=== PATIENT | male | born 1980 | race Caucasian/White ===

== ENCOUNTER 2017-10-21 11:23 | Inpatient (IN) | payer BC, OTHER ==
--- NOTE | 2017-10-21 12:26 | HP ---
"Admission ROS [facility] Allergies/Adverse Reactions: Allergies Allergy/AdvReac Type Severity Reaction Status Date / Time Fish Containing Products Allergy Severe Hives Verified 10/21/17 13:25 NKDA Allergy Uncoded 10/21/17 13:25 History of Present Illness: Vazquez Garibay, 1980 Search Date: 10/21/2017 12:23:54 PM The Drug Utilization Report below displays all of the controlled substance prescriptions, if any, that your patient has filled in the last twelve months. The information displayed on this report is compiled from pharmacy submissions to the Department, and accurately reflects the information as submitted by the pharmacies. This report was requested by: Jose Espinoza | Reference #: [id number] Others' Prescriptions Patient Name: Vazquez Garibay Date: 1980 Address: [address] [place] [address] Sex: Male Rx Written Rx Dispensed Drug Quantity Days Supply Prescriber Name 09/08/2017 09/08/2017 [facility] Name: Vazquez Garibay Date: 1980 Address: [address] [place] [address] Sex: Male Rx Written Rx Dispensed Drug Quantity Days Supply Prescriber Name 07/01/2017 07/02/2017 clonazepam 0.5 mg tablet 60 30 Lamberto Torres MD 07/01/2017 07/02/2017 chlordiazepoxide 25 mg capsule 90 30 Lamberto Torres MD - Ebola screening Have you traveled outside of the country in the last 21 days: No Have you had contact with anyone from an Ebola affected area: No Patient History - Patient Medical History Hx Anemia: No Hx Asthma: No Hx Chronic Obstructive Pulmonary Disease (COPD): No Hx Cancer: No Hx Cardiac Disorders: No Hx Congestive Heart Failure: No Hx Hypertension: No Hx Hypercholesterolemia: No Hx Pacemaker: No HX Cerebrovascular Accident: No Hx Seizures: No Hx Dementia: No Hx Diabetes: No Hx Gastrointestinal Disorders: No Hx Liver Disease: No Hx Genitourinary Disorders: No Hx Sexually Transmitted Disorders: No Hx Renal Disease (ESRD): No Hx Thyroid Disease: No Hx Human Immunodeficiency Virus (HIV): No Hx Hepatitis C: No Hx Depression: No Hx Suicide Attempt: No Hx Bipolar Disorder: No Hx Schizophrenia: No - Patient Surgical History Past Surgical History: Yes Hx Neurologic Surgery: No Hx Cataract Extraction: No Hx Cardiac Surgery: No Hx Lung Surgery: No Hx Breast Surgery: No Hx Breast Biopsy: No Hx Abdominal Surgery: No Hx Appendectomy: No Hx Cholecystectomy: No Hx Genitourinary Surgery: No Hx Section: No Hx Orthopedic Surgery: Yes (rt shoulder impingement and torn labrium- arthroscopic surgery ) Other Surgical History: corrective sx, left eye, right inguinal hernia repair Anesthesia Reaction: No - PPD History Date: 10/04/12 Results: 0 mm - Smoking Cessation Smoking history: Unknown if ever smoked Have you smoked in the past 12 months: Yes Aproximately how many cigarettes per day: 40 Cigars Per Day: 0 Hx Chewing Tobacco Use: No - Substances Abused Alcohol Route: Oral Frequency: Daily Amount used: 2 - 22 oz. beers. Age of first use: 17 Date of Last Use: 10/21/17 Alprazolam (Xanax) Route: Oral Frequency: 3-6 times per week Amount used: 2 MG Age of first use: 17 (Non-Prescribed.) Date of Last Use: 10/20/17 Vicodin Route: Oral Frequency: Daily Amount used: 5 tabs. (10 mg.) Age of first use: 27 Date of Last Use: 10/21/17 [facility] Breath Alcohol Content Breath Alcohol Content: 0"
[2017-10-21 12:32] VITALS: BMI 30.1
--- NOTE | 2017-10-21 15:35 | HP ---
Admission ROS [facility] Chief Complaint: "I need help for my drug abuse." Patient is here for Rehab for Alcohol, Xanax (non-prescribed) and Vicodin (non- prescribed). Allergies/Adverse Reactions: Allergies Allergy/AdvReac Type Severity Reaction Status Date / Time Fish Containing Products Allergy Severe Hives Verified 10/21/17 13:25 NKDA Allergy Uncoded 10/21/17 13:25 History of Present Illness: Patient is a 37 YO male here for Rehab for Alcohol, Xanax (non-prescribed) and Vicodin (non-prescribed). Patient has had several previous Detox admissions at [facility] (last: 2012). Patient had a detox admission at [facility] [place] [place] in [place]. Vazquez Garibay, 1980 Search Date: 10/21/2017 12:23:54 PM The Drug Utilization Report below displays all of the controlled substance prescriptions, if any, that your patient has filled in the last twelve months. The information displayed on this report is compiled from pharmacy submissions to the Department, and accurately reflects the information as submitted by the pharmacies. This report was requested by: Jose Espinoza | Reference #: [id number] Others' Prescriptions Patient Name: Vazquez Garibay Date: 1980 Address: [address] [place] [address] Sex: Male Rx Written Rx Dispensed Drug Quantity Days Supply Prescriber Name 09/08/2017 09/08/2017 methadone hcl 10 mg tablet 12 4 Pean, Benjamin Naik Patient Name: Vazquez Garibay Date: 1980 Address: [address] [place] [address] Sex: Male Rx Written Rx Dispensed Drug Quantity Days Supply Prescriber Name 07/01/2017 07/02/2017 clonazepam 0.5 mg tablet 60 30 Lamberto Torres MD 07/01/2017 07/02/2017 chlordiazepoxide 25 mg capsule 90 30 Lamberto Torres MD - Ebola screening Have you traveled outside of the country in the last 21 days: No Have you had contact with anyone from an Ebola affected area: No Have you been sick,other than usual withdrawal symptoms: No Do you have a fever: No - Review of Systems Constitutional: Chills, Diaphoresis, Fever, Malaise, Night Sweats, Changes in sleep EENT: reports: Nose Congestion, Sinus Pressure Respiratory: reports: No Symptoms reported Cardiac: reports: Palpitations GI: reports: Indigestion (Heartburn.) Musculoskeletal: reports: Back Pain, Joint Pain, Muscle Pain, Neck Pain, Joint Stiffness Integumentary: reports: No Symptoms Reported Neuro: reports: Tremors Endocrine: reports: No Symptoms Reported Hematology: reports: No Symptoms Reported Psychiatric: reports: Judgement Intact, Mood/Affect Appropiate, Orientated x3, Anxious Other Systems: Reviewed and Negative Patient History - Patient Medical History Hx Anemia: No Hx Asthma: No Hx Chronic Obstructive Pulmonary Disease (COPD): No Hx Cancer: No Hx Cardiac Disorders: No Hx Congestive Heart Failure: No Hx Hypertension: No Hx Hypercholesterolemia: No Hx Pacemaker: No HX Cerebrovascular Accident: No Hx Seizures: No Hx Dementia: No Hx Diabetes: No Hx Gastrointestinal Disorders: No Hx Liver Disease: No Hx Genitourinary Disorders: No Hx Sexually Transmitted Disorders: No Hx Renal Disease (ESRD): No Hx Thyroid Disease: No Hx Human Immunodeficiency Virus (HIV): No (Last Tested: 06/2017: NEGATIVE.) Hx Hepatitis C: No (Never Tested.) Hx Depression: No Hx Suicide Attempt: Yes (2016 (OD-Heroin); PATIENT DENIES CURRENT SI / HI.) Hx Bipolar Disorder: Yes (On meds.) Hx Schizophrenia: No Other Medical History: DENIES. - Patient Surgical History Past Surgical History: Yes Hx Neurologic Surgery: No Hx Cataract Extraction: No Hx Cardiac Surgery: No Hx Lung Surgery: No Hx Breast Surgery: No Hx Breast Biopsy: No Hx Abdominal Surgery: No Hx Appendectomy: No Hx Cholecystectomy: No Hx Genitourinary Surgery: No Hx Section: No Hx Orthopedic Surgery: Yes (rt shoulder impingement and torn labrium- arthroscopic surgery, 1996.) Other Surgical History: corrective sx, left eye (@1983), right inguinal hernia repair, 1996. Anesthesia Reaction: No - PPD History Previous Implant?: Yes Documented Results: Negative w/o proof Implanted On Prior [facility] Admission?: Yes Date: 10/04/12 Results: 0 mm PPD to be Administered?: Yes - Reproductive History Patient is a Female of Child Bearing Age (11 -55 yrs old): No (PATIENT IS MALE.) - Smoking Cessation Smoking history: Unknown if ever smoked Have you smoked in the past 12 months: Yes Aproximately how many cigarettes per day: 20 Cigars Per Day: 0 Hx Chewing Tobacco Use: No Initiated information on smoking cessation: Yes 'Breaking Loose' booklet given: 10/21/17 (GIVEN TO PATIENT.) - Substance & Tx. History Hx Alcohol Use: Yes Hx Substance Use: Yes Substance Use Type: Alcohol, Opiates, Tranquilizers Hx Substance Use Treatment: Yes (Previous Detox admissions (Last: 2015).) - Substances Abused Alcohol Route: Oral Frequency: Daily Amount used: 2 - 22 oz. beers. Age of first use: 17 Date of Last Use: 10/21/17 Alprazolam (Xanax) Route: Oral Frequency: 3-6 times per week Amount used: 2 MG Age of first use: 17 (Non-Prescribed.) Date of Last Use: 10/20/17 Vicodin Route: Oral Frequency: Daily Amount used: 5 tabs. (10 mg.) Age of first use: 27 Date of Last Use: 10/21/17 Family Disease History - Family Disease History Family History: Denies Admission Physical Exam S - Vital Signs Vital Signs: Vital Signs - 24 hr 10/21/17 12:29 Temperature 96 F L Pulse Rate 85 Respiratory 20 Rate Blood Pressure 145/81 - Physical General Appearance: Yes: No Apparent Distress, Nourished, Appropriately Dressed , Tremorous, Anxious HEENTM: Yes: Hearing grossly Normal, Normocephalic, Normal Voice, BREANNE, Pharynx Normal Respiratory: Yes: Chest Non-Tender, Lungs Clear, No Respiratory Distress, No Accessory Muscle Use Neck: Yes: No masses,lesions,Nodules, Supple, Trachea in good position Breast: Yes: Breast Exam Deferred Cardiology: Yes: Regular Rhythm, Regular Rate, S1, S2 Abdominal: Yes: Normal Bowel Sounds, Non Tender, Flat, Soft Genitourinary: Yes: Within Normal Limits Back: Yes: Decreased Range of Motion Musculoskeletal: Yes: Gait Steady, Back pain, Joint Stiffness, Muscle Pain Extremities: Yes: Normal Capillary Refill, Normal Range of Motion, Non-Tender, Tremors Neurological: Yes: Fully Oriented, Alert, Normal Mood/Affect, Normal Response Integumentary: Yes: Normal Color, Dry, Warm Lymphatic: Yes: Within Normal Limits - Diagnostic (1) Uncomplicated alcohol dependence Current Visit: Yes Status: Chronic (2) Uncomplicated opioid dependence Current Visit: Yes Status: Chronic (3) Sedative, hypnotic or anxiolytic dependence, uncomplicated Current Visit: Yes Status: Chronic (4) Nicotine dependence Current Visit: Yes Status: Chronic Qualifiers: Nicotine product type: cigarettes Substance use status: uncomplicated Qualified Code(s): F17.210 - Nicotine dependence, cigarettes, uncomplicated (5) Anxiety Current Visit: Yes Status: Chronic (6) Bipolar disorder Current Visit: Yes Status: Chronic Qualifiers: Active/Remission status: remission status unspecified Qualified Code(s): F31.9 - Bipolar disorder, unspecified (7) History of neck injury Current Visit: Yes Status: Acute (8) History of back injury Current Visit: Yes Status: Acute Cleared for Admission S - Detox or Rehab Claeared for Rehab Admission: Yes [facility] Breath Alcohol Content Breath Alcohol Content: 0.018 Urine Drug Screen - Results Drug Screen Negative: No Urine Drug Screen Results: TCA-Tricyclic Antidepress Inpatient Rehab Admission - Initial Determination Are CD services needed?: Yes Free of communicable disease: Yes Not in need of hospitalization: Yes - Rehab Admission Criteria Previous failed treatment: Yes Comorbidities: Yes Patient is meeting Inpatient Rehab admission criteria:: Yes
[2017-10-21] MEDS ORDERED: MAGNESIUM CITRATE 300 ML BOTTLE PO PRN (15:57)
[2017-10-21] MEDS ORDERED: guaiFENesin/D-METHORPHAN HB 10 ML UNIT-DOSE CUPS PO PRN (15:57)
[2017-10-21] MEDS ORDERED: MENTHOL/PHENOL 1 EACH UD MM PRN (15:57)
[2017-10-21] MEDS ORDERED: LOPERAMIDE HCL 2 MG CAPSULE PO PRN (15:57)
[2017-10-21] MEDS ORDERED: P-EPHED 60MG/TRIPROLIDI 2.5MG TABLET PO PRN (15:57)
[2017-10-21] MEDS ORDERED: MAGNESIUM HYDROX 2400MG/30ML ORAL SUSPENSION 30 ML CUP PO PRN (15:57)
[2017-10-21] MEDS ORDERED: MAG HYDROX/AL HYDROX/SIMETH 30 ML UNIT-DOSE CUP PO PRN (15:57)
[2017-10-21] MEDS ORDERED: TUBERCULIN PPD 5 TU/0.1ML VIAL ID ONE (17:30)
[2017-10-21] MEDS: RANITIDINE HCL 150 MG TABLET (FP) PO SCH (17:35)
[2017-10-21] MEDS: NICOTINE 21 MG/24 HOURS TOPICAL PATCH TD SCH (17:37)
[2017-10-21] MEDS: CYCLOBENZAPRINE HCL 10 MG TABLET (FP) PO PRN (17:52)
[2017-10-21] MEDS: NICOTINE POLACRILEX 2 MG GUM BC PRN ×2 (19:05→21:16)
[2017-10-21] MEDS: THIAMINE HCL 100 MG TABLET (FP) PO SCH (21:13)
[2017-10-21] MEDS: QUEtiapine FUMARATE 100 MG TABLET (FP) PO SCH (21:14)
[2017-10-21] MEDS: GABAPENTIN 300 MG CAPSULE (FP) PO SCH (21:14)
[2017-10-21] MEDS: DIVALPROEX SODIUM 500 MG TABLET E.C. PO SCH (21:14)
[2017-10-22 01:32] LABS: URINE APPEARANCE CLEAR; URINE BILIRUBIN NEGATIVE (<2.0 mg/dL); URINE COLOR LTYELLOW; URINE GLUCOSE (UA) NEGATIVE (NEGATIVE); URINE KETONE NEGATIVE (NEGATIVE); URINE LEUK ESTERASE NEGATIVE (NEGATIVE); URINE NITRITE NEGATIVE (NEGATIVE); URINE PROTEIN NEGATIVE (NEGATIVE); URINE UROBILINOGEN NEGATIVE mg/dL (0.2-1.0)
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
[2017-10-22] MEDS: GABAPENTIN 300 MG CAPSULE (FP) PO SCH ×3 (06:32→22:10)
[2017-10-22] MEDS ORDERED: DIVALPROEX SODIUM 500 MG TABLET E.C. PO SCH (10:00)
[2017-10-22] MEDS: PRENATAL VITAMINS W/ FOLIC ACID TABLET (FP) PO SCH (10:03)
[2017-10-22] MEDS: NICOTINE 21 MG/24 HOURS TOPICAL PATCH TD SCH (10:03)
[2017-10-22] MEDS: RANITIDINE HCL 150 MG TABLET (FP) PO SCH (10:03)
[2017-10-22] MEDS: CYCLOBENZAPRINE HCL 10 MG TABLET (FP) PO PRN ×2 (10:06→20:22)
[2017-10-22] MEDS: NICOTINE POLACRILEX 2 MG GUM BC PRN ×2 (10:07→18:01)
--- NOTE | 2017-10-22 10:07 | EKG ---
Test Reason : Blood Pressure : / mmHG Vent. Rate : 079 BPM Atrial Rate : 079 BPM P-R Int : 164 ms QRS Dur : 098 ms QT Int : 372 ms P-R-T Axes : 065 059 045 degrees QTc Int : 426 ms NORMAL SINUS RHYTHM NONSPECIFIC INTRAVENTRICULAR CONDUCTION DEFECT WHEN COMPARED WITH ECG OF 19-JUN-2007 16:43, NO SIGNIFICANT CHANGE WAS FOUND Confirmed by FRANCE POSADA MD ([id number]) on 10/22/2017 10:07:17 AM Referred By: Confirmed By:FRANCE POSADA MD
[2017-10-22] MEDS: IBUPROFEN 400 MG TABLET (FP) PO PRN ×2 (13:19→20:22)
--- NOTE | 2017-10-22 14:27 | PN ---
[facility] Progress Note Note: Patient c/o of yañez itchy feet bilateral and requested evaluation to be on Suboxone. Reports feeling anxious and nauseous. Reports opiate dependence, last utox negative for opiates. Last Vital Signs Temp Pulse Resp BP Pulse Ox 97.9 F 80 18 104/65 10/22/17 07:27 10/22/17 07:27 10/22/17 07:27 10/22/17 07:27 Laboratory Last Values WBC Cancelled 10/21/17 08:30 Corrected WBC (auto) Cancelled 10/21/17 08:30 RBC Cancelled 10/21/17 08:30 Hgb Cancelled 10/21/17 08:30 Hct Cancelled 10/21/17 08:30 MCV Cancelled 10/21/17 08:30 MCH Cancelled 10/21/17 08:30 MCHC Cancelled 10/21/17 08:30 RDW Cancelled 10/21/17 08:30 Plt Count Cancelled 10/21/17 08:30 MPV Cancelled 10/21/17 08:30 Manual Slide Review Cancelled 10/21/17 08:30 Platelet Comment Cancelled 10/21/17 08:30 Urine Color Ltyellow 10/22/17 00:09 Urine Appearance Clear 10/22/17 00:09 Urine pH 6.0 (5.0-8.0) 10/22/17 00:09 Ur Specific [place] 1.014 (1.001-1.035) 10/22/17 00:09 Urine Protein Negative (NEGATIVE) 10/22/17 00:09 Urine Glucose (UA) Negative (NEGATIVE) 10/22/17 00:09 Urine Ketones Negative (NEGATIVE) 10/22/17 00:09 Urine Blood Negative (NEGATIVE) 10/22/17 00:09 Urine Nitrite Negative (NEGATIVE) 10/22/17 00:09 Urine Bilirubin Negative (<2.0 mg/dL) 10/22/17 00:09 Urine Urobilinogen Negative mg/dL (0.2-1.0) 10/22/17 00:09 Ur Leukocyte Esterase Negative (NEGATIVE) 10/22/17 00:09 Assessment: Patient AO x 3 self directing, no apparent distress Ambulating in the unit + dry yellowing and scaling of skin on both feet present Plan: Labs pending Repeat Utox clotrimazole 1% cream BID Increase fluids continue to monitor
[2017-10-22 15:36] LABS: ALBUMIN 3.7 g/dl (3.4-5.0); ALK PHOS 50 U/L (45-117); ANION GAP 6 (8-16); BILIRUBIN,TOTAL 0.3 mg/dL (0.2-1.0); BLOOD UREA NITROGEN 15 mg/dL (7-18); CALCIUM 8.7 mg/dL (8.5-10.1); CHLORIDE 106 mmol/L (98-107); CO2 29 mmol/L (21-32); GLUCOSE,RANDOM 125 mg/dL (74-106); POTASSIUM 3.9 mmol/L (3.5-5.1); SGOT/AST 9 U/L (15-37); SGPT/ALT 33 U/L (12-78); SODIUM 141 mmol/L (136-145); TOT PROT 6.4 g/dl (6.4-8.2)
[2017-10-22 20:08] LABS: HEMOGLOBIN 14.5 GM/dL (11.7-16.9); MCH 31.8 pg (25.7-33.7); MCHC 33.6 g/dl (32.0-35.9); MEAN CELL VOLUME 94.5 fl (80-96); MEAN PLT VOLUME 8.4 fl (7.5-11.1); PLATELET COUNT 183 K/MM3 (134-434); RBC 4.55 M/mm3 (4.00-5.60); RDW 14.1 % (11.9-15.9); WHITE BLOOD COUNT 5.5 K/mm3 (4.0-10.0)
[2017-10-22] MEDS: DIVALPROEX SODIUM 500 MG TABLET E.C. PO SCH (22:09)
[2017-10-22] MEDS: QUEtiapine FUMARATE 100 MG TABLET (FP) PO SCH (22:10)
[2017-10-22] MEDS: THIAMINE HCL 100 MG TABLET (FP) PO SCH (22:11)
[2017-10-22] MEDS: CLOTRIMAZOLE 1% CREAM 15 GM TUBE TP SCH (22:11)
[2017-10-23] MEDS: GABAPENTIN 300 MG CAPSULE (FP) PO SCH ×3 (06:57→21:39)
[2017-10-23] MEDS: PRENATAL VITAMINS W/ FOLIC ACID TABLET (FP) PO SCH (10:12)
[2017-10-23] MEDS: RANITIDINE HCL 150 MG TABLET (FP) PO SCH (10:12)
[2017-10-23] MEDS: NICOTINE 21 MG/24 HOURS TOPICAL PATCH TD SCH (10:13)
[2017-10-23] MEDS: CLOTRIMAZOLE 1% CREAM 15 GM TUBE TP SCH ×2 (10:13→21:40)
[2017-10-23] MEDS: CYCLOBENZAPRINE HCL 10 MG TABLET (FP) PO PRN ×3 (10:14→21:40)
[2017-10-23] MEDS: NICOTINE POLACRILEX 2 MG GUM BC PRN ×4 (10:17→21:41)
[2017-10-23] MEDS: IBUPROFEN 400 MG TABLET (FP) PO PRN ×2 (12:41→19:09)
[2017-10-23] MEDS: QUEtiapine FUMARATE 100 MG TABLET (FP) PO SCH (21:39)
[2017-10-23] MEDS: DIVALPROEX SODIUM 500 MG TABLET E.C. PO SCH (21:39)
[2017-10-23] MEDS: THIAMINE HCL 100 MG TABLET (FP) PO SCH (21:39)
[2017-10-23] MEDS: SUVOREXANT 10 MG TABLET PO PRN (23:11)
[2017-10-24] MEDS: GABAPENTIN 300 MG CAPSULE (FP) PO SCH ×3 (06:46→21:40)
[2017-10-24 08:06] LABS: COCAINE QUALITATIVE URINE Negative ng/mL (Cutoff=300); MARIJUANA QL URINE CANNABINOID Negative ng/mL (Cutoff=50); METHADONE,QUALITATIVE URINE Negative ng/mL (Cutoff=300); OPIATES QL URINE Positive ng/mL (Cutoff=300); PHENCYCLIDINE,QUAL URINE Negative ng/mL (Cutoff=25); PROPOXYPHENE QL URINE Negative ng/mL (Cutoff=300); URINE AMPHETAMINES Negative ng/mL (Cutoff=1000)
[2017-10-24] MEDS: NICOTINE 21 MG/24 HOURS TOPICAL PATCH TD SCH (10:15)
[2017-10-24] MEDS: RANITIDINE HCL 150 MG TABLET (FP) PO SCH (10:16)
[2017-10-24] MEDS: PRENATAL VITAMINS W/ FOLIC ACID TABLET (FP) PO SCH (10:16)
[2017-10-24] MEDS: CYCLOBENZAPRINE HCL 10 MG TABLET (FP) PO PRN ×2 (10:16→21:41)
[2017-10-24] MEDS: CLOTRIMAZOLE 1% CREAM 15 GM TUBE TP SCH ×2 (10:17→21:42)
[2017-10-24] MEDS: NICOTINE POLACRILEX 2 MG GUM BC PRN ×2 (13:43→21:42)
[2017-10-24] MEDS: QUEtiapine FUMARATE 100 MG TABLET (FP) PO SCH (21:40)
[2017-10-24] MEDS: DIVALPROEX SODIUM 500 MG TABLET E.C. PO SCH (21:40)
[2017-10-24] MEDS: THIAMINE HCL 100 MG TABLET (FP) PO SCH (21:41)
[2017-10-24] MEDS: IBUPROFEN 400 MG TABLET (FP) PO PRN (21:41)
[2017-10-24] MEDS: SUVOREXANT 10 MG TABLET PO PRN (23:16)
[2017-10-25] MEDS: GABAPENTIN 300 MG CAPSULE (FP) PO SCH ×3 (06:20→21:36)
[2017-10-25] MEDS ORDERED: SUVOREXANT 10 MG TABLET PO PRN (07:17)
[2017-10-25] MEDS: CLOTRIMAZOLE 1% CREAM 15 GM TUBE TP SCH ×2 (09:16→21:37)
[2017-10-25] MEDS: NICOTINE 21 MG/24 HOURS TOPICAL PATCH TD SCH (10:29)
[2017-10-25] MEDS: CYCLOBENZAPRINE HCL 10 MG TABLET (FP) PO PRN ×3 (10:29→21:36)
[2017-10-25] MEDS: IBUPROFEN 400 MG TABLET (FP) PO PRN ×2 (10:29→23:48)
[2017-10-25] MEDS: RANITIDINE HCL 150 MG TABLET (FP) PO SCH (10:29)
[2017-10-25] MEDS: PRENATAL VITAMINS W/ FOLIC ACID TABLET (FP) PO SCH (10:30)
[2017-10-25] MEDS: NICOTINE POLACRILEX 2 MG GUM BC PRN ×4 (13:17→21:38)
--- NOTE | 2017-10-25 13:28 | PN ---
[facility] Progress Note Note: Patient presents with c/o sweating, anxiety,difficulty to sit still, irritability and diarrhea. Reports abusing BZO and Vicodin (non-prescribed). Initial Urine detox negative. Repeat 10/22/17 and results show +opiods. Laboratory Last Values WBC 5.5 K/mm3 (4.0-10.0) D 10/21/17 08:30 Corrected WBC (auto) Water Softener Servicer 10/21/17 08:30 RBC 4.55 M/mm3 (4.00-5.60) 10/21/17 08:30 Hgb 14.5 GM/dL (11.7-16.9) 10/21/17 08:30 Hct 43.0 % (35.4-49) 10/21/17 08:30 MCV 94.5 fl (80-96) 10/21/17 08:30 MCH 31.8 pg (25.7-33.7) 10/21/17 08:30 MCHC 33.6 g/dl (32.0-35.9) 10/21/17 08:30 RDW 14.1 % (11.9-15.9) 10/21/17 08:30 Plt Count 183 K/MM3 (134-434) 10/21/17 08:30 MPV 8.4 fl (7.5-11.1) 10/21/17 08:30 Manual Slide Review Water Softener Servicer 10/21/17 08:30 Platelet Comment Water Softener Servicer 10/21/17 08:30 Sodium 141 mmol/L (136-145) 10/21/17 08:30 Potassium 3.9 mmol/L (3.5-5.1) 10/21/17 08:30 Chloride 106 mmol/L (98-107) 10/21/17 08:30 Carbon Dioxide 29 mmol/L (21-32) 10/21/17 08:30 Anion Gap 6 (8-16) L 10/21/17 08:30 BUN 15 mg/dL (7-18) D 10/21/17 08:30 Creatinine 1.0 mg/dL (0.7-1.3) D 10/21/17 08:30 Creat Clearance w eGFR > 60 (>60) 10/21/17 08:30 Random Glucose 125 mg/dL (74-106) H D 10/21/17 08:30 Calcium 8.7 mg/dL (8.5-10.1) 10/21/17 08:30 Total Bilirubin 0.3 mg/dL (0.2-1.0) D 10/21/17 08:30 AST 9 U/L (15-37) L 10/21/17 08:30 ALT 33 U/L (12-78) D 10/21/17 08:30 Alkaline Phosphatase 50 U/L (45-117) 10/21/17 08:30 Total Protein 6.4 g/dl (6.4-8.2) D 10/21/17 08:30 Albumin 3.7 g/dl (3.4-5.0) D 10/21/17 08:30 Urine Color Ltyellow 10/22/17 00:09 Urine Appearance Clear 10/22/17 00:09 Urine pH 6.0 (5.0-8.0) 10/22/17 00:09 Ur Specific [place] 1.014 (1.001-1.035) 10/22/17 00:09 Urine Protein Negative (NEGATIVE) 10/22/17 00:09 Urine Glucose (UA) Negative (NEGATIVE) 10/22/17 00:09 Urine Ketones Negative (NEGATIVE) 10/22/17 00:09 Urine Blood Negative (NEGATIVE) 10/22/17 00:09 Urine Nitrite Negative (NEGATIVE) 10/22/17 00:09 Urine Bilirubin Negative (<2.0 mg/dL) 10/22/17 00:09 Urine Urobilinogen Negative mg/dL (0.2-1.0) 10/22/17 00:09 Ur Leukocyte Esterase Negative (NEGATIVE) 10/22/17 00:09 Ur Opiates Confirm Positive ng/ml (Fsvtjd=824) H 10/22/17 Unknown Ur Methadone, Qual Negative ng/mL (Zakrcl=434) 10/22/17 Unknown U Propoxyphene Interp Negative ng/mL (Vtkjpv=348) 10/22/17 Unknown Urine Barbiturates Negative ng/ml (Cfxfgz=984) 10/22/17 Unknown Valproic Acid 31.801 ug/ml (50-100) L 10/23/17 08:30 Urine PCP Confirm Negative NG/ML (Cutoff=25) 10/22/17 Unknown Urine Methamphetamines Negative ng/ml (Jepkzi=2787) 10/22/17 Unknown U Benzodiazepines Scrn Negative ng/ml (Xjsadi=256) 10/22/17 Unknown Urine Cocaine Confirm Negative ng/ml (Zopodi=189) 10/22/17 Unknown Urine Cannabinoids Negative ng/ml (Cutoff=50) 10/22/17 Unknown Drug Screen Comment (.) 10/22/17 Unknown RPR Titer Nonreactive (NONREACTIVE) 10/21/17 08:30 HIV 1&2 Antibody Screen Negative 10/22/17 08:30 HIV P24 Antigen Negative 10/22/17 08:30 Vital Signs Temperature 97.4 F L 10/25/17 07:19 Pulse Rate 89 10/25/17 07:19 Respiratory Rate 18 10/25/17 07:19 Blood Pressure 100/76 10/25/17 07:19 O2 Sat by Pulse Oximetry (%) Obj: Alert and oriented x 3. Anxious Car: S1S2. HR 88 Resp:no respiratory distress Ext: no edema, full ROM A/P: Withdrawal symptoms Urine detox show +opiods and since patient having withdrawal symptoms, will order suboxone 2mg SL today then daily starting tomorrow. Continue previously ordered medications and monitor clinically. Maintain oral hydration.
[2017-10-25] MEDS ORDERED: BUPRENORPHINE/NALOXONE 2 MG/0.5 MG FILM PACKET SL ONE (14:15)
[2017-10-25] MEDS: SUVOREXANT 10 MG TABLET PO PRN (21:36)
[2017-10-25] MEDS: QUEtiapine FUMARATE 100 MG TABLET (FP) PO SCH (21:36)
[2017-10-25] MEDS: DIVALPROEX SODIUM 500 MG TABLET E.C. PO SCH (21:36)
[2017-10-25] MEDS: THIAMINE HCL 100 MG TABLET (FP) PO SCH (21:38)
[2017-10-26] MEDS: GABAPENTIN 300 MG CAPSULE (FP) PO SCH ×3 (06:22→21:48)
[2017-10-26] MEDS: IBUPROFEN 400 MG TABLET (FP) PO PRN ×2 (07:08→14:31)
[2017-10-26] MEDS: CYCLOBENZAPRINE HCL 10 MG TABLET (FP) PO PRN ×2 (07:09→17:46)
[2017-10-26] MEDS: NICOTINE POLACRILEX 2 MG GUM BC PRN ×4 (07:09→21:49)
[2017-10-26] MEDS: PRENATAL VITAMINS W/ FOLIC ACID TABLET (FP) PO SCH (09:30)
[2017-10-26] MEDS: NICOTINE 21 MG/24 HOURS TOPICAL PATCH TD SCH (09:30)
[2017-10-26] MEDS: CLOTRIMAZOLE 1% CREAM 15 GM TUBE TP SCH ×2 (09:30→21:49)
[2017-10-26] MEDS: RANITIDINE HCL 150 MG TABLET (FP) PO SCH (09:30)
[2017-10-26] MEDS: BUPRENORPHINE/NALOXONE 2 MG/0.5 MG FILM PACKET SL SCH (09:30)
--- NOTE | 2017-10-26 14:35 | PN ---
[facility] Progress Note Note: Patient c/o of pain on the right lower molar Vital Signs Temperature 97.8 F 10/26/17 07:10 Pulse Rate 84 10/26/17 07:10 Respiratory Rate 18 10/26/17 07:10 Blood Pressure 106/64 10/26/17 07:10 O2 Sat by Pulse Oximetry (%) Laboratory Last Values WBC 5.5 K/mm3 (4.0-10.0) D 10/21/17 08:30 Corrected WBC (auto) Console Assembler 10/21/17 08:30 RBC 4.55 M/mm3 (4.00-5.60) 10/21/17 08:30 Hgb 14.5 GM/dL (11.7-16.9) 10/21/17 08:30 Hct 43.0 % (35.4-49) 10/21/17 08:30 MCV 94.5 fl (80-96) 10/21/17 08:30 MCH 31.8 pg (25.7-33.7) 10/21/17 08:30 MCHC 33.6 g/dl (32.0-35.9) 10/21/17 08:30 RDW 14.1 % (11.9-15.9) 10/21/17 08:30 Plt Count 183 K/MM3 (134-434) 10/21/17 08:30 MPV 8.4 fl (7.5-11.1) 10/21/17 08:30 Manual Slide Review Console Assembler 10/21/17 08:30 Platelet Comment Console Assembler 10/21/17 08:30 Sodium 141 mmol/L (136-145) 10/21/17 08:30 Potassium 3.9 mmol/L (3.5-5.1) 10/21/17 08:30 Chloride 106 mmol/L (98-107) 10/21/17 08:30 Carbon Dioxide 29 mmol/L (21-32) 10/21/17 08:30 Anion Gap 6 (8-16) L 10/21/17 08:30 BUN 15 mg/dL (7-18) D 10/21/17 08:30 Creatinine 1.0 mg/dL (0.7-1.3) D 10/21/17 08:30 Creat Clearance w eGFR > 60 (>60) 10/21/17 08:30 Random Glucose 125 mg/dL (74-106) H D 10/21/17 08:30 Calcium 8.7 mg/dL (8.5-10.1) 10/21/17 08:30 Total Bilirubin 0.3 mg/dL (0.2-1.0) D 10/21/17 08:30 AST 9 U/L (15-37) L 10/21/17 08:30 ALT 33 U/L (12-78) D 10/21/17 08:30 Alkaline Phosphatase 50 U/L (45-117) 10/21/17 08:30 Total Protein 6.4 g/dl (6.4-8.2) D 10/21/17 08:30 Albumin 3.7 g/dl (3.4-5.0) D 10/21/17 08:30 Urine Color Ltyellow 10/22/17 00:09 Urine Appearance Clear 10/22/17 00:09 Urine pH 6.0 (5.0-8.0) 10/22/17 00:09 Ur Specific [place] 1.014 (1.001-1.035) 10/22/17 00:09 Urine Protein Negative (NEGATIVE) 10/22/17 00:09 Urine Glucose (UA) Negative (NEGATIVE) 10/22/17 00:09 Urine Ketones Negative (NEGATIVE) 10/22/17 00:09 Urine Blood Negative (NEGATIVE) 10/22/17 00:09 Urine Nitrite Negative (NEGATIVE) 10/22/17 00:09 Urine Bilirubin Negative (<2.0 mg/dL) 10/22/17 00:09 Urine Urobilinogen Negative mg/dL (0.2-1.0) 10/22/17 00:09 Ur Leukocyte Esterase Negative (NEGATIVE) 10/22/17 00:09 Ur Opiates Confirm Positive ng/ml (Azleob=372) H 10/22/17 Unknown Ur Methadone, Qual Negative ng/mL (Ydutxd=712) 10/22/17 Unknown U Propoxyphene Interp Negative ng/mL (Inurxz=191) 10/22/17 Unknown Urine Barbiturates Negative ng/ml (Yyhstl=253) 10/22/17 Unknown Valproic Acid 31.801 ug/ml (50-100) L 10/23/17 08:30 Urine PCP Confirm Negative NG/ML (Cutoff=25) 10/22/17 Unknown Urine Methamphetamines Negative ng/ml (Mrhqjh=7072) 10/22/17 Unknown U Benzodiazepines Scrn Negative ng/ml (Ylbwwh=072) 10/22/17 Unknown Urine Cocaine Confirm Negative ng/ml (Kdorpc=837) 10/22/17 Unknown Urine Cannabinoids Negative ng/ml (Cutoff=50) 10/22/17 Unknown Drug Screen Comment (.) 10/22/17 Unknown RPR Titer Nonreactive (NONREACTIVE) 10/21/17 08:30 HIV 1&2 Antibody Screen Negative 10/22/17 08:30 HIV P24 Antigen Negative 10/22/17 08:30 A/P Patient AO x 3 in no apparent distress poor dentition with multiple cavities, no signs of infection, no tenderness NO adventitious breath sounds Anbesol PRN Ibuprofen 600 mg q8h PRN Increase fluids Patient to follow up with dentist upon discharge Continue to monitor
[2017-10-26] MEDS: QUEtiapine FUMARATE 100 MG TABLET (FP) PO SCH (21:48)
[2017-10-26] MEDS: DIVALPROEX SODIUM 500 MG TABLET E.C. PO SCH (21:48)
[2017-10-26] MEDS: THIAMINE HCL 100 MG TABLET (FP) PO SCH (21:48)
[2017-10-26] MEDS: BENZOCAINE 20 % GEL 9 GM TUBE MM PRN (21:49)
[2017-10-26] MEDS: IBUPROFEN 600 MG TABLET (FP) PO PRN (23:36)
[2017-10-27] MEDS: SUVOREXANT 10 MG TABLET PO PRN ×2 (00:37→21:48)
[2017-10-27] MEDS: BENZOCAINE 20 % GEL 9 GM TUBE MM PRN ×4 (00:37→21:47)
[2017-10-27] MEDS: ACETAMINOPHEN 325 MG TABLET (FP) PO PRN ×2 (01:45→15:01)
[2017-10-27] MEDS: CYCLOBENZAPRINE HCL 10 MG TABLET (FP) PO PRN ×4 (01:45→21:48)
[2017-10-27] MEDS: GABAPENTIN 300 MG CAPSULE (FP) PO SCH ×3 (06:35→21:48)
[2017-10-27] MEDS: RANITIDINE HCL 150 MG TABLET (FP) PO SCH (10:18)
[2017-10-27] MEDS: PRENATAL VITAMINS W/ FOLIC ACID TABLET (FP) PO SCH (10:18)
[2017-10-27] MEDS: IBUPROFEN 600 MG TABLET (FP) PO PRN (10:19)
[2017-10-27] MEDS: BUPRENORPHINE/NALOXONE 2 MG/0.5 MG FILM PACKET SL SCH (10:19)
[2017-10-27] MEDS: NICOTINE 21 MG/24 HOURS TOPICAL PATCH TD SCH (10:19)
[2017-10-27] MEDS: CLOTRIMAZOLE 1% CREAM 15 GM TUBE TP SCH ×2 (11:19→21:47)
[2017-10-27] MEDS: NICOTINE POLACRILEX 2 MG GUM BC PRN ×4 (11:19→21:50)
[2017-10-27] MEDS ORDERED: BUPRENORPHINE/NALOXONE 2 MG/0.5 MG FILM PACKET SL ONE (16:00)
--- NOTE | 2017-10-27 16:19 | PN ---
[facility] Progress Note Note: Pt complains of toothache, level 9/10. Abusol and Motrin does not help with pain. Pt also reports having sweating, irritability and diarrhea. Laboratory Tests 10/21/17 10/21/17 10/21/17 08:30 08:30 08:30 WBC 5.5 D Corrected WBC (auto) Dispatch Lead RBC 4.55 Hgb 14.5 Hct 43.0 MCV 94.5 MCH 31.8 MCHC 33.6 RDW 14.1 Plt Count 183 MPV 8.4 Manual Slide Review Dispatch Lead Platelet Comment Dispatch Lead Sodium 141 Potassium 3.9 Chloride 106 Carbon Dioxide 29 Anion Gap 6 L BUN 15 D Creatinine 1.0 D Creat Clearance w eGFR > 60 Random Glucose 125 H D Calcium 8.7 Total Bilirubin 0.3 D AST 9 L ALT 33 D Alkaline Phosphatase 50 Total Protein 6.4 D Albumin 3.7 D Urine Color Urine Appearance Urine pH Ur Specific [place] Urine Protein Urine Glucose (UA) Urine Ketones Urine Blood Urine Nitrite Urine Bilirubin Urine Urobilinogen Ur Leukocyte Esterase Ur Opiates Confirm Ur Methadone, Qual U Propoxyphene Interp Urine Barbiturates Valproic Acid Urine PCP Confirm Urine Methamphetamines U Benzodiazepines Scrn Urine Cocaine Confirm Urine Cannabinoids Drug Screen Comment RPR Titer Nonreactive HIV 1&2 Antibody Screen HIV P24 Antigen 10/22/17 10/22/17 10/22/17 00:09 08:30 Unknown WBC Corrected WBC (auto) RBC Hgb Hct MCV MCH MCHC RDW Plt Count MPV Manual Slide Review Platelet Comment Sodium Potassium Chloride Carbon Dioxide Anion Gap BUN Creatinine Creat Clearance w eGFR Random Glucose Calcium Total Bilirubin AST ALT Alkaline Phosphatase Total Protein Albumin Urine Color Ltyellow Urine Appearance Clear Urine pH 6.0 Ur Specific [place] 1.014 Urine Protein Negative Urine Glucose (UA) Negative Urine Ketones Negative Urine Blood Negative Urine Nitrite Negative Urine Bilirubin Negative Urine Urobilinogen Negative Ur Leukocyte Esterase Negative Ur Opiates Confirm Positive H Ur Methadone, Qual Negative U Propoxyphene Interp Negative Urine Barbiturates Negative Valproic Acid Urine PCP Confirm Negative Urine Methamphetamines Negative U Benzodiazepines Scrn Negative Urine Cocaine Confirm Negative Urine Cannabinoids Negative Drug Screen Comment RPR Titer HIV 1&2 Antibody Screen Negative HIV P24 Antigen Negative 10/23/17 08:30 WBC Corrected WBC (auto) RBC Hgb Hct MCV MCH MCHC RDW Plt Count MPV Manual Slide Review Platelet Comment Sodium Potassium Chloride Carbon Dioxide Anion Gap BUN Creatinine Creat Clearance w eGFR Random Glucose Calcium Total Bilirubin AST ALT Alkaline Phosphatase Total Protein Albumin Urine Color Urine Appearance Urine pH Ur Specific [place] Urine Protein Urine Glucose (UA) Urine Ketones Urine Blood Urine Nitrite Urine Bilirubin Urine Urobilinogen Ur Leukocyte Esterase Ur Opiates Confirm Ur Methadone, Qual U Propoxyphene Interp Urine Barbiturates Valproic Acid 31.801 L Urine PCP Confirm Urine Methamphetamines U Benzodiazepines Scrn Urine Cocaine Confirm Urine Cannabinoids Drug Screen Comment RPR Titer HIV 1&2 Antibody Screen HIV P24 Antigen Vital Signs Temperature 97.2 F L 10/27/17 07:10 Pulse Rate 79 10/27/17 07:10 Respiratory Rate 18 10/27/17 07:10 Blood Pressure 108/68 10/27/17 07:10 O2 Sat by Pulse Oximetry (%) Obj: alert and oriented x 3. Irritable. Oral cavity has poor dentition with inflamed right lower molar. Mild inflammation of surrounding gums. GI: soft, BS+, NT Ext: no edema A/P: withdrawal symptoms tooth infection Will start amoxicillin 500mg tid x 7 days increase motrin to 800mg tid increase suboxone to 4mg daily in am and give 2mg po stat continue to monitor clinically
[2017-10-27] MEDS: IBUPROFEN 400 MG TABLET (FP) PO PRN (20:52)
[2017-10-27] MEDS ORDERED: PT OWN MED DRAWER 7, Y5N ONE (21:47)
[2017-10-27] MEDS: QUEtiapine FUMARATE 100 MG TABLET (FP) PO SCH (21:48)
[2017-10-27] MEDS: AMOXICILLIN 500 MG CAPSULE (FP) PO SCH (21:48)
[2017-10-27] MEDS: THIAMINE HCL 100 MG TABLET (FP) PO SCH (21:49)
[2017-10-27] MEDS: DIVALPROEX SODIUM 500 MG TABLET E.C. PO SCH (21:50)
[2017-10-28] MEDS: GABAPENTIN 300 MG CAPSULE (FP) PO SCH ×3 (06:20→21:23)
[2017-10-28] MEDS: CYCLOBENZAPRINE HCL 10 MG TABLET (FP) PO PRN ×2 (06:20→16:20)
[2017-10-28] MEDS: AMOXICILLIN 500 MG CAPSULE (FP) PO SCH ×3 (06:21→21:23)
[2017-10-28] MEDS: NICOTINE 21 MG/24 HOURS TOPICAL PATCH TD SCH (10:21)
[2017-10-28] MEDS: RANITIDINE HCL 150 MG TABLET (FP) PO SCH (10:21)
[2017-10-28] MEDS: BUPRENORPHINE/NALOXONE 2 MG/0.5 MG FILM PACKET SL SCH (10:21)
[2017-10-28] MEDS: ACETAMINOPHEN 325 MG TABLET (FP) PO PRN (10:23)
[2017-10-28] MEDS: PRENATAL VITAMINS W/ FOLIC ACID TABLET (FP) PO SCH (10:24)
[2017-10-28] MEDS: CLOTRIMAZOLE 1% CREAM 15 GM TUBE TP SCH ×2 (10:24→21:25)
[2017-10-28] MEDS: NICOTINE POLACRILEX 2 MG GUM BC PRN ×3 (10:27→16:07)
[2017-10-28] MEDS: DIVALPROEX SODIUM 500 MG TABLET E.C. PO SCH (21:23)
[2017-10-28] MEDS: QUEtiapine FUMARATE 100 MG TABLET (FP) PO SCH (21:23)
[2017-10-28] MEDS: THIAMINE HCL 100 MG TABLET (FP) PO SCH (21:25)
[2017-10-28] MEDS: MELATONIN 5 MG TABLETS PO PRN (22:45)
[2017-10-28] MEDS: SUVOREXANT 10 MG TABLET PO PRN (22:46)
[2017-10-29] MEDS: GABAPENTIN 300 MG CAPSULE (FP) PO SCH ×3 (06:11→21:43)
[2017-10-29] MEDS: AMOXICILLIN 500 MG CAPSULE (FP) PO SCH ×3 (06:11→21:43)
[2017-10-29] MEDS: PRENATAL VITAMINS W/ FOLIC ACID TABLET (FP) PO SCH (10:17)
[2017-10-29] MEDS: BUPRENORPHINE/NALOXONE 2 MG/0.5 MG FILM PACKET SL SCH (10:17)
[2017-10-29] MEDS: RANITIDINE HCL 150 MG TABLET (FP) PO SCH (10:17)
[2017-10-29] MEDS: NICOTINE 21 MG/24 HOURS TOPICAL PATCH TD SCH (10:17)
[2017-10-29] MEDS: CLOTRIMAZOLE 1% CREAM 15 GM TUBE TP SCH ×2 (10:19→21:44)
[2017-10-29] MEDS: CYCLOBENZAPRINE HCL 10 MG TABLET (FP) PO PRN ×2 (10:19→18:11)
[2017-10-29] MEDS: NICOTINE POLACRILEX 2 MG GUM BC PRN ×4 (10:21→21:46)
[2017-10-29] MEDS: IBUPROFEN 400 MG TABLET (FP) PO PRN (18:11)
[2017-10-29] MEDS: QUEtiapine FUMARATE 100 MG TABLET (FP) PO SCH (21:43)
[2017-10-29] MEDS: SUVOREXANT 10 MG TABLET PO PRN (21:43)
[2017-10-29] MEDS: DIVALPROEX SODIUM 500 MG TABLET E.C. PO SCH (21:43)
[2017-10-29] MEDS: THIAMINE HCL 100 MG TABLET (FP) PO SCH (21:44)
[2017-10-30] MEDS: AMOXICILLIN 500 MG CAPSULE (FP) PO SCH ×3 (06:31→21:55)
[2017-10-30] MEDS: NICOTINE POLACRILEX 2 MG GUM BC PRN ×4 (06:31→13:42)
[2017-10-30] MEDS: GABAPENTIN 300 MG CAPSULE (FP) PO SCH ×3 (06:31→21:55)
[2017-10-30] MEDS: CYCLOBENZAPRINE HCL 10 MG TABLET (FP) PO PRN ×2 (10:01→21:55)
[2017-10-30] MEDS: PRENATAL VITAMINS W/ FOLIC ACID TABLET (FP) PO SCH (10:01)
[2017-10-30] MEDS: RANITIDINE HCL 150 MG TABLET (FP) PO SCH (10:01)
[2017-10-30] MEDS: BUPRENORPHINE/NALOXONE 2 MG/0.5 MG FILM PACKET SL SCH (10:02)
[2017-10-30] MEDS: CLOTRIMAZOLE 1% CREAM 15 GM TUBE TP SCH ×2 (10:02→22:46)
[2017-10-30] MEDS: NICOTINE 21 MG/24 HOURS TOPICAL PATCH TD SCH (10:02)
[2017-10-30] MEDS: IBUPROFEN 400 MG TABLET (FP) PO PRN ×2 (13:07→22:54)
[2017-10-30] MEDS: BENZOCAINE 20 % GEL 9 GM TUBE MM PRN (13:07)
[2017-10-30] MEDS: QUEtiapine FUMARATE 100 MG TABLET (FP) PO SCH (21:55)
[2017-10-30] MEDS: THIAMINE HCL 100 MG TABLET (FP) PO SCH (21:55)
[2017-10-30] MEDS: DIVALPROEX SODIUM 500 MG TABLET E.C. PO SCH (21:55)
[2017-10-30] MEDS: SUVOREXANT 10 MG TABLET PO PRN (23:32)
[2017-10-31] MEDS: AMOXICILLIN 500 MG CAPSULE (FP) PO SCH ×3 (06:23→21:57)
[2017-10-31] MEDS: GABAPENTIN 300 MG CAPSULE (FP) PO SCH ×3 (06:23→21:58)
[2017-10-31] MEDS ORDERED: PT OWN MED DRAWER 7, Y5N ONE (09:04)
[2017-10-31] MEDS: BUPRENORPHINE/NALOXONE 2 MG/0.5 MG FILM PACKET SL SCH (10:16)
[2017-10-31] MEDS: PRENATAL VITAMINS W/ FOLIC ACID TABLET (FP) PO SCH (10:17)
[2017-10-31] MEDS: RANITIDINE HCL 150 MG TABLET (FP) PO SCH (10:17)
[2017-10-31] MEDS: CLOTRIMAZOLE 1% CREAM 15 GM TUBE TP SCH ×2 (10:17→21:59)
[2017-10-31] MEDS: NICOTINE 21 MG/24 HOURS TOPICAL PATCH TD SCH (10:17)
[2017-10-31] MEDS: IBUPROFEN 400 MG TABLET (FP) PO PRN ×2 (11:34→21:57)
[2017-10-31] MEDS: CYCLOBENZAPRINE HCL 10 MG TABLET (FP) PO PRN ×2 (11:35→17:45)
[2017-10-31] MEDS: NICOTINE POLACRILEX 2 MG GUM BC PRN ×4 (11:36→21:57)
[2017-10-31] MEDS: ACETAMINOPHEN 325 MG TABLET (FP) PO PRN (17:45)
[2017-10-31] MEDS: QUEtiapine FUMARATE 100 MG TABLET (FP) PO SCH (21:57)
[2017-10-31] MEDS: THIAMINE HCL 100 MG TABLET (FP) PO SCH (21:57)
[2017-10-31] MEDS: DIVALPROEX SODIUM 500 MG TABLET E.C. PO SCH (21:58)
[2017-10-31] MEDS: SUVOREXANT 10 MG TABLET PO PRN (21:58)
[2017-11-01] MEDS: CYCLOBENZAPRINE HCL 10 MG TABLET (FP) PO PRN ×3 (03:57→21:44)
[2017-11-01] MEDS: ACETAMINOPHEN 325 MG TABLET (FP) PO PRN (03:57)
[2017-11-01] MEDS: AMOXICILLIN 500 MG CAPSULE (FP) PO SCH ×3 (06:17→21:43)
[2017-11-01] MEDS: GABAPENTIN 300 MG CAPSULE (FP) PO SCH ×3 (06:18→21:43)
[2017-11-01] MEDS: NICOTINE 21 MG/24 HOURS TOPICAL PATCH TD SCH (10:49)
[2017-11-01] MEDS: RANITIDINE HCL 150 MG TABLET (FP) PO SCH (10:49)
[2017-11-01] MEDS: PRENATAL VITAMINS W/ FOLIC ACID TABLET (FP) PO SCH (10:49)
[2017-11-01] MEDS: BUPRENORPHINE/NALOXONE 2 MG/0.5 MG FILM PACKET SL SCH (10:50)
[2017-11-01] MEDS: CLOTRIMAZOLE 1% CREAM 15 GM TUBE TP SCH ×2 (10:50→21:46)
[2017-11-01] MEDS: NICOTINE POLACRILEX 2 MG GUM BC PRN ×4 (10:53→21:47)
[2017-11-01] MEDS ORDERED: PT OWN MED DRAWER 7, Y5N ONE (13:16)
[2017-11-01] MEDS: IBUPROFEN 400 MG TABLET (FP) PO PRN (13:19)
[2017-11-01] MEDS: MELATONIN 5 MG TABLETS PO PRN (21:43)
[2017-11-01] MEDS: THIAMINE HCL 100 MG TABLET (FP) PO SCH (21:43)
[2017-11-01] MEDS: DIVALPROEX SODIUM 500 MG TABLET E.C. PO SCH (21:44)
[2017-11-01] MEDS: QUEtiapine FUMARATE 100 MG TABLET (FP) PO SCH (21:44)
[2017-11-01] MEDS: SUVOREXANT 10 MG TABLET PO PRN (21:45)
[2017-11-02] MEDS: GABAPENTIN 300 MG CAPSULE (FP) PO SCH ×3 (06:35→21:41)
[2017-11-02] MEDS: AMOXICILLIN 500 MG CAPSULE (FP) PO SCH ×3 (06:35→21:41)
[2017-11-02] MEDS: NICOTINE POLACRILEX 2 MG GUM BC PRN ×5 (06:36→20:02)
[2017-11-02] MEDS: CYCLOBENZAPRINE HCL 10 MG TABLET (FP) PO PRN ×2 (06:36→21:41)
[2017-11-02] MEDS: CLOTRIMAZOLE 1% CREAM 15 GM TUBE TP SCH ×2 (10:15→22:13)
[2017-11-02] MEDS: BUPRENORPHINE/NALOXONE 2 MG/0.5 MG FILM PACKET SL SCH (10:15)
[2017-11-02] MEDS: PRENATAL VITAMINS W/ FOLIC ACID TABLET (FP) PO SCH (10:15)
[2017-11-02] MEDS: RANITIDINE HCL 150 MG TABLET (FP) PO SCH (10:15)
[2017-11-02] MEDS: NICOTINE 21 MG/24 HOURS TOPICAL PATCH TD SCH (10:15)
[2017-11-02] MEDS: IBUPROFEN 400 MG TABLET (FP) PO PRN (13:35)
--- NOTE | 2017-11-02 13:58 | PN ---
[facility] Progress Note Note: Patient continue to c/o of protracted withdrawal increase craving to use, diarrhea with last BM this morning, body aches, chills and sweats. Vital Signs Temperature 97.6 F 11/02/17 07:37 Pulse Rate 79 11/02/17 07:37 Respiratory Rate 18 11/02/17 07:37 Blood Pressure 105/63 11/02/17 07:37 O2 Sat by Pulse Oximetry (%) Laboratory Last Values WBC 5.5 K/mm3 (4.0-10.0) D 10/21/17 08:30 Corrected WBC (auto) Independent Contractor 10/21/17 08:30 RBC 4.55 M/mm3 (4.00-5.60) 10/21/17 08:30 Hgb 14.5 GM/dL (11.7-16.9) 10/21/17 08:30 Hct 43.0 % (35.4-49) 10/21/17 08:30 MCV 94.5 fl (80-96) 10/21/17 08:30 MCH 31.8 pg (25.7-33.7) 10/21/17 08:30 MCHC 33.6 g/dl (32.0-35.9) 10/21/17 08:30 RDW 14.1 % (11.9-15.9) 10/21/17 08:30 Plt Count 183 K/MM3 (134-434) 10/21/17 08:30 MPV 8.4 fl (7.5-11.1) 10/21/17 08:30 Manual Slide Review Independent Contractor 10/21/17 08:30 Platelet Comment Independent Contractor 10/21/17 08:30 Sodium 141 mmol/L (136-145) 10/21/17 08:30 Potassium 3.9 mmol/L (3.5-5.1) 10/21/17 08:30 Chloride 106 mmol/L (98-107) 10/21/17 08:30 Carbon Dioxide 29 mmol/L (21-32) 10/21/17 08:30 Anion Gap 6 (8-16) L 10/21/17 08:30 BUN 15 mg/dL (7-18) D 10/21/17 08:30 Creatinine 1.0 mg/dL (0.7-1.3) D 10/21/17 08:30 Creat Clearance w eGFR > 60 (>60) 10/21/17 08:30 Random Glucose 125 mg/dL (74-106) H D 10/21/17 08:30 Calcium 8.7 mg/dL (8.5-10.1) 10/21/17 08:30 Total Bilirubin 0.3 mg/dL (0.2-1.0) D 10/21/17 08:30 AST 9 U/L (15-37) L 10/21/17 08:30 ALT 33 U/L (12-78) D 10/21/17 08:30 Alkaline Phosphatase 50 U/L (45-117) 10/21/17 08:30 Total Protein 6.4 g/dl (6.4-8.2) D 10/21/17 08:30 Albumin 3.7 g/dl (3.4-5.0) D 10/21/17 08:30 Urine Color Ltyellow 10/22/17 00:09 Urine Appearance Clear 10/22/17 00:09 Urine pH 6.0 (5.0-8.0) 10/22/17 00:09 Ur Specific [place] 1.014 (1.001-1.035) 10/22/17 00:09 Urine Protein Negative (NEGATIVE) 10/22/17 00:09 Urine Glucose (UA) Negative (NEGATIVE) 10/22/17 00:09 Urine Ketones Negative (NEGATIVE) 10/22/17 00:09 Urine Blood Negative (NEGATIVE) 10/22/17 00:09 Urine Nitrite Negative (NEGATIVE) 10/22/17 00:09 Urine Bilirubin Negative (<2.0 mg/dL) 10/22/17 00:09 Urine Urobilinogen Negative mg/dL (0.2-1.0) 10/22/17 00:09 Ur Leukocyte Esterase Negative (NEGATIVE) 10/22/17 00:09 Ur Opiates Confirm Positive ng/ml (Hkvail=035) H 10/22/17 Unknown Ur Methadone, Qual Negative ng/mL (Zashse=893) 10/22/17 Unknown U Propoxyphene Interp Negative ng/mL (Lpztvx=265) 10/22/17 Unknown Urine Barbiturates Negative ng/ml (Tyhqjp=320) 10/22/17 Unknown Valproic Acid 31.801 ug/ml (50-100) L 10/23/17 08:30 Urine PCP Confirm Negative NG/ML (Cutoff=25) 10/22/17 Unknown Urine Methamphetamines Negative ng/ml (Jpflcy=4555) 10/22/17 Unknown U Benzodiazepines Scrn Negative ng/ml (Zhabkg=692) 10/22/17 Unknown Urine Cocaine Confirm Negative ng/ml (Gvkcfz=244) 10/22/17 Unknown Urine Cannabinoids Negative ng/ml (Cutoff=50) 10/22/17 Unknown Drug Screen Comment (.) 10/22/17 Unknown RPR Titer Nonreactive (NONREACTIVE) 10/21/17 08:30 HIV 1&2 Antibody Screen Negative 10/22/17 08:30 HIV P24 Antigen Negative 10/22/17 08:30 Obj: alert and oriented x 3. Irritable. GI: soft, BS+, NT Ext: no edema A/P: withdrawal symptoms immodium PRN for diarrhea Increase fluids increase suboxone to 8 mg daily in am continue to monitor clinically
[2017-11-02] MEDS ORDERED: SUVOREXANT 10 MG TABLET PO PRN (15:21)
[2017-11-02] MEDS: DIVALPROEX SODIUM 500 MG TABLET E.C. PO SCH (21:41)
[2017-11-02] MEDS: QUEtiapine FUMARATE 100 MG TABLET (FP) PO SCH (21:41)
[2017-11-02] MEDS: THIAMINE HCL 100 MG TABLET (FP) PO SCH (21:42)
[2017-11-03] MEDS: AMOXICILLIN 500 MG CAPSULE (FP) PO SCH ×2 (06:22→13:31)
[2017-11-03] MEDS: GABAPENTIN 300 MG CAPSULE (FP) PO SCH ×3 (06:22→21:43)
[2017-11-03] MEDS: BUPRENORPHINE/NALOXONE 8 MG/2 MG FILM PACKET SL SCH (10:29)
[2017-11-03] MEDS: RANITIDINE HCL 150 MG TABLET (FP) PO SCH (10:29)
[2017-11-03] MEDS: PRENATAL VITAMINS W/ FOLIC ACID TABLET (FP) PO SCH (10:29)
[2017-11-03] MEDS: NICOTINE 21 MG/24 HOURS TOPICAL PATCH TD SCH (10:29)
[2017-11-03] MEDS: NICOTINE POLACRILEX 2 MG GUM BC PRN ×3 (10:31→17:50)
[2017-11-03] MEDS: CLOTRIMAZOLE 1% CREAM 15 GM TUBE TP SCH ×2 (10:31→21:45)
[2017-11-03] MEDS: IBUPROFEN 400 MG TABLET (FP) PO PRN (13:31)
[2017-11-03] MEDS: CYCLOBENZAPRINE HCL 10 MG TABLET (FP) PO PRN ×2 (13:31→21:44)
[2017-11-03] MEDS: MELATONIN 5 MG TABLETS PO PRN (21:43)
[2017-11-03] MEDS: SUVOREXANT 10 MG TABLET PO PRN (21:43)
[2017-11-03] MEDS: QUEtiapine FUMARATE 100 MG TABLET (FP) PO SCH (21:43)
[2017-11-03] MEDS: DIVALPROEX SODIUM 500 MG TABLET E.C. PO SCH (21:45)
[2017-11-03] MEDS: THIAMINE HCL 100 MG TABLET (FP) PO SCH (21:45)
[2017-11-04] MEDS: GABAPENTIN 300 MG CAPSULE (FP) PO SCH ×3 (06:32→22:02)
[2017-11-04] MEDS: NICOTINE POLACRILEX 2 MG GUM BC PRN ×4 (10:26→22:06)
[2017-11-04] MEDS: CLOTRIMAZOLE 1% CREAM 15 GM TUBE TP SCH ×2 (10:26→22:05)
[2017-11-04] MEDS: NICOTINE 21 MG/24 HOURS TOPICAL PATCH TD SCH (10:26)
[2017-11-04] MEDS: PRENATAL VITAMINS W/ FOLIC ACID TABLET (FP) PO SCH (10:26)
[2017-11-04] MEDS: RANITIDINE HCL 150 MG TABLET (FP) PO SCH (10:26)
[2017-11-04] MEDS: BUPRENORPHINE/NALOXONE 8 MG/2 MG FILM PACKET SL SCH (10:26)
[2017-11-04] MEDS ORDERED: HYDROCORTISONE 1% TOPICAL CREAM 30 GM TUBE TP PRN (13:51)
--- NOTE | 2017-11-04 13:54 | PN ---
[facility] Progress Note Note: Patient c/o of dry itchy rash on the left arm. Patient in no apparent distress. Vital Signs Temperature 98.5 F 11/04/17 07:00 Pulse Rate 86 11/04/17 07:00 Respiratory Rate 18 11/04/17 07:00 Blood Pressure 103/71 11/04/17 07:00 O2 Sat by Pulse Oximetry (%) Plan: Increase fluids hydrocortisone cream PRN Continue to monitor
[2017-11-04] MEDS: BENZOCAINE 20 % GEL 9 GM TUBE MM PRN (15:56)
[2017-11-04] MEDS ORDERED: PT OWN MED DRAWER 7, Y5N ONE (15:57)
[2017-11-04] MEDS: IBUPROFEN 400 MG TABLET (FP) PO PRN (15:57)
[2017-11-04] MEDS: CYCLOBENZAPRINE HCL 10 MG TABLET (FP) PO PRN ×2 (15:57→22:06)
[2017-11-04] MEDS: DIVALPROEX SODIUM 500 MG TABLET E.C. PO SCH (22:02)
[2017-11-04] MEDS: QUEtiapine FUMARATE 100 MG TABLET (FP) PO SCH (22:03)
[2017-11-04] MEDS: THIAMINE HCL 100 MG TABLET (FP) PO SCH (22:03)
[2017-11-04] MEDS: SUVOREXANT 10 MG TABLET PO PRN (22:06)
[2017-11-05] MEDS: NICOTINE POLACRILEX 2 MG GUM BC PRN ×4 (06:27→18:00)
[2017-11-05] MEDS: GABAPENTIN 300 MG CAPSULE (FP) PO SCH ×3 (06:27→21:34)
[2017-11-05] MEDS: BUPRENORPHINE/NALOXONE 8 MG/2 MG FILM PACKET SL SCH (10:24)
[2017-11-05] MEDS: NICOTINE 21 MG/24 HOURS TOPICAL PATCH TD SCH (10:24)
[2017-11-05] MEDS: RANITIDINE HCL 150 MG TABLET (FP) PO SCH (10:26)
[2017-11-05] MEDS: PRENATAL VITAMINS W/ FOLIC ACID TABLET (FP) PO SCH (10:26)
[2017-11-05] MEDS: CLOTRIMAZOLE 1% CREAM 15 GM TUBE TP SCH ×2 (10:26→21:35)
[2017-11-05] MEDS: CYCLOBENZAPRINE HCL 10 MG TABLET (FP) PO PRN ×2 (13:02→21:34)
[2017-11-05] MEDS: IBUPROFEN 400 MG TABLET (FP) PO PRN (13:02)
[2017-11-05] MEDS: THIAMINE HCL 100 MG TABLET (FP) PO SCH (21:33)
[2017-11-05] MEDS: MELATONIN 5 MG TABLETS PO PRN (21:33)
[2017-11-05] MEDS: QUEtiapine FUMARATE 100 MG TABLET (FP) PO SCH (21:34)
[2017-11-05] MEDS: DIVALPROEX SODIUM 500 MG TABLET E.C. PO SCH (21:34)
[2017-11-05] MEDS ORDERED: SUVOREXANT 10 MG TABLET PO PRN (22:00)
[2017-11-06] MEDS: CYCLOBENZAPRINE HCL 10 MG TABLET (FP) PO PRN ×2 (06:00→21:50)
[2017-11-06] MEDS: IBUPROFEN 400 MG TABLET (FP) PO PRN ×2 (06:00→21:51)
[2017-11-06] MEDS: GABAPENTIN 300 MG CAPSULE (FP) PO SCH ×3 (06:02→21:50)
[2017-11-06] MEDS: NICOTINE POLACRILEX 2 MG GUM BC PRN ×4 (06:02→17:08)
[2017-11-06] MEDS: BUPRENORPHINE/NALOXONE 8 MG/2 MG FILM PACKET SL SCH (10:14)
[2017-11-06] MEDS: NICOTINE 21 MG/24 HOURS TOPICAL PATCH TD SCH (10:14)
[2017-11-06] MEDS: RANITIDINE HCL 150 MG TABLET (FP) PO SCH (10:15)
[2017-11-06] MEDS: CLOTRIMAZOLE 1% CREAM 15 GM TUBE TP SCH ×2 (10:15→21:52)
[2017-11-06] MEDS: PRENATAL VITAMINS W/ FOLIC ACID TABLET (FP) PO SCH (10:15)
[2017-11-06] MEDS: QUEtiapine FUMARATE 100 MG TABLET (FP) PO SCH (21:50)
[2017-11-06] MEDS: DIVALPROEX SODIUM 500 MG TABLET E.C. PO SCH (21:50)
[2017-11-06] MEDS: MELATONIN 5 MG TABLETS PO PRN (21:50)
[2017-11-06] MEDS: THIAMINE HCL 100 MG TABLET (FP) PO SCH (21:52)
[2017-11-07] MEDS: GABAPENTIN 300 MG CAPSULE (FP) PO SCH ×3 (06:27→21:35)
[2017-11-07] MEDS: NICOTINE POLACRILEX 2 MG GUM BC PRN ×3 (06:28→15:12)
[2017-11-07] MEDS: NICOTINE 21 MG/24 HOURS TOPICAL PATCH TD SCH (10:03)
[2017-11-07] MEDS: BUPRENORPHINE/NALOXONE 8 MG/2 MG FILM PACKET SL SCH (10:03)
[2017-11-07] MEDS: PRENATAL VITAMINS W/ FOLIC ACID TABLET (FP) PO SCH (10:04)
[2017-11-07] MEDS: CLOTRIMAZOLE 1% CREAM 15 GM TUBE TP SCH ×2 (10:04→21:36)
[2017-11-07] MEDS: RANITIDINE HCL 150 MG TABLET (FP) PO SCH (10:04)
[2017-11-07] MEDS: CYCLOBENZAPRINE HCL 10 MG TABLET (FP) PO PRN ×2 (10:11→21:35)
[2017-11-07] MEDS: DIVALPROEX SODIUM 500 MG TABLET E.C. PO SCH (21:35)
[2017-11-07] MEDS: MELATONIN 5 MG TABLETS PO PRN (21:35)
[2017-11-07] MEDS: QUEtiapine FUMARATE 100 MG TABLET (FP) PO SCH (21:35)
[2017-11-07] MEDS: THIAMINE HCL 100 MG TABLET (FP) PO SCH (21:36)
[2017-11-08] MEDS: GABAPENTIN 300 MG CAPSULE (FP) PO SCH ×3 (06:37→21:53)
[2017-11-08] MEDS: NICOTINE POLACRILEX 2 MG GUM BC PRN ×6 (06:37→21:54)
[2017-11-08] MEDS: CYCLOBENZAPRINE HCL 10 MG TABLET (FP) PO PRN (09:57)
[2017-11-08] MEDS: NICOTINE 21 MG/24 HOURS TOPICAL PATCH TD SCH (09:57)
[2017-11-08] MEDS: BUPRENORPHINE/NALOXONE 8 MG/2 MG FILM PACKET SL SCH (09:57)
[2017-11-08] MEDS: CLOTRIMAZOLE 1% CREAM 15 GM TUBE TP SCH (09:57)
[2017-11-08] MEDS: PRENATAL VITAMINS W/ FOLIC ACID TABLET (FP) PO SCH (09:59)
[2017-11-08] MEDS: RANITIDINE HCL 150 MG TABLET (FP) PO SCH (09:59)
[2017-11-08] MEDS: IBUPROFEN 400 MG TABLET (FP) PO PRN (14:46)
[2017-11-08] MEDS: DIVALPROEX SODIUM 500 MG TABLET E.C. PO SCH (21:53)
[2017-11-08] MEDS: QUEtiapine FUMARATE 100 MG TABLET (FP) PO SCH (21:53)
[2017-11-08] MEDS: MELATONIN 5 MG TABLETS PO PRN (21:53)
[2017-11-08] MEDS: THIAMINE HCL 100 MG TABLET (FP) PO SCH (21:54)
[2017-11-08] MEDS ORDERED: SUVOREXANT 10 MG TABLET PO PRN (22:00)
[2017-11-09] MEDS: GABAPENTIN 300 MG CAPSULE (FP) PO SCH ×3 (06:34→21:11)
[2017-11-09] MEDS: NICOTINE POLACRILEX 2 MG GUM BC PRN ×4 (06:34→21:11)
[2017-11-09] MEDS: CYCLOBENZAPRINE HCL 10 MG TABLET (FP) PO PRN ×2 (10:26→21:11)
[2017-11-09] MEDS: NICOTINE 21 MG/24 HOURS TOPICAL PATCH TD SCH (10:27)
[2017-11-09] MEDS: CLOTRIMAZOLE 1% CREAM 15 GM TUBE TP SCH ×3 (10:27→22:09)
[2017-11-09] MEDS: PRENATAL VITAMINS W/ FOLIC ACID TABLET (FP) PO SCH (10:27)
[2017-11-09] MEDS: RANITIDINE HCL 150 MG TABLET (FP) PO SCH (10:31)
[2017-11-09] MEDS: BUPRENORPHINE/NALOXONE 8 MG/2 MG FILM PACKET SL SCH (11:05)
[2017-11-09] MEDS: DIVALPROEX SODIUM 500 MG TABLET E.C. PO SCH (21:11)
[2017-11-09] MEDS: QUEtiapine FUMARATE 100 MG TABLET (FP) PO SCH (21:11)
[2017-11-09] MEDS: THIAMINE HCL 100 MG TABLET (FP) PO SCH (22:09)
[2017-11-10] MEDS: GABAPENTIN 300 MG CAPSULE (FP) PO SCH ×3 (06:15→21:08)
[2017-11-10] MEDS: NICOTINE 21 MG/24 HOURS TOPICAL PATCH TD SCH (10:43)
[2017-11-10] MEDS: BUPRENORPHINE/NALOXONE 8 MG/2 MG FILM PACKET SL SCH (10:43)
[2017-11-10] MEDS: CLOTRIMAZOLE 1% CREAM 15 GM TUBE TP SCH ×2 (10:44→21:09)
[2017-11-10] MEDS: PRENATAL VITAMINS W/ FOLIC ACID TABLET (FP) PO SCH (10:44)
[2017-11-10] MEDS: RANITIDINE HCL 150 MG TABLET (FP) PO SCH (10:44)
[2017-11-10] MEDS: CYCLOBENZAPRINE HCL 10 MG TABLET (FP) PO PRN ×2 (12:48→21:08)
[2017-11-10] MEDS: NICOTINE POLACRILEX 2 MG GUM BC PRN ×3 (12:49→20:31)
[2017-11-10] MEDS: DIVALPROEX SODIUM 500 MG TABLET E.C. PO SCH (21:08)
[2017-11-10] MEDS: QUEtiapine FUMARATE 100 MG TABLET (FP) PO SCH (21:08)
[2017-11-10] MEDS: MELATONIN 5 MG TABLETS PO PRN (21:08)
[2017-11-10] MEDS: THIAMINE HCL 100 MG TABLET (FP) PO SCH (21:09)
[2017-11-11] MEDS: GABAPENTIN 300 MG CAPSULE (FP) PO SCH ×3 (06:32→21:09)
[2017-11-11] MEDS: NICOTINE POLACRILEX 2 MG GUM BC PRN ×3 (06:33→13:32)
[2017-11-11] MEDS: BUPRENORPHINE/NALOXONE 8 MG/2 MG FILM PACKET SL SCH (09:40)
[2017-11-11] MEDS: CYCLOBENZAPRINE HCL 10 MG TABLET (FP) PO PRN ×2 (09:40→21:08)
[2017-11-11] MEDS: NICOTINE 21 MG/24 HOURS TOPICAL PATCH TD SCH (09:40)
[2017-11-11] MEDS: PRENATAL VITAMINS W/ FOLIC ACID TABLET (FP) PO SCH (09:42)
[2017-11-11] MEDS: RANITIDINE HCL 150 MG TABLET (FP) PO SCH (09:42)
[2017-11-11] MEDS: CLOTRIMAZOLE 1% CREAM 15 GM TUBE TP SCH ×2 (09:42→22:32)
[2017-11-11] MEDS: QUEtiapine FUMARATE 100 MG TABLET (FP) PO SCH (21:08)
[2017-11-11] MEDS: DIVALPROEX SODIUM 500 MG TABLET E.C. PO SCH (21:09)
[2017-11-11] MEDS: MELATONIN 5 MG TABLETS PO PRN (21:10)
[2017-11-11] MEDS ORDERED: SUVOREXANT 10 MG TABLET PO PRN (22:00)
[2017-11-11] MEDS: THIAMINE HCL 100 MG TABLET (FP) PO SCH (22:32)
[2017-11-12] MEDS: CYCLOBENZAPRINE HCL 10 MG TABLET (FP) PO PRN ×2 (06:21→21:12)
[2017-11-12] MEDS: GABAPENTIN 300 MG CAPSULE (FP) PO SCH ×3 (06:21→21:12)
[2017-11-12] MEDS: NICOTINE POLACRILEX 2 MG GUM BC PRN ×7 (06:22→20:05)
[2017-11-12] MEDS: BUPRENORPHINE/NALOXONE 8 MG/2 MG FILM PACKET SL SCH (09:41)
[2017-11-12] MEDS: NICOTINE 21 MG/24 HOURS TOPICAL PATCH TD SCH (09:41)
[2017-11-12] MEDS: PRENATAL VITAMINS W/ FOLIC ACID TABLET (FP) PO SCH (09:42)
[2017-11-12] MEDS: RANITIDINE HCL 150 MG TABLET (FP) PO SCH (09:42)
[2017-11-12] MEDS: CLOTRIMAZOLE 1% CREAM 15 GM TUBE TP SCH ×2 (09:42→21:13)
[2017-11-12] MEDS: IBUPROFEN 400 MG TABLET (FP) PO PRN (13:46)
[2017-11-12] MEDS: MELATONIN 5 MG TABLETS PO PRN (21:12)
[2017-11-12] MEDS: QUEtiapine FUMARATE 100 MG TABLET (FP) PO SCH (21:12)
[2017-11-12] MEDS: DIVALPROEX SODIUM 500 MG TABLET E.C. PO SCH (21:12)
[2017-11-12] MEDS: THIAMINE HCL 100 MG TABLET (FP) PO SCH (21:13)
[2017-11-13] MEDS: GABAPENTIN 300 MG CAPSULE (FP) PO SCH ×3 (06:07→21:12)
[2017-11-13] MEDS: NICOTINE 21 MG/24 HOURS TOPICAL PATCH TD SCH (09:26)
[2017-11-13] MEDS: BUPRENORPHINE/NALOXONE 8 MG/2 MG FILM PACKET SL SCH (09:26)
[2017-11-13] MEDS: PRENATAL VITAMINS W/ FOLIC ACID TABLET (FP) PO SCH (09:27)
[2017-11-13] MEDS: CLOTRIMAZOLE 1% CREAM 15 GM TUBE TP SCH ×2 (09:27→21:12)
[2017-11-13] MEDS: RANITIDINE HCL 150 MG TABLET (FP) PO SCH (09:27)
[2017-11-13] MEDS: NICOTINE POLACRILEX 2 MG GUM BC PRN ×2 (12:30→17:34)
[2017-11-13] MEDS: CYCLOBENZAPRINE HCL 10 MG TABLET (FP) PO PRN ×2 (13:57→21:13)
[2017-11-13] MEDS: QUEtiapine FUMARATE 100 MG TABLET (FP) PO SCH (21:12)
[2017-11-13] MEDS: DIVALPROEX SODIUM 500 MG TABLET E.C. PO SCH (21:12)
[2017-11-13] MEDS: THIAMINE HCL 100 MG TABLET (FP) PO SCH (21:12)
[2017-11-13] MEDS: MELATONIN 5 MG TABLETS PO PRN (21:13)
[2017-11-14] MEDS: GABAPENTIN 300 MG CAPSULE (FP) PO SCH ×3 (07:21→22:12)
[2017-11-14] MEDS: NICOTINE 21 MG/24 HOURS TOPICAL PATCH TD SCH (09:32)
[2017-11-14] MEDS: BUPRENORPHINE/NALOXONE 8 MG/2 MG FILM PACKET SL SCH (09:32)
[2017-11-14] MEDS: CLOTRIMAZOLE 1% CREAM 15 GM TUBE TP SCH ×2 (09:32→22:12)
[2017-11-14] MEDS: PRENATAL VITAMINS W/ FOLIC ACID TABLET (FP) PO SCH (09:32)
[2017-11-14] MEDS: RANITIDINE HCL 150 MG TABLET (FP) PO SCH (09:33)
[2017-11-14] MEDS: NICOTINE POLACRILEX 2 MG GUM BC PRN ×5 (11:36→22:14)
[2017-11-14] MEDS: IBUPROFEN 400 MG TABLET (FP) PO PRN (14:36)
[2017-11-14] MEDS: CYCLOBENZAPRINE HCL 10 MG TABLET (FP) PO PRN ×2 (14:37→22:13)
[2017-11-14] MEDS ORDERED: PT OWN MED DRAWER 7, Y5N ONE (15:23)
[2017-11-14] MEDS ORDERED: SUVOREXANT 10 MG TABLET PO PRN (22:00)
[2017-11-14] MEDS: THIAMINE HCL 100 MG TABLET (FP) PO SCH (22:11)
[2017-11-14] MEDS: QUEtiapine FUMARATE 100 MG TABLET (FP) PO SCH (22:12)
[2017-11-14] MEDS: DIVALPROEX SODIUM 500 MG TABLET E.C. PO SCH (22:12)
[2017-11-14] MEDS: MELATONIN 5 MG TABLETS PO PRN (22:13)
[2017-11-15] MEDS: GABAPENTIN 300 MG CAPSULE (FP) PO SCH ×3 (06:23→21:07)
[2017-11-15] MEDS: NICOTINE 21 MG/24 HOURS TOPICAL PATCH TD SCH (10:32)
[2017-11-15] MEDS: BUPRENORPHINE/NALOXONE 8 MG/2 MG FILM PACKET SL SCH (10:32)
[2017-11-15] MEDS: CLOTRIMAZOLE 1% CREAM 15 GM TUBE TP SCH ×2 (10:33→21:08)
[2017-11-15] MEDS: PRENATAL VITAMINS W/ FOLIC ACID TABLET (FP) PO SCH (10:34)
[2017-11-15] MEDS: RANITIDINE HCL 150 MG TABLET (FP) PO SCH (10:34)
[2017-11-15] MEDS: IBUPROFEN 400 MG TABLET (FP) PO PRN (14:32)
[2017-11-15] MEDS: CYCLOBENZAPRINE HCL 10 MG TABLET (FP) PO PRN ×2 (14:32→21:07)
[2017-11-15] MEDS: NICOTINE POLACRILEX 2 MG GUM BC PRN ×2 (17:25→20:12)
[2017-11-15] MEDS: DIVALPROEX SODIUM 500 MG TABLET E.C. PO SCH (21:07)
[2017-11-15] MEDS: QUEtiapine FUMARATE 100 MG TABLET (FP) PO SCH (21:07)
[2017-11-15] MEDS: MELATONIN 5 MG TABLETS PO PRN (21:07)
[2017-11-15] MEDS: THIAMINE HCL 100 MG TABLET (FP) PO SCH (21:08)
[2017-11-16] MEDS: GABAPENTIN 300 MG CAPSULE (FP) PO SCH ×3 (07:08→22:00)
[2017-11-16] MEDS: NICOTINE 21 MG/24 HOURS TOPICAL PATCH TD SCH (09:38)
[2017-11-16] MEDS: PRENATAL VITAMINS W/ FOLIC ACID TABLET (FP) PO SCH (09:38)
[2017-11-16] MEDS: CLOTRIMAZOLE 1% CREAM 15 GM TUBE TP SCH ×2 (09:38→22:01)
[2017-11-16] MEDS: BUPRENORPHINE/NALOXONE 8 MG/2 MG FILM PACKET SL SCH (09:38)
[2017-11-16] MEDS: RANITIDINE HCL 150 MG TABLET (FP) PO SCH (09:39)
--- NOTE | 2017-11-16 11:22 | PN ---
Psychiatric Progress Note Vital Signs: Vital Signs Period Temp Pulse Resp BP Sys/Louise Pulse Ox Last 24 Hr 97.8 F 103 18-20 110/69 Date of Session: 11/16/17 Chief Complaint:: Discharge Note HPI: Patient addressing Alcohol, Opioid, Sedative Dependence comorbid with Nicotine Dependence, Bipolar Disorder, Substance-Induced Anxiety Disorder and Substance-Induce Sleep Disorder ROS: LBP, Herniated Disc Current Medications: Active Medications Generic Name Dose Route Start Last Admin Trade Name Freq PRN Reason Stop Dose Admin Acetaminophen 650 mg 10/21/17 15:57 11/01/17 03:57 Tylenol - PO 650 mg Q4H PRN Administration FEVER Al Hydroxide/Mg Hydroxide 30 ml 10/21/17 15:57 Mylanta Oral Suspension - PO Q6H PRN DYSPEPSIA Benzocaine 1 applic 10/26/17 14:31 11/04/17 15:56 Anbesol - MM 1 applic Q2H PRN Administration dental problem Buprenorphine/Naloxone 1 each 11/09/17 11:15 11/16/17 09:38 Suboxone 8mg/2mg Sl Film - SL 1 each DAILY JOYA Administration Clotrimazole 1 applic 10/22/17 22:00 11/16/17 09:38 Lotrimin 1% Cream - TP Not Given BID JOYA Cyclobenzaprine HCl 10 mg 10/21/17 16:00 11/15/17 21:07 Flexeril - PO 10 mg BID PRN Administration MUSCLE SPASMS Divalproex Sodium 500 mg 10/21/17 22:00 11/15/17 21:07 Depakote - PO 500 mg HS JOYA Administration Eucalyptus/Menthol/Phenol/Sorbitol 1 each 10/21/17 15:57 Cepastat Lozenge - MM Q4H PRN SORE THROAT Gabapentin 600 mg 10/21/17 22:00 11/16/17 07:08 Neurontin - PO Not Given TID JOYA Guaifenesin 10 ml 10/21/17 15:57 Robitussin Dm - PO Q6H PRN COUGH Hydrocortisone 1 applic 11/04/17 13:51 Hytone 1% Cream - TP BID PRN itch / rash Ibuprofen 800 mg 10/27/17 15:53 11/15/17 14:32 Motrin - PO 800 mg Q8H PRN Administration FEVER Loperamide HCl 4 mg 10/21/17 15:57 11/02/17 13:57 Imodium - PO 4 mg Q6H PRN Administration DIARRHEA Magnesium Citrate 300 ml 10/21/17 15:57 Citroma - PO Q48H PRN CONSTIPATION Magnesium Hydroxide 30 ml 10/21/17 15:57 Milk Of Magnesia - PO DAILY PRN CONSTIPATION Melatonin 5 mg 10/21/17 22:00 11/15/17 21:07 Melatonin PO 5 mg HS PRN Administration INSOMNIA Nicotine 21 mg 10/21/17 16:00 11/16/17 09:38 Nicoderm Patch - TD Not Given DAILY JOYA Nicotine Polacrilex 2 mg 10/21/17 15:57 11/15/17 20:12 Nicorette Gum - BC 2 mg Q2H PRN Administration NICOTINE REPLACEMENT RX Multivit/Folic Acid/Iron 1 tab 10/22/17 10:00 11/16/17 09:38 Vitamins (Sjr) - PO Not Given DAILY JOYA Pseudoephedrine/Triprolidine 1 combo 10/21/17 15:57 Actifed - PO TID PRN NASAL CONGESTION Quetiapine Fumarate 100 mg 10/21/17 22:00 11/15/17 21:07 Seroquel - PO 100 mg HS JOYA Administration Ranitidine HCl 150 mg 10/21/17 16:00 11/16/17 09:39 Zantac - PO Not Given DAILY JOYA Suvorexant 10 mg 11/14/17 22:00 Belsomra PO HS PRN INSOMNIA Thiamine HCl 100 mg 10/21/17 22:00 11/15/17 21:08 Vitamin B1 - PO Not Given HS JOYA Current Side Effect: No Lab tests ordered: Yes Lab tests reviewed: Yes Provider note:: Patient will complete this program on 11/17/17. He has met his treatment goals and will continue to address his issues in nursing home residential treatment at [facility]. 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 He responded well to Depakote 500 mg po HS and Seroquel 100 mg po HS. Scripts for these medications will be electronically transmitted to [facility] [address] [place] [address]. He is stable for discharge on 11/17/17 Total face to face time:: 35 Mental Status Exam - Mental Status Exam Alert and Oriented to: Time, Place, Person Cognitive Function: Fair Patient Appearance: Well Groomed Mood: Hopeful, Euthymic Affect: Appropriate Patient Behavior: Cooperative Speech Pattern: Clear Voice Loudness: Normal Thought Process: Intact, Goal Oriented Thought Disorder: Not Present Hallucinations: Denies Suicidal Ideation: Denies Homicidal Ideation: Denies Insight/Judgement: Fair Sleep: Fair Appetite: Good Muscle strength/Tone: Normal Gait/Station: Normal Psychiatric Treatment Plan - Problem List (1) Alcohol dependence Current Visit: Yes (2) Opioid dependence Current Visit: Yes (3) Sedative hypnotic or anxiolytic dependence Current Visit: Yes (4) Nicotine dependence Current Visit: Yes Qualifiers: Nicotine product type: cigarettes Substance use status: uncomplicated Qualified Code(s): F17.210 - Nicotine dependence, cigarettes, uncomplicated (5) Bipolar disorder Current Visit: Yes Qualifiers: Active/Remission status: remission status unspecified Qualified Code(s): F31.9 - Bipolar disorder, unspecified (6) Substance-induced anxiety disorder Current Visit: Yes (7) Substance-induced sleep disorder Current Visit: Yes (8) S/P CORRECTIVE SURGERY OF LEFT EYE Current Visit: No (9) S/P RIGHT INGUINAL HERNIORRHAPHY Current Visit: No (10) LOW BACK PAIN HERNIATED DISC Current Visit: No Initial treatment plan: Patient will be discharged tomorrow and referred to [facility] for nursing home residential treatment
[2017-11-16] MEDS: NICOTINE POLACRILEX 2 MG GUM BC PRN ×3 (11:52→17:49)
[2017-11-16] MEDS: IBUPROFEN 400 MG TABLET (FP) PO PRN (14:28)
[2017-11-16] MEDS: CYCLOBENZAPRINE HCL 10 MG TABLET (FP) PO PRN ×2 (14:28→21:59)
[2017-11-16] MEDS: MELATONIN 5 MG TABLETS PO PRN (21:59)
[2017-11-16] MEDS: QUEtiapine FUMARATE 100 MG TABLET (FP) PO SCH (22:00)
[2017-11-16] MEDS: DIVALPROEX SODIUM 500 MG TABLET E.C. PO SCH (22:00)
[2017-11-16] MEDS: THIAMINE HCL 100 MG TABLET (FP) PO SCH (22:01)
[2017-11-17] MEDS: GABAPENTIN 300 MG CAPSULE (FP) PO SCH (06:21)
[2017-11-17 06:40] VITALS: BP 104/69; PULSE 91; TEMP 98
[2017-11-17] MEDS: NICOTINE 21 MG/24 HOURS TOPICAL PATCH TD SCH (09:00)
[2017-11-17] MEDS: CLOTRIMAZOLE 1% CREAM 15 GM TUBE TP SCH (09:00)
[2017-11-17] MEDS: RANITIDINE HCL 150 MG TABLET (FP) PO SCH (09:00)
[2017-11-17] MEDS: PRENATAL VITAMINS W/ FOLIC ACID TABLET (FP) PO SCH (09:00)
[2017-11-17] MEDS: BUPRENORPHINE/NALOXONE 8 MG/2 MG FILM PACKET SL SCH (09:00)
[2017-11-17] MEDS ORDERED: PT OWN MED DRAWER 7, Y5N ONE (09:03)
== END 2017-11-17 09:05 | disposition home or self-care (01) | DRG 772 ==
LOC: YASAS 11:23 → Y3W 16:04
PROVIDERS: ADMIT Psychiatry & Neurology Psychiatry; ATTEND Psychiatry & Neurology Psychiatry
PROC: HZ42ZZZ Group Counseling for Substance Abuse Treatment, Cognitive-Behavioral (ICD-10-PCS; principal; 2017-10-21)
DX: F11.20 Opioid dependence, uncomplicated (principal); F13.20 Sedative, hypnotic or anxiolytic dependence, uncomplicated; F31.9 Bipolar disorder, unspecified; F41.9 Anxiety disorder, unspecified; F19.280 Other psychoactive substance dependence with psychoactive substance-induced anxiety disorder; F19.282 Other psychoactive substance dependence with psychoactive substance-induced sleep disorder; M54.5 Low back pain; B35.3 Tinea pedis; K08.9 Disorder of teeth and supporting structures, unspecified; K02.9 Dental caries, unspecified
CPT/HCPCS: 36415; 80053; 80164; 80307; 81003; 85027; 86593; 87389; 93005; 93010

== ENCOUNTER 2017-12-28 08:55 | Inpatient (IN) | payer OTHER ==
[2017-12-28 10:08] VITALS: BMI 29.2
--- NOTE | 2017-12-28 13:20 | HP ---
COWS - Scale Resting Pulse: 1= [place] 81-100 Sweatin= Chills/Flushing Restless Observation: 3= Extraneous Movement Pupil Size: 2= Moderately Dilated Bone or Joint Aches: 2= Severe Diffuse Aches Runny Nose/ Eye Tearin= Runny Nose/Eyes GI Upset > 30mins: 3= Vomiting/Diarrhea Tremor Observation: 2= Slight Tremor Visible Yawning Observation: 2= >3x During Session Anxiety or Irritability: 2=Irritable/Anxious Goose Flesh Skin: 0=Smooth Skin COWS Score: 20 Admission ROS BHS - HPI Chief Complaint: i need help to stop using heroin and marijuana Allergies/Adverse Reactions: Allergies Allergy/AdvReac Type Severity Reaction Status Date / Time Fish Containing Products Allergy Severe Hives Verified 12/28/17 09:58 No Known Drug Allergies Allergy Verified 12/28/17 09:58 NKDA Allergy Uncoded 12/28/17 09:58 History of Present Illness: this 37 years old male with heroin and marijuana dependence,seeking detox, withdrawal symptom,last rehab [facility] 10/21/17 to 11/17/17 nicotine dependence bipolar disorder longest period of sobriety 4 months Exam Limitations: No Limitations - Ebola screening Have you traveled outside of the country in the last 21 days: No Have you had contact with anyone from an Ebola affected area: No Have you been sick,other than usual withdrawal symptoms: No Do you have a fever: No - Review of Systems Constitutional: Chills, Loss of Appetite, Malaise, Night Sweats, Changes in sleep, Weakness EENT: reports: Tearing, Nose Congestion Respiratory: reports: No Symptoms reported Cardiac: reports: No Symptoms Reported GI: reports: Diarrhea, Nausea, Vomiting, Abdominal cramping : reports: No Symptoms Reported Musculoskeletal: reports: Back Pain, Joint Pain, Muscle Pain, Joint Stiffness Integumentary: reports: Dryness Neuro: reports: Headache, Tremors Endocrine: reports: No Symptoms Reported Hematology: reports: No Symptoms Reported Psychiatric: reports: No Sypmtoms Reported, Judgement Intact, Mood/Affect Appropiate, Anxious, Depressed (insonia,bipolar disorder) Patient History - Patient Medical History Hx Anemia: No Hx Asthma: No Hx Chronic Obstructive Pulmonary Disease (COPD): No Hx Cancer: No Hx Cardiac Disorders: No Hx Congestive Heart Failure: No Hx Hypertension: No Hx Hypercholesterolemia: No Hx Pacemaker: No HX Cerebrovascular Accident: No Hx Seizures: No Hx Dementia: No Hx Diabetes: No Hx Gastrointestinal Disorders: No Hx Liver Disease: No Hx Genitourinary Disorders: No Hx Sexually Transmitted Disorders: No Hx Renal Disease (ESRD): No Hx Thyroid Disease: No Hx Human Immunodeficiency Virus (HIV): No (Last Tested: 06/2017: NEGATIVE.) Hx Hepatitis C: No Hx Depression: Yes Hx Suicide Attempt: No Hx Bipolar Disorder: Yes (On meds.) Hx Schizophrenia: No Other Medical History: no suicidal,no homicidal - Patient Surgical History Past Surgical History: Yes Hx Neurologic Surgery: No Hx Cataract Extraction: No Hx Cardiac Surgery: No Hx Lung Surgery: No Hx Breast Surgery: No Hx Breast Biopsy: No Hx Abdominal Surgery: No Hx Appendectomy: No Hx Cholecystectomy: No Hx Genitourinary Surgery: No Hx Section: No Hx Orthopedic Surgery: Yes (rt shoulder impingement and torn labrium- arthroscopic surgery, 1996.) Other Surgical History: corrective sx, left eye (@1983), right inguinal hernia repair, 1996. Anesthesia Reaction: No - PPD History Previous Implant?: Yes Documented Results: Negative w/proof Implanted On Prior [facility] Admission?: Yes Date: 10/23/17 Results: 0 mm PPD to be Administered?: No - Smoking Cessation Smoking history: Current every day smoker Have you smoked in the past 12 months: Yes Aproximately how many cigarettes per day: 20 Cigars Per Day: 0 Hx Chewing Tobacco Use: No Initiated information on smoking cessation: Yes 'Breaking Loose' booklet given: 12/28/17 - Substance & Tx. History Hx Alcohol Use: No Hx Substance Use: Yes Substance Use Type: Heroin, Marijuana Hx Substance Use Treatment: Yes ([facility] rehab 11/21/17 to ) - Substances Abused Heroin Route: Inhalation Frequency: Daily Amount used: 10 bags Age of first use: 32 Date of Last Use: 12/27/17 Marijuana Route: Smoking Frequency: 3-6 times per week Amount used: $10 Age of first use: 13 Date of Last Use: 12/26/17 Family Disease History - Family Disease History Family History: Denies Admission Physical Exam BHS - Vital Signs Vital Signs: Vital Signs - 24 hr 12/28/17 10:06 Temperature 97.1 F L Pulse Rate 83 Respiratory 18 Rate Blood Pressure 138/87 - Physical General Appearance: Yes: Moderate Distress, Tremorous, Irritable, Sweating, Anxious HEENTM: Yes: Normal ENT Inspection, BREANNE, Pharynx Normal Respiratory: Yes: Lungs Clear, Normal Breath Sounds, No Respiratory Distress Neck: Yes: Within Normal Limits, Supple, Trachea in good position Breast: Yes: Within Normal Limits Cardiology: Yes: Within Normal Limits, Regular Rhythm, Regular Rate, S1, S2 Abdominal: Yes: Within Normal Limits, Normal Bowel Sounds, Non Tender, Soft Genitourinary: Yes: Within Normal Limits Back: Yes: Normal Inspection, Muscle Spasm Musculoskeletal: Yes: Back pain, Joint Stiffness, Muscle Pain Neurological: Yes: drug department worker II-XII NML intact, Fully Oriented, Alert, Motor Strength 5/5 Integumentary: Yes: Dry Lymphatic: Yes: Within Normal Limits - Diagnostic (1) Opioid dependence with withdrawal Current Visit: Yes Status: Acute (2) Cannabis dependence Current Visit: Yes Status: Acute (3) Cannabis dependence Current Visit: Yes Status: Acute (4) Bipolar disorder Current Visit: No Status: Chronic Qualifiers: Active/Remission status: remission status unspecified Qualified Code(s): F31.9 - Bipolar disorder, unspecified (5) Nicotine dependence Current Visit: No Status: Chronic Qualifiers: Nicotine product type: cigarettes Substance use status: uncomplicated Qualified Code(s): F17.210 - Nicotine dependence, cigarettes, uncomplicated Cleared for Admission [facility] - Detox or Rehab [facility] Level of Care: Medically Managed Detox Regimen/Protocol: Methadone [facility] Breath Alcohol Content Breath Alcohol Content: 0 Urine Drug Screen - Results Drug Screen Negative: No Urine Drug Screen Results: THC-Marijuana, OPI-Opiates
[2017-12-28] MEDS ORDERED: guaiFENesin/D-METHORPHAN HB 10 ML UNIT-DOSE CUPS PO PRN (13:29)
[2017-12-28] MEDS ORDERED: MAGNESIUM CITRATE 300 ML BOTTLE PO PRN (13:29)
[2017-12-28] MEDS ORDERED: MAGNESIUM HYDROX 2400MG/30ML ORAL SUSPENSION 30 ML CUP PO PRN (13:29)
[2017-12-28] MEDS ORDERED: IBUPROFEN 400 MG TABLET (FP) PO PRN (13:29)
[2017-12-28] MEDS ORDERED: P-EPHED 60MG/TRIPROLIDI 2.5MG TABLET PO PRN (13:29)
[2017-12-28] MEDS ORDERED: ACETAMINOPHEN 325 MG TABLET (FP) PO PRN (13:29)
[2017-12-28] MEDS ORDERED: LOPERAMIDE HCL 2 MG CAPSULE PO PRN (13:29)
[2017-12-28] MEDS ORDERED: MENTHOL/PHENOL 1 EACH UD MM PRN (13:29)
[2017-12-28] MEDS ORDERED: MAG HYDROX/AL HYDROX/SIMETH 30 ML UNIT-DOSE CUP PO PRN (13:29)
[2017-12-28] MEDS ORDERED: METHADONE HCL 10 MG TABLET (FOR DETOX USE ONLY) PO ONE ×2 (14:30→23:00)
[2017-12-28] MEDS: diazePAM 5 MG TABLET PO PRN ×2 (15:28→22:20)
[2017-12-28] MEDS: GABAPENTIN 300 MG CAPSULE (FP) PO SCH ×2 (15:28→22:20)
[2017-12-28] MEDS: NICOTINE 21 MG/24 HOURS TOPICAL PATCH TD SCH (15:29)
[2017-12-28] MEDS: NICOTINE POLACRILEX 2 MG GUM BUC PRN ×2 (15:29→22:21)
[2017-12-28] MEDS: THIAMINE HCL 100 MG TABLET (FP) PO SCH (22:20)
[2017-12-28] MEDS: MELATONIN 5 MG TABLETS PO PRN (22:20)
[2017-12-28] MEDS: cloNIDine HCL 0.1 MG TABLET PO SCH (22:20)
[2017-12-29] MEDS: GABAPENTIN 300 MG CAPSULE (FP) PO SCH ×3 (05:57→22:21)
[2017-12-29] MEDS: diazePAM 5 MG TABLET PO PRN ×4 (05:58→19:56)
[2017-12-29] MEDS ORDERED: METHADONE HCL 10 MG TABLET (FOR DETOX USE ONLY) PO ONE (10:00)
[2017-12-29 10:19] LABS: HEMATOCRIT 41.9 % (35.4-49); HEMOGLOBIN 14.3 GM/dL (11.7-16.9); MCH 31.9 pg (25.7-33.7); MCHC 34.2 g/dl (32.0-35.9); MEAN CELL VOLUME 93.1 fl (80-96); MEAN PLT VOLUME 8.8 fl (7.5-11.1); PLATELET COUNT 188 K/MM3 (134-434); RDW 13.4 % (11.9-15.9); WHITE BLOOD COUNT 4.4 K/mm3 (4.0-10.0)
[2017-12-29] MEDS: cloNIDine HCL 0.1 MG TABLET PO SCH ×2 (10:26→22:21)
[2017-12-29] MEDS: PRENATAL VITAMINS W/ FOLIC ACID TABLET (FP) PO SCH (10:26)
[2017-12-29] MEDS: NICOTINE POLACRILEX 2 MG GUM BUC PRN ×3 (10:27→22:50)
[2017-12-29] MEDS: NICOTINE 21 MG/24 HOURS TOPICAL PATCH TD SCH (10:27)
[2017-12-29 10:56] LABS: ANION GAP 7 (8-16); BLOOD UREA NITROGEN 18 mg/dL (7-18); CALCIUM 8.6 mg/dL (8.5-10.1); CHLORIDE 108 mmol/L (98-107); CO2 27 mmol/L (21-32); GLUCOSE,RANDOM 106 mg/dL (74-106); POTASSIUM 4.3 mmol/L (3.5-5.1); SGOT/AST 13 U/L (15-37); SGPT/ALT 20 U/L (12-78); SODIUM 142 mmol/L (136-145)
[2017-12-29 10:58] LABS: ALK PHOS 53 U/L (45-117); BILIRUBIN,TOTAL 0.2 mg/dL (0.2-1.0); TOT PROT 6.8 g/dl (6.4-8.2)
--- NOTE | 2017-12-29 11:54 | EKG ---
Test Reason : Blood Pressure : / mmHG Vent. Rate : 088 BPM Atrial Rate : 088 BPM P-R Int : 144 ms QRS Dur : 094 ms QT Int : 344 ms P-R-T Axes : 064 071 058 degrees QTc Int : 416 ms NORMAL SINUS RHYTHM WITH SINUS ARRHYTHMIA NORMAL ECG WHEN COMPARED WITH ECG OF 21-OCT-2017 21:22, NO SIGNIFICANT CHANGE WAS FOUND Confirmed by TRINIDAD HOLLINS, TEJAS ([id number]) on 12/29/2017 11:54:19 AM Referred By: Confirmed By:TEJAS ABDI MD
[2017-12-29] MEDS: BACITRACIN 0.9 GM PACKET TP SCH ×2 (12:36→22:20)
[2017-12-29] MEDS: CYCLOBENZAPRINE HCL 10 MG TABLET (FP) PO PRN ×2 (12:37→22:20)
--- NOTE | 2017-12-29 12:48 | PN ---
BHS COWS - Scale Resting Pulse: 0= [place] 80 or Below Sweatin= Chills/Flushing Restless Observation: 3= Extraneous Movement Pupil Size: 2= Moderately Dilated Bone or Joint Aches: 4=Acute Joint/Muscle Pain Runny Nose/ Eye Tearin= None GI Upset > 30mins: 0= None Tremor Observation of Outstretched Hands: 2= Slight Tremor Visible Yawning Observation: 2= >3x During Session Anxiety or Irritability: 2=Irritable/Anxious Goose Flesh Skin: 0=Smooth Skin COWS Score: 16 BHS Progress Note (SOAP) Subjective: ANXIETY,HOT/COLD SWEATS,BODY ACHES,LEFT FOOT OPEN CRACK. Objective: 12/29/17 12:48 Vital Signs 12/29/17 12/29/17 12/29/17 06:22 06:30 09:24 Temperature 96.6 F L 96 F L Pulse Rate 58 L 78 Respiratory 16 18 20 Rate Blood Pressure 105/63 105/61 Laboratory Tests 12/29/17 12/29/17 12/29/17 06:00 06:00 06:00 WBC 4.4 RBC 4.50 Hgb 14.3 Hct 41.9 MCV 93.1 MCH 31.9 MCHC 34.2 RDW 13.4 Plt Count 188 MPV 8.8 Sodium 142 Potassium 4.3 Chloride 108 H Carbon Dioxide 27 Anion Gap 7 L BUN 18 Creatinine 1.0 Creat Clearance w eGFR > 60 Random Glucose 106 Calcium 8.6 Total Bilirubin 0.2 D AST 13 L D ALT 20 D Alkaline Phosphatase 53 Total Protein 6.8 Albumin 4.0 RPR Titer Nonreactive Assessment: 12/29/17 12:48 WITHDRAWAL SX Plan: CONTINUE DETOX
[2017-12-29 15:36] LABS: URINE APPEARANCE CLEAR; URINE BILIRUBIN NEGATIVE (<2.0 mg/dL); URINE BLOOD NEGATIVE (NEGATIVE); URINE COLOR YELLOW; URINE GLUCOSE (UA) NEGATIVE (NEGATIVE); URINE KETONE NEGATIVE (NEGATIVE); URINE LEUK ESTERASE NEGATIVE (NEGATIVE); URINE NITRITE NEGATIVE (NEGATIVE); URINE PROTEIN NEGATIVE (NEGATIVE); URINE UROBILINOGEN NEGATIVE mg/dL (0.2-1.0)
--- NOTE | 2017-12-29 16:12 | CONSULT ---
[facility] Psychiatric Consult - Data Date of interview: 12/29/17 Admission source: [facility] Identifying data: Readmission to [facility] for this 37 y/o male seeking detox treatment on for heroin,cocaine (crack) and cannabis dependence.Patient is single,a father of two,domiciled and currently employed. Substance Abuse History: Confirmed by patient in this interview.Smoking history : Current every day smoker. Have you smoked in the past 12 months: Yes. Aproximately how many cigarettes per day: 20. Cigars Per Day: 0. Hx Chewing Tobacco Use: No. Initiated information on smoking cessation: Yes. 'Breaking Loose' booklet given: 12/28/17. - Substance & Tx. History. Hx Alcohol Use: No. Hx Substance Use: Yes. Substance Use Type: Heroin, Marijuana. Hx Substance Use Treatment: Yes ([facility] 11/21/17 to ). - Substances Abused. * * Heroin. Route: Inhalation. Frequency: Daily. Amount used: 10 bags. Age of first use: 32. Date of Last Use: 12/27/17. Marijuana. Route: Smoking. Frequency: 3-6 times per week. Amount used: $10. Age of first use: 13. Date of Last Use: 12/26/17 Medical History: Chronic lumbar pain,herniated disc (lumbar spine) and a history of multiple surgeries(arthroscopic intervention on right shoulder in 1996, right inguinal herniorraphy in 1983 corrective surgery on left eye in 1996). Psychiatric History: Diagnosed with Bipolar Disorder (2014) at [facility]Patient is also known to [facility] and [facility].Early contact with Psychiatry (age 13 - 17) to address behavioral issues.Mr Garibay is currently without the services of a psychiatric OPD care provider.It appears that the patient relies on refills obtained from admissions to various detox/rehab facilities in the [facility] area.Recently discharged from [address] (10/2017) on a regimen of depakote 500 mg/hs + seroquel 100 mg/hs.Patient admits to non-adherence to his medications and aftercare recommendations.Noted history of a suicide attempt, two years ago, via deliberate overdose with drugs (self-report). Physical/Sexual Abuse/Trauma History: Patient denies. Additional Comment: Urine Drug Screen Results: THC-Marijuana, OPI-Opiates.Noted. Mental Status Exam - Mental Status Exam Alert and Oriented to: Time, Place, Person Cognitive Function: Good Patient Appearance: Well Groomed Mood: Nervous, Withdrawn Affect: Appropriate, Mood Congruent Patient Behavior: Fatigued, Appropriate, Cooperative Speech Pattern: Clear, Appropriate Voice Loudness: Normal Thought Process: Intact, Goal Oriented Thought Disorder: Not Present Hallucinations: Denies Suicidal Ideation: Denies Homicidal Ideation: Denies Insight/Judgement: Poor Sleep: Poorly, Difficulty falling asleep Appetite: Good Muscle strength/Tone: Normal Gait/Station: Normal Psychiatric Findings - Problem List ([place] 1, 2,3) (1) Opioid dependence with withdrawal Current Visit: Yes Status: Acute (2) Cannabis dependence Current Visit: Yes Status: Acute (3) Nicotine dependence Current Visit: Yes Status: Acute Qualifiers: Nicotine product type: cigarettes Substance use status: uncomplicated Qualified Code(s): F17.210 - Nicotine dependence, cigarettes, uncomplicated (4) Bipolar disorder Current Visit: Yes Status: Chronic Qualifiers: Active/Remission status: remission status unspecified Qualified Code(s): F31.9 - Bipolar disorder, unspecified (5) Substance induced mood disorder Current Visit: Yes Status: Acute (6) Insomnia Current Visit: Yes Status: Acute - Initial Treatment Plan Initial Treatment Plan: Psychoeducation.Sleep hygiene.Detoxification in progress.Medications : depakote 500 mg po hs + seroquel 100 mg po hs.Side effects/benefits of both drugs are discussed with the patient.Made aware of the risk of liver dysfunction,blood dyscrasias,weight gain,hair loss,oversedation/ falls,metabolic syndrome and orthostasis.Patient states that these medications have always been well tolerated and he wishes their resumption in this hospital course.Observation.
[2017-12-29] MEDS: THIAMINE HCL 100 MG TABLET (FP) PO SCH (22:20)
[2017-12-29] MEDS: DIVALPROEX SODIUM 500 MG TABLET E.C. PO SCH (22:20)
[2017-12-29] MEDS: QUEtiapine FUMARATE 100 MG TABLET (FP) PO SCH (22:20)
[2017-12-30] MEDS: diazePAM 5 MG TABLET PO PRN ×5 (00:27→22:24)
[2017-12-30] MEDS: GABAPENTIN 300 MG CAPSULE (FP) PO SCH ×3 (05:13→22:25)
[2017-12-30] MEDS ORDERED: METHADONE HCL 5 MG TABLET (FOR DETOX USE ONLY) PO ONE (10:00)
[2017-12-30] MEDS: cloNIDine HCL 0.1 MG TABLET PO SCH ×2 (10:21→22:25)
[2017-12-30] MEDS: BACITRACIN 0.9 GM PACKET TP SCH ×2 (10:21→22:24)
[2017-12-30] MEDS: PRENATAL VITAMINS W/ FOLIC ACID TABLET (FP) PO SCH (10:23)
[2017-12-30] MEDS: NICOTINE 21 MG/24 HOURS TOPICAL PATCH TD SCH (10:23)
[2017-12-30] MEDS: NICOTINE POLACRILEX 2 MG GUM BUC PRN ×3 (12:26→22:25)
--- NOTE | 2017-12-30 13:28 | PN ---
S COWS - Scale Resting Pulse: 0= MT 80 or Below Sweatin= Chills/Flushing Restless Observation: 3= Extraneous Movement Pupil Size: 0= Normal to Room Light Bone or Joint Aches: 4=Acute Joint/Muscle Pain Runny Nose/ Eye Tearin= None GI Upset > 30mins: 0= None Tremor Observation of Outstretched Hands: 1= Tremor [place], Not Seen Yawning Observation: 1= 1-2x During Session Anxiety or Irritability: 2=Irritable/Anxious Goose Flesh Skin: 0=Smooth Skin COWS Score: 12 BHS Progress Note (SOAP) Subjective: SLIGHT ANXIETY,SWEATS,FATIGUE. Objective: 12/30/17 13:28 Vital Signs 12/30/17 12/30/17 12/30/17 06:05 06:30 10:12 Temperature 97.7 F 96.8 F L Pulse Rate 67 65 Respiratory 18 18 16 Rate Blood Pressure 113/61 110/56 Laboratory Tests 12/29/17 12/29/17 12/29/17 06:00 06:00 06:00 WBC 4.4 Corrected WBC (auto) Delivery Driver/Supervisor RBC 4.50 Hgb 14.3 Hct 41.9 MCV 93.1 MCH 31.9 MCHC 34.2 RDW 13.4 Plt Count 188 MPV 8.8 Manual Slide Review Delivery Driver/Supervisor Platelet Comment Delivery Driver/Supervisor Sodium 142 Potassium 4.3 Chloride 108 H Carbon Dioxide 27 Anion Gap 7 L BUN 18 Creatinine 1.0 Creat Clearance w eGFR > 60 Random Glucose 106 Calcium 8.6 Total Bilirubin 0.2 D AST 13 L D ALT 20 D Alkaline Phosphatase 53 Total Protein 6.8 Albumin 4.0 Urine Color Urine Appearance Urine pH Ur Specific [place] Urine Protein Urine Glucose (UA) Urine Ketones Urine Blood Urine Nitrite Urine Bilirubin Urine Urobilinogen Ur Leukocyte Esterase Valproic Acid RPR Titer Nonreactive 12/29/17 12/30/17 11:20 09:00 WBC Corrected WBC (auto) RBC Hgb Hct MCV MCH MCHC RDW Plt Count MPV Manual Slide Review Platelet Comment Sodium Potassium Chloride Carbon Dioxide Anion Gap BUN Creatinine Creat Clearance w eGFR Random Glucose Calcium Total Bilirubin AST ALT Alkaline Phosphatase Total Protein Albumin Urine Color Yellow Urine Appearance Clear Urine pH 5.0 Ur Specific [place] 1.023 Urine Protein Negative Urine Glucose (UA) Negative Urine Ketones Negative Urine Blood Negative Urine Nitrite Negative Urine Bilirubin Negative Urine Urobilinogen Negative Ur Leukocyte Esterase Negative Valproic Acid < 3.0 L RPR Titer Assessment: 12/30/17 13:28 WITHDRAWAL SX Plan: CONTINUE DETOX
[2017-12-30] MEDS: CYCLOBENZAPRINE HCL 10 MG TABLET (FP) PO PRN ×2 (14:35→22:25)
[2017-12-30] MEDS: THIAMINE HCL 100 MG TABLET (FP) PO SCH (22:24)
[2017-12-30] MEDS: QUEtiapine FUMARATE 100 MG TABLET (FP) PO SCH (22:25)
[2017-12-30] MEDS: DIVALPROEX SODIUM 500 MG TABLET E.C. PO SCH (22:25)
[2017-12-31] MEDS: GABAPENTIN 300 MG CAPSULE (FP) PO SCH ×3 (05:46→22:34)
[2017-12-31] MEDS: diazePAM 5 MG TABLET PO PRN ×2 (05:46→10:29)
[2017-12-31] MEDS ORDERED: METHADONE HCL 5 MG TABLET (FOR DETOX USE ONLY) PO ONE (10:00)
[2017-12-31] MEDS: cloNIDine HCL 0.1 MG TABLET PO SCH ×2 (10:25→22:38)
[2017-12-31] MEDS: NICOTINE 21 MG/24 HOURS TOPICAL PATCH TD SCH (10:26)
[2017-12-31] MEDS: NICOTINE POLACRILEX 2 MG GUM BUC PRN ×3 (10:27→21:39)
[2017-12-31] MEDS: PRENATAL VITAMINS W/ FOLIC ACID TABLET (FP) PO SCH (10:27)
[2017-12-31] MEDS: BACITRACIN 0.9 GM PACKET TP SCH ×2 (10:43→22:35)
[2017-12-31] MEDS: CYCLOBENZAPRINE HCL 10 MG TABLET (FP) PO PRN (12:53)
[2017-12-31] MEDS: hydrOXYzine PAMOATE 25 MG CAPSULE (FP) PO PRN (12:53)
--- NOTE | 2017-12-31 13:14 | PN ---
BHS Progress Note (SOAP) Subjective: Fatigue, Constipation, Nausea. Objective: PATIENT A & O X 3, OBSERVED AMBULATING ON UNIT. NO ACUTE DISTRESS. 12/31/17 13:12 Vital Signs Temperature 97 F L 12/31/17 09:09 Pulse Rate 93 H 12/31/17 09:09 Respiratory Rate 20 12/31/17 09:09 Blood Pressure 98/66 12/31/17 09:09 O2 Sat by Pulse Oximetry (%) Laboratory Tests 12/29/17 12/29/17 12/29/17 06:00 06:00 06:00 WBC 4.4 Corrected WBC (auto) Master Automotive Glass Technician RBC 4.50 Hgb 14.3 Hct 41.9 MCV 93.1 MCH 31.9 MCHC 34.2 RDW 13.4 Plt Count 188 MPV 8.8 Manual Slide Review Master Automotive Glass Technician Platelet Comment Master Automotive Glass Technician Sodium 142 Potassium 4.3 Chloride 108 H Carbon Dioxide 27 Anion Gap 7 L BUN 18 Creatinine 1.0 Creat Clearance w eGFR > 60 Random Glucose 106 Calcium 8.6 Total Bilirubin 0.2 D AST 13 L D ALT 20 D Alkaline Phosphatase 53 Total Protein 6.8 Albumin 4.0 Urine Color Urine Appearance Urine pH Ur Specific [place] Urine Protein Urine Glucose (UA) Urine Ketones Urine Blood Urine Nitrite Urine Bilirubin Urine Urobilinogen Ur Leukocyte Esterase Valproic Acid RPR Titer Nonreactive 12/29/17 12/30/17 11:20 09:00 WBC Corrected WBC (auto) RBC Hgb Hct MCV MCH MCHC RDW Plt Count MPV Manual Slide Review Platelet Comment Sodium Potassium Chloride Carbon Dioxide Anion Gap BUN Creatinine Creat Clearance w eGFR Random Glucose Calcium Total Bilirubin AST ALT Alkaline Phosphatase Total Protein Albumin Urine Color Yellow Urine Appearance Clear Urine pH 5.0 Ur Specific [place] 1.023 Urine Protein Negative Urine Glucose (UA) Negative Urine Ketones Negative Urine Blood Negative Urine Nitrite Negative Urine Bilirubin Negative Urine Urobilinogen Negative Ur Leukocyte Esterase Negative Valproic Acid < 3.0 L RPR Titer LABS NOTED. Assessment: 12/31/17 13:12 WITHDRAWAL SYMPTOMS. Plan: CONTINUE DETOX. INCREASE DAILY PO FLUID INTAKE. ENCOURAGE AMBULATION.
--- NOTE | 2017-12-31 16:30 | PN ---
S Progress Note Note: Patient reports that he believes that Flexeril is only minimally effective for him. Patient requests to be prescribed another Muscle Relaxant. Flexeril D/C'd. Juan PRN ordered. Maciel Horn NP
[2017-12-31] MEDS: METHOCARBAMOL 750 MG TABLET PO PRN (20:45)
[2017-12-31] MEDS: DIVALPROEX SODIUM 500 MG TABLET E.C. PO SCH (22:34)
[2017-12-31] MEDS: QUEtiapine FUMARATE 100 MG TABLET (FP) PO SCH (22:35)
[2017-12-31] MEDS: MELATONIN 5 MG TABLETS PO PRN (22:37)
[2017-12-31] MEDS: THIAMINE HCL 100 MG TABLET (FP) PO SCH (22:38)
[2018-01-01] MEDS: GABAPENTIN 300 MG CAPSULE (FP) PO SCH ×3 (05:25→22:37)
[2018-01-01] MEDS ORDERED: METHADONE HCL 10 MG TABLET (FOR DETOX USE ONLY) PO ONE (10:00)
[2018-01-01] MEDS: cloNIDine HCL 0.1 MG TABLET PO SCH ×2 (10:27→22:37)
[2018-01-01] MEDS: BACITRACIN 0.9 GM PACKET TP SCH ×2 (10:27→22:37)
[2018-01-01] MEDS: PRENATAL VITAMINS W/ FOLIC ACID TABLET (FP) PO SCH (10:28)
[2018-01-01] MEDS: NICOTINE 21 MG/24 HOURS TOPICAL PATCH TD SCH (10:28)
[2018-01-01] MEDS: NICOTINE POLACRILEX 2 MG GUM BUC PRN (10:28)
[2018-01-01] MEDS: METHOCARBAMOL 750 MG TABLET PO PRN ×2 (10:29→22:36)
[2018-01-01] MEDS: NICOTINE POLACRILEX 4 MG GUM BUC PRN ×2 (14:52→22:40)
[2018-01-01] MEDS: hydrOXYzine PAMOATE 25 MG CAPSULE (FP) PO PRN (14:53)
--- NOTE | 2018-01-01 16:42 | PN ---
BHS Progress Note (SOAP) Subjective: Anxious, Fatigue, Body Aches. Objective: PATIENT A & O X 3, OBSERVED AMBULATING ON UNIT. NO ACUTE DISTRESS. 01/01/18 16:42 Vital Signs Temperature 97.3 F L 01/01/18 13:52 Pulse Rate 79 01/01/18 13:52 Respiratory Rate 20 01/01/18 13:52 Blood Pressure 125/68 01/01/18 13:52 O2 Sat by Pulse Oximetry (%) Laboratory Tests 12/29/17 12/29/17 12/29/17 06:00 06:00 06:00 WBC 4.4 Corrected WBC (auto) Meat Processing Center Manager RBC 4.50 Hgb 14.3 Hct 41.9 MCV 93.1 MCH 31.9 MCHC 34.2 RDW 13.4 Plt Count 188 MPV 8.8 Manual Slide Review Meat Processing Center Manager Platelet Comment Meat Processing Center Manager Sodium 142 Potassium 4.3 Chloride 108 H Carbon Dioxide 27 Anion Gap 7 L BUN 18 Creatinine 1.0 Creat Clearance w eGFR > 60 Random Glucose 106 Calcium 8.6 Total Bilirubin 0.2 D AST 13 L D ALT 20 D Alkaline Phosphatase 53 Total Protein 6.8 Albumin 4.0 Urine Color Urine Appearance Urine pH Ur Specific [place] Urine Protein Urine Glucose (UA) Urine Ketones Urine Blood Urine Nitrite Urine Bilirubin Urine Urobilinogen Ur Leukocyte Esterase Valproic Acid RPR Titer Nonreactive 12/29/17 12/30/17 11:20 09:00 WBC Corrected WBC (auto) RBC Hgb Hct MCV MCH MCHC RDW Plt Count MPV Manual Slide Review Platelet Comment Sodium Potassium Chloride Carbon Dioxide Anion Gap BUN Creatinine Creat Clearance w eGFR Random Glucose Calcium Total Bilirubin AST ALT Alkaline Phosphatase Total Protein Albumin Urine Color Yellow Urine Appearance Clear Urine pH 5.0 Ur Specific [place] 1.023 Urine Protein Negative Urine Glucose (UA) Negative Urine Ketones Negative Urine Blood Negative Urine Nitrite Negative Urine Bilirubin Negative Urine Urobilinogen Negative Ur Leukocyte Esterase Negative Valproic Acid < 3.0 L RPR Titer LABS NOTED. Assessment: 01/01/18 16:42 WITHDRAWAL SYMPTOMS. Plan: CONTINUE DETOX. PATIENT SCHEDULED FOR D/C TOMORROW.
[2018-01-01] MEDS: QUEtiapine FUMARATE 100 MG TABLET (FP) PO SCH (22:36)
[2018-01-01] MEDS: DIVALPROEX SODIUM 500 MG TABLET E.C. PO SCH (22:37)
[2018-01-01] MEDS: THIAMINE HCL 100 MG TABLET (FP) PO SCH (22:37)
[2018-01-02] MEDS: GABAPENTIN 300 MG CAPSULE (FP) PO SCH (05:17)
[2018-01-02] MEDS ORDERED: METHADONE HCL 5 MG TABLET (FOR DETOX USE ONLY) PO ONE (06:00)
[2018-01-02 06:15] VITALS: BP 111/64; PULSE 74; TEMP 98.7
[2018-01-02] MEDS: METHOCARBAMOL 750 MG TABLET PO PRN (06:58)
[2018-01-02] MEDS: NICOTINE POLACRILEX 4 MG GUM BUC PRN (08:27)
--- NOTE | 2018-01-02 08:33 | PN ---
BHS Progress Note (SOAP) Subjective: DETOX COMPLETED. Objective: 01/02/18 12:49 Vital Signs 01/02/18 06:14 Temperature 98.7 F Pulse Rate 74 Respiratory 18 Rate Blood Pressure 111/64 Laboratory Tests 12/29/17 12/29/17 12/29/17 06:00 06:00 06:00 WBC 4.4 Corrected WBC (auto) Proj Engineer RBC 4.50 Hgb 14.3 Hct 41.9 MCV 93.1 MCH 31.9 MCHC 34.2 RDW 13.4 Plt Count 188 MPV 8.8 Manual Slide Review Proj Engineer Platelet Comment Proj Engineer Sodium 142 Potassium 4.3 Chloride 108 H Carbon Dioxide 27 Anion Gap 7 L BUN 18 Creatinine 1.0 Creat Clearance w eGFR > 60 Random Glucose 106 Calcium 8.6 Total Bilirubin 0.2 D AST 13 L D ALT 20 D Alkaline Phosphatase 53 Total Protein 6.8 Albumin 4.0 Urine Color Urine Appearance Urine pH Ur Specific [place] Urine Protein Urine Glucose (UA) Urine Ketones Urine Blood Urine Nitrite Urine Bilirubin Urine Urobilinogen Ur Leukocyte Esterase Valproic Acid RPR Titer Nonreactive 12/29/17 12/30/17 11:20 09:00 WBC Corrected WBC (auto) RBC Hgb Hct MCV MCH MCHC RDW Plt Count MPV Manual Slide Review Platelet Comment Sodium Potassium Chloride Carbon Dioxide Anion Gap BUN Creatinine Creat Clearance w eGFR Random Glucose Calcium Total Bilirubin AST ALT Alkaline Phosphatase Total Protein Albumin Urine Color Yellow Urine Appearance Clear Urine pH 5.0 Ur Specific [place] 1.023 Urine Protein Negative Urine Glucose (UA) Negative Urine Ketones Negative Urine Blood Negative Urine Nitrite Negative Urine Bilirubin Negative Urine Urobilinogen Negative Ur Leukocyte Esterase Negative Valproic Acid < 3.0 L RPR Titer Assessment: 01/02/18 12:50 MEDICALLY STABLE Plan: D/C PT TODAY
--- NOTE | 2018-01-02 08:36 | DS ---
[facility] Detox Discharge Summary Admission Date: 12/28/17 Discharge Date: 01/02/18 - History Present History: Cannabis Dependence, Opioid Dependence Additional Comments: DETOX COMPLETED.ALERT OX 3. NAD. Pertinent Past History: PLEASE SEE DX BELOW - Physical Exam Results Vital Signs: Vital Signs Temperature 98.7 F 01/02/18 06:14 Pulse Rate 74 01/02/18 06:14 Respiratory Rate 18 01/02/18 06:14 Blood Pressure 111/64 01/02/18 06:14 O2 Sat by Pulse Oximetry (%) Pertinent Admission Physical Exam Findings: WITHDRAWAL SX Laboratory Tests 12/29/17 12/29/17 12/29/17 06:00 06:00 06:00 WBC 4.4 Corrected WBC (auto) Guest House Manager RBC 4.50 Hgb 14.3 Hct 41.9 MCV 93.1 MCH 31.9 MCHC 34.2 RDW 13.4 Plt Count 188 MPV 8.8 Manual Slide Review Guest House Manager Platelet Comment Guest House Manager Sodium 142 Potassium 4.3 Chloride 108 H Carbon Dioxide 27 Anion Gap 7 L BUN 18 Creatinine 1.0 Creat Clearance w eGFR > 60 Random Glucose 106 Calcium 8.6 Total Bilirubin 0.2 D AST 13 L D ALT 20 D Alkaline Phosphatase 53 Total Protein 6.8 Albumin 4.0 Urine Color Urine Appearance Urine pH Ur Specific [place] Urine Protein Urine Glucose (UA) Urine Ketones Urine Blood Urine Nitrite Urine Bilirubin Urine Urobilinogen Ur Leukocyte Esterase Valproic Acid RPR Titer Nonreactive 12/29/17 12/30/17 11:20 09:00 WBC Corrected WBC (auto) RBC Hgb Hct MCV MCH MCHC RDW Plt Count MPV Manual Slide Review Platelet Comment Sodium Potassium Chloride Carbon Dioxide Anion Gap BUN Creatinine Creat Clearance w eGFR Random Glucose Calcium Total Bilirubin AST ALT Alkaline Phosphatase Total Protein Albumin Urine Color Yellow Urine Appearance Clear Urine pH 5.0 Ur Specific [place] 1.023 Urine Protein Negative Urine Glucose (UA) Negative Urine Ketones Negative Urine Blood Negative Urine Nitrite Negative Urine Bilirubin Negative Urine Urobilinogen Negative Ur Leukocyte Esterase Negative Valproic Acid < 3.0 L RPR Titer - Treatment Hospital Course: Detox Protocol Followed, Detoxed Safely, Responded well, Discharged Condition Good, Rehab Referral Accepted Patient has Accepted a Rehab Referral to: [facility] - Medication Discharge Medications: Ambulatory Orders Gabapentin [Neurontin] 600 mg PO Q8H 10/21/17 Divalproex [Depakote -] 500 mg PO HS #30 tablet.ec 01/01/18 Quetiapine Fumarate [Seroquel] 100 mg PO HS #30 tablet 01/01/18 - Diagnosis (1) Opioid dependence with withdrawal Status: Acute (2) History of back injury Status: Chronic (3) Cannabis dependence Status: Acute (4) Abrasion foot/toe Status: Acute Qualifiers: Encounter type: subsequent encounter Laterality: left Qualified Code(s): S90.812D - Abrasion, left foot, subsequent encounter - AMA Did Patient Leave Against Medical Advice: No
[2018-01-02] MEDS: BACITRACIN 0.9 GM PACKET TP SCH (10:51)
[2018-01-02] MEDS: NICOTINE 21 MG/24 HOURS TOPICAL PATCH TD SCH (10:52)
[2018-01-02] MEDS: cloNIDine HCL 0.1 MG TABLET PO SCH (10:52)
[2018-01-02] MEDS: PRENATAL VITAMINS W/ FOLIC ACID TABLET (FP) PO SCH (10:52)
== END 2018-01-02 10:52 | disposition home or self-care (01) | DRG 773 ==
LOC: YASAS 08:55 → Y3N 13:58
PROVIDERS: ADMIT Surgery; ATTEND Surgery
PROC: HZ2ZZZZ Detoxification Services for Substance Abuse Treatment (ICD-10-PCS; principal; 2017-12-28)
DX: F11.23 Opioid dependence with withdrawal (principal); F12.20 Cannabis dependence, uncomplicated; F17.210 Nicotine dependence, cigarettes, uncomplicated; F31.9 Bipolar disorder, unspecified; F19.24 Other psychoactive substance dependence with psychoactive substance-induced mood disorder; G47.00 Insomnia, unspecified; Z91.013 Allergy to seafood; S90.812D Abrasion, left foot, subsequent encounter; X58.XXXD Exposure to other specified factors, subsequent encounter
CPT/HCPCS: 36415; 80053; 80164; 81003; 85027; 86593; 93005; 93010; J0735

== ENCOUNTER 2018-02-08 10:59 | Inpatient (IN) | payer OTHER ==
[2018-02-08 11:17] VITALS: BMI 27.3
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
[2018-02-08] MEDS ORDERED: P-EPHED 60MG/TRIPROLIDI 2.5MG TABLET PO PRN (13:24)
[2018-02-08] MEDS ORDERED: MAG HYDROX/AL HYDROX/SIMETH 30 ML UNIT-DOSE CUP PO PRN (13:24)
[2018-02-08] MEDS ORDERED: IBUPROFEN 400 MG TABLET (FP) PO PRN (13:24)
[2018-02-08] MEDS ORDERED: LOPERAMIDE HCL 2 MG CAPSULE PO PRN (13:24)
[2018-02-08] MEDS ORDERED: ACETAMINOPHEN 325 MG TABLET (FP) PO PRN (13:24)
[2018-02-08] MEDS ORDERED: MENTHOL/PHENOL 1 EACH UD MM PRN (13:24)
[2018-02-08] MEDS ORDERED: guaiFENesin/D-METHORPHAN HB 10 ML UNIT-DOSE CUPS PO PRN (13:24)
[2018-02-08] MEDS ORDERED: MAGNESIUM HYDROX 2400MG/30ML ORAL SUSPENSION 30 ML CUP PO PRN (13:24)
[2018-02-08] MEDS ORDERED: MAGNESIUM CITRATE 300 ML BOTTLE PO PRN (13:24)
[2018-02-08] MEDS ORDERED: diazePAM 5 MG TABLET PO ONE (13:45)
[2018-02-08] MEDS: NICOTINE 21 MG/24 HOURS TOPICAL PATCH TD SCH (14:43)
[2018-02-08 16:33] LABS: URINE APPEARANCE CLEAR; URINE BILIRUBIN NEGATIVE (<2.0 mg/dL); URINE COLOR YELLOW; URINE GLUCOSE (UA) NEGATIVE (NEGATIVE); URINE KETONE NEGATIVE (NEGATIVE); URINE LEUK ESTERASE NEGATIVE (NEGATIVE); URINE NITRITE NEGATIVE (NEGATIVE); URINE PROTEIN NEGATIVE (NEGATIVE); URINE UROBILINOGEN NEGATIVE mg/dL (0.2-1.0)
[2018-02-08] MEDS: diazePAM 5 MG TABLET PO PRN (19:37)
--- NOTE | 2018-02-08 21:39 | EKG ---
Test Reason : Blood Pressure : / mmHG Vent. Rate : 068 BPM Atrial Rate : 068 BPM P-R Int : 158 ms QRS Dur : 100 ms QT Int : 416 ms P-R-T Axes : 064 071 058 degrees QTc Int : 442 ms NORMAL SINUS RHYTHM NORMAL ECG WHEN COMPARED WITH ECG OF 28-DEC-2017 15:09, NO SIGNIFICANT CHANGE WAS FOUND Confirmed by MD CARLOS ALBERTO, HANANE ([id number]) on 02/08/2018 9:39:23 PM Referred By: Confirmed By:HANANE CARCAMO MD
[2018-02-08] MEDS ORDERED: MELATONIN 5 MG TABLETS PO PRN (22:00)
[2018-02-08] MEDS: diazePAM 5 MG TABLET PO SCH (22:40)
[2018-02-08] MEDS: THIAMINE HCL 100 MG TABLET (FP) PO SCH (22:40)
[2018-02-09] MEDS: diazePAM 5 MG TABLET PO PRN ×2 (02:02→11:12)
[2018-02-09] MEDS ORDERED: METHADONE HCL 10 MG TABLET ONE (05:13)
[2018-02-09] MEDS ORDERED: METHADONE HCL 40 MG DISPERSABLE TABLET ONE (05:13)
[2018-02-09] MEDS ORDERED: METHADONE HCL 10 MG TABLET PO SCH (06:00)
[2018-02-09] MEDS: METHADONE 80 MG, METHADONE 20 MG PO SCH (07:00)
[2018-02-09] MEDS: diazePAM 5 MG TABLET PO SCH ×3 (07:00→22:03)
--- NOTE | 2018-02-09 07:34 | CONSULT ---
[facility] Psychiatric Consult - Data Date of interview: 02/09/18 Admission source: [facility] Identifying data: This is 38 years old male, single father of two, homeless, unemployed, with no pablic support, with unclear past psychiatric hospitalization history, history of Cocaine, Heroin, Xanax and Nicotine dependence, reporting withdrawal symp[toms and seekiung for detox. Urine ntoxicology positive for PCP as well. Reports MMTP 100mg per day. Substance Abuse History: Smoking Cessation. Smoking history: Current every day smoker. Have you smoked in the past 12 months: Yes. Aproximately how many cigarettes per day: 20. Cigars Per Day: 0. Hx Chewing Tobacco Use: No. Initiated information on smoking cessation: Yes. 'Breaking Loose' booklet given : 02/08/18. - Substance & Tx. History. Hx Alcohol Use: No ( "ONCE A YEAR"). Hx Substance Use: Yes (HEROIN/COCAINE/XANAX/KLONOPIN). Substance Use Type: Cocaine, Heroin, Tranquilizers. Hx Substance Use Treatment: Yes (LAST TX AT [facility]; ON [facility]-MMTP W/ METH 100 MG DAILY,LAST DOSED TODAY.). - Substances Abused. Cocaine. Route: Smoking. Frequency: 3-6 times per week. Amount used: $50. Age of first use: 32. Date of Last Use: 02/07/18. Heroin. Route: Inhalation. Frequency: Daily. Amount used: 1 bundle. Age of first use : 32. Date of Last Use: 02/07/18. Alprazolam (Xanax). Route: Oral. Frequency: Daily. Amount used: 5-10/2mg. Age of first use: 16. Date of Last Use: 02/08/18. Benzodiazepine (Klonopin). Route: Oral. Frequency: Daily. Amount used: 5-2mg. Age of first use: 16. Date of Last Use: 02/07/18. Urine Drug Screen Results: ANU-Cocaine, OPI-Opiates, PCP-Phencyclidine, BZO- Benzodiazepines, MTD-Methadone Medical History: S/P Right shoulder surgery, MMTP 100mg per day Psychiatric History: Patient reports history of Bipolar Disorder with most recent psychiatric admission on 2017 at [facility], as per computer taking prior to admission: Depakote 500mg po bid. Seroquel 100mg po qhs. Patient refusing restart preadmission medications. There is a history of suicidal OD on 2013, patient reports no suicidal history sinth then. Physical/Sexual Abuse/Trauma History: Denies Additional Comment: Urine Drug Screen Results: ANU-Cocaine, OPI-Opiates, PCP- Phencyclidine, BZO-Benzodiazepines, MTD-Methadone. Depakote 500mg po bid. Seroquel 100mg po qhs. Patient refusing restart preadmission medications. Mental Status Exam - Mental Status Exam Alert and Oriented to: Person Cognitive Function: Fair Patient Appearance: Unkempt Mood: Sad Affect: Flat Patient Behavior: Sedated, Guarded Speech Pattern: Delayed Voice Loudness: Mildly Soft/Quiet Thought Process: Circumstantial Thought Disorder: Being Controlled Hallucinations: Denies Suicidal Ideation: Denies Homicidal Ideation: Denies Insight/Judgement: Fair Sleep: Difficulty falling asleep Appetite: Weight gain Muscle strength/Tone: Mild Hypotonicity Gait/Station: Shuffling Additional Comments: Depakote 500mg po bid. Seroquel 100mg po qhs. Patient refusing restart preadmission medications. Psychiatric Findings - Problem List ([place] 1, 2,3) (1) Cocaine dependence Current Visit: Yes Status: Active (2) Nicotine dependence Current Visit: Yes Status: Acute Qualifiers: Nicotine product type: cigarettes Substance use status: in withdrawal Qualified Code(s): F17.213 - Nicotine dependence, cigarettes, with withdrawal (3) Sedative, hypnotic or anxiolytic dependence, uncomplicated Current Visit: Yes Status: Acute (4) Methadone maintenance therapy patient Current Visit: Yes Status: Chronic (5) Opioid dependence Current Visit: No Status: Active (6) Sedative dependence Current Visit: No Status: Active (7) Seizure Current Visit: No Status: Active (8) Alcohol dependence Current Visit: No Status: Acute (9) Cannabis dependence Current Visit: No Status: Acute (10) Encounter for monitoring Suboxone maintenance therapy Current Visit: No Status: Acute (11) History of neck injury Current Visit: No Status: Acute (12) Opioid dependence with withdrawal Current Visit: No Status: Acute (13) Sedative hypnotic or anxiolytic dependence Current Visit: No Status: Acute (14) Bipolar disorder Current Visit: No Status: Chronic Qualifiers: Active/Remission status: remission status unspecified Qualified Code(s): F31.9 - Bipolar disorder, unspecified (15) History of back injury Current Visit: No Status: Chronic (16) LOW BACK PAIN HERNIATED DISC Current Visit: No Status: Chronic (17) S/P CORRECTIVE SURGERY OF LEFT EYE Current Visit: No Status: Resolved - Initial Treatment Plan Initial Treatment Plan: Depakote 500mg po bid. Seroquel 100mg po qhs. Patient refusing restart preadmission medications. Depakote blood level
[2018-02-09 09:50] LABS: HEMATOCRIT 41.1 % (35.4-49); HEMOGLOBIN 14.2 GM/dL (11.7-16.9); MCH 31.9 pg (25.7-33.7); MCHC 34.5 g/dl (32.0-35.9); MEAN CELL VOLUME 92.5 fl (80-96); MEAN PLT VOLUME 9.5 fl (7.5-11.1); PLATELET COUNT 211 K/MM3 (134-434); RBC 4.45 M/mm3 (4.00-5.60); RDW 13.2 % (11.9-15.9); WHITE BLOOD COUNT 6.2 K/mm3 (4.0-10.0)
[2018-02-09 09:57] LABS: CHLORIDE 107 mmol/L (98-107); POTASSIUM 4.6 mmol/L (3.5-5.1); SODIUM 143 mmol/L (136-145)
[2018-02-09 10:04] LABS: ALK PHOS 56 U/L (45-117); ANION GAP 6 (8-16); BILIRUBIN,TOTAL 0.3 mg/dL (0.2-1.0); BLOOD UREA NITROGEN 24 mg/dL (7-18); CALCIUM 8.7 mg/dL (8.5-10.1); CO2 30 mmol/L (21-32); CREATININE 1.3 mg/dL (0.7-1.3); GLUCOSE,RANDOM 83 mg/dL (74-106); SGOT/AST 165 U/L (15-37); SGPT/ALT 85 U/L (12-78); TOT PROT 6.9 g/dl (6.4-8.2)
[2018-02-09] MEDS: PRENATAL VITAMINS W/ FOLIC ACID TABLET (FP) PO SCH (11:08)
[2018-02-09] MEDS: NICOTINE 21 MG/24 HOURS TOPICAL PATCH TD SCH (11:11)
[2018-02-09] MEDS: CYCLOBENZAPRINE HCL 10 MG TABLET (FP) PO PRN ×2 (11:12→22:03)
[2018-02-09] MEDS: NAPROXEN 500 MG TABLET (FP) PO SCH ×2 (11:12→22:03)
[2018-02-09] MEDS: NICOTINE POLACRILEX 4 MG GUM BUC PRN (11:13)
--- NOTE | 2018-02-09 12:07 | PN ---
S CIWA - CIWA Score Nausea/Vomitin Muscle Tremors: 3 Anxiety: 3 Agitation: 3 Paroxysmal Sweats: 1-Minimal Palms Moist Orientation: 0-Oriented Tacttile Disturbances: 1-Very Mild Itch/Numbness Auditory Disturbances: 1-Very Mild Visual Disturbances: 0-None Headache: 2-Mild CIWA-Ar Total Score: 17 BHS Progress Note (SOAP) Subjective: alert,irritable,anxious,interrupted sleep,pain in both hands,back pain,history of arthritis Objective: 02/09/18 12:03 Vital Signs Temperature 98.2 F 02/09/18 09:10 Pulse Rate 83 02/09/18 09:10 Respiratory Rate 18 02/09/18 09:10 Blood Pressure 130/77 02/09/18 09:10 O2 Sat by Pulse Oximetry (%) ekg nsr,normal ecg qt/qtc 416/442 Laboratory Last Values WBC 6.2 K/mm3 (4.0-10.0) 02/09/18 06:00 RBC 4.45 M/mm3 (4.00-5.60) 02/09/18 06:00 Hgb 14.2 GM/dL (11.7-16.9) 02/09/18 06:00 Hct 41.1 % (35.4-49) 02/09/18 06:00 MCV 92.5 fl (80-96) 02/09/18 06:00 MCH 31.9 pg (25.7-33.7) 02/09/18 06:00 MCHC 34.5 g/dl (32.0-35.9) 02/09/18 06:00 RDW 13.2 % (11.9-15.9) 02/09/18 06:00 Plt Count 211 K/MM3 (134-434) 02/09/18 06:00 MPV 9.5 fl (7.5-11.1) 02/09/18 06:00 Sodium 143 mmol/L (136-145) 02/09/18 06:00 Potassium 4.6 mmol/L (3.5-5.1) 02/09/18 06:00 Chloride 107 mmol/L (98-107) 02/09/18 06:00 Carbon Dioxide 30 mmol/L (21-32) 02/09/18 06:00 Anion Gap 6 (8-16) L 02/09/18 06:00 BUN 24 mg/dL (7-18) H 02/09/18 06:00 Creatinine 1.3 mg/dL (0.7-1.3) 02/09/18 06:00 Creat Clearance w eGFR > 60 (>60) 02/09/18 06:00 Random Glucose 83 mg/dL (74-106) D 02/09/18 06:00 Calcium 8.7 mg/dL (8.5-10.1) 02/09/18 06:00 Total Bilirubin 0.3 mg/dL (0.2-1.0) 02/09/18 06:00 AST 165 U/L (15-37) H D 02/09/18 06:00 ALT 85 U/L (12-78) H D 02/09/18 06:00 Alkaline Phosphatase 56 U/L (45-117) 02/09/18 06:00 Total Protein 6.9 g/dl (6.4-8.2) 02/09/18 06:00 Albumin 4.0 g/dl (3.4-5.0) 02/09/18 06:00 Urine Color Yellow 02/08/18 14:30 Urine Appearance Clear 02/08/18 14:30 Urine pH 5.0 (5.0-8.0) 02/08/18 14:30 Ur Specific [place] 1.026 (1.001-1.035) 02/08/18 14:30 Urine Protein Negative (NEGATIVE) 02/08/18 14:30 Urine Glucose (UA) Negative (NEGATIVE) 02/08/18 14:30 Urine Ketones Negative (NEGATIVE) 02/08/18 14:30 Urine Blood Negative (NEGATIVE) 02/08/18 14:30 Urine Nitrite Negative (NEGATIVE) 02/08/18 14:30 Urine Bilirubin Negative (<2.0 mg/dL) 02/08/18 14:30 Urine Urobilinogen Negative mg/dL (0.2-1.0) 02/08/18 14:30 Ur Leukocyte Esterase Negative (NEGATIVE) 02/08/18 14:30 RPR Titer Nonreactive (NONREACTIVE) 02/09/18 06:00 Assessment: 02/09/18 12:05 withdrawal symptom Plan: continue detox,bun 27,k 3.4,ast 165,alt 65,encourage oral fluid,water,repeat cmp ,inr in am,d/c tyleonol due to elevation of alt,ast
[2018-02-09] MEDS: THIAMINE HCL 100 MG TABLET (FP) PO SCH (22:03)
[2018-02-10] MEDS ORDERED: METHADONE HCL 10 MG TABLET ONE (04:51)
[2018-02-10] MEDS ORDERED: METHADONE HCL 40 MG DISPERSABLE TABLET ONE (04:51)
[2018-02-10] MEDS: METHADONE 80 MG, METHADONE 20 MG PO SCH (06:07)
--- NOTE | 2018-02-10 10:28 | PN ---
BHS CIWA - CIWA Score Nausea/Vomitin Muscle Tremors: 3 Anxiety: 2 Agitation: 2 Paroxysmal Sweats: 1-Minimal Palms Moist Orientation: 0-Oriented Tacttile Disturbances: 1-Very Mild Itch/Numbness Auditory Disturbances: 1-Very Mild Visual Disturbances: 0-None Headache: 2-Mild CIWA-Ar Total Score: 15 BHS Progress Note (SOAP) Subjective: alert,irritable,anxious,interrupted sleep,tremor Objective: 02/10/18 10:24 Vital Signs Temperature 97.7 F 02/10/18 10:12 Pulse Rate 56 L 02/10/18 10:12 Respiratory Rate 18 02/10/18 10:12 Blood Pressure 111/52 02/10/18 10:12 O2 Sat by Pulse Oximetry (%) 02/10/18 10:24 patient refused blood test encourage oral fluid,water Assessment: 02/10/18 10:25 withdrawal symptom Plan: continue detox
[2018-02-10] MEDS: PRENATAL VITAMINS W/ FOLIC ACID TABLET (FP) PO SCH (10:29)
[2018-02-10] MEDS: diazePAM 5 MG TABLET PO SCH ×2 (10:29→22:24)
[2018-02-10] MEDS: NICOTINE 21 MG/24 HOURS TOPICAL PATCH TD SCH (10:29)
[2018-02-10] MEDS: NAPROXEN 500 MG TABLET (FP) PO SCH ×2 (10:29→22:24)
[2018-02-10] MEDS: NICOTINE POLACRILEX 4 MG GUM BUC PRN ×2 (10:30→22:28)
--- NOTE | 2018-02-10 10:33 | PN ---
BHS Progress Note Note: complaint of pain,tingling in both hands for 2 month,r/o neuropathy, neurontin 300 mmgs po bid
[2018-02-10] MEDS: GABAPENTIN 300 MG CAPSULE (FP) PO SCH ×2 (11:05→22:24)
[2018-02-10] MEDS: diazePAM 5 MG TABLET PO PRN (15:02)
[2018-02-10] MEDS: CYCLOBENZAPRINE HCL 10 MG TABLET (FP) PO PRN ×2 (15:02→22:25)
[2018-02-10] MEDS: THIAMINE HCL 100 MG TABLET (FP) PO SCH (22:24)
[2018-02-11] MEDS ORDERED: METHADONE HCL 10 MG TABLET ONE (03:09)
[2018-02-11] MEDS ORDERED: METHADONE HCL 40 MG DISPERSABLE TABLET ONE (03:09)
[2018-02-11] MEDS: CYCLOBENZAPRINE HCL 10 MG TABLET (FP) PO PRN ×3 (04:44→22:30)
[2018-02-11] MEDS: diazePAM 5 MG TABLET PO PRN ×2 (04:44→12:12)
[2018-02-11] MEDS: METHADONE 80 MG, METHADONE 20 MG PO SCH (05:57)
--- NOTE | 2018-02-11 10:34 | PN ---
S Progress Note (SOAP) Subjective: alert,irritable,anxious,interrupted sleep Objective: 02/11/18 10:33 Vital Signs Temperature 97.9 F 02/11/18 09:21 Pulse Rate 64 02/11/18 09:21 Respiratory Rate 18 02/11/18 09:21 Blood Pressure 107/60 02/11/18 09:21 O2 Sat by Pulse Oximetry (%) Assessment: 02/11/18 10:33 withdrawal symptom Plan: continue detox,discharge in am
[2018-02-11] MEDS: PRENATAL VITAMINS W/ FOLIC ACID TABLET (FP) PO SCH (10:46)
[2018-02-11] MEDS: NAPROXEN 500 MG TABLET (FP) PO SCH ×2 (10:46→22:28)
[2018-02-11] MEDS: GABAPENTIN 300 MG CAPSULE (FP) PO SCH ×2 (10:47→22:29)
[2018-02-11] MEDS: diazePAM 5 MG TABLET PO SCH ×2 (10:47→22:29)
[2018-02-11] MEDS: NICOTINE 21 MG/24 HOURS TOPICAL PATCH TD SCH (10:47)
[2018-02-11] MEDS: THIAMINE HCL 100 MG TABLET (FP) PO SCH (22:28)
[2018-02-12] MEDS ORDERED: METHADONE HCL 40 MG DISPERSABLE TABLET ONE (04:14)
[2018-02-12] MEDS ORDERED: METHADONE HCL 10 MG TABLET ONE (04:14)
[2018-02-12] MEDS: METHADONE 80 MG, METHADONE 20 MG PO SCH (05:48)
[2018-02-12 07:33] VITALS: BP 109/62; PULSE 54; TEMP 97.7
--- NOTE | 2018-02-12 08:11 | PN ---
S Progress Note (SOAP) Subjective: alert,no complaint Objective: 02/12/18 08:09 Vital Signs Temperature 97.7 F 02/12/18 07:32 Pulse Rate 54 L 02/12/18 07:32 Respiratory Rate 18 02/12/18 07:32 Blood Pressure 109/62 02/12/18 07:32 O2 Sat by Pulse Oximetry (%) Assessment: 02/12/18 08:09 detox completed,no withdrawal symptom Plan: discharge today,follow up with after care program as arrangement
--- NOTE | 2018-02-12 08:14 | DS ---
[facility] Detox Discharge Summary Admission Date: 02/08/18 Discharge Date: 02/12/18 - History Present History: Cocaine Dependence, Sedative Dependence, MMTP Additional Comments: follow up with after care program as arrangement Pertinent Past History: s/p surgery of right shoulder - Physical Exam Results Vital Signs: Vital Signs Temperature 97.7 F 02/12/18 07:32 Pulse Rate 54 L 02/12/18 07:32 Respiratory Rate 18 02/12/18 07:32 Blood Pressure 109/62 02/12/18 07:32 O2 Sat by Pulse Oximetry (%) Pertinent Admission Physical Exam Findings: withdrawal signs and symptom Vital Signs Temperature 97.7 F 02/12/18 07:32 Pulse Rate 54 L 02/12/18 07:32 Respiratory Rate 18 02/12/18 07:32 Blood Pressure 109/62 02/12/18 07:32 O2 Sat by Pulse Oximetry (%) Laboratory Last Values WBC 6.2 K/mm3 (4.0-10.0) 02/09/18 06:00 RBC 4.45 M/mm3 (4.00-5.60) 02/09/18 06:00 Hgb 14.2 GM/dL (11.7-16.9) 02/09/18 06:00 Hct 41.1 % (35.4-49) 02/09/18 06:00 MCV 92.5 fl (80-96) 02/09/18 06:00 MCH 31.9 pg (25.7-33.7) 02/09/18 06:00 MCHC 34.5 g/dl (32.0-35.9) 02/09/18 06:00 RDW 13.2 % (11.9-15.9) 02/09/18 06:00 Plt Count 211 K/MM3 (134-434) 02/09/18 06:00 MPV 9.5 fl (7.5-11.1) 02/09/18 06:00 Sodium 143 mmol/L (136-145) 02/09/18 06:00 Potassium 4.6 mmol/L (3.5-5.1) 02/09/18 06:00 Chloride 107 mmol/L (98-107) 02/09/18 06:00 Carbon Dioxide 30 mmol/L (21-32) 02/09/18 06:00 Anion Gap 6 (8-16) L 02/09/18 06:00 BUN 24 mg/dL (7-18) H 02/09/18 06:00 Creatinine 1.3 mg/dL (0.7-1.3) 02/09/18 06:00 Creat Clearance w eGFR > 60 (>60) 02/09/18 06:00 Random Glucose 83 mg/dL (74-106) D 02/09/18 06:00 Calcium 8.7 mg/dL (8.5-10.1) 02/09/18 06:00 Total Bilirubin 0.3 mg/dL (0.2-1.0) 02/09/18 06:00 AST 165 U/L (15-37) H D 02/09/18 06:00 ALT 85 U/L (12-78) H D 02/09/18 06:00 Alkaline Phosphatase 56 U/L (45-117) 02/09/18 06:00 Total Protein 6.9 g/dl (6.4-8.2) 02/09/18 06:00 Albumin 4.0 g/dl (3.4-5.0) 02/09/18 06:00 Urine Color Yellow 02/08/18 14:30 Urine Appearance Clear 02/08/18 14:30 Urine pH 5.0 (5.0-8.0) 02/08/18 14:30 Ur Specific [place] 1.026 (1.001-1.035) 02/08/18 14:30 Urine Protein Negative (NEGATIVE) 02/08/18 14:30 Urine Glucose (UA) Negative (NEGATIVE) 02/08/18 14:30 Urine Ketones Negative (NEGATIVE) 02/08/18 14:30 Urine Blood Negative (NEGATIVE) 02/08/18 14:30 Urine Nitrite Negative (NEGATIVE) 02/08/18 14:30 Urine Bilirubin Negative (<2.0 mg/dL) 02/08/18 14:30 Urine Urobilinogen Negative mg/dL (0.2-1.0) 02/08/18 14:30 Ur Leukocyte Esterase Negative (NEGATIVE) 02/08/18 14:30 RPR Titer Nonreactive (NONREACTIVE) 02/09/18 06:00 - Treatment Hospital Course: Detox Protocol Followed, Detoxed Safely - Medication Discharge Medications: Ambulatory Orders Gabapentin [Neurontin] 600 mg PO Q8H 10/21/17 Quetiapine Fumarate [Seroquel] 100 mg PO HS #30 tablet 01/01/18 Divalproex [Depakote -] 500 mg PO BID 02/08/18 - Diagnosis (1) Sedative, hypnotic or anxiolytic dependence, uncomplicated Current Visit: Yes Status: Acute (2) Arthritis Current Visit: Yes Status: Acute (3) Cocaine dependence Current Visit: Yes Status: Active (4) Methadone maintenance therapy patient Current Visit: Yes Status: Chronic (5) S/P RIGHT SHOULDER SURGERY Current Visit: Yes Status: Chronic (6) Neuropathy Current Visit: Yes Status: Acute - AMA Did Patient Leave Against Medical Advice: No
[2018-02-12] MEDS: PRENATAL VITAMINS W/ FOLIC ACID TABLET (FP) PO SCH (09:11)
[2018-02-12] MEDS: NICOTINE 21 MG/24 HOURS TOPICAL PATCH TD SCH (09:11)
[2018-02-12] MEDS: GABAPENTIN 300 MG CAPSULE (FP) PO SCH (09:11)
[2018-02-12] MEDS: CYCLOBENZAPRINE HCL 10 MG TABLET (FP) PO PRN (09:11)
[2018-02-12] MEDS: NAPROXEN 500 MG TABLET (FP) PO SCH (09:11)
[2018-02-12] MEDS ORDERED: diazePAM 5 MG TABLET PO SCH (10:00)
== END 2018-02-12 09:22 | disposition home or self-care (01) | DRG 773 ==
LOC: YASAS 10:59 → Y6N 13:32
PROVIDERS: ADMIT Surgery; ATTEND Surgery
PROC: HZ2ZZZZ Detoxification Services for Substance Abuse Treatment (ICD-10-PCS; principal; 2018-02-08)
PROC: HZ2ZZZZ Detoxification Services for Substance Abuse Treatment (ICD-10-PCS; 2018-02-08)
DX: F13.230 Sedative, hypnotic or anxiolytic dependence with withdrawal, uncomplicated (principal); F14.20 Cocaine dependence, uncomplicated; F11.20 Opioid dependence, uncomplicated; F31.9 Bipolar disorder, unspecified; G62.9 Polyneuropathy, unspecified; M12.9 Arthropathy, unspecified; M54.5 Low back pain; G89.29 Other chronic pain; Z51.81 Encounter for therapeutic drug level monitoring; Z98.890 Other specified postprocedural states; Z86.69 Personal history of other diseases of the nervous system and sense organs; Z88.8 Allergy status to other drugs, medicaments and biological substances; Z91.013 Allergy to seafood
CPT/HCPCS: 36415; 80053; 81003; 85027; 86593; 93005; 93010

== ENCOUNTER 2018-05-29 18:47 | Inpatient (IN) | payer OTHER ==
[2018-05-29 19:46] VITALS: BMI 30.4
--- NOTE | 2018-05-29 20:20 | HP ---
CIWA Score - CIWA Score Nausea/Vomitin-No Nausea/No Vomiting Muscle Tremors: None Anxiety: 4-Mod. Anxious/Guarded Agitation: 4-Moderately Restless Paroxysmal Sweats: 4-Forehead w/Sweat Beads Orientation: 2-Disoriented Date<2 days Tacttile Disturbances: 0-None Auditory Disturbances: 0-None Visual Disturbances: 2-Mild Sensitivity Headache: 3-Moderate CIWA-Ar Total Score: 19 Admission ROS S - HPI Chief Complaint: c/o withdrawal sx's. seeking detox from xanax Allergies/Adverse Reactions: Allergies Allergy/AdvReac Type Severity Reaction Status Date / Time Fish Containing Products Allergy Severe Hives Verified 05/29/18 20:10 trazodone Allergy Verified 05/29/18 20:10 History of Present Illness: 38 Y.O. MALE WITH HX/O BENZO AND OPIOID DEPENDENCE HERE FOR DETOX. CLIENT IS PRESENTLY ON METHADONE [address] [facility]. SELF REFERRED. C/O WITHDRAWAL SX' S. CIWA 19.KNOWN TO THIS PROGRAM LAST. HERE JANUARY 2018 . DENIES ANY SIGNIFICANT CLEAN TIME. REPORTS MULTIPLE RELAPSES OF DETOX. REPORTS HX/O OF DRUG OVERDOSE X3, SEIZURES, BLACKOUTS. DENIES SI/HI, AVH. DEOES REPORTS HX/O SUICIDE 5 YEARS AGO. PMHX- CHRONIC BACK PAIN 2/2 HERNIATED LUMBAR DISC ON GABAPENTIN PSYCH- BIPOLAR , INSOMNIA ON SEROQUELL Exam Limitations: No Limitations - Ebola screening Have you traveled outside of the country in the last 21 days: No (N) Have you had contact with anyone from an Ebola affected area: No Have you been sick,other than usual withdrawal symptoms: No Do you have a fever: No - Review of Systems Constitutional: Chills, Night Sweats, Changes in sleep EENT: reports: Ear Pain (JAW PAIN THAT RADIATES TO LEFT EAR ONLY WHEN HE BITES DOWN), Other (JAW PAIN) Respiratory: reports: No Symptoms reported Cardiac: reports: No Symptoms Reported GI: reports: Constipated : reports: No Symptoms Reported Musculoskeletal: reports: Back Pain Integumentary: reports: No Symptoms Reported Neuro: reports: Seizure (LAST EPISODE X 2 YEARS AGO) Endocrine: reports: No Symptoms Reported Hematology: reports: No Symptoms Reported Psychiatric: reports: Anxious, Depressed Other Systems: Reviewed and Negative Patient History - Patient Medical History Hx Anemia: No Hx Asthma: No Hx Chronic Obstructive Pulmonary Disease (COPD): No Hx Cancer: No Hx Cardiac Disorders: No Hx Congestive Heart Failure: No Hx Hypertension: No Hx Hypercholesterolemia: No Hx Pacemaker: No HX Cerebrovascular Accident: No Hx Seizures: No Hx Dementia: No Hx Diabetes: No Hx Gastrointestinal Disorders: No Hx Liver Disease: No Hx Genitourinary Disorders: No Hx Sexually Transmitted Disorders: No Hx Renal Disease (ESRD): No Hx Thyroid Disease: No Hx Human Immunodeficiency Virus (HIV): No Hx Hepatitis C: No Hx Depression: Yes Hx Suicide Attempt: Yes (06/2014 OD ON HEROIN; DENIES CURRENT S/I) Hx Bipolar Disorder: Yes (On meds.) Hx Schizophrenia: No - Patient Surgical History Past Surgical History: Yes Hx Neurologic Surgery: No Hx Cataract Extraction: No Hx Cardiac Surgery: No Hx Lung Surgery: No Hx Breast Surgery: No Hx Breast Biopsy: No Hx Abdominal Surgery: No Hx Appendectomy: No Hx Cholecystectomy: No Hx Genitourinary Surgery: No Hx Section: No Hx Orthopedic Surgery: Yes (rt shoulder impingement and torn labrium- arthroscopic surgery, 1996.) Other Surgical History: corrective sx, left eye (@1983), right inguinal hernia repair, 1996. Anesthesia Reaction: No - PPD History Previous Implant?: Yes Documented Results: Negative w/proof Implanted On Prior [facility] Admission?: Yes Date: 10/23/17 Results: 0 mm PPD to be Administered?: No - Smoking Cessation Smoking history: Current every day smoker Have you smoked in the past 12 months: Yes Aproximately how many cigarettes per day: 20 Cigars Per Day: 0 Hx Chewing Tobacco Use: No Initiated information on smoking cessation: Yes 'Breaking Loose' booklet given: 05/29/18 - Substance & Tx. History Hx Alcohol Use: Yes Hx Substance Use: Yes Substance Use Type: Cocaine, Heroin, Prescribed (METHADONE 30 MG DAILY), Tranquilizers (XANAX) Hx Substance Use Treatment: Yes ([facility]) - Substances Abused Alprazolam (Xanax) Route: Oral Frequency: Daily Amount used: 5/2MG Age of first use: 14 Date of Last Use: 05/29/18 Cocaine Route: Smoking Frequency: 1-2 times per week Amount used: 4/5GRMS Age of first use: 16 Date of Last Use: 11/04/18 Family Disease History - Family Disease History Family History: Denies Family Disease History: Other: Father Admission Physical Exam BHS - Vital Signs Vital Signs: Vital Signs - 24 hr 05/29/18 19:43 Temperature 98.8 F Pulse Rate 83 Respiratory 18 Rate Blood Pressure 143/80 - Physical General Appearance: Yes: Appropriately Dressed, Mild Distress, Irritable, Sweating, Anxious HEENTM: Yes: EOMI, Normocephalic, Normal Voice, BREANNE, Pharynx Normal, Other ( POOR DENTITION DENTAL CARIES) Respiratory: Yes: Chest Non-Tender, Lungs Clear, Normal Breath Sounds, No Respiratory Distress, No Accessory Muscle Use Neck: Yes: No masses,lesions,Nodules, Supple Breast: Yes: Breast Exam Deferred Cardiology: Yes: Regular Rhythm, Regular Rate, S1, S2 Abdominal: Yes: Normal Bowel Sounds, Non Tender, Flat, Soft Genitourinary: Yes: Within Normal Limits Back: Yes: Normal Inspection Musculoskeletal: Yes: full range of Motion, Gait Steady, Back pain (C/O) Extremities: Yes: Normal Inspection, Normal Range of Motion, Non-Tender Neurological: Yes: Alert, Motor Strength 5/5, Disoriented (TO DATE), Depressed Affect Integumentary: Yes: Warm, Moist, Other (FLUSHED) Lymphatic: Yes: Within Normal Limits - Diagnostic (1) Constipation Current Visit: Yes Status: Acute Qualifiers: Constipation type: drug induced constipation Qualified Code(s): K59.03 - Drug induced constipation (2) Sedative, hypnotic or anxiolytic dependence with withdrawal, uncomplicated Current Visit: Yes Status: Acute (3) Cocaine dependence Current Visit: Yes Status: Chronic (4) Insomnia Current Visit: Yes Status: Chronic Qualifiers: Insomnia type: unspecified Qualified Code(s): G47.00 - Insomnia, unspecified (5) Neuropathy Current Visit: Yes Status: Chronic (6) Nicotine dependence Current Visit: Yes Status: Chronic Qualifiers: Nicotine product type: cigarettes Substance use status: in withdrawal Qualified Code(s): F17.213 - Nicotine dependence, cigarettes, with withdrawal (7) Pain due to dental caries Current Visit: No Status: Acute (8) Poor dentition Current Visit: No Status: Acute (9) Substance-induced sleep disorder Current Visit: Yes Status: Chronic (10) Bipolar disorder Current Visit: Yes Status: Chronic Qualifiers: Active/Remission status: remission status unspecified Qualified Code(s): F31.9 - Bipolar disorder, unspecified (11) LOW BACK PAIN HERNIATED DISC Current Visit: Yes Status: Chronic (12) Methadone maintenance therapy patient Current Visit: Yes Status: Chronic Cleared for Admission [facility] - Detox or Rehab [facility] Level of Care: Medically Managed Detox Regimen/Protocol: Danisha Mariscaled for Rehab Admission: No S Breath Alcohol Content Breath Alcohol Content: 0 Urine Drug Screen - Results Drug Screen Negative: No Urine Drug Screen Results: ANU-Cocaine, OPI-Opiates, BAR-Barbiturates, BZO- Benzodiazepines, MTD-Methadone
[2018-05-29] MEDS ORDERED: hydrOXYzine PAMOATE 50 MG CAPSULE (FP) PO PRN (20:34)
[2018-05-29] MEDS ORDERED: P-EPHED 60MG/TRIPROLIDI 2.5MG TABLET PO PRN (20:34)
[2018-05-29] MEDS ORDERED: MAGNESIUM HYDROX 2400MG/30ML ORAL SUSPENSION 30 ML CUP PO PRN (20:34)
[2018-05-29] MEDS ORDERED: guaiFENesin/D-METHORPHAN HB 10 ML UNIT-DOSE CUPS PO PRN (20:34)
[2018-05-29] MEDS ORDERED: MAG HYDROX/AL HYDROX/SIMETH 30 ML UNIT-DOSE CUP PO PRN (20:34)
[2018-05-29] MEDS ORDERED: LOPERAMIDE HCL 2 MG CAPSULE PO PRN (20:34)
[2018-05-29] MEDS ORDERED: IBUPROFEN 400 MG TABLET (FP) PO PRN (20:34)
[2018-05-29] MEDS ORDERED: MAGNESIUM CITRATE 300 ML BOTTLE PO PRN (20:34)
[2018-05-29] MEDS ORDERED: ACETAMINOPHEN 325 MG TABLET (FP) PO PRN (20:34)
[2018-05-29] MEDS ORDERED: MENTHOL/PHENOL 1 EACH UD MM PRN (20:34)
[2018-05-29] MEDS: DOCUSATE SODIUM 100 MG CAPSULE (FP) PO SCH (21:14)
[2018-05-29] MEDS: GABAPENTIN 300 MG CAPSULE (FP) PO SCH (21:14)
[2018-05-29] MEDS: THIAMINE HCL 100 MG TABLET (FP) PO SCH (21:14)
[2018-05-29] MEDS ORDERED: MELATONIN 5 MG TABLETS PO PRN (22:00)
[2018-05-29] MEDS: chlordiazePOXIDE HCL 25 MG CAPSULE PO SCH (22:02)
[2018-05-30 01:48] LABS: URINE APPEARANCE CLEAR; URINE BILIRUBIN NEGATIVE (<2.0 mg/dL); URINE COLOR DKYELLOW; URINE GLUCOSE (UA) NEGATIVE (NEGATIVE); URINE KETONE NEGATIVE (NEGATIVE); URINE LEUK ESTERASE NEGATIVE (NEGATIVE); URINE NITRITE NEGATIVE (NEGATIVE); URINE PROTEIN NEGATIVE (NEGATIVE)
[2018-05-30] MEDS: chlordiazePOXIDE HCL 25 MG CAPSULE PO SCH ×4 (05:43→23:03)
--- NOTE | 2018-05-30 07:41 | CONSULT ---
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 Substance Abuse History: Smoking history: Current every day smoker. Have you smoked in the past 12 months: Yes. Aproximately how many cigarettes per day: 20. Cigars Per Day: 0. Hx Chewing Tobacco Use: No. Initiated information on smoking cessation: Yes. 'Breaking Loose' booklet given: 05/29/18. - Substance & Tx. History. Hx Alcohol Use: Yes. Hx Substance Use: Yes. Substance Use Type : Cocaine, Heroin, Prescribed (METHADONE 30 MG DAILY), Tranquilizers (XANAX). Hx Substance Use Treatment: Yes ([facility] - Substances Abused. Alprazolam ( Xanax). Route: Oral. Frequency: Daily. Amount used: 5/2MG. Age of first use : 14. Date of Last Use: 05/29/18. Cocaine. Route: Smoking. Frequency: 1- 2 times per week. Amount used: 4/5GRMS. Age of first use: 16. Date of Last Use: 05/29/18 Medical History: LBP, Seizure history, L. eye surgery s/p, R. shoulder surgery s /p, Back surgery s/p, Arthritis history, Psychiatric History: Patient reports history of depression and anxiety, as per computer history of Bipolar Disorder, denies psychiatric hospitalization history , reports suicidal incident on 2013 -OD with Heroin, reports no suicidal history since thenh,. Currently on: Seroquel 100mg po qhs. Gabapentin 600mg po tid Physical/Sexual Abuse/Trauma History: Denies Additional Comment: Seroquel 100mg po qhs. Gabapentin 600mg po tid Mental Status Exam - Mental Status Exam Alert and Oriented to: Place, Person Cognitive Function: Fair Patient Appearance: Unkempt Mood: Apprehensive Affect: Mood Congruent Patient Behavior: Cooperative Speech Pattern: Appropriate Voice Loudness: Normal Thought Process: Goal Oriented Thought Disorder: Being Controlled Hallucinations: Denies Suicidal Ideation: Denies Homicidal Ideation: Denies Insight/Judgement: Fair Sleep: Difficulty falling asleep Appetite: Fair Muscle strength/Tone: Normal Gait/Station: Normal Additional Comments: Seroquel 100mg po qhs. Gabapentin 600mg po tid Psychiatric Findings - Problem List ([place] 1, 2,3) (1) Opioid dependence with withdrawal Current Visit: Yes Status: Acute (2) Sedative, hypnotic or anxiolytic dependence with withdrawal, uncomplicated Current Visit: Yes Status: Acute (3) Bipolar disorder Current Visit: Yes Status: Chronic Qualifiers: Active/Remission status: remission status unspecified Qualified Code(s): F31.9 - Bipolar disorder, unspecified (4) Cocaine dependence Current Visit: Yes Status: Chronic (5) LOW BACK PAIN HERNIATED DISC Current Visit: Yes Status: Chronic (6) Methadone maintenance therapy patient Current Visit: Yes Status: Chronic (7) Opioid dependence Current Visit: No Status: Active (8) Sedative dependence Current Visit: No Status: Active (9) Seizure Current Visit: No Status: Active (10) Arthritis Current Visit: No Status: Acute (11) Cannabis dependence Current Visit: No Status: Acute (12) Encounter for monitoring Suboxone maintenance therapy Current Visit: No Status: Acute (13) Opioid dependence Current Visit: No Status: Acute (14) Sedative hypnotic or anxiolytic dependence Current Visit: No Status: Acute (15) Sedative, hypnotic or anxiolytic dependence, uncomplicated Current Visit: No Status: Acute (16) Substance induced mood disorder Current Visit: No Status: Acute (17) Substance-induced anxiety disorder Current Visit: No Status: Acute (18) History of back injury Current Visit: No Status: Chronic (19) S/P RIGHT SHOULDER SURGERY Current Visit: No Status: Chronic (20) Syncope Current Visit: No Status: Suspected Comment: HX PER PATIENT. PT DENIES SEIZURE DX. (21) S/P CORRECTIVE SURGERY OF LEFT EYE Current Visit: No Status: Resolved - Initial Treatment Plan Initial Treatment Plan: Seroquel 100mg po qhs. Gabapentin 600mg po tid
[2018-05-30] MEDS: GABAPENTIN 300 MG CAPSULE (FP) PO SCH ×5 (09:30→23:13)
[2018-05-30] MEDS ORDERED: GABAPENTIN 300 MG CAPSULE (FP) ONE (09:39)
[2018-05-30] MEDS: PRENATAL VITAMINS W/ FOLIC ACID TABLET (FP) PO SCH (10:34)
[2018-05-30] MEDS: NICOTINE 21 MG/24 HOURS TOPICAL PATCH TD SCH (10:37)
--- NOTE | 2018-05-30 10:38 | EKG ---
Test Reason : Blood Pressure : / mmHG Vent. Rate : 071 BPM Atrial Rate : 071 BPM P-R Int : 158 ms QRS Dur : 092 ms QT Int : 368 ms P-R-T Axes : 070 075 066 degrees QTc Int : 399 ms NORMAL SINUS RHYTHM NORMAL ECG WHEN COMPARED WITH ECG OF 08-FEB-2018 14:17, NO SIGNIFICANT CHANGE WAS FOUND Confirmed by SHRUTHI JUAREZ MD ([id number]) on 05/30/2018 10:37:38 AM Referred By: Confirmed By:SHRUTHI JUAREZ MD
[2018-05-30] MEDS ORDERED: METHADONE HCL 10 MG TABLET PO ONE (11:30)
--- NOTE | 2018-05-30 11:43 | PN ---
[facility]HS CIWA - CIWA Score Nausea/Vomitin-Mild Nausea/No Vomiting Muscle Tremors: 3 Anxiety: 3 Agitation: 3 Paroxysmal Sweats: 1-Minimal Palms Moist Orientation: 1-Uncertain about Date Tacttile Disturbances: 1-Very Mild Itch/Numbness Auditory Disturbances: 0-None Visual Disturbances: 0-None Headache: 1-Very Mild CIWA-Ar Total Score: 14 BHS Progress Note (SOAP) Subjective: sweat tremor restlessness anxiety Objective: 05/30/18 11:45 Vital Signs Temperature 98.1 F 05/30/18 09:17 Pulse Rate 81 05/30/18 09:17 Respiratory Rate 20 05/30/18 09:17 Blood Pressure 121/62 05/30/18 09:17 O2 Sat by Pulse Oximetry (%) Laboratory Last Values Urine Color Dkyellow 05/29/18 23:00 Urine Appearance Clear 05/29/18 23:00 Urine pH 5.0 (5.0-8.0) 05/29/18 23:00 Ur Specific [place] 1.031 (1.010-1.035) 05/29/18 23:00 Urine Protein Negative (NEGATIVE) 05/29/18 23:00 Urine Glucose (UA) Negative (NEGATIVE) 05/29/18 23:00 Urine Ketones Negative (NEGATIVE) 05/29/18 23:00 Urine Blood Negative (NEGATIVE) 05/29/18 23:00 Urine Nitrite Negative (NEGATIVE) 05/29/18 23:00 Urine Bilirubin Negative (<2.0 mg/dL) 05/29/18 23:00 Urine Urobilinogen 2.0 mg/dL (0.2-1.0) 05/29/18 23:00 Ur Leukocyte Esterase Negative (NEGATIVE) 05/29/18 23:00 lab noted Assessment: 05/30/18 11:45 withdrawal sx Plan: continue detox
[2018-05-30] MEDS: THIAMINE HCL 100 MG TABLET (FP) PO SCH (23:02)
[2018-05-30] MEDS: QUEtiapine FUMARATE 100 MG TABLET (FP) PO SCH (23:03)
[2018-05-30] MEDS: DOCUSATE SODIUM 100 MG CAPSULE (FP) PO SCH (23:03)
[2018-05-31] MEDS ORDERED: METHADONE HCL 10 MG TABLET PO SCH (06:00)
[2018-05-31] MEDS: chlordiazePOXIDE HCL 25 MG CAPSULE PO SCH ×3 (06:00→17:17)
[2018-05-31] MEDS: GABAPENTIN 300 MG CAPSULE (FP) PO SCH ×4 (06:44→22:28)
[2018-05-31] MEDS: NICOTINE 21 MG/24 HOURS TOPICAL PATCH TD SCH (10:46)
[2018-05-31] MEDS: PRENATAL VITAMINS W/ FOLIC ACID TABLET (FP) PO SCH (10:46)
--- NOTE | 2018-05-31 11:10 | PN ---
S CIWA - CIWA Score Nausea/Vomitin-Mild Nausea/No Vomiting Muscle Tremors: 4-Moderate,w/Arms Extend Anxiety: 2 Agitation: 3 Paroxysmal Sweats: 1-Minimal Palms Moist Orientation: 0-Oriented Tacttile Disturbances: 0-None Auditory Disturbances: 0-None Visual Disturbances: 0-None Headache: 1-Very Mild CIWA-Ar Total Score: 12 BHS Progress Note (SOAP) Subjective: anxiety restlessness sweat tremor Objective: 05/31/18 11:09 Vital Signs Temperature 97.9 F 05/31/18 09:40 Pulse Rate 85 05/31/18 09:40 Respiratory Rate 18 05/31/18 09:40 Blood Pressure 111/66 05/31/18 09:40 O2 Sat by Pulse Oximetry (%) Laboratory Last Values Urine Color Dkyellow 05/29/18 23:00 Urine Appearance Clear 05/29/18 23:00 Urine pH 5.0 (5.0-8.0) 05/29/18 23:00 Ur Specific [place] 1.031 (1.010-1.035) 05/29/18 23:00 Urine Protein Negative (NEGATIVE) 05/29/18 23:00 Urine Glucose (UA) Negative (NEGATIVE) 05/29/18 23:00 Urine Ketones Negative (NEGATIVE) 05/29/18 23:00 Urine Blood Negative (NEGATIVE) 05/29/18 23:00 Urine Nitrite Negative (NEGATIVE) 05/29/18 23:00 Urine Bilirubin Negative (<2.0 mg/dL) 05/29/18 23:00 Urine Urobilinogen 2.0 mg/dL (0.2-1.0) 05/29/18 23:00 Ur Leukocyte Esterase Negative (NEGATIVE) 05/29/18 23:00 lab noted Assessment: 05/31/18 11:13 withdrawal sx Plan: continue detox
--- NOTE | 2018-05-31 11:30 | PN ---
S Progress Note Note: patient wants to reduce methadone dosage that he does not want to be on methadone program begin methadone 20 mg tomorrow 06/01/18
[2018-05-31] MEDS: chlordiazePOXIDE HCL 25 MG CAPSULE PO PRN (11:47)
[2018-05-31] MEDS: NICOTINE POLACRILEX 2 MG GUM BC PRN ×2 (11:48→17:44)
[2018-05-31] MEDS: chlordiazePOXIDE 5 MG CAPSULE PO SCH (22:27)
[2018-05-31] MEDS: QUEtiapine FUMARATE 100 MG TABLET (FP) PO SCH (22:27)
[2018-05-31] MEDS: THIAMINE HCL 100 MG TABLET (FP) PO SCH ×2 (22:27→22:30)
[2018-05-31] MEDS: DOCUSATE SODIUM 100 MG CAPSULE (FP) PO SCH (22:56)
[2018-06-01] MEDS: METHADONE HCL 10 MG TABLET PO SCH (05:29)
[2018-06-01] MEDS: chlordiazePOXIDE 5 MG CAPSULE PO SCH ×3 (05:30→16:34)
[2018-06-01] MEDS: GABAPENTIN 300 MG CAPSULE (FP) PO SCH ×3 (05:30→22:30)
[2018-06-01] MEDS: NICOTINE POLACRILEX 2 MG GUM BC PRN (10:44)
[2018-06-01] MEDS: NICOTINE 21 MG/24 HOURS TOPICAL PATCH TD SCH (10:44)
[2018-06-01] MEDS: PRENATAL VITAMINS W/ FOLIC ACID TABLET (FP) PO SCH (10:44)
--- NOTE | 2018-06-01 11:56 | PN ---
BHS Progress Note (SOAP) Subjective: feeling better no tremor sleep better at night discuss aftercare Objective: 06/01/18 11:55 Vital Signs Temperature 98.2 F 06/01/18 09:37 Pulse Rate 76 06/01/18 09:37 Respiratory Rate 18 06/01/18 09:37 Blood Pressure 112/61 06/01/18 09:37 O2 Sat by Pulse Oximetry (%) Laboratory Last Values Urine Color Dkyellow 05/29/18 23:00 Urine Appearance Clear 05/29/18 23:00 Urine pH 5.0 (5.0-8.0) 05/29/18 23:00 Ur Specific [place] 1.031 (1.010-1.035) 05/29/18 23:00 Urine Protein Negative (NEGATIVE) 05/29/18 23:00 Urine Glucose (UA) Negative (NEGATIVE) 05/29/18 23:00 Urine Ketones Negative (NEGATIVE) 05/29/18 23:00 Urine Blood Negative (NEGATIVE) 05/29/18 23:00 Urine Nitrite Negative (NEGATIVE) 05/29/18 23:00 Urine Bilirubin Negative (<2.0 mg/dL) 05/29/18 23:00 Urine Urobilinogen 2.0 mg/dL (0.2-1.0) 05/29/18 23:00 Ur Leukocyte Esterase Negative (NEGATIVE) 05/29/18 23:00 lab noted Assessment: 06/01/18 11:55 mild withdrawal sx Plan: medically supervised detox
[2018-06-01] MEDS: chlordiazePOXIDE HCL 25 MG CAPSULE PO PRN ×3 (12:09→20:29)
[2018-06-01] MEDS: QUEtiapine FUMARATE 100 MG TABLET (FP) PO SCH (22:29)
[2018-06-01] MEDS: DOCUSATE SODIUM 100 MG CAPSULE (FP) PO SCH (22:30)
[2018-06-01] MEDS: chlordiazePOXIDE HCL 10 MG CAPSULE PO SCH (22:30)
[2018-06-01] MEDS: THIAMINE HCL 100 MG TABLET (FP) PO SCH (22:30)
[2018-06-02] MEDS: METHADONE HCL 10 MG TABLET PO SCH (06:32)
[2018-06-02] MEDS: chlordiazePOXIDE HCL 10 MG CAPSULE PO SCH ×2 (06:32→10:10)
[2018-06-02] MEDS: GABAPENTIN 300 MG CAPSULE (FP) PO SCH (06:32)
[2018-06-02] MEDS: NICOTINE POLACRILEX 2 MG GUM BC PRN ×2 (06:35→10:11)
[2018-06-02 07:25] VITALS: BP 145/66; PULSE 70; TEMP 98.1
--- NOTE | 2018-06-02 09:03 | PN ---
Psychiatric Progress Note Vital Signs: Vital Signs Period Temp Pulse Resp BP Sys/Louise Pulse Ox Last 24 Hr 98.1 F-99.9 F 70-95 16-18 112-145/61-83 Date of Session: 06/02/18 Chief Complaint:: My Seroquel order HPI: Patient reports feeling sedated in am after taking Seroquel 100mg po qhs, reports being on 75mg of Seroquel in the pst with good response. Asking to sent discharge order for Seroquelo in ampount of 75mg po qhs Current Medications: Active Medications Generic Name Dose Route Start Last Admin Trade Name Freq PRN Reason Stop Dose Admin Acetaminophen 650 mg 05/29/18 20:34 Tylenol - PO Q4H PRN FEVER Al Hydroxide/Mg Hydroxide 30 ml 05/29/18 20:34 Mylanta Oral Suspension - PO Q6H PRN DYSPEPSIA Chlordiazepoxide HCl 10 mg 06/01/18 23:00 06/02/18 06:32 Librium - PO 06/02/18 17:01 10 mg [id number] JOYA Administration Docusate Sodium 300 mg 05/29/18 22:00 06/01/18 22:30 Colace - PO Not Given HS JOYA Eucalyptus/Menthol/Phenol/Sorbitol 1 each 05/29/18 20:34 Cepastat Lozenge - MM Q4H PRN SORE THROAT Gabapentin 600 mg 05/30/18 09:30 06/02/18 06:32 Neurontin - PO 600 mg TID JOYA Administration Guaifenesin 10 ml 05/29/18 20:34 Robitussin Dm - PO Q6H PRN COUGH Hydroxyzine Pamoate 50 mg 05/29/18 20:34 Vistaril - PO Q4H PRN AGITATION Ibuprofen 400 mg 05/29/18 20:34 06/01/18 20:29 Motrin - PO 400 mg Q6H PRN Administration PAIN LEVEL 4-6 Loperamide HCl 4 mg 05/29/18 20:34 Imodium - PO Q6H PRN DIARRHEA Magnesium Citrate 300 ml 05/29/18 20:34 Citroma - PO Q48H PRN CONSTIPATION Magnesium Hydroxide 30 ml 05/29/18 20:34 Milk Of Magnesia - PO DAILY PRN CONSTIPATION Melatonin 5 mg 05/29/18 22:00 Melatonin PO HS PRN INSOMNIA Methadone HCl 20 mg 06/01/18 06:00 06/02/18 06:32 Dolophine - PO 06/07/18 05:59 20 mg DAILY@0600 JOYA Administration Nicotine 21 mg 05/30/18 10:00 06/01/18 10:44 Nicoderm Patch - TD Not Given DAILY JOYA Nicotine Polacrilex 2 mg 05/29/18 20:34 06/02/18 06:35 Nicorette Gum - BC 2 mg Q2H PRN Administration NICOTINE REPLACEMENT RX Multivit/Folic Acid/Iron 1 tab 05/30/18 10:00 06/01/18 10:44 Vitamins (Sjr) - PO Not Given DAILY JOYA Pseudoephedrine/Triprolidine 1 combo 05/29/18 20:34 Actifed - PO TID PRN NASAL CONGESTION Quetiapine Fumarate 100 mg 05/30/18 22:00 06/01/18 22:29 Seroquel - PO 100 mg HS JOYA Administration Thiamine HCl 100 mg 05/29/18 22:00 06/01/18 22:30 Vitamin B1 - PO Not Given HS JOYA Medication(s) Change(s): Sroquel 25mg poqhs. Seroquel 50mg po qhs Mental Status Exam - Mental Status Exam Alert and Oriented to: Time, Place, Person Cognitive Function: Fair Patient Appearance: Well Groomed Mood: Anxious Affect: Mood Congruent Patient Behavior: Talkative Speech Pattern: Appropriate Voice Loudness: Mildly Loud Thought Process: Goal Oriented Thought Disorder: Being Controlled Hallucinations: Denies Suicidal Ideation: Denies Homicidal Ideation: Denies Insight/Judgement: Fair Sleep: Difficulty falling asleep Appetite: Fair Muscle strength/Tone: Normal Gait/Station: Normal Additional Comments: Sroquel 25mg poqhs. Seroquel 50mg po qhs Psychiatric Treatment Plan - Problem List (1) Opioid dependence with withdrawal Current Visit: Yes (2) Sedative, hypnotic or anxiolytic dependence with withdrawal, uncomplicated Current Visit: Yes (3) Bipolar disorder Current Visit: Yes Qualifiers: Active/Remission status: remission status unspecified Qualified Code(s): F31.9 - Bipolar disorder, unspecified (4) Cocaine dependence Current Visit: Yes (5) LOW BACK PAIN HERNIATED DISC Current Visit: Yes (6) Methadone maintenance therapy patient Current Visit: Yes (7) Opioid dependence Current Visit: No (8) Sedative dependence Current Visit: No (9) Seizure Current Visit: No (10) Arthritis Current Visit: No (11) Cannabis dependence Current Visit: No (12) Encounter for monitoring Suboxone maintenance therapy Current Visit: No (13) Opioid dependence Current Visit: No (14) Sedative hypnotic or anxiolytic dependence Current Visit: No (15) Sedative, hypnotic or anxiolytic dependence, uncomplicated Current Visit: No (16) Substance induced mood disorder Current Visit: No (17) Substance-induced anxiety disorder Current Visit: No (18) History of back injury Current Visit: No (19) S/P RIGHT SHOULDER SURGERY Current Visit: No (20) Syncope Current Visit: No Comment: HX PER PATIENT. PT DENIES SEIZURE DX. (21) S/P CORRECTIVE SURGERY OF LEFT EYE Current Visit: No Initial treatment plan: Sroquel 25mg poqhs. Seroquel 50mg po qhs
[2018-06-02] MEDS: PRENATAL VITAMINS W/ FOLIC ACID TABLET (FP) PO SCH (10:10)
--- NOTE | 2018-06-02 13:55 | DS ---
[facility] Detox Discharge Summary Admission Date: 05/29/18 Discharge Date: 06/02/18 - History Present History: Sedative Dependence Additional Comments: 38 years old male admitted on 05/29/18 for benzo withdrawal sx completed detox regimen tolerated well denies benzo withdrawal alert oriented x 3 no acute distress aftercare [facility] Pertinent Past History: patient wants to be tapped off from methadone patient had 20 mg of methadone today patient was in suboxone program patient was in methadone program patient wants to off "everythings" strong recommend the patient to follow up with [facility] for medical and mental and addiction issues - Physical Exam Results Vital Signs: Vital Signs Temperature 98.1 F 06/02/18 07:25 Pulse Rate 70 06/02/18 07:25 Respiratory Rate 18 06/02/18 07:25 Blood Pressure 145/66 06/02/18 07:25 O2 Sat by Pulse Oximetry (%) Pertinent Admission Physical Exam Findings: benzo withdrawal sx Vital Signs Temperature 98.1 F 06/02/18 07:25 Pulse Rate 70 06/02/18 07:25 Respiratory Rate 18 06/02/18 07:25 Blood Pressure 145/66 06/02/18 07:25 O2 Sat by Pulse Oximetry (%) Laboratory Last Values Urine Color Dkyellow 05/29/18 23:00 Urine Appearance Clear 05/29/18 23:00 Urine pH 5.0 (5.0-8.0) 05/29/18 23:00 Ur Specific [place] 1.031 (1.010-1.035) 05/29/18 23:00 Urine Protein Negative (NEGATIVE) 05/29/18 23:00 Urine Glucose (UA) Negative (NEGATIVE) 05/29/18 23:00 Urine Ketones Negative (NEGATIVE) 05/29/18 23:00 Urine Blood Negative (NEGATIVE) 05/29/18 23:00 Urine Nitrite Negative (NEGATIVE) 05/29/18 23:00 Urine Bilirubin Negative (<2.0 mg/dL) 05/29/18 23:00 Urine Urobilinogen 2.0 mg/dL (0.2-1.0) 05/29/18 23:00 Ur Leukocyte Esterase Negative (NEGATIVE) 05/29/18 23:00 lab noted - Treatment Hospital Course: Detox Protocol Followed, Detoxed Safely, Responded well, Discharged Condition Good, Rehab Referral Accepted Patient has Accepted a Rehab Referral to: [facility] - Medication Discharge Medications: Ambulatory Orders Gabapentin [Neurontin -] 300 mg PO BID #20 capsule 02/12/18 Gabapentin [Neurontin] 600 mg PO Q8H #90 tablet 05/30/18 Quetiapine Fumarate [Seroquel] 100 mg PO HS #30 tablet 05/30/18 Quetiapine Fumarate [Seroquel -] 25 mg PO HS #30 tablet 06/02/18 Quetiapine Fumarate [Seroquel -] 50 mg PO HS #30 tablet 06/02/18 - Diagnosis (1) Sedative dependence Status: Active (2) Substance induced mood disorder Status: Suspected - AMA Did Patient Leave Against Medical Advice: No
== END 2018-06-02 10:20 | disposition home or self-care (01) | DRG 773 ==
LOC: YASAS 18:47 → Y6N 20:49
PROC: HZ2ZZZZ Detoxification Services for Substance Abuse Treatment (ICD-10-PCS; principal; 2018-05-29)
DX: F13.230 Sedative, hypnotic or anxiolytic dependence with withdrawal, uncomplicated (principal); F14.20 Cocaine dependence, uncomplicated; F12.20 Cannabis dependence, uncomplicated; F11.20 Opioid dependence, uncomplicated; F31.9 Bipolar disorder, unspecified; F19.24 Other psychoactive substance dependence with psychoactive substance-induced mood disorder; F19.280 Other psychoactive substance dependence with psychoactive substance-induced anxiety disorder; M12.9 Arthropathy, unspecified; M51.26 Other intervertebral disc displacement, lumbar region; R56.9 Unspecified convulsions; Z51.81 Encounter for therapeutic drug level monitoring; Z91.5 Personal history of self-harm
CPT/HCPCS: 81003; 93005; 93010

== ENCOUNTER 2018-11-09 14:34 | Inpatient (IN) | payer OTHER ==
[2018-11-09 16:04] VITALS: BMI 27.6
--- NOTE | 2018-11-09 17:28 | HP ---
COWS - Scale Resting Pulse: 1= [place] 81-100 Sweatin=Flushed/Facial Moisture Restless Observation: 1= Difficult to Sit Still Pupil Size: 1= Pupils >than Normal Bone or Joint Aches: 1= Mild Discomfort Runny Nose/ Eye Tearin= Runny Nose/Eyes GI Upset > 30mins: 3= Vomiting/Diarrhea Tremor Observation: 1= Tremor [place], Not Seen Yawning Observation: 0= None Anxiety or Irritability: 2=Irritable/Anxious Goose Flesh Skin: 0=Smooth Skin COWS Score: 14 CIWA Score Nausea/Vomitin Muscle Tremors: 2 Anxiety: 3 Agitation: 3 Paroxysmal Sweats: 2 Orientation: 1-Uncertain about Date Tacttile Disturbances: 0-None Auditory Disturbances: 1-Very Mild Visual Disturbances: 1-Very Mild Sensitivity Headache: 0-None Present CIWA-Ar Total Score: 16 - Admission Criteria [facility] Guidelines: Admission for Medically Managed Detox: Requires at least one of the followin. CIWA greater than 12 2. Seizures within the past 24 hours 3. Delirium tremens within the past 24 hours 4. Hallucinations within the past 24 hours 5. Acute intervention needed for co occurring medical disorder 6. Acute intervention needed for co occurring psychiatric disorder 7. Severe withdrawal that cannot be handled at a lower level of care (continued vomiting, continued diarrhea, abnormal vital signs) requiring intravenous medication and/or fluids 8. Patient presents the following: CIWA greater than 12 Admission Criteria Met: Admission criteria met Admission [facility] Chief Complaint: opioid and xanax withdrawal symptoms Allergies/Adverse Reactions: Allergies Allergy/AdvReac Type Severity Reaction Status Date / Time Fish Containing Products Allergy Severe Hives Verified 06/24/18 18:32 trazodone AdvReac Severe Swelling Verified 11/09/18 15:55 History of Present Illness: 38 yo male with hx of xanax, heroin (nasal) dependence is here seeking detox d/ t withdrawal symptoms. Reports stopped attending methadone treatment program at [facility], reports stopped attending May 2018, reports was not interested in methadone maintenance. Reports 1.5 year sobriety when 22 yo, but reports multiple relapses since then. PMHX: chronic back pain, restless legs. Psych: bipolar, insomnia (reports on seroquel). Denies suicidal / homicidal ideation. Reports hx of suicide attempt five years ago by intentional overdose. Reports hx of drug overdose x 3, with last episode eight months ago. Exam Limitations: No Limitations - Ebola screening Have you traveled outside of the country in the last 21 days: No Have you had contact with anyone from an Ebola affected area: No - Review of Systems Constitutional: Chills, Diaphoresis, Unintentional Wgt. Loss (6 lbs in past two weeks) EENT: reports: Tearing, Nose Congestion (runny nose) Respiratory: reports: No Symptoms reported Cardiac: reports: No Symptoms Reported GI: reports: Diarrhea, Poor Appetite, Poor Fluid Intake : reports: No Symptoms Reported Musculoskeletal: reports: Back Pain, Joint Pain Integumentary: reports: No Symptoms Reported Neuro: reports: No Symptoms reported Endocrine: reports: Increased Thirst Hematology: reports: No Symptoms Reported Psychiatric: reports: Orientated x3, Agitated Other Systems: Reviewed and Negative Patient History - Patient Medical History Hx Anemia: No Hx Asthma: No Hx Chronic Obstructive Pulmonary Disease (COPD): No Hx Cancer: No Hx Cardiac Disorders: No Hx Congestive Heart Failure: No Hx Hypertension: No Hx Hypercholesterolemia: No Hx Pacemaker: No HX Cerebrovascular Accident: No Hx Seizures: No Hx Dementia: No Hx Diabetes: No Hx Gastrointestinal Disorders: No Hx Liver Disease: No Hx Genitourinary Disorders: No Hx Sexually Transmitted Disorders: No Hx Renal Disease (ESRD): No Hx Thyroid Disease: No Hx Human Immunodeficiency Virus (HIV): No Hx Hepatitis C: No Hx Depression: Yes Hx Suicide Attempt: Yes (06/2014 OD ON HEROIN; DENIES CURRENT S/I) Hx Bipolar Disorder: Yes (On meds.) Hx Schizophrenia: No - Patient Surgical History Past Surgical History: Yes Hx Neurologic Surgery: No Hx Cataract Extraction: No Hx Cardiac Surgery: No Hx Lung Surgery: No Hx Breast Surgery: No Hx Breast Biopsy: No Hx Abdominal Surgery: No Hx Appendectomy: No Hx Cholecystectomy: No Hx Genitourinary Surgery: No Hx Section: No Hx Orthopedic Surgery: Yes (rt shoulder impingement and torn labrium- arthroscopic surgery, 1996.) Other Surgical History: corrective sx, left eye (@1983), right inguinal hernia repair, 1996. Anesthesia Reaction: No - PPD History Previous Implant?: No Date: 10/23/17 Results: 0 mm PPD to be Administered?: Yes - Smoking Cessation Smoking history: Current every day smoker Have you smoked in the past 12 months: Yes Aproximately how many cigarettes per day: 20 Cigars Per Day: 0 Hx Chewing Tobacco Use: No Initiated information on smoking cessation: Yes 'Breaking Loose' booklet given: 11/09/18 - Substance & Tx. History Hx Alcohol Use: No Hx Substance Use: Yes Substance Use Type: Cocaine, Heroin, Marijuana, Opiates, Tranquilizers Hx Substance Use Treatment: Yes ([facility] detox May 2018) - Substances abused Heroin Substance route: Inhalation Frequency: Daily Amount used: 10 bags Age of first use: 32 Date of last use: 11/08/18 Marijuana/Hashish Substance route: Smoking Frequency: Daily Amount used: 5 dollars Age of first use: 13 Date of last use: 11/08/18 Cocaine Substance route: Smoking Frequency: Daily Amount used: 50 dollars Age of first use: 32 Date of last use: 11/06/18 Alprazolam (Xanax) Substance route: Oral Frequency: Daily Amount used: 2 pills ( 2 mg ) Age of first use: 16 Date of last use: 11/07/18 Family Disease History - Family Disease History Family Disease History: Other: Father Admission Physical Exam S - Vital Signs Vital Signs: Vital Signs - 24 hr 11/09/18 15:53 Temperature 96.9 F L Pulse Rate 86 Respiratory 18 Rate Blood Pressure 117/81 - Physical General Appearance: Yes: Appropriately Dressed, Mild Distress, Irritable, Sweating, Anxious HEENTM: Yes: EOMI, Hearing grossly Normal, Normal ENT Inspection, Pharynx Normal , Tm's normal, Other (cheilitis) Respiratory: Yes: Chest Non-Tender, Lungs Clear, Normal Breath Sounds, No Respiratory Distress, No Accessory Muscle Use Neck: Yes: Within Normal Limits Breast: Yes: Breast Exam Deferred Cardiology: Yes: Regular Rhythm, Regular Rate Abdominal: Yes: Normal Bowel Sounds, Non Tender, Flat, Soft Genitourinary: Yes: Within Normal Limits Back: Yes: Normal Inspection Musculoskeletal: Yes: full range of Motion, Gait Steady, Pelvis Stable, Back pain Extremities: Yes: Normal Capillary Refill, Normal Inspection, Normal Range of Motion, Non-Tender Neurological: Yes: occupational health physician II-XII NML intact, Fully Oriented, Alert, Motor Strength 5/5, Depressed Affect Integumentary: Yes: Normal Color, Warm, Diaphoresis Lymphatic: Yes: Within Normal Limits - Diagnostic (1) Opioid dependence with withdrawal Current Visit: Yes Status: Acute (2) Sedative hypnotic or anxiolytic dependence Current Visit: Yes Status: Acute (3) Cocaine dependence Current Visit: Yes Status: Chronic (4) Neuropathy Current Visit: Yes Status: Chronic (5) Nicotine dependence Current Visit: Yes Status: Chronic Qualifiers: Nicotine product type: cigarettes Substance use status: in withdrawal Qualified Code(s): F17.213 - Nicotine dependence, cigarettes, with withdrawal Cleared for Admission [facility] - Detox or Rehab [facility] Level of Care: Medically Managed Detox Regimen/Protocol: Methadone/Valium Inpatient Rehab Admission - Rehab Decision to Admit Inpatient rehab admission?: No
[2018-11-09] MEDS ORDERED: MAGNESIUM CITRATE 300 ML BOTTLE PO PRN (17:33)
[2018-11-09] MEDS ORDERED: IBUPROFEN 400 MG TABLET (FP) PO PRN (17:33)
[2018-11-09] MEDS ORDERED: cloNIDine HCL 0.1 MG TABLET PO PRN (17:33)
[2018-11-09] MEDS ORDERED: ACETAMINOPHEN 325 MG TABLET (FP) PO PRN ×2 (17:33)
[2018-11-09] MEDS ORDERED: MAGNESIUM HYDROX 2400MG/30ML ORAL SUSPENSION 30 ML CUP PO PRN (17:33)
[2018-11-09] MEDS ORDERED: MENTHOL/PHENOL 1 EACH UD MM PRN (17:33)
[2018-11-09] MEDS ORDERED: MAG HYDROX/AL HYDROX/SIMETH 30 ML UNIT-DOSE CUP PO PRN (17:33)
[2018-11-09] MEDS ORDERED: BISMUTH SUBSALICYLATE 524 MG/30 ML UD PO PRN (17:33)
[2018-11-09] MEDS ORDERED: METHOCARBAMOL 500 MG TABLET PO PRN (17:33)
[2018-11-09] MEDS ORDERED: MELATONIN 5 MG TABLETS PO PRN (17:33)
[2018-11-09] MEDS ORDERED: METHADONE HCL 10 MG TABLET (FOR DETOX USE ONLY) PO ONE ×2 (18:15→23:00)
[2018-11-09] MEDS: diazePAM 5 MG TABLET PO PRN (19:29)
[2018-11-09] MEDS: GABAPENTIN 300 MG CAPSULE (FP) PO SCH (22:17)
[2018-11-09] MEDS: diazePAM 5 MG TABLET PO SCH (22:17)
[2018-11-09] MEDS: THIAMINE HCL 100 MG TABLET (FP) PO SCH (22:19)
[2018-11-10] MEDS: diazePAM 5 MG TABLET PO PRN ×4 (03:46→20:02)
[2018-11-10] MEDS: diazePAM 5 MG TABLET PO SCH ×3 (05:14→22:17)
[2018-11-10] MEDS: GABAPENTIN 300 MG CAPSULE (FP) PO SCH ×3 (05:14→22:17)
[2018-11-10] MEDS ORDERED: METHADONE HCL 10 MG TABLET (FOR DETOX USE ONLY) PO ONE (10:00)
[2018-11-10] MEDS: NICOTINE 14 MG/24 HOURS TOPICAL PATCH TD SCH (10:23)
[2018-11-10] MEDS: PRENATAL VITAMINS W/ FOLIC ACID TABLET (FP) PO SCH (10:23)
[2018-11-10] MEDS: NICOTINE POLACRILEX 2 MG GUM BUC PRN ×2 (10:24→22:19)
[2018-11-10 11:00] LABS: ALBUMIN 3.3 g/dl (3.4-5.0); ALK PHOS 62 U/L (45-117); ANION GAP 3 MMOL/L (8-16); BILIRUBIN,TOTAL 0.2 mg/dL (0.2-1); BLOOD UREA NITROGEN 22 mg/dL (7-18); CALCIUM 8.9 mg/dL (8.5-10.1); CHLORIDE 104 mmol/L (98-107); CO2 33 mmol/L (21-32); CREATININE 1.2 mg/dL (0.55-1.3); GLUCOSE,RANDOM 88 mg/dL (74-106); HEMATOCRIT 45.7 % (35.4-49); HEMOGLOBIN 15.5 GM/dL (11.7-16.9); MCH 32.2 pg (25.7-33.7); MEAN CELL VOLUME 94.6 fl (80-96); MEAN PLT VOLUME 9.1 fl (7.5-11.1); PLATELET COUNT 180 K/MM3 (134-434); POTASSIUM 3.9 mmol/L (3.5-5.1); RBC 4.83 M/mm3 (4.00-5.60); RDW 13.8 % (11.9-15.9); SGOT/AST 11 U/L (15-37); SGPT/ALT 21 U/L (13-61); SODIUM 140 mmol/L (136-145); TOT PROT 6.2 g/dl (6.4-8.2); WHITE BLOOD COUNT 5.6 K/mm3 (4.0-10.0)
--- NOTE | 2018-11-10 13:33 | PN ---
[facility] CIWA - CIWA Score Nausea/Vomitin-Mild Nausea/No Vomiting Muscle Tremors: 4-Moderate,w/Arms Extend Anxiety: 4-Mod. Anxious/Guarded Agitation: 4-Moderately Restless Paroxysmal Sweats: 1-Minimal Palms Moist Orientation: 0-Oriented Tacttile Disturbances: 0-None Auditory Disturbances: 0-None Visual Disturbances: 0-None Headache: 0-None Present CIWA-Ar Total Score: 14 S COWS - Scale Resting Pulse: 0= [place] 80 or Below Sweatin= Chills/Flushing Restless Observation: 0= Sits Still Pupil Size: 0= Normal to Room Light Bone or Joint Aches: 2= Severe Diffuse Aches Runny Nose/ Eye Tearin= Nasal Congestion GI Upset > 30mins: 2= Nausea/Diarrhea Tremor Observation of Outstretched Hands: 2= Slight Tremor Visible Yawning Observation: 2= >3x During Session Anxiety or Irritability: 2=Irritable/Anxious Goose Flesh Skin: 0=Smooth Skin COWS Score: 12 S Progress Note (SOAP) Subjective: anxious trouble concentrate restlessness Objective: 11/10/18 13:34 Vital Signs Temperature 98.1 F 11/10/18 09:40 Pulse Rate 68 11/10/18 09:40 Respiratory Rate 18 11/10/18 09:40 Blood Pressure 120/73 11/10/18 09:40 O2 Sat by Pulse Oximetry (%) Laboratory Last Values WBC 5.6 K/mm3 (4.0-10.0) 11/10/18 07:00 RBC 4.83 M/mm3 (4.00-5.60) 11/10/18 07:00 Hgb 15.5 GM/dL (11.7-16.9) 11/10/18 07:00 Hct 45.7 % (35.4-49) 11/10/18 07:00 MCV 94.6 fl (80-96) 11/10/18 07:00 MCH 32.2 pg (25.7-33.7) 11/10/18 07:00 MCHC 34.0 g/dl (32.0-35.9) 11/10/18 07:00 RDW 13.8 % (11.9-15.9) 11/10/18 07:00 Plt Count 180 K/MM3 (134-434) 11/10/18 07:00 MPV 9.1 fl (7.5-11.1) 11/10/18 07:00 Sodium 140 mmol/L (136-145) 11/10/18 07:00 Potassium 3.9 mmol/L (3.5-5.1) 11/10/18 07:00 Chloride 104 mmol/L (98-107) 11/10/18 07:00 Carbon Dioxide 33 mmol/L (21-32) H 11/10/18 07:00 Anion Gap 3 MMOL/L (8-16) L 11/10/18 07:00 BUN 22 mg/dL (7-18) H 11/10/18 07:00 Creatinine 1.2 mg/dL (0.55-1.3) 11/10/18 07:00 Creat Clearance w eGFR 68.51 (>60) 11/10/18 07:00 Random Glucose 88 mg/dL (74-106) 11/10/18 07:00 Calcium 8.9 mg/dL (8.5-10.1) 11/10/18 07:00 Total Bilirubin 0.2 mg/dL (0.2-1) 11/10/18 07:00 AST 11 U/L (15-37) L 11/10/18 07:00 ALT 21 U/L (13-61) 11/10/18 07:00 Alkaline Phosphatase 62 U/L (45-117) 11/10/18 07:00 Total Protein 6.2 g/dl (6.4-8.2) L 11/10/18 07:00 Albumin 3.3 g/dl (3.4-5.0) L 11/10/18 07:00 RPR Titer Nonreactive (NONREACTIVE) 11/10/18 07:00 lab oted 11/10/18 13:41 Assessment: 11/10/18 13:41 withdrawal sx Plan: continue detox
--- NOTE | 2018-11-10 14:01 | CONSULT ---
[facility] Psychiatric Consult - Data Date of interview: 11/10/18 Admission source: [facility] Identifying data: Patient is a 38 year old single male, father of two, unemployed, domiciled, and is supported by family. This is one of multiple admissions for patient. Patient admitted to for opiate, sedative, and cocaine dependence. Substance Abuse History: - Smoking Cessation. Smoking history: Current every day smoker. Have you smoked in the past 12 months: Yes. Aproximately how many cigarettes per day: 20. Cigars Per Day: 0. Hx Chewing Tobacco Use: No. Initiated information on smoking cessation: Yes. 'Breaking Loose' booklet given : 11/09/18. - Substance & Tx. History. Hx Alcohol Use: No. Hx Substance Use: Yes. Substance Use Type: Cocaine, Heroin, Marijuana, Opiates, Tranquilizers. Hx Substance Use Treatment: Yes ([facility] detox May 2018). - Substances abused. Heroin. Substance route: Inhalation. Frequency: Daily. Amount used: 10 bags. Age of first use: 32. Date of last use: 11/08/18. Marijuana /Hashish. Substance route: Smoking. Frequency: Daily. Amount used: 5 dollars. Age of first use: 13. Date of last use: 11/08/18. Cocaine. Substance route: Smoking. Frequency: Daily. Amount used: 50 dollars. Age of first use: 32. Date of last use: 11/06/18. Alprazolam (Xanax). Substance route: Oral. Frequency: Daily. Amount used: 2 pills ( 2 mg ). Age of first use: 16. Date of last use: 11/07/18 Medical History: rt shoulder impingement and torn labrium-arthroscopic surgery, 1996. corrective sx, left eye (@1983), right inguinal hernia repair, 1996. Psychiatric History: Patient reports h/o multiple psychiatric hospitalizations, most recently at a hospital in [place] three months ago after reporting suicidal ideation due to not having a place to live. He reports being admitted for several days and was prescribed seroquel 100mg HS. Mr. Garibay reports additional psychiatric hospitalization at [facility] and [facility]. He denies current outpatient psychiatric care. He reports h/o one suicide attempt two years ago by overdose. At present, he reports difficulty sleeping. Physical/Sexual Abuse/Trauma History: denies. Mental Status Exam - Mental Status Exam Alert and Oriented to: Time, Place, Person Cognitive Function: Good Patient Appearance: Well Groomed Mood: Withdrawn Affect: Mood Congruent Patient Behavior: Cooperative Speech Pattern: Appropriate Voice Loudness: Normal Thought Process: Goal Oriented Thought Disorder: Not Present Hallucinations: Denies Suicidal Ideation: Denies Homicidal Ideation: Denies Insight/Judgement: Poor Sleep: Poorly Appetite: Fair Muscle strength/Tone: Normal Gait/Station: Normal Psychiatric Findings - Problem List ([place] 1, 2,3) (1) Opioid dependence with withdrawal Current Visit: Yes Status: Acute (2) Sedative hypnotic or anxiolytic dependence Current Visit: Yes Status: Acute (3) Cocaine dependence Current Visit: Yes Status: Chronic (4) Substance-induced sleep disorder Current Visit: Yes Status: Chronic (5) Substance induced mood disorder Current Visit: Yes Status: Acute - Initial Treatment Plan Initial Treatment Plan: Psychoeducation provided. Detoxification in progress. Will order Seroquel 100mg HS. Benefits and side effects discussed. Verbal consent given.
[2018-11-10] MEDS: THIAMINE HCL 100 MG TABLET (FP) PO SCH (22:17)
[2018-11-10] MEDS: QUEtiapine FUMARATE 100 MG TABLET (FP) PO SCH (22:17)
[2018-11-11] MEDS: diazePAM 5 MG TABLET PO PRN ×5 (03:16→23:45)
[2018-11-11] MEDS: GABAPENTIN 300 MG CAPSULE (FP) PO SCH ×3 (06:16→22:11)
[2018-11-11] MEDS: NICOTINE POLACRILEX 2 MG GUM BUC PRN ×3 (08:29→13:03)
[2018-11-11] MEDS ORDERED: METHADONE HCL 10 MG TABLET (FOR DETOX USE ONLY) PO ONE ×2 (10:00→10:40)
[2018-11-11] MEDS ORDERED: cloNIDine HCL 0.1 MG TABLET PO PRN (10:27)
--- NOTE | 2018-11-11 10:27 | PN ---
[facility] CIWA - CIWA Score Nausea/Vomitin-Mild Nausea/No Vomiting Muscle Tremors: 2 Anxiety: 1-Mildly Anxious Agitation: 3 Paroxysmal Sweats: 2 Orientation: 0-Oriented Tacttile Disturbances: 0-None Auditory Disturbances: 0-None Visual Disturbances: 0-None Headache: 0-None Present CIWA-Ar Total Score: 9 S COWS - Scale Resting Pulse: 1= [place] 81-100 Sweatin= Chills/Flushing Restless Observation: 1= Difficult to Sit Still Pupil Size: 0= Normal to Room Light Bone or Joint Aches: 1= Mild Discomfort Runny Nose/ Eye Tearin= Nasal Congestion GI Upset > 30mins: 1= Stomach Cramp Tremor Observation of Outstretched Hands: 1= Tremor [place], Not Seen Yawning Observation: 1= 1-2x During Session Anxiety or Irritability: 1=Feels Anxious/Irritable Goose Flesh Skin: 3=Piloerection COWS Score: 12 S Progress Note (SOAP) Subjective: pt states he is in withdrawal, day #3 here. here for alcohol and heroin detox, says meds are not enough, having Sx of withdrawal Vital Signs - 24 hr 11/10/18 11/10/18 11/10/18 13:44 18:10 21:34 Temperature 97.5 F L 97.3 F L 97.5 F L Pulse Rate 73 72 74 Respiratory 20 20 18 Rate Blood Pressure 107/69 123/67 110/57 L 11/11/18 11/11/18 11/11/18 03:30 06:10 09:26 Temperature 98 F 98.1 F Pulse Rate 76 78 Respiratory 18 18 20 Rate Blood Pressure 97/62 107/66 Laboratory Tests 11/10/18 11/10/18 11/10/18 07:00 07:00 07:00 WBC 5.6 RBC 4.83 Hgb 15.5 Hct 45.7 MCV 94.6 MCH 32.2 MCHC 34.0 RDW 13.8 Plt Count 180 MPV 9.1 Sodium 140 Potassium 3.9 Chloride 104 Carbon Dioxide 33 H Anion Gap 3 L BUN 22 H Creatinine 1.2 Creat Clearance w eGFR 68.51 Random Glucose 88 Calcium 8.9 Total Bilirubin 0.2 AST 11 L ALT 21 Alkaline Phosphatase 62 Total Protein 6.2 L Albumin 3.3 L RPR Titer Nonreactive a/p: continue alcohol and heroin detox protocols extra methadone this morning prn clonidine. vistaril and benzo
[2018-11-11] MEDS: diazePAM 5 MG TABLET PO SCH ×2 (10:28→22:11)
[2018-11-11] MEDS: NICOTINE 14 MG/24 HOURS TOPICAL PATCH TD SCH (10:29)
[2018-11-11] MEDS: PRENATAL VITAMINS W/ FOLIC ACID TABLET (FP) PO SCH (10:29)
[2018-11-11] MEDS: hydrOXYzine PAMOATE 50 MG CAPSULE (FP) PO PRN (10:45)
[2018-11-11] MEDS: QUEtiapine FUMARATE 100 MG TABLET (FP) PO SCH (22:11)
[2018-11-11] MEDS: THIAMINE HCL 100 MG TABLET (FP) PO SCH (22:11)
[2018-11-12] MEDS: diazePAM 5 MG TABLET PO PRN ×3 (05:00→14:00)
[2018-11-12] MEDS: NICOTINE POLACRILEX 2 MG GUM BUC PRN ×3 (05:04→14:00)
[2018-11-12] MEDS: GABAPENTIN 300 MG CAPSULE (FP) PO SCH ×2 (05:42→13:11)
[2018-11-12] MEDS ORDERED: diazePAM 5 MG TABLET PO SCH (06:00)
[2018-11-12] MEDS: hydrOXYzine PAMOATE 50 MG CAPSULE (FP) PO PRN (09:42)
[2018-11-12] MEDS: PRENATAL VITAMINS W/ FOLIC ACID TABLET (FP) PO SCH (09:42)
[2018-11-12] MEDS: NICOTINE 14 MG/24 HOURS TOPICAL PATCH TD SCH (09:43)
[2018-11-12] MEDS ORDERED: METHADONE HCL 10 MG TABLET (FOR DETOX USE ONLY) PO ONE (10:00)
[2018-11-12 13:15] VITALS: BP 134/75; PULSE 74; TEMP 96.7
--- NOTE | 2018-11-12 15:39 | PN ---
[facility] CIWA - CIWA Score Nausea/Vomitin-No Nausea/No Vomiting Muscle Tremors: None Anxiety: 4-Mod. Anxious/Guarded Agitation: 2 Paroxysmal Sweats: No Perspiration Orientation: 0-Oriented Tacttile Disturbances: 2-Mild Itch/Numbness/Burn Auditory Disturbances: 0-None Visual Disturbances: 1-Very Mild Sensitivity Headache: 0-None Present CIWA-Ar Total Score: 9 BHS COWS - Scale Resting Pulse: 1= [place] 81-100 Sweatin= No chills or [place] Restless Observation: 1= Difficult to Sit Still Pupil Size: 0= Normal to Room Light Bone or Joint Aches: 1= Mild Discomfort Runny Nose/ Eye Tearin= None GI Upset > 30mins: 2= Nausea/Diarrhea Tremor Observation of Outstretched Hands: 0= None Yawning Observation: 1= 1-2x During Session Anxiety or Irritability: 2=Irritable/Anxious Goose Flesh Skin: 0=Smooth Skin COWS Score: 8 BHS Progress Note (SOAP) Subjective: Anxious, Restless, Diarrhea, Body Aches. Objective: PATIENT A & O X 3, OBSERVED AMBULATING ON UNIT UNASSISTED. IN NO ACUTE DISTRESS. 11/12/18 15:36 Vital Signs Temperature 96.7 F L 11/12/18 13:14 Pulse Rate 74 11/12/18 13:14 Respiratory Rate 18 11/12/18 13:14 Blood Pressure 134/75 11/12/18 13:14 O2 Sat by Pulse Oximetry (%) Laboratory Tests 11/10/18 11/10/18 11/10/18 07:00 07:00 07:00 WBC 5.6 RBC 4.83 Hgb 15.5 Hct 45.7 MCV 94.6 MCH 32.2 MCHC 34.0 RDW 13.8 Plt Count 180 MPV 9.1 Sodium 140 Potassium 3.9 Chloride 104 Carbon Dioxide 33 H Anion Gap 3 L BUN 22 H Creatinine 1.2 Creat Clearance w eGFR 68.51 Random Glucose 88 Calcium 8.9 Total Bilirubin 0.2 AST 11 L ALT 21 Alkaline Phosphatase 62 Total Protein 6.2 L Albumin 3.3 L RPR Titer Nonreactive LABS NOTED. Assessment: 11/12/18 15:37 WITHDRAWAL SYMPTOMS. Plan: CONTINUE DETOX. INCREASE DAILY PO FLUID / WATER INTAKE. PRN PEPTO-BISMOL PO FOR DIARRHEA. PRN ROBAXIN FOR BODY ACHES / MUSCLE SPASMS.
--- NOTE | 2018-11-12 15:42 | DS ---
[facility] Detox Discharge Summary Admission Date: 11/09/18 Discharge Date: 11/12/18 - History Present History: Cocaine Dependence, Opioid Dependence, Sedative Dependence Additional Comments: PATIENT DOES NOT WISH TO REMAIN TO COMPLETE DETOX REGIMEN. RISKS OF LEAVING DETOX UNIT AGAINST MEDICAL ADVICE AND PRIOR TO COMPLETION OF DETOX REGIMEN EXPLAINED TO PATIENT. PATIENT ADVISED TO GO IMMEDIATELY TO NEAREST ER SHOULD ANY INTOLERABLE WITHDRAWAL / DETOX SYMPTOMS DEVELOP AT ANY TIME. PATIENT VERBALIZED UNDERSTANDING OF ALL INFORMATION / RECOMMENDATIONS PRESENTED TO HIM PRIOR TO DEPARTURE FROM DETOX UNIT. PATIENT LEFT DETOX UNIT IN STABLE MEDICAL CONDITION. Pertinent Past History: History Of Chronic Back Pain, History Of Restless Legs, History Of Bipolar Disorder, Insomnia, History Of Depression, History Of Neuropathy, Nicotine Dependence. - Physical Exam Results Vital Signs: Vital Signs Temperature 96.7 F L 11/12/18 13:14 Pulse Rate 74 11/12/18 13:14 Respiratory Rate 18 11/12/18 13:14 Blood Pressure 134/75 11/12/18 13:14 O2 Sat by Pulse Oximetry (%) Pertinent Admission Physical Exam Findings: WITHDRAWAL SYMPTOMS. Laboratory Tests 11/10/18 11/10/18 11/10/18 07:00 07:00 07:00 WBC 5.6 RBC 4.83 Hgb 15.5 Hct 45.7 MCV 94.6 MCH 32.2 MCHC 34.0 RDW 13.8 Plt Count 180 MPV 9.1 Sodium 140 Potassium 3.9 Chloride 104 Carbon Dioxide 33 H Anion Gap 3 L BUN 22 H Creatinine 1.2 Creat Clearance w eGFR 68.51 Random Glucose 88 Calcium 8.9 Total Bilirubin 0.2 AST 11 L ALT 21 Alkaline Phosphatase 62 Total Protein 6.2 L Albumin 3.3 L RPR Titer Nonreactive LABS NOTED. - Treatment Hospital Course: Detox Protocol Followed, Detoxed Safely - Medication Discharge Medications: Ambulatory Orders Gabapentin [Neurontin] 600 mg PO Q8H #90 tablet 05/30/18 Quetiapine Fumarate [Seroquel] 100 mg PO HS #30 tablet 05/30/18 - Diagnosis (1) Opioid dependence with withdrawal Current Visit: Yes Status: Acute (2) Sedative hypnotic or anxiolytic dependence Current Visit: Yes Status: Acute (3) Substance induced mood disorder Current Visit: Yes Status: Acute (4) Cocaine dependence Current Visit: Yes Status: Chronic (5) Neuropathy Current Visit: Yes Status: Chronic (6) Nicotine dependence Current Visit: Yes Status: Chronic Qualifiers: Nicotine product type: cigarettes Substance use status: in withdrawal Qualified Code(s): F17.213 - Nicotine dependence, cigarettes, with withdrawal (7) Substance-induced sleep disorder Current Visit: Yes Status: Chronic - AMA Did Patient Leave Against Medical Advice: Yes (PATIENT DID NOT WISH TO REMAIN TO COMPLETE DETOX REGIMEN.)
[2018-11-13] MEDS ORDERED: METHADONE HCL 5 MG TABLET (FOR DETOX USE ONLY) PO ONE (06:00)
== END 2018-11-12 15:56 | disposition left against medical advice (07) | DRG 770 ==
LOC: YASAS 14:34 → Y3N 17:23
PROVIDERS: ADMIT Surgery; ATTEND Surgery
PROC: HZ2ZZZZ Detoxification Services for Substance Abuse Treatment (ICD-10-PCS; principal; 2018-11-09)
DX: F11.23 Opioid dependence with withdrawal (principal); F13.230 Sedative, hypnotic or anxiolytic dependence with withdrawal, uncomplicated; F14.20 Cocaine dependence, uncomplicated; F17.210 Nicotine dependence, cigarettes, uncomplicated; F19.24 Other psychoactive substance dependence with psychoactive substance-induced mood disorder; F19.282 Other psychoactive substance dependence with psychoactive substance-induced sleep disorder; G62.9 Polyneuropathy, unspecified; Z91.013 Allergy to seafood; Z88.8 Allergy status to other drugs, medicaments and biological substances; Z91.5 Personal history of self-harm
CPT/HCPCS: 36415; 80053; 85027; 86593; J0735

== ENCOUNTER 2018-11-12 23:52 | Emergency (ER) | payer OTHER ==
--- NOTE | 2018-11-12 23:58 | PDOC ---
History of Present Illness - General Stated Complaint: OVERDOSE Time Seen by Provider: 11/12/18 23:58 - History of Present Illness Initial Comments: 11/13/18 00:04 38m with pmh of opiate abuse [place] after having been found passed out in the street by EMS 20min ago. . Given 4mg of Narcan, woke up after 2 minutes asking where he was, now says he's fine, preoccupied by his phone states that hes hungry. Admit Past History - Past Medical History Allergies/Adverse Reactions: Allergies Allergy/AdvReac Type Severity Reaction Status Date / Time Fish Containing Products Allergy Severe Hives Verified 11/13/18 00:05 trazodone AdvReac Severe Swelling Verified 11/13/18 00:05 Home Medications: Ambulatory Orders Gabapentin [Neurontin] 600 mg PO Q8H #90 tablet 05/30/18 Quetiapine Fumarate [Seroquel] 100 mg PO HS #30 tablet 05/30/18 Anemia: No Asthma: No Cancer: No Cardiac Disorders: No CVA: No COPD: No CHF: No Dementia: No Diabetes: No GI Disorders: No Disorders: No HTN: No Hypercholesterolemia: No Kidney Stones: No Liver Disease: No Seizures: No Thyroid Disease: No - Surgical History Abdominal Surgery: No Appendectomy: No Cardiac Surgery: No Cholecystectomy: No Lung Surgery: No Neurologic Surgery: No Orthopedic Surgery: Yes (rt shoulder impingement and torn labrium-arthroscopic surgery, 1996.) - Reproductive History Testicular Surgery: No - Suicide/Smoking/Psychosocial Hx Smoking Status: Yes Smoking History: Current every day smoker Have you smoked in the past 12 months: Yes Number of Cigarettes Smoked Daily: 20 Cigars Per Day: 0 'Breaking Loose' booklet given: 11/09/18 Hx Alcohol Use: No Drug/Substance Use Hx: Yes Substance Use Type: Cocaine, Heroin, Marijuana, Opiates, Tranquilizers Hx Substance Use Treatment: Yes ([facility] detox May 2018) Review of Systems - Review of Systems Able to Perform ROS?: Yes Is the patient limited Ma[place] proficient: No Constitutional: No: Symptoms Reported HEENTM: No: Symptoms Reported Respiratory: No: Symptoms reported Cardiac (ROS): No: Symptoms Reported ABD/GI: No: Symptoms Reported : No: Symptoms Reported Musculoskeletal: No: Symptoms Reported Integumentary: No: Symptoms Reported Neurological: No: Symptoms reported All Other Systems: Reviewed and Negative *Physical Exam - Physical Exam General Appearance: Yes: Nourished, Appropriately Dressed. No: Apparent Distress HEENT: positive: EOMI, BREANNE, Normal ENT Inspection Respiratory/Chest: positive: Lungs Clear, Normal Breath Sounds. negative: Chest Tender, Respiratory Distress Cardiovascular: positive: Regular Rhythm, Regular Rate, S1, S2 Gastrointestinal/Abdominal: positive: Normal Bowel Sounds, Flat, Soft. negative : Tender Musculoskeletal: positive: Normal Inspection. negative: CVA Tenderness Integumentary: positive: Other (Fungal-looking rash over chest and arms.) Neurologic: positive: Fully Oriented, Alert, Normal Response, Motor Strength 5/ 5. negative: Normal Mood/Affect (anxious appearing.,) Medical Decision Making - Medical Decision Making 11/13/18 00:11 38m biba for opiate overdose. Will observe vitals for an hour in case status changes and needs 2nd Narcan dose , 11/13/18 00:18 PAtient IV was removed. Eloped as a "friend" drove to pick him up. We were unable to stop the patient. *DC/Admit/Observation/Transfer Diagnosis at time of Disposition: Opioid overdose - Discharge Dispostion Disposition: ELOPED - Referrals - Patient Instructions - Post Discharge Activity
--- NOTE | 2018-11-13 00:02 | PDOC ---
Documentation entered by Efra Hall SCRIBE, acting as scribe for Kuldip Mckee MD. Kuldip Mckee MD: This documentation has been prepared by the Rafael beard Daniel, SCRIBE, under my direction and personally reviewed by me in its entirety. I confirm that the documentation accurately reflects all work, treatment, procedures, and medical decision making performed by me. Attending Attestation - Resident Resident Name: Festus Browning - ED Attending Attestation I have performed the following: I have examined & evaluated the patient, The case was reviewed & discussed with the resident, I agree w/resident's findings & plan, Exceptions are as noted - HPI HPI: 11/13/18 00:02 38 year old M c/ hx of heroine use p/w heroine OD. Pt reports that he was doing well. Snorted 1 bag of heroine. Does not remember what happened, until EMS arrived. As per EMS, pt found unconscious. Pt was given 4 mg narcan with immediate response. Pt is now alert and fully awake. Has no complaints at this time. - Physicial Exam PE: 11/13/18 00:03 GENERAL: Awake, alert, and fully oriented, in no acute distress HEAD: No signs of trauma EYES: EOMI, sclera anicteric, conjunctiva clear ENT: Auricles normal inspection, hearing grossly normal, nares patent, Moist mucosa NECK: Normal ROM, supple, LUNGS: Breath sounds equal, clear to auscultation bilaterally. No wheezes, and no crackles HEART: Regular rate and rhythm, normal S1 and S2, no murmurs, rubs or gallops ABDOMEN: Soft, nontender, No guarding, no rebound. No masses EXTREMITIES: Normal range of motion, no edema. No clubbing or cyanosis. No cords, erythema, or tenderness NEUROLOGICAL: Cranial nerves II through XII grossly intact. Normal speech SKIN: Warm, Dry, normal turgor, no rashes or lesions noted. - Medical Decision Making 11/13/18 00:04 38 yo M c/ heroine OD. Now alert and breathing comfortable. Pt with no acute findings. Will observe pt and if remains alert and breathing comfortably, pt can be d/c'd home. 11/13/18 00:51 Initially pt wanted to eloped, but stayed for further observation. Pt tolerated PO. Pt has been observed for 1 hour and requesting to leave. I feel comfortable discharging the patient. He is calling a friend for a ride. *DC/Admit/Observation/Transfer Diagnosis at time of Disposition: Opioid overdose Qualifiers: Encounter type: initial encounter Injury intent: accidental or unintentional Qualified Code(s): T40.2X1A - Poisoning by other opioids, accidental ( unintentional), initial encounter - Discharge Dispostion Disposition: HOME Condition at time of disposition: Improved Decision to Admit order: No - Referrals - Patient Instructions Printed Discharge Instructions: DI for Drug Overdose in Adults Additional Instructions: Please be cautious in the future. Please follow up with your doctor. - Post Discharge Activity
[2018-11-13 00:07] VITALS: BP 121/73; PULSE 93; TEMP 98.3; BMI 28.1
== END 2018-11-13 01:15 | disposition left against medical advice (07) ==
LOC: JER 23:52
DX: T40.2X1A Poisoning by other opioids, accidental (unintentional), initial encounter (principal); F17.210 Nicotine dependence, cigarettes, uncomplicated; F19.10 Other psychoactive substance abuse, uncomplicated
CPT/HCPCS: 99282-25

== ENCOUNTER 2020-04-13 15:36 | Inpatient (IN) | payer OTHER ==
--- OUTSIDE RECORDS SUMMARY | 2020-04-13 15:40 | XMS ---
:1980 Author Organization [facility] Care Team Providers Name Role Phone [id number] Unavailable Unavailable Re-disclosure Warning The records that you are about to access may contain information from federally- assisted alcohol or drug abuse programs. If such information is present, then the following federally mandated warning applies: This information has been disclosed to you from records protected by federal confidentiality rules (42 CFR part 2). The federal rules prohibit you from making any further disclosure of this information unless further disclosure is expressly permitted by the written consent of the person to whom it pertains or as otherwise permitted by 42 CFR part 2. A general authorization for the release of medical or other information is NOT sufficient for this purpose. The Federal rules restrict any use of the information to criminally investigate or prosecute any alcohol or drug abuse patient.The records that you are about to access may contain highly sensitive health information, the redisclosure of which is protected by Article 27-F of the [facility] Public Health law. If you continue you may haveaccess to information: Regarding HIV / AIDS; Provided by facilities licensed or operated by the [facility] Office of Mental Health; or Provided by the [facility] Office for People With Developmental Disabilities. If such information is present, then the following [facility] mandated warning applies: This information has been disclosed to you from confidential records which are protected by state law. State law prohibits you from making any further disclosure of this information without the specific written consent of the person to whom it pertains, or as otherwise permitted by law. Any unauthorized further disclosure in violation of state law may result in a fine or care home sentence or both. A general authorization for the release of medical or other information is NOT sufficient authorization for further disclosure. Allergies and Adverse Reactions Type Description Substance Reaction Status Data Source(s ) Food allergy Fish Fish N and V Active [facility] System "makes me vomit" Encounters Encounter Providers Location Date Indications Data Source(s ) Outpatient Attender: [id number] 09/12/2019 [facility] [facility]. Insurance Providers Payer name Policy type Policy ID Covered Covered alliance party's Policy P antoinette / Coverage alliance party ID relationship to [facility] type [place] MEDICAID [id number] SP [id number] SELF PAY SP INSURANCE PENDING [id number] SP [id number] [facility] [id number] SP [id number] E Problems, Conditions, and Diagnoses Code Display Name Description Problem Type Effective Dates Data Source(s) F39 Mood disorder Mood disorder Diagnosis 06/05/2018 12:00:00 [facility] AM EST System Surgeries/Procedures Procedure Description Date Indications Data Source(s) Electrocardiogram 12 Lead 06/05/2018 [facility] 03:33:00 PM EST System - 06/05/2018 03:33:00 PM EST Lipid Profile 10/11/2017 [facility] 12:55:00 PM EDT System - 10/11/2017 12:55:00 PM EDT Electrocardiogram 12 Lead 06/16/2017 [facility] 03:34:00 AM EST System - 06/16/2017 03:34:00 AM EST Electrocardiogram 12 Lead 12/27/2015 [facility] 05:23:00 AM EDT System - 12/27/2015 05:23:00 AM EDT Results ID Date Data Source [id number] 04/01/2020 12:57:00 PM EDT [facility] Name Value Range Interpretation Description Data Sup porting Code Source(s) Document(s ) SARS-CoV-2 [facility] (COVID-19) RNA panel - Unspecified specimen by SALLY with probe detection This lab was ordered by STEVE SWENSON LT and reported by [facility]. ID Date Data Source [id number] 06/06/2018 11:26:00 AM EST [facility] Name Value Range Interpretation Description Data Sup porting Code Source(s) Document(s ) Influenza virus Negative Normal (applies Flu A Viral [facility] A RNA [Presence] to non-numeric RNA Health in Unspecified results) System specimen by Probe and target amplification method Influenza virus Negative Normal (applies Flu B Viral [facility] B RNA [Presence] to non-numeric RNA Health in Unspecified results) System specimen by Probe and target amplification method ID Date Data Source [id number] 06/05/2018 02:58:00 PM EST [facility] Name Value Range Interpretation Description Data Sup porting Code Source(s) Document(s ) Color YELLOW Yellow Normal (applies Color [facility] to non-numeric Health results) System Appearance of CLEAR Clear Normal (applies Urine [facility] Urine to non-numeric Appearance Health results) System Specific 1.015 1.001 - Normal (applies Urine Specific [facility] gravity of 1.035 to non-numeric [facility] Urine results) System pH.. 7.5 4.6 - 8.0 Normal (applies pH.. [facility] {pH_units} pH units to non-numeric Health results) System Glucose, UA NEGATIVE < 50 Normal (applies Glucose, UA [facility] mg/dl to non-numeric Health results) System Protein TRACE < 30 Normal (applies Protein [facility] [Mass/volume] mg/dl to non-numeric Health in Serum or results) System Plasma Bilirubin NEGATIVE Negative Normal (applies Bilirubin [facility] Urine Sm to Lg to non-numeric Urine Health results) System Urobilinogen 1.0 mg/dL Normal (applies Urobilinogen [facility] [Mass/volume] to non-numeric UA Health in Urine results) System Ketones NEGATIVE Negative Normal (applies Ketones UA [facility] [Mass/volume] mg/dL to non-numeric Health in Urine results) System Nitrate+Nitrit NEGATIVE Negative Normal (applies Nitrite [facility] Neg/Pos to non-numeric Health [Mass/volume] results) System in Unspecified specimen Leukocyte NEGATIVE Negative Normal (applies Leukocyte [facility] esterase Tr to Lg to non-numeric Esterase Health [Units/volume] results) Concentration System in Urine Leukocytes 0 {/HPF} 0 - 2 Normal (applies White Blood [facility] [#/volume] in /HPF to non-numeric Cells Health Unspecified results) System specimen by Automated count Red Blood 0 {/HPF} 0 - 1 Normal (applies Red Blood [facility] Cells /HPF to non-numeric Cells Health results) System Urine Blood NEGATIVE Negative Normal (applies Urine Blood [facility] Sm to Lg to non-numeric Health results) System ID Date Data Source [id number] 06/05/2018 02:58:00 PM EST [facility] Name Value Range Interpretation Description Data Sup porting Code Source(s) Document(s ) Leukocytes 4.7 4.8 - Below low normal WBC Count [facility] [#/volume] in {10^3_uL 10.8 Health Unspecified } 10^3 uL System specimen by Automated count Erythrocytes 4.89 4.40 - Normal (applies RBC Count [facility] [#/volume] in {10^6_uL 5.90 to non-numeric Health Blood by } 10^6 uL results) System Automated count Hemoglobin 15.1 14.0 - Normal (applies Hemoglobin [facility] [Mass/volume] in {gm/dL} 18.0 to non-numeric Health Blood gm/dL results) System Hematocrit 46.7 % 41.0 - Normal (applies Hematocrit [facility] [Volume 53.0 % to non-numeric Health Fraction] of results) System Blood Erythrocyte mean 95.5 fl 83.0 - Normal (applies MCV [facility] corpuscular 98.0 fl to non-numeric Health volume [Entitic results) System volume] by Automated count Erythrocyte mean 30.9 pg 26.0 - Normal (applies MCH [facility] corpuscular 34.0 pg to non-numeric Health hemoglobin results) System [Entitic mass] by Automated count Erythrocyte mean 32.3 33.0 - Below low normal MCHC [facility] corpuscular {gm/dL} 37.0 Health hemoglobin gm/dL System concentration [Mass/volume] by Automated count Erythrocyte 13.0 % 11.5 - Normal (applies RDW-CV [facility] distribution 14.5 % to non-numeric Health width [Entitic results) System volume] by Automated count Platelets 197 130 - Normal (applies Platelet [facility] [#/volume] in {10^3_uL 400 to non-numeric Count Health Plasma by } 10^3 uL results) System Automated count Platelet mean 9.9 fl 7.4 - Normal (applies MPV [facility] volume [Entitic 10.4 fl to non-numeric Health volume] in Blood results) System by Automated count ID Date Data Source [id number] 06/05/2018 02:58:00 PM EST [facility] Name Value Range Interpretation Description Data Sup porting Code Source(s) Document(s ) Sodium 142 137 - Normal (applies Sodium, Serum [facility] [Moles/volume] in mmol/L 145 to non-numeric Health Serum or Plasma mmol/L results) System Potassium 4.6 3.6 - Normal (applies Potassium, [facility] [Mass/volume] in mmol/L 5.0 to non-numeric Serum Health Serum or Plasma mmol/L results) System Chloride 106 98 - Normal (applies Chloride, [facility] [Moles/volume] in mmol/L 107 to non-numeric Serum Health Serum or Plasma mmol/L results) System Carbon dioxide, 25.0 22.0 - Normal (applies CO2, Serum [facility] total mmol/L 30.0 to non-numeric Health [Moles/volume] in mmol/L results) System Serum or Plasma Total Protein 6.4 6.3 - Normal (applies Total Protein [facility] mg/dl 8.2 to non-numeric Health mg/dl results) System Glucose 99 75 - Normal (applies Glucose, [facility] [Mass/volume] in mg/dL 110 to non-numeric Serum Health Serum or Plasma mg/dL results) System Urea nitrogen 13 9 - 21 Normal (applies Blood Urea [facility] [Mass/volume] in mg/dl mg/dl to non-numeric Nitrogen, Health Serum or Plasma results) Serum System Creatinine 1.30 0.80 - Normal (applies Creatinine, [facility] [Mass/volume] in mg/dl 1.50 to non-numeric Serum Health Serum or Plasma mg/dl results) System Alkaline 45 38 - Normal (applies Alkaline [facility] phosphatase {IU/L} 126 to non-numeric Phosphatase, Health isoenzymes IU/L results) Serum System [Enzymatic activity/volume] in Serum or Plasma by Heat stability Bilirubin.total 0.2 0.2 - Normal (applies Bilirubin, [facility] [Mass/volume] in mg/dl 1.3 to non-numeric Serum Total Health Serum or Plasma mg/dl results) System Direct Bilirubin 0.1 0.0 - Normal (applies Direct [facility] mg/dl 0.4 to non-numeric Bilirubin Health mg/dl results) System Aspartate 34 5 - 40 Normal (applies Aspartate [facility] aminotransferase {IU/L} IU/L to non-numeric Transaminase, Heal th [Enzymatic results) Serum System activity/volume] in Serum or Plasma by With P-5'-P Albumin 3.9 3.9 - Normal (applies Albumin, [facility] [Mass/volume] in {gm/dl} 5.0 to non-numeric Serum Health Serum or Plasma gm/dl results) System I. Phosphorus 3.6 2.5 - Normal (applies I. Phosphorus [facility] mg/dl 4.5 to non-numeric Health mg/dl results) System Alanine 38 7 - 56 Normal (applies Alanine [facility] aminotransferase {IU/L} IU/L to non-numeric Aminotransfer Heal th [Enzymatic results) ase, Serum System activity/volume] in Serum or Plasma Calcium 9.2 8.4 - Normal (applies Calcium, [facility] [Mass/volume] in mg/dl 10.2 to non-numeric Total Serum Health Serum or Plasma mg/dl results) System A/G Ratio 1.56 Normal (applies A/G Ratio [facility] to non-numeric Health results) System Urate 2.7 3.5 - Below low normal Uric Acid, [facility] [Mass/volume] in mg/dl 8.5 Serum Health Serum or Plasma mg/dl System Anion gap in Serum 11.00 8.00 - Normal (applies Anion Gap [facility] or Plasma mmol/L 12.00 to non-numeric Health mmol/L results) System Glomerular 62.00 Normal (applies GFR [facility] filtration to non-numeric Health rate/1.73 sq results) System M.predicted [Volume Rate/Area] in Serum or Plasma by Creatinine-based formula (CKD-EPI) eGFR will provide clinicians with a more accurate indicator of renal function then the serum creatinine. The eGFR is automa tically calculated from an empiric formula (endorsed by the National Kid[employer] ion) which incorporates age, sex, and race.Clinicians may notice surprisingly low GFR's with serum creatinine valueswithin normal range- particularly in elderly wo men (with low muscle mass).In the hospital setting, the eGFR should add an element of safety in drug dosing, in assessing the risk of IV contrast administration, and in assessing vascular risk.The NKF staging system is as follows:Normal: eGFR >90 with no kidney markersStage 1: eGFR >90 with kidney markers*Stage 2: eGFR 60- 89Stage 3: eGFR 30-59Stage 4: eGFR 15-29Stage 5: eGFR <15 (usually requir ing dialysis)*Markers include: Proteinuria, Hematuria, abnormal imaging-studies, or other blood or urine test abnormalities ID Date Data Source [id number] 06/05/2018 02:58:00 PM EST [facility] Name Value Range Interpretation Description Data Sup porting Code Source(s) Document(s ) Alcohol non-detecte Normal (applies Alcohol Ethyl, [facility] Ethyl, d None to non-numeric Blood Health System Blood Detected results) ID Date Data Source [id number] 06/05/2018 02:58:00 PM EST [facility] Name Value Range Interpretation Description Data Sup porting Code Source(s) Document(s ) Acetaminophen 0.0 10 - 30 Normal (applies Acetaminophen [facility] [Mass/volume] ug/ml ug/ml to non-numeric Level, Serum Health in Serum or results) System Plasma ID Date Data Source [id number] 06/05/2018 02:58:00 PM EST [facility] Name Value Range Interpretation Description Data Sup porting Code Source(s) Document(s ) Troponin I 0.00 0.00 - Normal (applies Troponin I [facility] Quantitative - ng/mL 0.04 to non-numeric Quantitative - Healt h MV Only ng/mL results) MV Only System ID Date Data Source [id number] 06/05/2018 02:58:00 PM EST [facility] Name Value Range Interpretation Description Data Sup porting Code Source(s) Document(s ) Acetylsalicylate 0.0 2.0 - Below low normal Salicylate [facility] [Mass/volume] in mg/dl 30.0 Level, Serum Health Serum or Plasma mg/dl System ID Date Data Source [id number] 06/05/2018 02:58:00 PM EST [facility] Name Value Range Interpretation Description Data Sup porting Code Source(s) Document(s ) Amphetamine Negative Negative Normal (applies Amphetamine [facility] [Mass/volume] ng/ml to non-numeric Level, Urine Health in Urine results) System Cut-off = 1000 ng/mL Barbiturates Negative Negative Normal (applies Barbiturate [facility] [Mass/volume] in ng/ml to non-numeric Screen, Urine Heal System Urine by Screen results) method Cut-off = 200 ng/mL Benzodiazepines Positive Negative Abnormal Benzodiazepines, [facility] [Mass/volume] in ng/mL (applies to Urine Health Urine non-numeric System results) Cut-off = 200 ng/mL Cocaine Positive Negative Abnormal Cocaine [facility] metabolites.other ng/ml (applies to Metabolite Health Sy stem [Mass/volume] in non-numeric Screen, Urine Urine results) Cut-off = 300 ng/mL Methadone Negative Negative Normal (applies Methadone [facility] [Mass/volume] in ng/mL to non-numeric Level, [facility]) Cut-off = 300 ng/mL Opiate 300, Positive Negative ng/ml Abnormal (applies Opiate 300, [facility] Urine to non-numeric Urine Health System results) Cut-off = 300 ng/mL Phencyclidine Positive Negative Abnormal Phencyclidine, [facility] [Mass/volume] in ng/ml (applies to Urine Health Syst em Urine non-numeric results) Cut-off = 25 ng/mL Cannabinoid Positive Negative Abnormal Cannabinoid [facility] (THC) ng/mL (applies to (THC) Health System non-numeric results) Cutt-off = 50These results are for medic al treatment only. The positive findings are unconfirmed. Request confirmatory/quanti tative test if needed. ID Date Data Source [id number] 06/05/2018 02:58:00 PM EST [facility] Name Value Range Interpretation Description Data Sup porting Code Source(s) Document(s ) Creatine 633 55 - 170 Above high normal Creatine [facility] kinase.MB {IU/L} IU/L Kinase, Serum Health System [Mass/volum e] in Serum or Plasma ID Date Data Source [id number] 01/17/2018 10:02:00 PM EDT [facility] Name Value Range Interpretation Description Data Sup porting Code Source(s) Document(s ) Sodium 142 137 - Normal (applies Sodium, Serum [facility] [Moles/volume] in mmol/L 145 to non-numeric Health Serum or Plasma mmol/L results) System Potassium 4.6 3.6 - Normal (applies Potassium, [facility] [Mass/volume] in mmol/L 5.0 to non-numeric Serum Health Serum or Plasma mmol/L results) System Chloride 103 98 - Normal (applies Chloride, [facility] [Moles/volume] in mmol/L 107 to non-numeric Serum Health Serum or Plasma mmol/L results) System Carbon dioxide, 32.0 22.0 - Above high CO2, Serum [facility] total mmol/L 30.0 normal Health [Moles/volume] in mmol/L System Serum or Plasma Total Protein 6.6 6.3 - Normal (applies Total Protein [facility] mg/dl 8.2 to non-numeric Health mg/dl results) System Glucose 101 75 - Normal (applies Glucose, [facility] [Mass/volume] in mg/dL 110 to non-numeric Serum Health Serum or Plasma mg/dL results) System Urea nitrogen 13 9 - 21 Normal (applies Blood Urea [facility] [Mass/volume] in mg/dl mg/dl to non-numeric Nitrogen, Health Serum or Plasma results) Serum System Creatinine 0.90 0.80 - Normal (applies Creatinine, [facility] [Mass/volume] in mg/dl 1.50 to non-numeric Serum Health Serum or Plasma mg/dl results) System Alkaline 48 38 - Normal (applies Alkaline [facility] phosphatase {IU/L} 126 to non-numeric Phosphatase, [facility] isoenzymes IU/L results) Serum System [Enzymatic activity/volume] in Serum or Plasma by Heat stability Bilirubin.total 0.2 0.2 - Normal (applies Bilirubin, [facility] [Mass/volume] in mg/dl 1.3 to non-numeric Serum Total Health Serum or Plasma mg/dl results) System Direct Bilirubin 0.1 0.0 - Normal (applies Direct [facility] mg/dl 0.4 to non-numeric Bilirubin Health mg/dl results) System Aspartate 24 5 - 40 Normal (applies Aspartate [facility] aminotransferase {IU/L} IU/L to non-numeric Transaminase, Heal th [Enzymatic results) Serum System activity/volume] in Serum or Plasma by With P-5'-P Albumin 4.2 3.9 - Normal (applies Albumin, [facility] [Mass/volume] in {gm/dl} 5.0 to non-numeric Serum Health Serum or Plasma gm/dl results) System I. Phosphorus 3.6 2.5 - Normal (applies I. Phosphorus [facility] mg/dl 4.5 to non-numeric Health mg/dl results) System Alanine 19 7 - 56 Normal (applies Alanine [facility] aminotransferase {IU/L} IU/L to non-numeric Aminotransfer Heal th [Enzymatic results) ase, Serum System activity/volume] in Serum or Plasma Calcium 9.6 8.4 - Normal (applies Calcium, [facility] [Mass/volume] in mg/dl 10.2 to non-numeric Total Serum Health Serum or Plasma mg/dl results) System A/G Ratio 1.75 Normal (applies A/G Ratio [facility] to non-numeric Health results) System Urate 4.9 3.5 - Normal (applies Uric Acid, [facility] [Mass/volume] in mg/dl 8.5 to non-numeric Serum Health Serum or Plasma mg/dl results) System Anion gap in Serum 7.00 8.00 - Below low normal Anion Gap [facility] or Plasma mmol/L 12.00 Health mmol/L System Glomerular > 90 Normal (applies GFR [facility] filtration to non-numeric Health rate/1.73 sq results) System M.predicted [Volume Rate/Area] in Serum or Plasma by Creatinine-based formula (CKD-EPI) eGFR will provide clinicians with a more accurate indicator of renal function then the serum creatinine. The eGFR is automa tically calculated from an empiric formula (endorsed by the National Kidney [employer] ion) which incorporates age, sex, and race.Clinicians may notice surprisingly low GFR's with serum creatinine valueswithin normal range- particularly in elderly wo men (with low muscle mass).In the hospital setting, the eGFR should add an element of safety in drug dosing, in assessing the risk of IV contrast administration, and in assessing vascular risk.The NKF staging system is as follows:Normal: eGFR >90 with no kidney markersStage 1: eGFR >90 with kidney markers*Stage 2: eGFR 60- 89Stage 3: eGFR 30-59Stage 4: eGFR 15-29Stage 5: eGFR <15 (usually requir ing dialysis)*Markers include: Proteinuria, Hematuria, abnormal imaging-studies, or other blood or urine test abnormalities ID Date Data Source [id number] 01/17/2018 10:02:00 PM EDT [facility] Name Value Range Interpretation Description Data Sup porting Code Source(s) Document(s ) Alcohol NON Normal (applies Alcohol Ethyl, [facility] Ethyl, DETECTED to non-numeric Blood Health System Blood None results) Detected ID Date Data Source [id number] 01/17/2018 10:02:00 PM EDT [facility] Name Value Range Interpretation Description Data Sup porting Code Source(s) Document(s ) Acetaminophen < 4 10 - 30 Below low normal Acetaminophen [facility] [Mass/volume] in ug/ml Level, Serum Health Serum or Plasma System ID Date Data Source [id number] 01/17/2018 10:02:00 PM EDT [facility] Name Value Range Interpretation Description Data Sup porting Code Source(s) Document(s ) Acetylsalicylate < 4 2.0 - Normal (applies Salicylate [facility] [Mass/volume] in 30.0 to non-numeric Level, Serum Healt h Serum or Plasma mg/dl results) System ID Date Data Source [id number] 10/11/2017 12:35:00 PM EDT [facility] Name Value Range Interpretation Description Data Sup porting Code Source(s) Document(s ) Valproate 29.2 "." Normal (applies Valproic Acid [facility] [Mass/volume ug/ml ug/ml to non-numeric Level, Serum Health Sy stem ] in Serum results) or Plasma Therapeutic 50 - 100Toxic >100 ug/mL ID Date Data Source [id number] 10/01/2017 10:11:00 AM EST [facility] Name Value Range Interpretation Description Data Sup porting Code Source(s) Document(s ) Leukocytes 8.1 4.8 - Normal (applies WBC Count [facility] [#/volume] in {10^3_u 10.8 to non-numeric Health Unspecified L} 10^3 uL results) System specimen by Automated count Erythrocytes 4.48 4.40 - Normal (applies RBC Count [facility] [#/volume] in {10^6_u 5.90 to non-numeric Health Blood by L} 10^6 uL results) System Automated count Hemoglobin 13.7 14.0 - Below low normal Hemoglobin [facility] [Mass/volume] in {gm/dL} 18.0 Health Blood gm/dL System Hematocrit 40.6 % 41.0 - Below low normal Hematocrit [facility] [Volume 53.0 % Health Fraction] of System Blood Erythrocyte mean 90.6 fl 83.0 - Normal (applies MCV [facility] corpuscular 98.0 fl to non-numeric Health volume [Entitic results) System volume] by Automated count Erythrocyte mean 30.6 pg 26.0 - Normal (applies MCH [facility] corpuscular 34.0 pg to non-numeric Health hemoglobin results) System [Entitic mass] by Automated count Erythrocyte mean 33.7 33.0 - Normal (applies MCHC [facility] corpuscular {gm/dL} 37.0 to non-numeric Health hemoglobin gm/dL results) System concentration [Mass/volume] by Automated count Erythrocyte 12.4 % 11.5 - Normal (applies RDW-CV [facility] distribution 14.5 % to non-numeric Health width [Entitic results) System volume] by Automated count Platelets 177 130 - Normal (applies Platelet Count [facility] [#/volume] in {10^3_u 400 to non-numeric Health Plasma by L} 10^3 uL results) System Automated count Platelet mean 9.5 fl 7.4 - Normal (applies MPV [facility] volume [Entitic 10.4 fl to non-numeric Health volume] in Blood results) System by Automated count Monocytes 0.5 0.3 - Normal (applies Monocyte # [facility] [#/volume] in {10^3_u 0.9 to non-numeric Health Blood by Manual L} 10^3 uL results) System count Eosinophils 0.08 0.05 - Normal (applies Eosinophil # [facility] [#/volume] in {10^3_u 0.30 to non-numeric Health Blood L} 10^3 uL results) System Neutrophils 5.6 2.0 - Normal (applies Neutrophil # [facility] [#/volume] in {10^3_u 8.1 to non-numeric Health Body fluid L} 10^3 uL results) System Basophils 0.04 0.00 - Normal (applies Basophil # [facility] [#/volume] in {10^3_u 0.10 to non-numeric Health Blood by L} 10^3 uL results) System Automated count Lymphocyte # 1.8 1.0 - Normal (applies Lymphocyte # [facility] {10^3_u 5.5 to non-numeric Health L} 10^3 uL results) System Neutrophils/100 69.4 % 55.0 - Normal (applies Neutrophil % [facility] leukocytes in 75.0 % to non-numeric Health Blood by results) System Automated count Monocytes/100 6.5 % 6.0 - Normal (applies Monocyte % [facility] leukocytes in 9.0 % to non-numeric Health Blood results) System Eosinophils/100 1.0 % 0.0 - Normal (applies Eosinophil % [facility] leukocytes in 4.0 % to non-numeric Health Unspecified results) System specimen Basophils/100 0.5 % 0.0 - Normal (applies Basophil % [facility] leukocytes in 1.0 % to non-numeric Health Unspecified results) System specimen by Manual count Lymphocytes 22.4 % 21.0 - Normal (applies Lymphocyte % [facility] [#/volume] in 51.0 % to non-numeric Health Blood by results) System Automated count Immature 0.2 % 0.0 - Normal (applies Immature [facility] Granulocytes % 0.8 % to non-numeric Granulocytes % Healt h results) System Nucleated 0.0 0.0 - Normal (applies NRBC % [facility] erythrocytes {/100_W 0.0 to non-numeric Health [#/volume] in BC} /100 results) System Body fluid WBC Immature 0.02 0.00 - Normal (applies Immature [facility] Granulocytes # {10^3_u 0.09 to non-numeric Granulocytes # Healt [facility] L} 10^3 uL results) System NRBC # 0.00 0.90 - Below low normal NRBC # [facility] {10^3_u 11.20 Health L} 10^3 uL System ID Date Data Source [id number] 10/01/2017 10:11:00 AM EST [facility] Name Value Range Interpretation Description Data Sup porting Code Source(s) Document(s ) Valproate 0.0 "." Normal (applies Valproic Acid [facility] [Mass/volume ug/ml ug/ml to non-numeric Level, Serum Health Sy stem ] in Serum results) or Plasma Therapeutic 50 - 100Toxic >100 ug/mL ID Date Data Source [id number] 10/01/2017 10:11:00 AM EST [facility] Name Value Range Interpretation Description Data Sup porting Code Source(s) Document(s ) Sodium 141 137 - Normal (applies Sodium, Serum [facility] [Moles/volume] in mmol/L 145 to non-numeric Health Serum or Plasma mmol/L results) System Potassium 4.1 3.6 - Normal (applies Potassium, [facility] [Mass/volume] in mmol/L 5.0 to non-numeric Serum Health Serum or Plasma mmol/L results) System Chloride 106 98 - Normal (applies Chloride, [facility] [Moles/volume] in mmol/L 107 to non-numeric Serum Health Serum or Plasma mmol/L results) System Carbon dioxide, 25.0 22.0 - Normal (applies CO2, Serum [facility] total mmol/L 30.0 to non-numeric Health [Moles/volume] in mmol/L results) System Serum or Plasma Total Protein 6.4 6.3 - Normal (applies Total Protein [facility] mg/dl 8.2 to non-numeric Health mg/dl results) System Glucose 109 75 - Normal (applies Glucose, [facility] [Mass/volume] in mg/dL 110 to non-numeric Serum Health Serum or Plasma mg/dL results) System Urea nitrogen 20 9 - 21 Normal (applies Blood Urea [facility] [Mass/volume] in mg/dl mg/dl to non-numeric Nitrogen, Health Serum or Plasma results) Serum System Creatinine 1.10 0.80 - Normal (applies Creatinine, [facility] [Mass/volume] in mg/dl 1.50 to non-numeric Serum Health Serum or Plasma mg/dl results) System Alkaline 46 38 - Normal (applies Alkaline [facility] phosphatase {IU/L} 126 to non-numeric Phosphatase, Health isoenzymes IU/L results) Serum System [Enzymatic activity/volume] in Serum or Plasma by Heat stability Bilirubin.total 0.8 0.2 - Normal (applies Bilirubin, [facility] [Mass/volume] in mg/dl 1.3 to non-numeric Serum Total Health Serum or Plasma mg/dl results) System Direct Bilirubin 0.3 0.0 - Normal (applies Direct [facility] mg/dl 0.4 to non-numeric Bilirubin Health mg/dl results) System Aspartate 23 5 - 40 Normal (applies Aspartate [facility] aminotransferase {IU/L} IU/L to non-numeric Transaminase, Heal th [Enzymatic results) Serum System activity/volume] in Serum or Plasma by With P-5'-P Albumin 4.3 3.9 - Normal (applies Albumin, [facility] [Mass/volume] in {gm/dl} 5.0 to non-numeric Serum Health Serum or Plasma gm/dl results) System I. Phosphorus 2.2 2.5 - Below low normal I. Phosphorus [facility] mg/dl 4.5 Health mg/dl System Alanine 17 7 - 56 Normal (applies Alanine [facility] aminotransferase {IU/L} IU/L to non-numeric Aminotransfer [facility]al [facility] [Enzymatic results) ase, Serum System activity/volume] in Serum or Plasma Calcium 9.5 8.4 - Normal (applies Calcium, [facility] [Mass/volume] in mg/dl 10.2 to non-numeric Total Serum Health Serum or Plasma mg/dl results) System A/G Ratio 2.05 Normal (applies A/G Ratio [facility] to non-numeric Health results) System Urate 4.8 3.5 - Normal (applies Uric Acid, [facility] [Mass/volume] in mg/dl 8.5 to non-numeric Serum Health Serum or Plasma mg/dl results) System Anion gap in Serum 10.00 8.00 - Normal (applies Anion Gap [facility] or Plasma mmol/L 12.00 to non-numeric Health mmol/L results) System Glomerular 76.00 Normal (applies GFR [facility] filtration to non-numeric Health rate/1.73 sq results) System M.predicted [Volume Rate/Area] in Serum or Plasma by Creatinine-based formula (CKD-EPI) eGFR will provide clinicians with a more accurate indicator of renal function then the serum creatinine. The eGFR is automa tically calculated from an empiric formula (endorsed by the [employer]) which incorporates age, sex, and race.Clinicians may notice surprisingly low GFR's with serum creatinine valueswithin normal range- particularly in elderly wo men (with low muscle mass).In the hospital setting, the eGFR should add an element of safety in drug dosing, in assessing the risk of IV contrast administration, and in assessing vascular risk.The NKF staging system is as follows:Normal: eGFR >90 with no kidney markersStage 1: eGFR >90 with kidney markers*Stage 2: eGFR 60- 89Stage 3: eGFR 30-59Stage 4: eGFR 15-29Stage 5: eGFR <15 (usually requir ing dialysis)*Markers include: Proteinuria, Hematuria, abnormal imaging-studies, or other blood or urine test abnormalities ID Date Data Source [id number] 10/01/2017 10:11:00 AM FRANC[facility] stein System Name Value Range Interpretation Description Data Sup porting Code Source(s) Document(s ) Alcohol non detected Normal (applies Alcohol Ethyl, [facility] Ethyl, Previously to non-numeric Blood Health Blood released as results) System 0.5 on 10/01/2017, 11:16 [place] [id number] - None Detected ID Date Data Source [id number] 10/01/2017 10:11:00 AM EST [facility] Name Value Range Interpretation Description Data Sup porting Code Source(s) Document(s ) Amphetamine Negative Negative Normal (applies Amphetamine [facility] [Mass/volume] ng/ml to non-numeric Level, Urine Health in Urine results) System Cut-off = 1000 ng/mL Barbiturates Negative Negative Normal (applies Barbiturate [facility] [Mass/volume] in ng/ml to non-numeric Screen, Urine Heal System Urine by Screen results) method Cut-off = 200 ng/mL Benzodiazepines Negative Negative Normal Benzodiazepines, [facility] [Mass/volume] in ng/mL (applies to Urine Health Urine non-numeric System results) Cut-off = 200 ng/mL Cocaine Positive Negative Abnormal Cocaine [facility] metabolites.other ng/ml (applies to Metabolite Health Sy stem [Mass/volume] in non-numeric Screen, Urine Urine results) Cut-off = 300 ng/mL Methadone Negative Negative Normal (applies Methadone [facility] [Mass/volume] in ng/mL to non-numeric Level, Urine Healt h System Urine results) Cut-off = 300 ng/mL Opiate 300, Negative Negative ng/ml Normal (applies to Opiate 300, [facility] Urine non-numeric Urine [facility] System results) Cut-off = 300 ng/mL Phencyclidine Negative Negative Normal (applies Phencyclidine, [facility] [Mass/volume] in ng/ml to non-numeric Urine Health S ystem Urine results) Cut-off = 25 ng/mL Cannabinoid Negative Negative Normal (applies Cannabinoid [facility] (THC) ng/mL to non-numeric (THC) Health System results) Cutt-off = 50These results are for medic al treatment only. The positive findings are unconfirmed. Request confirmatory/quanti tative test if needed. ID Date Data Source [id number] 06/25/2017 05:20:00 AM EST [facility] Name Value Range Interpretation Description Data Sup porting Code Source(s) Document(s ) Valproate 97.2 "." Normal (applies Valproic Acid [facility] [Mass/volume ug/ml ug/ml to non-numeric Level, Serum Health Sy stem ] in Serum results) or Plasma Therapeutic 50 - 100Toxic >100 ug/mL ID Date Data Source [id number] 06/25/2017 04:28:00 AM EST [facility] Name Value Range Interpretation Description Data Sup porting Code Source(s) Document(s ) Leukocytes 6.7 4.8 - Normal (applies WBC Count [facility] [#/volume] in {10^3_u 10.8 to non-numeric Health Unspecified L} 10^3 uL results) System specimen by Automated count Erythrocytes 4.48 4.40 - Normal (applies RBC Count [facility] [#/volume] in {10^6_u 5.90 to non-numeric Health Blood by L} 10^6 uL results) System Automated count Hemoglobin 14.4 14.0 - Normal (applies Hemoglobin [facility] [Mass/volume] in {gm/dL} 18.0 to non-numeric Health Blood gm/dL results) System Hematocrit 41.6 % 41.0 - Normal (applies Hematocrit [facility] [Volume 53.0 % to non-numeric Health Fraction] of results) System Blood Erythrocyte mean 92.9 fl 83.0 - Normal (applies MCV [facility] corpuscular 98.0 fl to non-numeric Health volume [Entitic results) System volume] by Automated count Erythrocyte mean 32.1 pg 26.0 - Normal (applies MCH [facility] corpuscular 34.0 pg to non-numeric Health hemoglobin results) System [Entitic mass] by Automated count Erythrocyte mean 34.6 33.0 - Normal (applies MCHC [facility] corpuscular {gm/dL} 37.0 to non-numeric Health hemoglobin gm/dL results) System concentration [Mass/volume] by Automated count Erythrocyte 11.9 % 11.5 - Normal (applies RDW-CV [facility] distribution 14.5 % to non-numeric Health width [Entitic results) System volume] by Automated count Platelets 177 130 - Normal (applies Platelet Count [facility] [#/volume] in {10^3_u 400 to non-numeric Health Plasma by L} 10^3 uL results) System Automated count Platelet mean 9.4 fl 7.4 - Normal (applies MPV [facility] volume [Entitic 10.4 fl to non-numeric Health volume] in Blood results) System by Automated count Monocytes 0.6 0.3 - Normal (applies Monocyte # [facility] [#/volume] in {10^3_u 0.9 to non-numeric Health Blood by Manual L} 10^3 uL results) System count Eosinophils 0.07 0.05 - Normal (applies Eosinophil # [facility] [#/volume] in {10^3_u 0.30 to non-numeric Health Blood L} 10^3 uL results) System Neutrophils 3.8 2.0 - Normal (applies Neutrophil # [facility] [#/volume] in {10^3_u 8.1 to non-numeric Health Body fluid L} 10^3 uL results) System Basophils 0.03 0.00 - Normal (applies Basophil # [facility] [#/volume] in {10^3_u 0.10 to non-numeric Health Blood by L} 10^3 uL results) System Automated count Neutrophils/100 56.0 % 55.0 - Normal (applies Neutrophil % [facility] leukocytes in 75.0 % to non-numeric Health Blood by results) System Automated count Lymphocyte # 2.3 1.0 - Normal (applies Lymphocyte # [facility] {10^3_u 5.5 to non-numeric Health L} 10^3 uL results) System Monocytes/100 8.2 % 6.0 - Normal (applies Monocyte % [facility] leukocytes in 9.0 % to non-numeric Health Blood results) System Basophils/100 0.4 % 0.0 - Normal (applies Basophil % [facility] leukocytes in 1.0 % to non-numeric Health Unspecified results) System specimen by Manual count Eosinophils/100 1.0 % 0.0 - Normal (applies Eosinophil % [facility] leukocytes in 4.0 % to non-numeric Health Unspecified results) System specimen Lymphocytes 34.3 % 21.0 - Normal (applies Lymphocyte % [facility] [#/volume] in 51.0 % to non-numeric Health Blood by results) System Automated count Immature 0.1 % 0.0 - Normal (applies Immature [facility] Granulocytes % 0.8 % to non-numeric Granulocytes % Healt h results) System Nucleated 0.0 0.0 - Normal (applies NRBC % [facility] erythrocytes {/100_W 0.0 to non-numeric Health [#/volume] in BC} /100 results) System Body fluid WBC Immature 0.01 0.00 - Normal (applies Immature [facility] Granulocytes # {10^3_u 0.09 to non-numeric Granulocytes # Healt h L} 10^3 uL results) System NRBC # 0.00 0.90 - Below low normal NRBC # [facility] {10^3_u 11.20 Health L} 10^3 uL System ID Date Data Source [id number] 06/25/2017 04:28:00 AM EST [facility] Name Value Range Interpretation Description Data Sup porting Code Source(s) Document(s ) Sodium 143 137 - Normal (applies Sodium, Serum [facility] [Moles/volume] in mmol/L 145 to non-numeric Health Serum or Plasma mmol/L results) System Potassium 3.9 3.6 - Normal (applies Potassium, [facility] [Mass/volume] in mmol/L 5.0 to non-numeric Serum Health Serum or Plasma mmol/L results) System Chloride 106 98 - Normal (applies Chloride, [facility] [Moles/volume] in mmol/L 107 to non-numeric Serum Health Serum or Plasma mmol/L results) System Carbon dioxide, 27.0 22.0 - Normal (applies CO2, Serum [facility] total mmol/L 30.0 to non-numeric Health [Moles/volume] in mmol/L results) System Serum or Plasma Total Protein 6.2 6.3 - Below low normal Total Protein [facility] mg/dl 8.2 Health mg/dl System Glucose 110 75 - Normal (applies Glucose, [facility] [Mass/volume] in mg/dL 110 to non-numeric Serum Health Serum or Plasma mg/dL results) System Urea nitrogen 17 9 - 21 Normal (applies Blood Urea [facility] [Mass/volume] in mg/dl mg/dl to non-numeric Nitrogen, Health Serum or Plasma results) Serum System Creatinine 1.20 0.80 - Normal (applies Creatinine, [facility] [Mass/volume] in mg/dl 1.50 to non-numeric Serum Health Serum or Plasma mg/dl results) System Alkaline 43 38 - Normal (applies Alkaline [facility] phosphatase {IU/L} 126 to non-numeric Phosphatase, Health isoenzymes IU/L results) Serum System [Enzymatic activity/volume] in Serum or Plasma by Heat stability Bilirubin.total 0.3 0.2 - Normal (applies Bilirubin, [facility] [Mass/volume] in mg/dl 1.3 to non-numeric Serum Total Health Serum or Plasma mg/dl results) System Direct Bilirubin 0.2 0.0 - Normal (applies Direct [facility] mg/dl 0.4 to non-numeric Bilirubin Health mg/dl results) System Aspartate 21 5 - 40 Normal (applies Aspartate [facility] aminotransferase {IU/L} IU/L to non-numeric Transaminase, Heal th [Enzymatic results) Serum System activity/volume] in Serum or Plasma by With P-5'-P Albumin 4.0 3.9 - Normal (applies Albumin, [facility] [Mass/volume] in {gm/dl} 5.0 to non-numeric Serum Health Serum or Plasma gm/dl results) System I. Phosphorus 3.0 2.5 - Normal (applies I. Phosphorus [facility] mg/dl 4.5 to non-numeric Health mg/dl results) System Alanine 16 7 - 56 Normal (applies Alanine [facility] aminotransferase {IU/L} IU/L to non-numeric Aminotransfer Heal th [Enzymatic results) ase, Serum System activity/volume] in Serum or Plasma Calcium 9.0 8.4 - Normal (applies Calcium, [facility] [Mass/volume] in mg/dl 10.2 to non-numeric Total Serum Health Serum or Plasma mg/dl results) System A/G Ratio 1.82 Normal (applies A/G Ratio [facility] to non-numeric Health results) System Urate 6.4 3.5 - Normal (applies Uric Acid, [facility] [Mass/volume] in mg/dl 8.5 to non-numeric Serum Health Serum or Plasma mg/dl results) System Anion gap in Serum 10.00 8.00 - Normal (applies Anion Gap [facility] or Plasma mmol/L 12.00 to non-numeric Health mmol/L results) System Glomerular 69.00 Normal (applies GFR [facility] filtration to non-numeric Health rate/1.73 sq results) System M.predicted [Volume Rate/Area] in Serum or Plasma by Creatinine-based formula (CKD-EPI) eGFR will provide clinicians with a more accurate indicator of renal function then the serum creatinine. The eGFR is automa tically calculated from an empiric formula (endorsed by the [employer]) which incorporates age, sex, and race.Clinicians may notice surprisingly low GFR's with serum creatinine valueswithin normal range- particularly in elderly wo men (with low muscle mass).In the hospital setting, the eGFR should add an element of safety in drug dosing, in assessing the risk of IV contrast administration, and in assessing vascular risk.The NKF staging system is as follows:Normal: eGFR >90 with no kidney markersStage 1: eGFR >90 with kidney markers*Stage 2: eGFR 60- 89Stage 3: eGFR 30-59Stage 4: eGFR 15-29Stage 5: eGFR <15 (usually requir ing dialysis)*Markers include: Proteinuria, Hematuria, abnormal imaging-studies, or other blood or urine test abnormalities ID Date Data Source [id number] 06/25/2017 04:28:00 AM EST Jojo stein System Name Value Range Interpretation Description Data Sup porting Code Source(s) Document(s ) Alcohol non detected Normal (applies Alcohol Ethyl, [facility] Ethyl, Previously to non-numeric Blood Health Blood released as results) System 0.2 on 06/25/2017, 07:09 AM by [id number] - None Detected ID Date Data Source [id number] 06/25/2017 04:28:00 AM EST [facility] System Name Value Range Interpretation Description Data Sup porting Code Source(s) Document(s ) Acetaminophen 0 ug/ml 10 - 30 Below low normal Acetaminophen [facility] [Mass/volume] ug/ml Level, Serum Health in Serum or System Plasma ID Date Data Source [id number] 06/25/2017 04:28:00 AM EST [facility] System Name Value Range Interpretation Description Data Sup porting Code Source(s) Document(s ) Acetylsalicylate 0.0 2.0 - Below low normal Salicylate [facility] [Mass/volume] in mg/dl 30.0 Level, Serum Health Serum or Plasma mg/dl System ID Date Data Source [id number] 06/25/2017 04:28:00 AM [facility] Name Value Range Interpretation Description Data Sup porting Code Source(s) Document(s ) Amphetamine Negative Negative Normal (applies Amphetamine [facility] [Mass/volume] ng/ml to non-numeric Level, Urine Health in Urine results) System Cut-off = 1000 ng/mL Barbiturates Negative Negative Normal (applies Barbiturate [facility] [Mass/volume] in ng/ml to non-numeric Screen, Urine Heal th System Urine by Screen results) method Cut-off = 200 ng/mL Benzodiazepines Negative Negative Normal Benzodiazepines, [facility] [Mass/volume] in ng/mL (applies to Urine Health Urine non-numeric System results) Cut-off = 200 ng/mL Cocaine Positive Negative Abnormal Cocaine [facility] metabolites.other ng/ml (applies to Metabolite Health Sy stem [Mass/volume] in non-numeric Screen, Urine Urine results) Cut-off = 300 ng/mL Methadone Negative Negative Normal (applies Methadone [facility] [Mass/volume] in to non-numeric Level, Urine Healt h System Urine results) Cut-off = 300 ng/mL Opiate 300, Negative Negative ng/ml Normal (applies to Opiate 300, [facility] Urine non-numeric Urine [facility] System results) Cut-off = 300 ng/mL Phencyclidine Negative Negative Normal (applies Phencyclidine, [facility] [Mass/volume] in ng/ml to non-numeric Urine Health S ystem Urine results) Cut-off = 25 ng/mL Cannabinoid Negative Negative Normal (applies Cannabinoid [facility] (THC) ng/mL to non-numeric (THC) Health System results) Cutt-off = 50These results are for medic al treatment only. The positive findings are unconfirmed. Request confirmatory/quanti tative test if needed. ID Date Data Source [id number] 06/17/2017 06:00:00 AM EST [facility] System Name Value Range Interpretation Description Data Sup porting Code Source(s) Document(s ) Valproate 22.9 "." Normal (applies Valproic Acid [facility] [Mass/volume ug/ml ug/ml to non-numeric Level, Serum Health Sy stem ] in Serum results) or Plasma Therapeutic 50 - 100Toxic >100 ug/mL ID Date Data Source [id number] 06/16/2017 03:25:00 AM EST [facility] Name Value Range Interpretation Description Data Sup porting Code Source(s) Document(s ) Leukocytes 7.0 4.8 - Normal (applies WBC Count [facility] [#/volume] in {10^3_u 10.8 to non-numeric Health Unspecified L} 10^3 uL results) System specimen by Automated count Erythrocytes 4.34 4.40 - Below low normal RBC Count [facility] [#/volume] in {10^6_u 5.90 Health Blood by L} 10^6 uL System Automated count Hemoglobin 14.0 14.0 - Normal (applies Hemoglobin [facility] [Mass/volume] in {gm/dL} 18.0 to non-numeric Health Blood gm/dL results) System Erythrocyte mean 94.7 fl 83.0 - Normal (applies MCV [facility] corpuscular 98.0 fl to non-numeric Health volume [Entitic results) System volume] by Automated count Hematocrit 41.1 % 41.0 - Normal (applies Hematocrit [facility] [Volume 53.0 % to non-numeric Health Fraction] of results) System Blood Erythrocyte mean 34.1 33.0 - Normal (applies MCHC [facility] corpuscular {gm/dL} 37.0 to non-numeric Health hemoglobin gm/dL results) System concentration [Mass/volume] by Automated count Erythrocyte mean 32.3 pg 26.0 - Normal (applies MCH [facility] corpuscular 34.0 pg to non-numeric Health hemoglobin results) System [Entitic mass] by Automated count Erythrocyte 11.9 % 11.5 - Normal (applies RDW-CV [facility] distribution 14.5 % to non-numeric Health width [Entitic results) System volume] by Automated count Platelet mean 9.9 fl 7.4 - Normal (applies MPV [facility] volume [Entitic 10.4 fl to non-numeric Health volume] in Blood results) System by Automated count Platelets 166 130 - Normal (applies Platelet Count [facility] [#/volume] in {10^3_u 400 to non-numeric Health Plasma by L} 10^3 uL results) System Automated count Eosinophils 0.05 0.05 - Normal (applies Eosinophil # [facility] [#/volume] in {10^3_u 0.30 to non-numeric Health Blood L} 10^3 uL results) System Monocytes 0.6 0.3 - Normal (applies Monocyte # [facility] [#/volume] in {10^3_u 0.9 to non-numeric Health Blood by Manual L} 10^3 uL results) System count Basophils 0.02 0.00 - Normal (applies Basophil # [facility] [#/volume] in {10^3_u 0.10 to non-numeric Health Blood by L} 10^3 uL results) System Automated count Neutrophils 3.3 2.0 - Normal (applies Neutrophil # [facility] [#/volume] in {10^3_u 8.1 to non-numeric Health Body fluid L} 10^3 uL results) System Neutrophils/100 47.1 % 55.0 - Below low normal Neutrophil % [facility] leukocytes in 75.0 % Health Blood by System Automated count Lymphocyte # 3.1 1.0 - Normal (applies Lymphocyte # [facility] {10^3_u 5.5 to non-numeric Health L} 10^3 uL results) System Monocytes/100 8.1 % 6.0 - Normal (applies Monocyte % [facility] leukocytes in 9.0 % to non-numeric Health Blood results) System Eosinophils/100 0.7 % 0.0 - Normal (applies Eosinophil % [facility] leukocytes in 4.0 % to non-numeric Health Unspecified results) System specimen Lymphocytes 43.5 % 21.0 - Normal (applies Lymphocyte % [facility] [#/volume] in 51.0 % to non-numeric Health Blood by results) System Automated count Basophils/100 0.3 % 0.0 - Normal (applies Basophil % [facility] leukocytes in 1.0 % to non-numeric Health Unspecified results) System specimen by Manual count Nucleated 0.0 0.0 - Normal (applies NRBC % [facility] erythrocytes {/100_W 0.0 to non-numeric Health [#/volume] in BC} /100 results) System Body fluid WBC Immature 0.3 % 0.0 - Normal (applies Immature [facility] Granulocytes % 0.8 % to non-numeric Granulocytes % Healt h results) System Immature 0.02 0.00 - Normal (applies Immature [facility] Granulocytes # {10^3_u 0.09 to non-numeric Granulocytes # Healt h L} 10^3 uL results) System NRBC # 0.00 0.90 - Below low normal NRBC # [facility] {10^3_u 11.20 Health L} 10^3 uL System ID Date Data Source [id number] 06/16/2017 03:25:00 AM EST [facility] System Name Value Range Interpretation Description Data Sup porting Code Source(s) Document(s ) Thyrotropin 1.150 0.380 - Normal (applies Thyroid [facility] [Mass/volume] {mIU/mL} 6.150 to non-numeric Stimulating Health in Serum or mIU/mL results) Hormone, System Plasma Serum ID Date Data Source [id number] 06/16/2017 03:25:00 AM EST [facility] System Name Value Range Interpretation Description Data Sup porting Code Source(s) Document(s ) Sodium 142 137 - Normal (applies Sodium, Serum [facility] [Moles/volume] in mmol/L 145 to non-numeric Health Serum or Plasma mmol/L results) System Potassium 4.2 3.6 - Normal (applies Potassium, [facility] [Mass/volume] in mmol/L 5.0 to non-numeric Serum Health Serum or Plasma mmol/L results) System Chloride 106 98 - Normal (applies Chloride, [facility] [Moles/volume] in mmol/L 107 to non-numeric Serum Health Serum or Plasma mmol/L results) System Total Protein 6.2 6.3 - Below low normal Total Protein [facility] mg/dl 8.2 Health mg/dl System Carbon dioxide, 26.0 22.0 - Normal (applies CO2, Serum [facility] total mmol/L 30.0 to non-numeric Health [Moles/volume] in mmol/L results) System Serum or Plasma Glucose 113 75 - Above high Glucose, [facility] [Mass/volume] in mg/dL 110 normal Serum Health Serum or Plasma mg/dL System Urea nitrogen 17 9 - 21 Normal (applies Blood Urea [facility] [Mass/volume] in mg/dl mg/dl to non-numeric Nitrogen, Health Serum or Plasma results) Serum System Creatinine 1.20 0.80 - Normal (applies Creatinine, [facility] [Mass/volume] in mg/dl 1.50 to non-numeric Serum Health Serum or Plasma mg/dl results) System Alkaline 45 38 - Normal (applies Alkaline [facility] phosphatase {IU/L} 126 to non-numeric Phosphatase, Health isoenzymes IU/L results) Serum System [Enzymatic activity/volume] in Serum or Plasma by Heat stability Bilirubin.total 0.5 0.2 - Normal (applies Bilirubin, [facility] [Mass/volume] in mg/dl 1.3 to non-numeric Serum Total Health Serum or Plasma mg/dl results) System Direct Bilirubin 0.2 0.0 - Normal (applies Direct [facility] mg/dl 0.4 to non-numeric Bilirubin [facility] mg/dl results) System Aspartate 29 5 - 40 Normal (applies Aspartate [facility] aminotransferase {IU/L} IU/L to non-numeric Transaminase, Heal th [Enzymatic results) Serum System activity/volume] in Serum or Plasma by With P-5'-P Albumin 4.0 3.9 - Normal (applies Albumin, [facility] [Mass/volume] in {gm/dl} 5.0 to non-numeric Serum Health Serum or Plasma gm/dl results) System I. Phosphorus 3.2 2.5 - Normal (applies I. Phosphorus [facility] mg/dl 4.5 to non-numeric Health mg/dl results) System Alanine 18 7 - 56 Normal (applies Alanine [facility] aminotransferase {IU/L} IU/L to non-numeric Aminotransfer [facility]al [facility] [Enzymatic results) ase, Serum System activity/volume] in Serum or Plasma A/G Ratio 1.82 Normal (applies A/G Ratio [facility] to non-numeric Health results) System Calcium 9.2 8.4 - Normal (applies Calcium, [facility] [Mass/volume] in mg/dl 10.2 to non-numeric Total Serum Health Serum or Plasma mg/dl results) System Urate 7.2 3.5 - Normal (applies Uric Acid, [facility] [Mass/volume] in mg/dl 8.5 to non-numeric Serum Health Serum or Plasma mg/dl results) System Anion gap in Serum 10.00 8.00 - Normal (applies Anion Gap [facility] or Plasma mmol/L 12.00 to non-numeric Health mmol/L results) System Glomerular 69.00 Normal (applies GFR [facility] filtration to non-numeric Health rate/1.73 sq results) System M.predicted [Volume Rate/Area] in Serum or Plasma by Creatinine-based formula (CKD-EPI) eGFR will provide clinicians with a more accurate indicator of renal function then the serum creatinine. The eGFR is automa tically calculated from an empiric formula (endorsed by the [employer]) which incorporates age, sex, and race.Clinicians may notice surprisingly low GFR's with serum creatinine valueswithin normal range- particularly in elderly wo men (with low muscle mass).In the hospital setting, the eGFR should add an element of safety in drug dosing, in assessing the risk of IV contrast administration, and in assessing vascular risk.The NKF staging system is as follows:Normal: eGFR >90 with no kidney markersStage 1: eGFR >90 with kidney markers*Stage 2: eGFR 60- 89Stage 3: eGFR 30-59Stage 4: eGFR 15-29Stage 5: eGFR <15 (usually requir ing dialysis)*Markers include: Proteinuria, Hematuria, abnormal imaging-studies, or other blood or urine test abnormalities ID Date Data Source [id number] 06/16/2017 03:25:00 AM EST [facility] Name Value Range Interpretation Description Data Sup porting Code Source(s) Document(s ) Alcohol non-detecte Normal (applies Alcohol Ethyl, [facility] Ethyl, d None to non-numeric Blood Health System Blood Detected results) ID Date Data Source [id number] 06/16/2017 03:25:00 AM EST [facility] Name Value Range Interpretation Description Data Sup porting Code Source(s) Document(s ) Amphetamine Negative Negative Normal (applies Amphetamine [facility] [Mass/volume] ng/ml to non-numeric Level, Urine Health in Urine results) System Cut-off = 1000 ng/mL Benzodiazepines Negative Negative Normal Benzodiazepines, [facility] [Mass/volume] in ng/mL (applies to Urine Health Urine non-numeric System results) Cut-off = 200 ng/mL Barbiturates Negative Negative Normal (applies Barbiturate [facility] [Mass/volume] in ng/ml to non-numeric Screen, Urine Heal th System Urine by Screen results) method Cut-off = 200 ng/mL Cocaine Positive Negative Abnormal Cocaine [facility] metabolites.other ng/ml (applies to Metabolite Health Sy stem [Mass/volume] in non-numeric Screen, Urine Urine results) Cut-off = 300 ng/mL Opiate 300, Positive Negative ng/ml Abnormal (applies Opiate 300, [facility] Urine to non-numeric Urine [facility] System results) Cut-off = 300 ng/mL Methadone Negative Negative Normal (applies Methadone [facility] [Mass/volume] in to non-numeric Level, Urine Healt h System Urine results) Cut-off = 300 ng/mL Cannabinoid Negative Negative Normal (applies Cannabinoid [facility] (THC) ng/mL to non-numeric (THC) Health System results) Cutt-off = 50These results are for medic al treatment only. The positive findings are unconfirmed. Request confirmatory/quanti tative test if needed. Phencyclidine Positive Negative Abnormal Phencyclidine, [facility] [Mass/volume] in ng/ml (applies to Urine Health Syst em Urine non-numeric results) Cut-off = 25 ng/mL ID Date Data Source [id number] 12/27/2015 04:20:00 AM EDT [facility] Name Value Range Interpretation Description Data Sup porting Code Source(s) Document(s ) Deprecated NO GROWTH Aerobic [facility] Bacteria Culture, Urine Health System identified in Urine by Aerobe culture ID Date Data Source [id number] 12/27/2015 04:20:00 AM EDT [facility] Name Value Range Interpretation Description Data Sup porting Code Source(s) Document(s ) Color Yellow Yellow Normal (applies Color [facility] to non-numeric Health results) System Glucose, UA NEG < 50 mg/dl Normal (applies Glucose, UA [facility] to non-numeric [facility] results) System pH.. 5.0 4.6 - 8.0 Normal (applies pH.. [facility] {pH_unit pH units to non-numeric Health s} results) System Appearance of CLEAR Clear Normal (applies Urine [facility] Urine to non-numeric Appearance Health results) System Specific 1.021 Normal (applies Urine Specific [facility] gravity of to non-numeric [place] [facility] Urine results) System Bilirubin NEG Negative Normal (applies Bilirubin [facility] Urine Sm to Lg to non-numeric Urine Health results) System Ketones NEG Negative Normal (applies Ketones UA [facility] [Mass/volume] Tr to Lg to non-numeric Health in Urine results) System Urobilinogen < 2.0 Normal (applies Urobilinogen [facility] [Mass/volume] to non-numeric UA [facility] in Urine results) System Reference Range: Negative or <=2.0 Protein NEG < 30 mg/dl Normal (applies Protein [facility] [Mass/volume] in to non-numeric Health S ystem Serum or Plasma results) Epithelial cells 9 {/HPF} 0 - 3 /HPF Normal (applies Epithelial Mone ls [facility] [Presence] in to non-numeric Health Syst em Unspecified results) specimen by Wet preparation Leukocytes 2 {/HPF} 0 - 2 /HPF Normal (applies White Blood [facility] [#/volume] in to non-numeric Cells Health Syst em Unspecified results) specimen by Automated count Nitrate+Nitrite Negative Negative Normal (applies Nitrite [facility] [Mass/volume] in Neg/Pos to non-numeric Health S ystem Unspecified results) specimen Leukocyte NEG Negative Tr Normal (applies Leukocyte [facility] esterase to Lg to non-numeric Esterase Health System [Units/volume] in results) Concentration Urine Red Blood Cells 1 {/HPF} 0 - 1 /HPF Normal (applies Red Blood Cells [facility] to non-numeric [facility] System results) Hyaline casts 11 {/LPF} 0 - 1 /LPF Abnormal Hyaline Casts [facility] [#/area] in Urine (applies to Health Sys tem sediment by non-numeric Microscopy high results) power field Bacteria FEW 0 - 5 /HPF Normal (applies Bacteria [facility] [Presence] in to non-numeric Health Syst em Unspecified results) specimen Urine Blood NEG Negative Sm Normal (applies Urine Blood [facility] to Lg to non-numeric Health System results) Mucus FEW 0 - 1 /LPF Normal (applies Mucus [facility] to non-numeric [facility] System results) ID Date Data Source [id number] 12/27/2015 04:20:00 AM EDT [facility] Name Value Range Interpretation Description Data Sup porting Code Source(s) Document(s ) Leukocytes 11.9 4.8 - Above high WBC Count [facility] [#/volume] in {10^3_u 10.8 normal Health Unspecified L} 10^3 uL System specimen by Automated count Erythrocytes 4.67 4.70 - Below low normal RBC Count [facility] [#/volume] in {10^6_u 6.10 Health Blood by L} 10^6 uL System Automated count Hematocrit 44.7 % 42.0 - Normal (applies Hematocrit [facility] [Volume 52.0 % to non-numeric Health Fraction] of results) System Blood Hemoglobin 15.1 14.0 - Normal (applies Hemoglobin [facility] [Mass/volume] in {gm/dL} 18.0 to non-numeric Health Blood gm/dL results) System Erythrocyte mean 95.7 fl 81.0 - Normal (applies MCV [facility] corpuscular 99.0 fl to non-numeric Health volume [Entitic results) System volume] by Automated count Erythrocyte 12.3 % 11.5 - Normal (applies RDW-CV [facility] distribution 14.5 % to non-numeric Health width [Entitic results) System volume] by Automated count Erythrocyte mean 33.8 30.0 - Normal (applies MCHC [facility] corpuscular {gm/dL} 35.0 to non-numeric Health hemoglobin gm/dL results) System concentration [Mass/volume] by Automated count Erythrocyte mean 32.3 pg 27.0 - Above high MCH [facility] corpuscular 31.0 pg normal Health hemoglobin System [Entitic mass] by Automated count Nucleated 0.0 0.0 - Normal (applies NRBC % [facility] erythrocytes {/100_W 0.2 to non-numeric Health [#/volume] in BC} /100 results) System Body fluid WBC Platelet mean 9.8 fl 8.6 - Normal (applies MPV [facility] volume [Entitic 13.5 fl to non-numeric Health volume] in Blood results) System by Automated count Platelets 215 130 - Normal (applies Platelet Count [facility] [#/volume] in {10^3_u 400 to non-numeric Health Plasma by L} 10^3 uL results) System Automated count NRBC # 0.00 0.00 - Normal (applies NRBC # [facility] {10^6_u 0.01 to non-numeric Health L} 10^6 uL results) System Neutrophils/100 64.5 % 55.0 - Normal (applies Neutrophil % [facility] leukocytes in 75.0 % to non-numeric Health Blood by results) System Automated count Neutrophils 7.7 2.6 - Normal (applies Neutrophil # [facility] [#/volume] in {10^3_u 8.1 to non-numeric Health Body fluid L} 10^3 uL results) System Monocytes 1.1 0.1 - Above high Monocyte # [facility] [#/volume] in {10^3_u 1.0 normal Health Blood by Manual L} 10^3 uL System count Lymphocytes 24.8 % 15.0 - Normal (applies Lymphocyte % [facility] [#/volume] in 41.0 % to non-numeric Health Blood by results) System Automated count Lymphocyte # 2.9 1.0 - Normal (applies Lymphocyte # [facility] {10^3_u 4.8 to non-numeric Health L} 10^3 uL results) System Monocytes/100 9.1 % 2.0 - Above high Monocyte % [facility] leukocytes in 9.0 % normal Health Blood System Eosinophils 0.11 0.00 - Normal (applies Eosinophil # [facility] [#/volume] in {10^3_u 0.50 to non-numeric Health Blood L} 10^3 uL results) System Eosinophils/100 0.9 % 0.0 - Normal (applies Eosinophil % [facility] leukocytes in 5.0 % to non-numeric Health Unspecified results) System specimen Basophils/100 0.4 % 0.0 - Normal (applies Basophil % [facility] leukocytes in 1.0 % to non-numeric Health Unspecified results) System specimen by Manual count Immature 0.3 % 0.0 - Normal (applies Immature [facility] Granulocytes % 0.8 % to non-numeric Granulocytes % Healt h results) System Basophils 0.05 0.00 - Normal (applies Basophil # [facility] [#/volume] in {10^3_u 0.10 to non-numeric Health Blood by L} 10^3 uL results) System Automated count Immature 0.04 0.00 - Normal (applies Immature [facility] Granulocytes # {10^3_u 0.09 to non-numeric Granulocytes # Healt h L} 10^3 uL results) System ID Date Data Source [id number] 12/27/2015 04:20:00 AM EDSamuel stein System Name Value Range Interpretation Description Data Sup porting Code Source(s) Document(s ) Sodium 143 135 - Normal (applies Sodium, Serum [facility] [Moles/volume] in mmol/L 145 to non-numeric Health Serum or Plasma mmol/L results) System Chloride 109 101 - Normal (applies Chloride, [facility] [Moles/volume] in mmol/L 111 to non-numeric Serum Health Serum or Plasma mmol/L results) System Potassium 4.0 3.5 - Normal (applies Potassium, [facility] [Mass/volume] in mmol/L 5.0 to non-numeric Serum Health Serum or Plasma mmol/L results) System Carbon dioxide, 24.1 21.0 - Normal (applies CO2, Serum [facility] total mmol/L 31.0 to non-numeric Health [Moles/volume] in mmol/L results) System Serum or Plasma Total Protein 7.1 6.4 - Normal (applies Total Protein [facility] mg/dl 8.1 to non-numeric Health mg/dl results) System Glucose 100 65 - Normal (applies Glucose, [facility] [Mass/volume] in mg/dL 110 to non-numeric Serum Health Serum or Plasma mg/dL results) System Urea nitrogen 17 9 - 21 Normal (applies Blood Urea [facility] [Mass/volume] in mg/dl mg/dl to non-numeric Nitrogen, Health Serum or Plasma results) Serum System Alkaline 41 42 - Below low normal Alkaline [facility] phosphatase {IU/L} 121 Phosphatase, Health isoenzymes IU/L Serum System [Enzymatic activity/volume] in Serum or Plasma by Heat stability Creatinine 1.19 0.50 - Normal (applies Creatinine, [facility] [Mass/volume] in mg/dl 1.20 to non-numeric Serum Health Serum or Plasma mg/dl results) System Bilirubin.total 0.5 0.2 - Normal (applies Bilirubin, [facility] [Mass/volume] in mg/dl 1.2 to non-numeric Serum Total Health Serum or Plasma mg/dl results) System Direct Bilirubin 0.1 0.0 - Normal (applies Direct [facility] mg/dl 0.4 to non-numeric Bilirubin [facility] mg/dl results) System Aspartate 22 10 - 42 Normal (applies Aspartate [facility] aminotransferase {IU/L} IU/L to non-numeric Transaminase, Heal th [Enzymatic results) Serum System activity/volume] in Serum or Plasma by With P-5'-P I. Phosphorus 3.8 2.6 - Normal (applies I. Phosphorus [facility] mg/dl 4.9 to non-numeric Health mg/dl results) System Albumin 4.7 3.2 - Normal (applies Albumin, [facility] [Mass/volume] in {gm/dl} 5.5 to non-numeric Serum Health Serum or Plasma gm/dl results) System Alanine 18 10 - 42 Normal (applies Alanine [facility] aminotransferase {IU/L} IU/L to non-numeric Aminotransfer Heal th [Enzymatic results) ase, Serum System activity/volume] in Serum or Plasma A/G Ratio 1.96 Normal (applies A/G Ratio [facility] to non-numeric Health results) System Urate 5.8 2.3 - Normal (applies Uric Acid, [facility] [Mass/volume] in mg/dl 7.5 to non-numeric Serum Health Serum or Plasma mg/dl results) System Calcium 9.7 8.4 - Normal (applies Calcium, [facility] [Mass/volume] in mg/dl 10.2 to non-numeric Total Serum Health Serum or Plasma mg/dl results) System Anion gap in Serum 9.90 Normal (applies Anion Gap [facility] or Plasma mmol/L to non-numeric Health results) System Glomerular 70.00 Normal (applies GFR [facility] filtration to non-numeric Health rate/1.73 sq results) System M.predicted [Volume Rate/Area] in Serum or Plasma by Creatinine-based formula (CKD-EPI) eGFR will provide clinicians with a more accurate indicator of renal function then the serum creatinine. The eGFR is automa tically calculated from an empiric formula (endorsed by the [employer] ion) which incorporates age, sex, and race.Clinicians may notice surprisingly low GFR's with serum creatinine valueswithin normal range- particularly in elderly wo men (with low muscle mass).In the hospital setting, the eGFR should add an element of safety in drug dosing, in assessing the risk of IV contrast administration, and in assessing vascular risk.The NKF staging system is as follows:Normal: eGFR >90 with no kidney markersStage 1: eGFR >90 with kidney markers*Stage 2: eGFR 60- 89Stage 3: eGFR 30-59Stage 4: eGFR 15-29Stage 5: eGFR <15 (usually requir ing dialysis)*Markers include: Proteinuria, Hematuria, abnormal imaging-studies, or other blood or urine test abnormalities ID Date Data Source [id number] 12/27/2015 04:20:00 AM EDT [facility] System Name Value Range Interpretation Description Data Sup porting Code Source(s) Document(s ) Lipase 11 U/L 4 - 66 Normal (applies to Lipase, Serum [facility] [Enzymatic U/L non-numeric Health System activity/v results) olume] in Serum or Plasma Procedure Vital Signs ID Date Data Source UNK Name Value Range Interpretation Code Description Data Source(s) Diastolic blood 80 mm[Hg] 0 - 999 Normal (applies to 80 mm[Hg] [facility] pressure non-numeric results) [facility] System Systolic blood 130 mm[Hg] 0 - 999 Normal (applies to 130 mm[Hg] [facility] pressure non-numeric results) [facility] System Deprecated Oxygen 99 % 0 - 999 Normal ([facility] 99 [facility] H e[facility] System Capillary blood by Oximetry Respiratory rate 18 0 - 999 Above high normal [facility] Heart rate 78 0 - 999 Normal (applies to 78 [facility] non-numeric results) [facility] System Body mass index 29.6 kg/m2 29.6 kg/m2 [facility] (BMI) [Ratio] Health Syst em Body temperature 36.9 Mone 0 - 99.9 Normal (applies to 36.9 Mone [facility] non-numeric results) [facility] System Body temperature 98.5 [degF] 0 - 200 Normal (applies to 98.5 [degF ] [facility] non-numeric results) [facility] System Body surface area 2 m2 2 m2 [facility] Derived from Health Syste m formula Body weight 88.54 kg 88.54 kg [facility] Measured Health System Body height 172.72 cm 172.72 cm [facility]
[2020-04-13 17:03] VITALS: BMI 29.3
--- NOTE | 2020-04-13 18:16 | BHS.RME ---
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 Frequency of use: Daily Substance route: Inhalation (ex: sniffing or snorting) Date of Last Use: 04/13/20 Cocaine-Crack Substance amount: $100 Frequency of use: Daily Substance route: Smoking Date of Last Use: 04/12/20 - Last Treatment Date of last treatment: 04/10/20 Treatment type: Substance Use Disorder ([facility]ANNIE) Where was last treatment: Rehab ([facility]) Physical/Psych/Mental Status - Behavior General Behavior: Increased activity (restlessness, agitation) Eye Contact: Normal - Cooperativeness Cooperativeness: Cooperative - Thinking Thought Processes: Goal Directed Thought content: Future oriented - Physical Health Problems Is patient presently having any pain?: Yes (Back/hands/knee pain from w/drwal) Does patient presently have any injuries (include location): No Does patient currently have a fever: No Is patient : No COWS - Scale Resting Pulse: 1= NC 81-100 Sweatin=Flushed/Facial Moisture Restless Observation: 3= Extraneous Movement Pupil Size: 2= Moderately Dilated (Pupils = 5 mm) Bone or Joint Aches: 2= Severe Diffuse Aches Runny Nose/ Eye Tearin= Nasal Congestion GI Upset > 30mins: 2= Nausea/Diarrhea (nausea w/ diarrhea - watery-brown) Tremor Observation: 4= Gross Tremor/Twitching Yawning Observation: 0= None Anxiety or Irritability: 2=Irritable/Anxious Goose Flesh Skin: 0=Smooth Skin COWS Score: 19
--- NOTE | 2020-04-13 18:23 | HP ---
COWS - Scale Resting Pulse: 1= [place] 81-100 Sweatin=Flushed/Facial Moisture Restless Observation: 3= Extraneous Movement Pupil Size: 2= Moderately Dilated (Pupils = 5 mm) Bone or Joint Aches: 2= Severe Diffuse Aches Runny Nose/ Eye Tearin= Nasal Congestion GI Upset > 30mins: 2= Nausea/Diarrhea (nausea w/ diarrhea - watery-brown) Tremor Observation: 4= Gross Tremor/Twitching Yawning Observation: 0= None Anxiety or Irritability: 2=Irritable/Anxious Goose Flesh Skin: 0=Smooth Skin COWS Score: 19 CIWA Score - Admission Criteria OASAS Guidelines: Admission for Medically Managed Detox: Requires at least one of the followin. CIWA greater than 12 2. Seizures within the past 24 hours 3. Delirium tremens within the past 24 hours 4. Hallucinations within the past 24 hours 5. Acute intervention needed for co occurring medical disorder 6. Acute intervention needed for co occurring psychiatric disorder 7. Severe withdrawal that cannot be handled at a lower level of care (continued vomiting, continued diarrhea, abnormal vital signs) requiring intravenous medication and/or fluids 8. Admitting History and Physical - Smoking History Smoking history: Current every day smoker Have you smoked in the past 12 months: Yes Aproximately how many cigarettes per day: 20 - Alcohol/Substance Use Hx Alcohol Use: No Admission ROS [facility] - [facility] Chief Complaint: "here withdrawing from opiates. Goal is to be off everything." Allergies/Adverse Reactions: Allergies Allergy/AdvReac Type Severity Reaction Status Date / Time Fish Containing Products Allergy Severe Hives Verified 04/13/20 19:06 trazodone AdvReac Severe Swelling Verified 04/13/20 19:06 History of Present Illness: 40 yo w/ opioid withdrawal symptoms, seeking detox. Denies seizures. Hx blackouts. Hx Overdoses x 9. Last 2 months ago. Heroin use began at age 32. Current use 15 bags/nasal/daily. last use today. No Narcan kit @ home. Was recently being treated w/ suboxone, but last used 04/10. Nicotine use began at age 13. Smokes 1 PPD Crack/cocaine use began at age 32. $100/day. Last used yesterday. Denies alcohol use. PMHx: Denies MHHx: PTSD; Bipolar. Depression (states drug related).Denies thoughts of harming self or others. States was on medications SHx: Undomiciled. Unemployed. Denies legal issues. Patient Name: Vazquez Garibay Date: 1980 Address: [address] [place] [id number] Sex: Male Rx Written Rx Dispensed Drug Quantity Days Supply Prescriber Name Payment Method Dispenser 04/05/2020 04/09/2020 suboxone 8 mg-2 mg sl film 15 5 Hortensia Tong) Medicaid Lirx 04/03/2020 04/04/2020 suboxone 8 mg-2 mg sl film 15 10 Hortensia Tong) Medicaid Lirx Patient Name: MAURA GARIBAY Date: 1980 Address: [address] [place] [address] Sex: Male Rx Written Rx Dispensed Drug Strength Quantity Days Supply Prescriber Name Payment Method 10/24/2018 12/23/2018 GABAPENTIN 600 MG TABLET 90.0 30 MOHAMUD THIBODEAUX JR, FRANCIS[place] Insurance Dispenser [employer] [facility] Date: 1980 Address: [address] [place] [address] Sex: Male Rx Written Rx Dispensed Drug Strength Quantity Days Supply Prescriber Name Payment Method 03/15/2020 03/15/2020 GABAPENTIN 300 MG CAPSULE 180.0 30 MOHAMUD THIBODEAUX JR, FRANCIS[place] Medicaid Dispenser [facility] 02/27/2020 03/02/2020 GABAPENTIN 400 MG CAPSULE 90.0 15 MD MOHAN JOSEPH Medicaid Dispenser [facility] 02/08/2020 02/08/2020 GABAPENTIN 600 MG TABLET 60.0 20 MD MOHAN JOSEPH Medicaid Dispenser [facility] 01/19/2020 01/19/2020 GABAPENTIN 300 MG CAPSULE 180.0 30 MD BELTRAN PHILIP Insurance Dispenser [facility] 01/05/2020 01/12/2020 GABAPENTIN 300 MG CAPSULE 90.0 30 MOHAMUD THIBODEAUX JR, FRANC JENNIFER Medicaid Dispenser [facility] Date: 1980 Address: [address] [place] [address] Sex: Male Rx Written Rx Dispensed Drug Strength Quantity Days Supply Prescriber Name Payment Method 06/16/2019 06/17/2019 GABAPENTIN 400 MG CAPSULE 12.0 2 ROD BOYLE Insurance Dispenser [employer] Date: 1980 Address: [place] [address] Sex: Male Rx Written Rx Dispensed Drug Strength Quantity Days Supply Prescriber Name Payment Method 12/14/2019 12/22/2019 GABAPENTIN 600 MG TABLET 90.0 30 ANA TEIXEIRA, NANCY Insurance Dispenser [facility] Date: 1980 Address: [address] [place] [address] Sex: Male Rx Written Rx Dispensed Drug Strength Quantity Days Supply Prescriber Name Payment Method 01/03/2019 01/03/2019 GABAPENTIN 300 MG CAPSULE 30.0 30 ANUJA ROMERO Insurance Dispenser [facility] Date: 1980 Address: [address] [place] [address] Sex: Male Rx Written Rx Dispensed Drug Strength Quantity Days Supply Prescriber Name Payment Method 06/16/2019 06/19/2019 GABAPENTIN 400 MG CAPSULE 168.0 28 ROD BOYLE Insurance Dispenser [facility] 03/29/2019 05/01/2019 GABAPENTIN 600 MG TABLET 90.0 30 CINDY MARKS Insurance Dispenser [facility] 04/13/2019 04/13/2019 GABAPENTIN 800 MG TABLET 90.0 30 MD KAI, [place] Insurance Dispenser [facility] 02/16/2019 03/17/2019 GABAPENTIN 300 MG CAPSULE 180.0 30 MD KAI, [place] Insurance Dispenser [facility] 02/16/2019 02/16/2019 GABAPENTIN 300 MG CAPSULE 180.0 30 MD KAI, [facility]RISTOPHER [facility] Date: 1980 Address: [place] [id number] Sex: Male Rx Written Rx Dispensed Drug Strength Quantity Days Supply Prescriber Name Payment Method 06/02/2019 06/02/2019 SUBOXONE 2 MG-0.5 MG SL FILM 12.0 6 MD SURI, [place]IZ[place] Insurance Dispenser [facility] 06/01/2019 06/01/2019 BUPRENORP-NALOX 4-1 MG SL FILM 2.0 2 DO SANTOS ROSE [facility] 06/01/2019 06/01/2019 GABAPENTIN 800 MG TABLET 30.0 10 DO SANT[place] ROSE [facility] 06/01/2019 06/01/2019 LORAZEPAM 1 MG TABLET 27.0 7 DO DANIELLE [facility] 06/01/2019 06/01/2019 SUBOXONE 8 MG-2 MG SL FILM 1.0 1 DO SANT[place] ROSE [facility] 04/21/2019 04/21/2019 GABAPENTIN 800 MG TABLET 90.0 30 MD SURI, [facility] 04/15/2019 04/17/2019 BUPRENO-NALOX 2-0.5 MG SL FILM 12.0 6 MD SURI, [facility] 04/15/2019 04/15/2019 BUPRENORP-NALOX 4-1 MG SL FILM 2.0 2 MD SURI, [facility] 04/15/2019 04/15/2019 BUPRENORP-NALOX 8-2 MG SL FILM 1.0 1 MD SURI, [facility] Exam Limitations: No Limitations - Ebola screening Have you traveled outside of the country in the last 21 days: No (Denies COVID) Have you had contact with anyone from an Ebola affected area: No Have you been sick,other than usual withdrawal symptoms: No Do you have a fever: No - Review of Systems Constitutional: Chills, Diaphoresis, Changes in sleep (Difficulty falling and staying asleep. -), Weight Stable EENT: reports: Blurred Vision, Nose Congestion, Dental Problems (No. Chews and swallows ok) Respiratory: reports: Shortness of Breath (r/t flashbacks) Cardiac: reports: No Symptoms Reported : reports: No Symptoms Reported Musculoskeletal: reports: Back Pain (r/t withdrawal), Joint Pain (r/t withdrawal) Integumentary: reports: No Symptoms Reported Neuro: reports: Tremors Endocrine: reports: Increased Thirst Hematology: reports: No Symptoms Reported Psychiatric: reports: Judgement Intact, Mood/Affect Appropiate, Orientated x3, Agitated, Anxious, Depressed (Denies thoughts of harming self or others.) Patient History - Patient Medical History Hx Anemia: No Hx Asthma: No Hx Chronic Obstructive Pulmonary Disease (COPD): No Hx Cancer: No Hx Cardiac Disorders: No Hx Congestive Heart Failure: No Hx Hypertension: No Hx Hypercholesterolemia: No Hx Pacemaker: No HX Cerebrovascular Accident: No Hx Seizures: No Hx Dementia: No Hx Diabetes: No Hx Gastrointestinal Disorders: No Hx Liver Disease: No Hx Genitourinary Disorders: No Hx Sexually Transmitted Disorders: No Hx Renal Disease (ESRD): No Hx Thyroid Disease: No Hx Human Immunodeficiency Virus (HIV): No Hx Hepatitis C: No Hx Depression: Yes Hx Suicide Attempt: Yes (06/2014 OD ON HEROIN; DENIES CURRENT S/I) Hx Bipolar Disorder: Yes (On meds.) Hx Schizophrenia: No - Patient Surgical History Past Surgical History: Yes Hx Neurologic Surgery: No Hx Cataract Extraction: No Hx Cardiac Surgery: No Hx Lung Surgery: No Hx Breast Surgery: No Hx Breast Biopsy: No Hx Abdominal Surgery: No Hx Appendectomy: No Hx Cholecystectomy: No Hx Genitourinary Surgery: No Hx Section: No Hx Orthopedic Surgery: Yes (rt shoulder impingement and torn labrium- arthroscopic surgery, 1996.) Other Surgical History: corrective sx, left eye (@1983), right inguinal hernia repair, 1996. Anesthesia Reaction: No - PPD History Previous Implant?: Yes Documented Results: Negative w/proof Implanted On Prior [facility] Admission?: Yes Date: 11/11/18 Results: 0 mm PPD to be Administered?: Yes - Smoking Cessation Smoking history: Current every day smoker Have you smoked in the past 12 months: Yes Aproximately how many cigarettes per day: 20 Cigars Per Day: 0 Hx Chewing Tobacco Use: No Initiated information on smoking cessation: Yes 'Breaking Loose' booklet given: 04/13/20 - Substance & Tx. History Hx Alcohol Use: No Hx Substance Use: Yes Substance Use Type: Cocaine, Heroin, Opiates Hx Substance Use Treatment: Yes (detox, rehab, past methadone, recent -past Suboxone) - Substances abused Heroin Substance route: Inhalation Frequency: Daily Amount used: 20-30 bags/day Age of first use: 32 Date of last use: 04/13/20 Admission Physical Exam [facility] - Vital Signs Vital Signs: Vital Signs - 24 hr 04/13/20 17:02 Temperature 98.1 F Pulse Rate 96 H Respiratory 18 Rate Blood Pressure 140/88 - Physical General Appearance: Yes: Nourished, Mild Distress, Tremorous, Sweating (Increased facial moisture), Anxious HEENTM: Yes: EOMI, Hearing grossly Normal, Normocephalic, Normal Voice, BREANNE (Pupils = 4 mm), Pharynx Normal, Nasal Congestion Respiratory: Yes: Lungs Clear, Normal Breath Sounds, No Respiratory Distress Neck: Yes: No masses,lesions,Nodules, Supple Cardiology: Yes: Regular Rhythm, S1, S2, Tachycardia (HR: 102) Abdominal: Yes: Non Tender, Flat, Soft, Increased Bowel Sounds Genitourinary: Yes: Within Normal Limits Back: Yes: Normal Inspection Musculoskeletal: Yes: full range of Motion, Gait Steady Extremities: Yes: Normal Capillary Refill, Tremors, Pedal Edema (Slight pedal edema toes to below ankle. Pulses +; Cap reill < 3 sec.) Neurological: Yes: track walker II-XII NML intact, Fully Oriented, Alert, Motor Strength 5/5, Normal Mood/Affect, Normal Response Integumentary: Yes: Normal Color, Warm, Moist (Increased facial moisture), Other (Thickened skin dorsal area.) Lymphatic: Yes: Within Normal Limits - Diagnostic (1) Opioid dependence with withdrawal Current Visit: Yes Status: Acute (2) Tinea pedis Current Visit: Yes Status: Chronic Qualifiers: Laterality: bilateral Qualified Code(s): B35.3 - Tinea pedis (3) Cocaine dependence Current Visit: Yes Status: Chronic (4) Nicotine dependence Current Visit: Yes Status: Chronic Qualifiers: Nicotine product type: cigarettes Substance use status: uncomplicated Qualified Code(s): F17.210 - Nicotine dependence, cigarettes, uncomplicated (5) Pedal edema Current Visit: Yes Status: Chronic Cleared for Admission [facility] - Detox or Rehab [facility] Level of Care: Medically Managed Detox Regimen/Protocol: Methadone Claeared for Rehab Admission: No Breathalyzer - Breathalyzer Breathalyzer: 0 Urine Drug Screen - Test Device Lot number: [id number] Expiration date: 10/31/21 - Control Is test valid?: Yes - Results Drug screen NEGATIVE: No Urine drug screen results: ANU-Cocaine, FEN-Fentanyl, MOP-Opiates, BUP-Suboxone Inpatient Rehab Admission - Rehab Decision to Admit Inpatient rehab admission?: No
[2020-04-13] MEDS ORDERED: ONDANSETRON *ODT* 4 MG TABLET SL PRN (18:45)
[2020-04-13] MEDS ORDERED: MAGNESIUM HYDROX 2400MG/30ML ORAL SUSPENSION 30 ML CUP PO PRN (18:45)
[2020-04-13] MEDS ORDERED: cloNIDine HCL 0.1 MG TABLET PO PRN (18:45)
[2020-04-13] MEDS ORDERED: ACETAMINOPHEN 325 MG TABLET (FP) PO PRN ×2 (18:45)
[2020-04-13] MEDS ORDERED: BISMUTH SUBSALICYLATE 524 MG/30 ML UD PO PRN (18:45)
[2020-04-13] MEDS ORDERED: IBUPROFEN 400 MG TABLET (FP) PO PRN (18:45)
[2020-04-13] MEDS ORDERED: MENTHOL/PHENOL 1 EACH UD MM PRN (18:45)
[2020-04-13] MEDS ORDERED: METHADONE HCL 10 MG TABLET (FOR DETOX USE ONLY) PO ONE (18:45)
[2020-04-13] MEDS ORDERED: MAGNESIUM CITRATE 300 ML BOTTLE PO PRN (18:45)
[2020-04-13] MEDS ORDERED: MAG HYDROX/AL HYDROX/SIMETH 30 ML UNIT-DOSE CUP PO PRN (18:45)
--- OUTSIDE RECORDS SUMMARY | 2020-04-13 19:04 | XMS ---
:1980 Author Organization [facility] Care Team Providers Name Role Phone [facility], [facility] Unavailable Unavailable Re-disclosure Warning [...] is protected by Article 27-F of the [facility] Public Health law. If you continue you may haveaccess to information: Regarding HIV / AIDS; Provided by facilities licensed or operated by the [facility] Office of Mental Health; or Provided by the [facility] Office for People With Developmental Disabilities. If such information is present, then the following [facility] mandated warning applies: This information has [...] law may result in a fine or prison sentence or both. A general authorization for the release of medical or other information is NOT sufficient authorization for further disclosure. Allergies and Adverse Reactions Type Description Substance Reaction Status Data Source(s ) Food allergy Fish Fish N and V Active [facility] System "makes me vomit" Encounters Encounter Providers Location Date Indications Data Source(s ) Outpatient Attender: [id number] 09/12/2019 [facility] 01:53:16 [facility] EST Patient admitted. Insurance Providers Payer name Policy type Policy ID Covered Covered constitution party's Policy P antoinette / Coverage constitution party ID relationship to [facility] type [place] MEDICAID [id number] SP [id number] SELF PAY SP INSURANCE PENDING [id number] SP [id number] [facility] [id number] SP [id number] E Problems, Conditions, and Diagnoses Code Display Name Description Problem Type Effective Dates Data Source(s) F39 Mood disorder Mood disorder Diagnosis 06/05/2018 12:00:00 [facility] AM EST System Surgeries/Procedures Procedure Description Date Indications Data Source(s) Electrocardiogram 12 Lead 06/05/2018 [facility] [employer] 03:33:00 PM EST System - 06/05/2018 03:33:00 PM EST Lipid Profile 10/11/2017 [facility] 12:55:00 PM EDT System - 10/11/2017 12:55:00 PM EDT Electrocardiogram 12 Lead 06/16/2017 [facility] [employer] 03:34:00 AM EST System - 06/16/2017 03:34:00 AM EST Electrocardiogram 12 Lead 12/27/2015 [facility] [employer] 05:23:00 AM EDT System - 12/27/2015 05:23:00 AM EDT Results ID Date Data Source [id number] 04/01/2020 12:57:00 PM EDT [facility] Name Value Range Interpretation Description Data Sup porting Code Source(s) Document(s ) SARS-CoV-2 [facility] (COVID-19) RNA panel - Unspecified specimen by SALLY with probe detection This lab was ordered by STEVE SWENSON LT and reported by [facility]. ID Date Data Source [id number] 06/06/2018 11:26:00 AM EST [facility] [...] target amplification method ID Date Data Source [id number] 06/05/2018 02:58:00 PM EST [facility] Name Value Range Interpretation Description Data Sup porting Code Source(s) Document(s ) Color YELLOW Yellow Normal (applies Color [facility] to non-numeric Health results) System Appearance of CLEAR Clear Normal (applies Urine [facility] Urine to non-numeric Appearance Health results) System Specific 1.015 1.001 - Normal (applies Urine Specific [facility] gravity of 1.035 to non-numeric [facility] Urine results) System pH.. 7.5 4.6 [...] Health results) System ID Date Data Source [id number] 06/05/2018 02:58:00 PM EST [facility] [...] by Automated count ID Date Data Source [id number] 06/05/2018 02:58:00 PM EST [facility] [...] urine test abnormalities ID Date Data Source [id number] 06/05/2018 02:58:00 PM EST [facility] Name Value Range Interpretation Description Data Sup porting Code Source(s) Document(s ) Alcohol non-detecte Normal (applies Alcohol Ethyl, [facility] Ethyl, d None to non-numeric Blood Health System Blood Detected results) ID Date Data Source [id number] 06/05/2018 02:58:00 PM EST [facility] Name Value Range Interpretation Description Data Sup porting Code Source(s) Document(s ) Acetaminophen 0.0 10 - 30 Normal (applies Acetaminophen [facility] [Mass/volume] ug/ml ug/ml to non-numeric Level, Serum Health in Serum or results) System Plasma ID Date Data Source [id number] 06/05/2018 02:58:00 PM EST [facility] System Name Value Range Interpretation Description Data Sup porting Code Source(s) Document(s ) Troponin I 0.00 0.00 - Normal (applies Troponin I [facility] Quantitative - ng/mL 0.04 to non-numeric Quantitative - Healt h MV Only ng/mL results) MV Only System ID Date Data Source [id number] 06/05/2018 02:58:00 PM EST [facility] Name Value Range Interpretation Description Data Sup porting Code Source(s) Document(s ) Acetylsalicylate 0.0 2.0 - Below low normal Salicylate Ed [facility] [Mass/volume] in mg/dl 30.0 Level, Serum Health Serum or Plasma mg/dl System ID Date Data Source [id number] 06/05/2018 02:58:00 PM EST [facility] [...] [Mass/volume] in ng/mL to non-numeric Level, [facility] results) Cut-off = [...] test if needed. ID Date Data Source [id number] 06/05/2018 02:58:00 PM EST [facility] Name Value Range Interpretation Description Data Sup porting Code Source(s) Document(s ) Creatine 633 55 - 170 Above high normal Creatine [facility] kinase.MB {IU/L} IU/L Kinase, Serum Health System [Mass/volum e] in Serum or Plasma ID Date Data Source [id number] 01/17/2018 10:02:00 PM EDT [facility] [...] [facility] phosphatase {IU/L} 126 to non-numeric Phosphatase, [facility] isoenzymes IU/L results) Serum System [Enzymatic activity/volume] [...] urine test abnormalities ID Date Data Source [id number] 01/17/2018 10:02:00 PM EDT [facility] Name Value Range Interpretation Description Data Sup porting Code Source(s) Document(s ) Alcohol NON Normal (applies Alcohol Ethyl, [facility] Ethyl, DETECTED to non-numeric Blood Health System Blood None results) Detected ID Date Data Source [id number] 01/17/2018 10:02:00 PM EDT [facility] System Name Value Range Interpretation Description Data Sup porting Code Source(s) Document(s ) Acetaminophen < 4 10 - 30 Below low normal Acetaminophen [facility] [Mass/volume] in ug/ml Level, Serum Health Serum or Plasma System ID Date Data Source [id number] 01/17/2018 10:02:00 PM EDT [facility] System Name Value Range Interpretation Description Data Sup porting Code Source(s) Document(s ) Acetylsalicylate < 4 2.0 - Normal (applies Salicylate [facility] [Mass/volume] in 30.0 to non-numeric Level, Serum Healt h Serum or Plasma mg/dl results) System ID Date Data Source [id number] 10/11/2017 12:35:00 PM EDT [facility] System Name Value Range Interpretation Description Data Sup porting Code Source(s) Document(s ) Valproate 29.2 "." Normal (applies Valproic Acid [facility] [Mass/volume ug/ml ug/ml to non-numeric Level, Serum Health Sy stem ] in Serum results) or Plasma Therapeutic 50 - 100Toxic >100 ug/mL ID Date Data Source [id number] 10/01/2017 10:11:00 AM EST [facility] [...] % 0.0 - Normal (applies Eosinophil % dE benny leukocytes in 4.0 % to non-numeric [...] 10^3 uL System ID Date Data Source [id number] 10/01/2017 10:11:00 AM EST [facility] Name Value Range Interpretation Description Data Sup porting Code Source(s) Document(s ) Valproate 0.0 "." Normal (applies Valproic Acid [facility] [Mass/volume ug/ml ug/ml to non-numeric Level, Serum Health Sy stem ] in Serum results) or Plasma Therapeutic 50 - 100Toxic >100 ug/mL ID Date Data Source [id number] 10/01/2017 10:11:00 AM EST [facility] [...] urine test abnormalities ID Date Data Source [id number] 10/01/2017 10:11:00 AM FRANCINE stein System Name Value Range Interpretation Description Data Sup porting Code Source(s) Document(s ) Alcohol non detected Normal (applies Alcohol Ethyl, [facility] Ethyl, Previously to non-numeric Blood Health Blood released as results) System 0.5 on 10/01/2017, 11:16 [place] [id number] - None Detected ID Date Data Source [id number] 10/01/2017 10:11:00 AM EST [facility] [...] test if needed. ID Date Data Source [id number] 06/25/2017 05:20:00 AM EST [facility] Name Value Range Interpretation Description Data Sup porting Code Source(s) Document(s ) Valproate 97.2 "." Normal (applies Valproic Acid [facility] [Mass/volume ug/ml ug/ml to non-numeric Level, Serum Health Sy stem ] in Serum results) or Plasma Therapeutic 50 - 100Toxic >100 ug/mL ID Date Data Source [id number] 06/25/2017 04:28:00 AM EST [facility] [...] 10^3 uL System ID Date Data Source [id number] 06/25/2017 04:28:00 AM EST [facility] [...] urine test abnormalities ID Date Data Source [id number] 06/25/2017 04:28:00 AM EST Jojo stein System Name Value Range Interpretation Description Data Sup porting Code Source(s) Document(s ) Alcohol non detected Normal (applies Alcohol Ethyl, [facility] Ethyl, Previously to non-numeric Blood Health Blood released as results) System 0.2 on 06/25/2017, 07:09 AM by [id number] - None Detected ID Date Data Source [id number] 06/25/2017 04:28:00 AM EST [facility] System Name Value Range Interpretation Description Data Sup porting Code Source(s) Document(s ) Acetaminophen 0 ug/ml 10 - 30 Below low normal Acetaminophen Ed benny [Mass/volume] ug/ml Level, Serum Health in Serum or System Plasma ID Date Data Source [id number] 06/25/2017 04:28:00 AM EST [facility] System Name Value Range Interpretation Description Data Sup porting Code Source(s) Document(s ) Acetylsalicylate 0.0 2.0 - Below low normal Salicylate Ed ben[facility] [Mass/volume] in mg/dl 30.0 Level, Serum Health Serum or Plasma mg/dl System ID Date Data Source [id number] 06/25/2017 04:28:00 AM [facility] [...] test if needed. ID Date Data Source [id number] 06/17/2017 06:00:00 AM EST [facility] System Name Value Range Interpretation Description Data Sup porting Code Source(s) Document(s ) Valproate 22.9 "." Normal (applies Valproic Acid [facility] [Mass/volume ug/ml ug/ml to non-numeric Level, Serum Health Sy stem ] in Serum results) or Plasma Therapeutic 50 - 100Toxic >100 ug/mL ID Date Data Source [id number] 06/16/2017 03:25:00 AM EST [facility] [...] 10^3 uL System ID Date Data Source [id number] 06/16/2017 03:25:00 AM EST [facility] System Name Value Range Interpretation Description Data Sup porting Code Source(s) Document(s ) Thyrotropin 1.150 0.380 - Normal (applies Thyroid [facility] [Mass/volume] {mIU/mL} 6.150 to non-numeric [facility] in Serum or mIU/mL results) Hormone, System Plasma Serum ID Date Data Source [id number] 06/16/2017 03:25:00 AM EST [facility] [...] urine test abnormalities ID Date Data Source [id number] 06/16/2017 03:25:00 AM EST [facility] System Name Value Range Interpretation Description Data Sup porting Code Source(s) Document(s ) Alcohol non-detecte Normal (applies Alcohol Ethyl, [facility] Ethyl, d None to non-numeric Blood Health System Blood Detected results) ID Date Data Source [id number] 06/16/2017 03:25:00 AM EST [facility] [...] = 25 ng/mL ID Date Data Source [id number] 12/27/2015 04:20:00 AM EDT [facility] System Name Value Range Interpretation Description Data Sup porting Code Source(s) Document(s ) Deprecated NO GROWTH Aerobic [facility] Bacteria Culture, Urine Health System identified in Urine by Aerobe culture ID Date Data Source [id number] 12/27/2015 04:20:00 AM EDT [facility] [...] Specific [facility] gravity of to non-numeric [facility] Urine results) System Bilirubin NEG Negative [...] Health System results) ID Date Data Source [id number] 12/27/2015 04:20:00 AM EDT [facility] [...] uL results) System ID Date Data Source [id number] 12/27/2015 04:20:00 AM EDSamuel stein System Name [...] urine test abnormalities ID Date Data Source [id number] 12/27/2015 04:20:00 AM EDT Jojo stein System [...] 80 mm[Hg] M [facility] pressure non-numeric results) [facility] System Systolic blood 130 mm[Hg] 0 - 999 Normal (applies to 130 mm[Hg] Mo [facility] pressure non-numeric results) [facility] System Deprecated Oxygen 99 % 0 - 999 Normal (applies to 99 % [facility] non-numeric results) H ealt System Capillary blood by Oximetry Respiratory rate 18 0 - 999 Above high normal [facility] Heart rate 78 0 - 999 Normal (applies to 78 [facility] non-numeric results) [facility] System Body mass index 29.6 kg/m2 29.6 kg/m2 [facility] (BMI) [Ratio] Health Syst em Body temperature 36.9 Mone 0 - 99.9 Normal (applies to 36.9 Mone [facility] non-numeric results) [facility] System Body temperature 98.5 [degF] 0 - 200 Normal (applies to 98.5 [degF ] [facility] non-numeric results) [facility] System Body surface area 2 m2 2 m2 [facility] Derived from Health Syste m formula Body weight 88.54 kg 88.54 kg [facility] Measured Health System Body height 172.72 cm 172.72 cm [facility]
[2020-04-13] MEDS: diazePAM 5 MG TABLET PO PRN (20:16)
[2020-04-13] MEDS ORDERED: MASKS NR ONE (20:59)
[2020-04-13] MEDS ORDERED: QUEtiapine FUMARATE 50 MG TABLET PO ONE (23:00)
[2020-04-13] MEDS: CYCLOBENZAPRINE HCL 10 MG TABLET (FP) PO SCH (23:23)
[2020-04-13] MEDS: MELATONIN 5 MG TABLETS PO SCH (23:23)
[2020-04-13] MEDS: TOLNAFTATE 1% CREAM 15 GM TUBE TP SCH (23:23)
[2020-04-13] MEDS: THIAMINE HCL 100 MG TABLET (FP) PO SCH (23:23)
[2020-04-14] MEDS: diazePAM 5 MG TABLET PO PRN ×3 (03:12→17:30)
[2020-04-14] MEDS ORDERED: METHADONE HCL 10 MG TABLET (FOR DETOX USE ONLY) ONE (08:17)
[2020-04-14] MEDS ORDERED: METHADONE HCL 5 MG TABLET (FOR DETOX USE ONLY) ONE (08:18)
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
--- NOTE | 2020-04-14 09:34 | EKG ---
Test Reason : Blood Pressure : / mmHG Vent. Rate : 079 BPM Atrial Rate : 079 BPM P-R Int : 152 ms QRS Dur : 098 ms QT Int : 386 ms P-R-T Axes : 062 070 060 degrees QTc Int : 442 ms NORMAL SINUS RHYTHM NORMAL ECG WHEN COMPARED WITH ECG OF 29-MAY-2018 22:00, NO SIGNIFICANT CHANGE WAS FOUND Confirmed by Julianna Villanueva ([id number]) on 04/14/2020 9:33:55 AM Referred By: ANA RIVERO Confirmed By:Julianna Villanueva
[2020-04-14] MEDS ORDERED: METHADONE (DETOX) 20 MG, METHADONE (DETOX) 5 MG PO ONE (10:00)
[2020-04-14] MEDS: TOLNAFTATE 1% CREAM 15 GM TUBE TP SCH ×2 (10:30→21:21)
[2020-04-14] MEDS: CYCLOBENZAPRINE HCL 10 MG TABLET (FP) PO SCH ×2 (10:31→21:19)
[2020-04-14] MEDS: NICOTINE 21 MG/24 HOURS TOPICAL PATCH TD SCH (10:31)
[2020-04-14] MEDS: PRENATAL VITAMINS W/ FOLIC ACID TABLET (FP) PO SCH (10:31)
[2020-04-14] MEDS: NICOTINE POLACRILEX 2 MG GUM BUC PRN ×4 (10:34→21:24)
--- NOTE | 2020-04-14 10:39 | CONSULT ---
[facility] Psychiatric Consult - Data Date of interview: 04/14/20 Psychiatric Findings - Problem List ([place] 1, 2,3) (1) Bipolar disorder Current Visit: No Status: Chronic Qualifiers: Active/Remission status: remission status unspecified Qualified Code(s): F31.9 - Bipolar disorder, unspecified
[2020-04-14] MEDS ORDERED: PATIENT'S OWN MEDICATION (NON-FORMULARY) (Gabapentin [Neurontin] 600 MG) PO SCH (10:45)
[2020-04-14 11:22] LABS: ALBUMIN 3.1 g/dl (3.4-5.0); BILIRUBIN,TOTAL 0.2 mg/dL (0.2-1); BLOOD UREA NITROGEN 16.8 mg/dL (7-18); CALCIUM 8.1 mg/dL (8.5-10.1); CREATININE 1.1 mg/dL (0.55-1.3); POTASSIUM 4.1 mmol/L (3.5-5.1); TOT PROT 5.6 g/dl (6.4-8.2)
[2020-04-14 11:24] LABS: HEMATOCRIT 42.9 % (35.4-49); HEMOGLOBIN 14.6 GM/dL (11.7-16.9); MCH 31.4 pg (25.7-33.7); MEAN CELL VOLUME 92.5 fl (80-96); MEAN PLT VOLUME 8.5 fl (7.5-11.1); PLATELET COUNT 162 K/MM3 (134-434); RBC 4.64 M/mm3 (4.00-5.60); RDW 12.8 % (11.9-15.9); WHITE BLOOD COUNT 5.3 K/mm3 (4.0-10.0)
[2020-04-14] MEDS: GABAPENTIN 300 MG CAPSULE PO SCH ×2 (15:14→21:19)
--- NOTE | 2020-04-14 15:40 | PN ---
[facility] COWS - Scale Resting Pulse: 0= [place] 80 or Below Sweatin= Chills/Flushing Restless Observation: 0= Sits Still Pupil Size: 1= Pupils >than Normal Bone or Joint Aches: 2= Severe Diffuse Aches Runny Nose/ Eye Tearin= Nasal Congestion GI Upset > 30mins: 2= Nausea/Diarrhea Tremor Observation of Outstretched Hands: 2= Slight Tremor Visible Yawning Observation: 0= None Anxiety or Irritability: 2=Irritable/Anxious Goose Flesh Skin: 3=Piloerection COWS Score: 14 [facility] Progress Note (SOAP) Subjective: 40 YEARS OLD MALE WAS ADMITTED ON 04/13/20 FOR OPIATE WITHDRAWAL SX MANAGEMENT TREATING WITH METHADONE DETOX REGIMENT FEELS TIRE TROUBLE SLEEPING LAST NIGHT LIMITED CONVERSATION WITH STAFF ENCOURAGE HYDRATION AND HYGIENE Objective: 04/14/20 15:39 Vital Signs - 24 hr 04/13/20 04/13/20 04/13/20 17:02 19:09 20:06 Temperature 98.1 F 98.1 F 97.3 F L Pulse Rate 96 H 96 H 92 H Respiratory 18 16 18 Rate Blood Pressure 140/88 140/88 118/77 O2 Sat by Pulse 99 Oximetry (%) 04/14/20 04/14/20 04/14/20 06:19 09:07 12:41 Temperature 97.7 F 97.1 F L 98.2 F Pulse Rate 70 71 73 Respiratory 18 18 18 Rate Blood Pressure 111/67 123/69 121/77 O2 Sat by Pulse 97 96 Oximetry (%) Laboratory Tests 04/13/20 04/14/20 04/14/20 19:51 07:30 07:30 WBC 5.3 RBC 4.64 Hgb 14.6 Hct 42.9 MCV 92.5 MCH 31.4 MCHC 34.0 RDW 12.8 Plt Count 162 MPV 8.5 Sodium 144 Potassium 4.1 Chloride 109 H Carbon Dioxide 31 Anion Gap 3 L BUN 16.8 Creatinine 1.1 Est GFR (CKD-EPI)AfAm 98.18 Est GFR (CKD-EPI)NonAf 84.71 Random Glucose 89 Calcium 8.1 L Total Bilirubin 0.2 AST 25 ALT 39 Alkaline Phosphatase 59 Total Protein 5.6 L Albumin 3.1 L Syphilis Serology COVID-19 (SALLY) Not detected 04/14/20 07:30 WBC RBC Hgb Hct MCV MCH MCHC RDW Plt Count MPV Sodium Potassium Chloride Carbon Dioxide Anion Gap BUN Creatinine Est GFR (CKD-EPI)AfAm Est GFR (CKD-EPI)NonAf Random Glucose Calcium Total Bilirubin AST ALT Alkaline Phosphatase Total Protein Albumin Syphilis Serology Non-reactive COVID-19 (SALLY) LAB NOTED Assessment: 04/14/20 15:40 OPIATE WITHDRAWAL Plan: METHADONE REGIMENT
[2020-04-14] MEDS: IBUPROFEN 600 MG TABLET (FP) PO PRN (17:30)
[2020-04-14] MEDS: THIAMINE HCL 100 MG TABLET (FP) PO SCH (21:20)
[2020-04-14] MEDS: MELATONIN 5 MG TABLETS PO SCH (21:20)
[2020-04-14] MEDS: QUEtiapine FUMARATE 100 MG TABLET (FP) PO SCH (21:21)
[2020-04-15] MEDS: GABAPENTIN 300 MG CAPSULE PO SCH ×3 (06:01→22:32)
[2020-04-15] MEDS: diazePAM 5 MG TABLET PO PRN ×3 (06:01→19:29)
[2020-04-15] MEDS ORDERED: METHADONE HCL 10 MG TABLET (FOR DETOX USE ONLY) PO ONE (10:00)
[2020-04-15] MEDS: CYCLOBENZAPRINE HCL 10 MG TABLET (FP) PO SCH ×2 (10:21→22:32)
[2020-04-15] MEDS: TOLNAFTATE 1% CREAM 15 GM TUBE TP SCH ×2 (10:22→22:33)
[2020-04-15] MEDS: NICOTINE 21 MG/24 HOURS TOPICAL PATCH TD SCH (10:22)
[2020-04-15] MEDS: PRENATAL VITAMINS W/ FOLIC ACID TABLET (FP) PO SCH (10:22)
--- NOTE | 2020-04-15 12:46 | PN ---
[facility] COWS - Scale Resting Pulse: 1= [place] 81-100 Sweatin= Chills/Flushing Restless Observation: 0= Sits Still Pupil Size: 1= Pupils >than Normal Bone or Joint Aches: 1= Mild Discomfort Runny Nose/ Eye Tearin= Nasal Congestion GI Upset > 30mins: 2= Nausea/Diarrhea Tremor Observation of Outstretched Hands: 1= Tremor [place], Not Seen Yawning Observation: 0= None Anxiety or Irritability: 1=Feels Anxious/Irritable Goose Flesh Skin: 0=Smooth Skin COWS Score: 9 BHS Progress Note (SOAP) Subjective: 40 years old male was admitted on 04/13/20 for opiate withdrawal sx management treating with methadone detox regiment encourage mr julio to strip picker narcan from pharmacy upon discharge recommend mr julio to consider medication assisted treatment program Objective: 04/15/20 12:48 Vital Signs - 24 hr 04/14/20 04/14/20 04/15/20 16:52 20:21 05:35 Temperature 97.5 F L 97.3 F L 97.3 F L Pulse Rate 68 86 74 Respiratory 18 18 18 Rate Blood Pressure 129/79 119/81 117/74 O2 Sat by Pulse 99 97 Oximetry (%) 04/15/20 09:08 Temperature 99.1 F Pulse Rate 85 Respiratory 18 Rate Blood Pressure 113/63 O2 Sat by Pulse Oximetry (%) Laboratory Tests 04/13/20 04/14/20 04/14/20 19:51 07:30 07:30 WBC 5.3 RBC 4.64 Hgb 14.6 Hct 42.9 MCV 92.5 MCH 31.4 MCHC 34.0 RDW 12.8 Plt Count 162 MPV 8.5 Sodium 144 Potassium 4.1 Chloride 109 H Carbon Dioxide 31 Anion Gap 3 L BUN 16.8 Creatinine 1.1 Est GFR (CKD-EPI)AfAm 98.18 Est GFR (CKD-EPI)NonAf 84.71 Random Glucose 89 Calcium 8.1 L Total Bilirubin 0.2 AST 25 ALT 39 Alkaline Phosphatase 59 Total Protein 5.6 L Albumin 3.1 L Syphilis Serology COVID-19 (SALLY) Not detected 04/14/20 07:30 WBC RBC Hgb Hct MCV MCH MCHC RDW Plt Count MPV Sodium Potassium Chloride Carbon Dioxide Anion Gap BUN Creatinine Est GFR (CKD-EPI)AfAm Est GFR (CKD-EPI)NonAf Random Glucose Calcium Total Bilirubin AST ALT Alkaline Phosphatase Total Protein Albumin Syphilis Serology Non-reactive COVID-19 (SALLY) lab noted Assessment: 04/15/20 12:49 opiate withdrawal Plan: methadone regiment
[2020-04-15] MEDS: IBUPROFEN 600 MG TABLET (FP) PO PRN (17:41)
[2020-04-15] MEDS: MELATONIN 5 MG TABLETS PO SCH (22:32)
[2020-04-15] MEDS: QUEtiapine FUMARATE 100 MG TABLET (FP) PO SCH (22:32)
[2020-04-15] MEDS: THIAMINE HCL 100 MG TABLET (FP) PO SCH (22:32)
[2020-04-16] MEDS: GABAPENTIN 300 MG CAPSULE PO SCH ×3 (05:36→22:17)
[2020-04-16] MEDS: diazePAM 5 MG TABLET PO PRN ×2 (05:37→12:24)
[2020-04-16] MEDS ORDERED: METHADONE HCL 5 MG TABLET (FOR DETOX USE ONLY) ONE (09:19)
[2020-04-16] MEDS ORDERED: METHADONE HCL 10 MG TABLET (FOR DETOX USE ONLY) ONE (09:19)
--- NOTE | 2020-04-16 09:35 | PN ---
BHS COWS - Scale Resting Pulse: 0= [place] 80 or Below Sweatin= No chills or Flushing Restless Observation: 0= Sits Still Pupil Size: 1= Pupils >than Normal Bone or Joint Aches: 1= Mild Discomfort Runny Nose/ Eye Tearin= None GI Upset > 30mins: 2= Nausea/Diarrhea Tremor Observation of Outstretched Hands: 1= Tremor Bryan, Not Seen Yawning Observation: 0= None Anxiety or Irritability: 2=Irritable/Anxious Goose Flesh Skin: 0=Smooth Skin COWS Score: 7 BHS Progress Note (SOAP) Subjective: 40 years old male was admitted on 04/13/20 for opiate withdrawal sx management treating with methadone detox regiment ate breakfast tolerated food well discussing medication assisted treatment program for opiate abuse treatment mr julio response lightly psychiatrist progress note is appreciated resume seroquel and gabapentin Objective: 04/16/20 09:34 Vital Signs - 24 hr 04/15/20 04/15/20 04/15/20 12:57 17:11 20:58 Temperature 98.6 F 97.3 F L 97.7 F Pulse Rate 78 94 H 87 Respiratory 18 18 18 Rate Blood Pressure 116/58 L 148/84 121/73 O2 Sat by Pulse 97 98 Oximetry (%) 04/16/20 06:38 Temperature 96.9 F L Pulse Rate 80 Respiratory 18 Rate Blood Pressure 99/57 L O2 Sat by Pulse 96 Oximetry (%) Laboratory Tests 04/13/20 04/14/20 04/14/20 19:51 07:30 07:30 WBC 5.3 RBC 4.64 Hgb 14.6 Hct 42.9 MCV 92.5 MCH 31.4 MCHC 34.0 RDW 12.8 Plt Count 162 MPV 8.5 Sodium 144 Potassium 4.1 Chloride 109 H Carbon Dioxide 31 Anion Gap 3 L BUN 16.8 Creatinine 1.1 Est GFR (CKD-EPI)AfAm 98.18 Est GFR (CKD-EPI)NonAf 84.71 Random Glucose 89 Calcium 8.1 L Total Bilirubin 0.2 AST 25 ALT 39 Alkaline Phosphatase 59 Total Protein 5.6 L Albumin 3.1 L Syphilis Serology COVID-19 (SALLY) Not detected 04/14/20 07:30 WBC RBC Hgb Hct MCV MCH MCHC RDW Plt Count MPV Sodium Potassium Chloride Carbon Dioxide Anion Gap BUN Creatinine Est GFR (CKD-EPI)AfAm Est GFR (CKD-EPI)NonAf Random Glucose Calcium Total Bilirubin AST ALT Alkaline Phosphatase Total Protein Albumin Syphilis Serology Non-reactive COVID-19 (SALLY) lab noted Assessment: 04/16/20 09:36 opiate withdrawal Plan: methadone regiment
[2020-04-16] MEDS ORDERED: METHADONE (DETOX) 10 MG, METHADONE (DETOX) 5 MG PO ONE (10:00)
[2020-04-16] MEDS: CYCLOBENZAPRINE HCL 10 MG TABLET (FP) PO SCH ×2 (10:03→22:18)
[2020-04-16] MEDS: NICOTINE 21 MG/24 HOURS TOPICAL PATCH TD SCH (10:04)
[2020-04-16] MEDS: PRENATAL VITAMINS W/ FOLIC ACID TABLET (FP) PO SCH (10:05)
[2020-04-16] MEDS: TOLNAFTATE 1% CREAM 15 GM TUBE TP SCH ×2 (10:05→22:18)
[2020-04-16] MEDS: IBUPROFEN 600 MG TABLET (FP) PO PRN (12:24)
[2020-04-16] MEDS: NICOTINE POLACRILEX 2 MG GUM BUC PRN (18:36)
[2020-04-16] MEDS: QUEtiapine FUMARATE 100 MG TABLET (FP) PO SCH (22:17)
[2020-04-16] MEDS: THIAMINE HCL 100 MG TABLET (FP) PO SCH (22:17)
[2020-04-16] MEDS: MELATONIN 5 MG TABLETS PO SCH (22:18)
[2020-04-17] MEDS: GABAPENTIN 300 MG CAPSULE PO SCH ×3 (06:16→21:32)
[2020-04-17] MEDS: CYCLOBENZAPRINE HCL 10 MG TABLET (FP) PO SCH ×2 (09:59→21:32)
[2020-04-17] MEDS: NICOTINE 21 MG/24 HOURS TOPICAL PATCH TD SCH (10:00)
[2020-04-17] MEDS: PRENATAL VITAMINS W/ FOLIC ACID TABLET (FP) PO SCH (10:00)
[2020-04-17] MEDS ORDERED: METHADONE HCL 10 MG TABLET (FOR DETOX USE ONLY) PO ONE (10:00)
[2020-04-17] MEDS: IBUPROFEN 600 MG TABLET (FP) PO PRN ×2 (10:01→21:33)
[2020-04-17] MEDS: NICOTINE POLACRILEX 2 MG GUM BUC PRN ×2 (10:02→20:54)
[2020-04-17] MEDS: TOLNAFTATE 1% CREAM 15 GM TUBE TP SCH ×2 (10:24→21:35)
[2020-04-17] MEDS ORDERED: hydrOXYzine PAMOATE 50 MG CAPSULE (FP) PO ONE (12:36)
--- NOTE | 2020-04-17 14:46 | PN ---
BHS COWS - Scale Resting Pulse: 2= MS 101-120 Sweatin= No chills or Flushing Restless Observation: 0= Sits Still Pupil Size: 1= Pupils >than Normal Bone or Joint Aches: 0= None Runny Nose/ Eye Tearin= None GI Upset > 30mins: 0= None Tremor Observation of Outstretched Hands: 1= Tremor Dorris, Not Seen Yawning Observation: 0= None Anxiety or Irritability: 1=Feels Anxious/Irritable Goose Flesh Skin: 0=Smooth Skin COWS Score: 5 BHS Progress Note (SOAP) Subjective: 40 years old male was admitted on 04/13/20 for opiate withdrawal sx management treating with methadone detox regiment feels better today encourage to orange picker narcan from pharmacy upon discharge from detox recommend medication assisted treatment program for opiate abuse recovery Objective: 04/17/20 14:49 Vital Signs - 24 hr 04/16/20 04/16/20 04/17/20 17:28 20:19 06:27 Temperature 97.5 F L 97.1 F L 97.6 F Pulse Rate 91 H 102 H 79 Respiratory 18 18 18 Rate Blood Pressure 135/86 120/79 103/71 O2 Sat by Pulse 96 100 Oximetry (%) 04/17/20 04/17/20 08:44 12:39 Temperature 97.5 F L 97.3 F L Pulse Rate 85 104 H Respiratory 18 18 Rate Blood Pressure 113/64 126/80 O2 Sat by Pulse 95 Oximetry (%) Laboratory Tests 04/13/20 04/14/20 04/14/20 19:51 07:30 07:30 WBC 5.3 RBC 4.64 Hgb 14.6 Hct 42.9 MCV 92.5 MCH 31.4 MCHC 34.0 RDW 12.8 Plt Count 162 MPV 8.5 Sodium 144 Potassium 4.1 Chloride 109 H Carbon Dioxide 31 Anion Gap 3 L BUN 16.8 Creatinine 1.1 Est GFR (CKD-EPI)AfAm 98.18 Est GFR (CKD-EPI)NonAf 84.71 Random Glucose 89 Calcium 8.1 L Total Bilirubin 0.2 AST 25 ALT 39 Alkaline Phosphatase 59 Total Protein 5.6 L Albumin 3.1 L Syphilis Serology COVID-19 (SALLY) Not detected 04/14/20 07:30 WBC RBC Hgb Hct MCV MCH MCHC RDW Plt Count MPV Sodium Potassium Chloride Carbon Dioxide Anion Gap BUN Creatinine Est GFR (CKD-EPI)AfAm Est GFR (CKD-EPI)NonAf Random Glucose Calcium Total Bilirubin AST ALT Alkaline Phosphatase Total Protein Albumin Syphilis Serology Non-reactive COVID-19 (SALLY) lab ntoed Assessment: 04/17/20 14:49 opiate withdrawal Plan: methadone regiment
[2020-04-17] MEDS: QUEtiapine FUMARATE 100 MG TABLET (FP) PO SCH (21:32)
[2020-04-17] MEDS: THIAMINE HCL 100 MG TABLET (FP) PO SCH (21:33)
[2020-04-17] MEDS: MELATONIN 5 MG TABLETS PO SCH (21:33)
[2020-04-18] MEDS ORDERED: METHADONE HCL 5 MG TABLET (FOR DETOX USE ONLY) PO ONE ×2 (06:00→11:26)
[2020-04-18] MEDS: GABAPENTIN 300 MG CAPSULE PO SCH ×3 (06:52→22:02)
--- NOTE | 2020-04-18 09:13 | PN ---
BHS COWS - Scale Resting Pulse: 1= [place] 81-100 Sweatin= No chills or Flushing Restless Observation: 0= Sits Still Pupil Size: 1= Pupils >than Normal Bone or Joint Aches: 2= Severe Diffuse Aches Runny Nose/ Eye Tearin= Nasal Congestion GI Upset > 30mins: 1= Stomach Cramp Tremor Observation of Outstretched Hands: 2= Slight Tremor Visible Yawning Observation: 0= None Anxiety or Irritability: 2=Irritable/Anxious Goose Flesh Skin: 0=Smooth Skin COWS Score: 10 BHS Progress Note (SOAP) Subjective: alert,irritable,anxious,interrupted sleep,pain in the body and back,feel weak Objective: 04/18/20 13:17 Vital Signs Temperature 97.8 F 04/18/20 12:44 Pulse Rate 92 H 04/18/20 12:44 Respiratory Rate 20 04/18/20 12:44 Blood Pressure 120/85 04/18/20 12:44 O2 Sat by Pulse Oximetry (%) 100 04/18/20 12:44 Assessment: 04/18/20 13:17 withdrawal symptom Plan: will withhold discharge today,close monitoring for 24 hrs,possible discharge in am,to give methadone 5 mgs at 0600 on 04/19/2020
--- NOTE | 2020-04-18 09:13 | DS ---
[facility] Detox Discharge Summary Admission Date: 04/13/20 - Physical Exam Results Vital Signs: Vital Signs Temperature 97.2 F L 04/18/20 06:36 Pulse Rate 60 04/18/20 06:36 Respiratory Rate 18 04/18/20 06:36 Blood Pressure 106/61 04/18/20 06:36 O2 Sat by Pulse Oximetry (%) 98 04/18/20 06:36 - Medication Discharge Medications: Ambulatory Orders Gabapentin [Neurontin] 600 mg PO Q8H #90 tablet 05/30/18 Quetiapine Fumarate [Seroquel -] 100 mg PO HS #30 tablet 05/30/18 Naloxone HCl [Narcan] 4 mg NS ASDIR PRN #1 spray 04/15/20
[2020-04-18] MEDS: CYCLOBENZAPRINE HCL 10 MG TABLET (FP) PO SCH ×2 (10:26→22:02)
[2020-04-18] MEDS: NICOTINE 21 MG/24 HOURS TOPICAL PATCH TD SCH (10:26)
[2020-04-18] MEDS: NICOTINE POLACRILEX 2 MG GUM BUC PRN ×3 (10:26→20:46)
[2020-04-18] MEDS: PRENATAL VITAMINS W/ FOLIC ACID TABLET (FP) PO SCH (10:26)
[2020-04-18] MEDS: TOLNAFTATE 1% CREAM 15 GM TUBE TP SCH ×2 (10:27→22:03)
[2020-04-18] MEDS: IBUPROFEN 600 MG TABLET (FP) PO PRN (12:46)
[2020-04-18] MEDS: MELATONIN 5 MG TABLETS PO SCH (22:02)
[2020-04-18] MEDS: THIAMINE HCL 100 MG TABLET (FP) PO SCH (22:02)
[2020-04-18] MEDS: QUEtiapine FUMARATE 100 MG TABLET (FP) PO SCH (22:02)
[2020-04-19] MEDS: GABAPENTIN 300 MG CAPSULE PO SCH (05:20)
[2020-04-19] MEDS ORDERED: METHADONE HCL 5 MG TABLET (FOR DETOX USE ONLY) PO ONE (06:00)
[2020-04-19 06:32] VITALS: BP 112/63; PULSE 78; TEMP 97.2
[2020-04-19] MEDS: NICOTINE POLACRILEX 2 MG GUM BUC PRN (08:31)
--- NOTE | 2020-04-19 08:58 | PN ---
BHS COWS - Scale Resting Pulse: 0= [place] 80 or Below Sweatin= No chills or Flushing Restless Observation: 0= Sits Still Pupil Size: 0= Normal to Room Light Bone or Joint Aches: 1= Mild Discomfort Runny Nose/ Eye Tearin= None GI Upset > 30mins: 0= None Tremor Observation of Outstretched Hands: 0= None Yawning Observation: 0= None Anxiety or Irritability: 0= None Goose Flesh Skin: 0=Smooth Skin COWS Score: 1 BHS Progress Note (SOAP) Subjective: alert,no complaint Objective: 04/19/20 15:01 Vital Signs Temperature 97.2 F L 04/19/20 06:31 Pulse Rate 78 04/19/20 06:31 Respiratory Rate 18 04/19/20 06:31 Blood Pressure 112/63 04/19/20 06:31 O2 Sat by Pulse Oximetry (%) 96 04/19/20 06:31 Assessment: 04/19/20 15:01 detox completed,no withdrawal symptom Plan: stable for discharge today,follow up with after care program [facility] as arrangement
--- NOTE | 2020-04-19 08:58 | DS ---
[facility] Detox Discharge Summary Admission Date: 04/13/20 Discharge Date: 04/19/20 - History Present History: Cocaine Dependence, Opioid Dependence Additional Comments: alert,oriented s 3 ambulation on the unit lung clear on auscultation abdomen no pain,no tenderness detox completed,no withdrawal symptom stable for discharge today follow up with after care [facility] as arrangement total time of discharge 30 minutes Pertinent Past History: low back pain bipolar disorder - Physical Exam Results Vital Signs: Vital Signs Temperature 97.2 F L 04/19/20 06:31 Pulse Rate 78 04/19/20 06:31 Respiratory Rate 18 04/19/20 06:31 Blood Pressure 112/63 04/19/20 06:31 O2 Sat by Pulse Oximetry (%) 96 04/19/20 06:31 Pertinent Admission Physical Exam Findings: withdrawal signs and symptom Laboratory Last Values WBC 5.3 K/mm3 (4.0-10.0) 04/14/20 07:30 RBC 4.64 M/mm3 (4.00-5.60) 04/14/20 07:30 Hgb 14.6 GM/dL (11.7-16.9) 04/14/20 07:30 Hct 42.9 % (35.4-49) 04/14/20 07:30 MCV 92.5 fl (80-96) 04/14/20 07:30 MCH 31.4 pg (25.7-33.7) 04/14/20 07:30 MCHC 34.0 g/dl (32.0-35.9) 04/14/20 07:30 RDW 12.8 % (11.9-15.9) 04/14/20 07:30 Plt Count 162 K/MM3 (134-434) 04/14/20 07:30 MPV 8.5 fl (7.5-11.1) 04/14/20 07:30 Sodium 144 mmol/L (136-145) 04/14/20 07:30 Potassium 4.1 mmol/L (3.5-5.1) 04/14/20 07:30 Chloride 109 mmol/L (98-107) H 04/14/20 07:30 Carbon Dioxide 31 mmol/L (21-32) 04/14/20 07:30 Anion Gap 3 MMOL/L (8-16) L 04/14/20 07:30 BUN 16.8 mg/dL (7-18) 04/14/20 07:30 Creatinine 1.1 mg/dL (0.55-1.3) 04/14/20 07:30 Est GFR (CKD-EPI)AfAm 98.18 04/14/20 07:30 Est GFR (CKD-EPI)NonAf 84.71 04/14/20 07:30 Random Glucose 89 mg/dL (74-106) 04/14/20 07:30 Calcium 8.1 mg/dL (8.5-10.1) L 04/14/20 07:30 Total Bilirubin 0.2 mg/dL (0.2-1) 04/14/20 07:30 AST 25 U/L (15-37) 04/14/20 07:30 ALT 39 U/L (13-61) 04/14/20 07:30 Alkaline Phosphatase 59 U/L (45-117) 04/14/20 07:30 Total Protein 5.6 g/dl (6.4-8.2) L 04/14/20 07:30 Albumin 3.1 g/dl (3.4-5.0) L 04/14/20 07:30 Syphilis Serology Non-reactive (NONREACTIVE) 04/14/20 07:30 COVID-19 (SALLY) Not detected (Not Detected) 04/13/20 19:51 Vital Signs Temperature 97.2 F L 04/19/20 06:31 Pulse Rate 78 04/19/20 06:31 Respiratory Rate 18 04/19/20 06:31 Blood Pressure 112/63 04/19/20 06:31 O2 Sat by Pulse Oximetry (%) 96 04/19/20 06:31 - Treatment Hospital Course: Detox Protocol Followed, Detoxed Safely, Responded well, Discharged Condition Good, Rehab Referral Accepted Patient has Accepted a Rehab Referral to: [facility] - Medication Discharge Medications: Ambulatory Orders Gabapentin [Neurontin] 600 mg PO Q8H #90 tablet 05/30/18 Quetiapine Fumarate [Seroquel -] 100 mg PO HS #30 tablet 05/30/18 Naloxone HCl [Narcan] 4 mg NS ASDIR PRN #1 spray 04/15/20 - Diagnosis (1) Opioid dependence Status: Active (2) LOW BACK PAIN HERNIATED DISC Status: Chronic (3) Bipolar disorder Status: Acute - AMA Did Patient Leave Against Medical Advice: No
== END 2020-04-19 09:18 | disposition home or self-care (01) | DRG 773 ==
LOC: YASAS 15:36 → Y3N 18:59
PROVIDERS: ADMIT Allergy & Immunology; ATTEND Allergy & Immunology
PROC: HZ2ZZZZ Detoxification Services for Substance Abuse Treatment (ICD-10-PCS; principal; 2020-04-13)
DX: F11.23 Opioid dependence with withdrawal (principal); F14.20 Cocaine dependence, uncomplicated; F17.210 Nicotine dependence, cigarettes, uncomplicated; F31.9 Bipolar disorder, unspecified; F19.280 Other psychoactive substance dependence with psychoactive substance-induced anxiety disorder; F19.282 Other psychoactive substance dependence with psychoactive substance-induced sleep disorder; F43.10 Post-traumatic stress disorder, unspecified; M54.5 Low back pain; M12.9 Arthropathy, unspecified; B35.3 Tinea pedis; R60.0 Localized edema; Z62.810 Personal history of physical and sexual abuse in childhood; Z91.410 Personal history of adult physical and sexual abuse; Z98.890 Other specified postprocedural states; Z88.8 Allergy status to other drugs, medicaments and biological substances; Z91.013 Allergy to seafood
CPT/HCPCS: 36415; 80053; 85027; 86780; 93005; 93010; J0735; U0003

== ENCOUNTER 2020-06-06 13:00 | Inpatient (IN) | payer OTHER ==
[2020-06-06] MEDS ORDERED: MAGNESIUM HYDROX 2400MG/30ML ORAL SUSPENSION 30 ML CUP PO PRN (15:41)
[2020-06-06] MEDS ORDERED: ACETAMINOPHEN 325 MG TABLET (FP) PO PRN ×2 (15:41)
[2020-06-06] MEDS ORDERED: ONDANSETRON *ODT* 4 MG TABLET SL PRN (15:41)
[2020-06-06] MEDS ORDERED: BISMUTH SUBSALICYLATE 524 MG/30 ML UD PO PRN (15:41)
[2020-06-06] MEDS ORDERED: METHOCARBAMOL 500 MG TABLET PO PRN (15:41)
[2020-06-06] MEDS ORDERED: cloNIDine HCL 0.1 MG TABLET PO PRN (15:41)
[2020-06-06] MEDS ORDERED: MAG HYDROX/AL HYDROX/SIMETH 30 ML UNIT-DOSE CUP PO PRN (15:41)
[2020-06-06] MEDS ORDERED: METHADONE HCL 10 MG TABLET (FOR DETOX USE ONLY) PO ONE ×2 (15:41→15:46)
[2020-06-06] MEDS ORDERED: MENTHOL/PHENOL 1 EACH UD MM PRN (15:41)
[2020-06-06] MEDS ORDERED: MAGNESIUM CITRATE 300 ML BOTTLE PO PRN (15:41)
[2020-06-06 15:46] VITALS: BMI 29.5
[2020-06-06] MEDS ORDERED: COLLOIDAL OATMEAL 1 BAR EACH TP PRN (16:00)
[2020-06-06] MEDS: diazePAM 5 MG TABLET PO SCH ×2 (17:01→22:46)
[2020-06-06] MEDS: NICOTINE POLACRILEX 4 MG GUM BUC PRN (17:05)
[2020-06-06] MEDS: diazePAM 5 MG TABLET PO PRN (20:23)
[2020-06-06] MEDS: THIAMINE HCL 100 MG TABLET (FP) PO SCH (22:46)
[2020-06-06] MEDS: MELATONIN 5 MG TABLETS PO SCH (22:46)
[2020-06-06] MEDS: GABAPENTIN 300 MG CAPSULE PO SCH (22:46)
[2020-06-06] MEDS: IBUPROFEN 400 MG TABLET (FP) PO PRN (22:51)
[2020-06-07] MEDS: diazePAM 5 MG TABLET PO PRN ×4 (00:46→18:51)
[2020-06-07] MEDS: NICOTINE POLACRILEX 4 MG GUM BUC PRN ×6 (00:49→22:15)
[2020-06-07] MEDS: GABAPENTIN 300 MG CAPSULE PO SCH ×3 (06:00→22:27)
[2020-06-07] MEDS: diazePAM 5 MG TABLET PO SCH ×5 (06:00→22:13)
[2020-06-07] MEDS ORDERED: METHADONE HCL 10 MG TABLET (FOR DETOX USE ONLY) ONE (09:20)
[2020-06-07] MEDS ORDERED: METHADONE HCL 5 MG TABLET (FOR DETOX USE ONLY) ONE (09:20)
[2020-06-07] MEDS ORDERED: METHADONE (DETOX) 20 MG, METHADONE (DETOX) 5 MG PO ONE (10:00)
[2020-06-07] MEDS: PETROLATUM, WHITE 30 GM TUBE TP SCH (10:25)
[2020-06-07] MEDS: CLOTRIMAZOLE 1% CREAM 15 GM TUBE TP SCH (10:26)
[2020-06-07] MEDS: NICOTINE 21 MG/24 HOURS TOPICAL PATCH TD SCH (10:26)
[2020-06-07] MEDS: PRENATAL VITAMINS W/ FOLIC ACID TABLET (FP) PO SCH (10:27)
[2020-06-07] MEDS: CYCLOBENZAPRINE HCL 10 MG TABLET (FP) PO PRN (15:38)
[2020-06-07] MEDS: MELATONIN 5 MG TABLETS PO SCH (22:12)
[2020-06-07] MEDS: THIAMINE HCL 100 MG TABLET (FP) PO SCH (22:27)
[2020-06-07] MEDS: QUEtiapine FUMARATE 100 MG TABLET (FP) PO SCH (23:22)
[2020-06-08] MEDS: diazePAM 5 MG TABLET PO PRN ×3 (03:42→16:55)
[2020-06-08] MEDS: NICOTINE POLACRILEX 4 MG GUM BUC PRN ×4 (03:45→21:17)
[2020-06-08] MEDS: GABAPENTIN 300 MG CAPSULE PO SCH ×3 (05:24→22:18)
[2020-06-08] MEDS: diazePAM 5 MG TABLET PO SCH ×3 (05:24→22:18)
[2020-06-08] MEDS ORDERED: METHADONE HCL 10 MG TABLET (FOR DETOX USE ONLY) PO ONE (10:00)
[2020-06-08] MEDS: NICOTINE 21 MG/24 HOURS TOPICAL PATCH TD SCH (10:25)
[2020-06-08] MEDS: PRENATAL VITAMINS W/ FOLIC ACID TABLET (FP) PO SCH (10:25)
[2020-06-08] MEDS: CYCLOBENZAPRINE HCL 10 MG TABLET (FP) PO PRN (13:38)
[2020-06-08] MEDS: PETROLATUM, WHITE 30 GM TUBE TP SCH (13:43)
[2020-06-08] MEDS: CLOTRIMAZOLE 1% CREAM 15 GM TUBE TP SCH (13:43)
[2020-06-08] MEDS: MELATONIN 5 MG TABLETS PO SCH (22:18)
[2020-06-08] MEDS: THIAMINE HCL 100 MG TABLET (FP) PO SCH (22:18)
[2020-06-08] MEDS: QUEtiapine FUMARATE 100 MG TABLET (FP) PO SCH (22:19)
[2020-06-09] MEDS: CYCLOBENZAPRINE HCL 10 MG TABLET (FP) PO PRN ×2 (00:41→08:48)
[2020-06-09] MEDS: diazePAM 5 MG TABLET PO PRN ×3 (00:41→14:14)
[2020-06-09] MEDS: NICOTINE POLACRILEX 4 MG GUM BUC PRN ×5 (00:44→14:14)
[2020-06-09] MEDS: GABAPENTIN 300 MG CAPSULE PO SCH ×2 (05:33→14:14)
[2020-06-09] MEDS ORDERED: diazePAM 5 MG TABLET PO SCH (06:00)
[2020-06-09] MEDS: IBUPROFEN 400 MG TABLET (FP) PO PRN (08:48)
[2020-06-09] MEDS ORDERED: METHADONE HCL 10 MG TABLET (FOR DETOX USE ONLY) ONE (09:55)
[2020-06-09] MEDS ORDERED: METHADONE HCL 5 MG TABLET (FOR DETOX USE ONLY) ONE (09:55)
[2020-06-09] MEDS ORDERED: METHADONE (DETOX) 10 MG, METHADONE (DETOX) 5 MG PO ONE (10:00)
[2020-06-09] MEDS: PRENATAL VITAMINS W/ FOLIC ACID TABLET (FP) PO SCH (10:17)
[2020-06-09] MEDS: NICOTINE 21 MG/24 HOURS TOPICAL PATCH TD SCH (10:17)
[2020-06-09] MEDS: PETROLATUM, WHITE 30 GM TUBE TP SCH (10:18)
[2020-06-09] MEDS: CLOTRIMAZOLE 1% CREAM 15 GM TUBE TP SCH (12:13)
[2020-06-09 13:52] VITALS: BP 121/77; PULSE 97; TEMP 97.8
[2020-06-10] MEDS ORDERED: diazePAM 5 MG TABLET PO ONE (06:00)
[2020-06-10] MEDS ORDERED: METHADONE HCL 10 MG TABLET (FOR DETOX USE ONLY) PO ONE (10:00)
[2020-06-11] MEDS ORDERED: METHADONE HCL 5 MG TABLET (FOR DETOX USE ONLY) PO ONE (06:00)
== END 2020-06-09 04:49 | disposition home or self-care (01) | DRG 773 ==
LOC: YASAS 13:00 → Y6N 16:26
PROVIDERS: ADMIT Allergy & Immunology; ATTEND Allergy & Immunology
PROC: HZ2ZZZZ Detoxification Services for Substance Abuse Treatment (ICD-10-PCS; principal; 2020-06-06)
DX: F10.230 Alcohol dependence with withdrawal, uncomplicated (principal); F11.23 Opioid dependence with withdrawal; F13.230 Sedative, hypnotic or anxiolytic dependence with withdrawal, uncomplicated; F19.20 Other psychoactive substance dependence, uncomplicated; F14.20 Cocaine dependence, uncomplicated; F17.210 Nicotine dependence, cigarettes, uncomplicated; F43.10 Post-traumatic stress disorder, unspecified; F19.280 Other psychoactive substance dependence with psychoactive substance-induced anxiety disorder; F31.9 Bipolar disorder, unspecified; F19.282 Other psychoactive substance dependence with psychoactive substance-induced sleep disorder; G62.9 Polyneuropathy, unspecified; M12.9 Arthropathy, unspecified; M51.26 Other intervertebral disc displacement, lumbar region; B35.3 Tinea pedis; R20.0 Anesthesia of skin; Z62.810 Personal history of physical and sexual abuse in childhood; Z91.410 Personal history of adult physical and sexual abuse; Z98.890 Other specified postprocedural states; Z88.8 Allergy status to other drugs, medicaments and biological substances; Z91.013 Allergy to seafood; Z91.018 Allergy to other foods
CPT/HCPCS: 93005; 93010; C9803; J0735; U0003

== ENCOUNTER 2020-06-21 14:43 | Inpatient (IN) | payer OTHER ==
[2020-06-21 15:51] VITALS: BMI 29.5
[2020-06-21] MEDS ORDERED: ACETAMINOPHEN 325 MG TABLET (FP) PO PRN ×2 (16:05)
[2020-06-21] MEDS ORDERED: ONDANSETRON *ODT* 4 MG TABLET SL PRN (16:05)
[2020-06-21] MEDS ORDERED: MAG HYDROX/AL HYDROX/SIMETH 30 ML UNIT-DOSE CUP PO PRN (16:05)
[2020-06-21] MEDS ORDERED: BISMUTH SUBSALICYLATE 524 MG/30 ML UD PO PRN (16:05)
[2020-06-21] MEDS ORDERED: MENTHOL/PHENOL 1 EACH UD MM PRN (16:05)
[2020-06-21] MEDS ORDERED: MAGNESIUM CITRATE 300 ML BOTTLE PO PRN (16:05)
[2020-06-21] MEDS ORDERED: MAGNESIUM HYDROX 2400MG/30ML ORAL SUSPENSION 30 ML CUP PO PRN (16:05)
[2020-06-21] MEDS ORDERED: diazePAM 5 MG TABLET PO ONE (16:30)
[2020-06-21] MEDS ORDERED: METHADONE HCL 10 MG TABLET (FOR DETOX USE ONLY) PO ONE (17:00)
[2020-06-21] MEDS: PRENATAL VITAMINS W/ FOLIC ACID TABLET (FP) PO SCH (18:08)
[2020-06-21] MEDS: IBUPROFEN 400 MG TABLET (FP) PO PRN (18:09)
[2020-06-21] MEDS: METHOCARBAMOL 500 MG TABLET PO PRN (18:10)
[2020-06-21] MEDS: diazePAM 5 MG TABLET PO SCH ×2 (18:27→22:30)
[2020-06-21] MEDS: NICOTINE 21 MG/24 HOURS TOPICAL PATCH TD SCH (18:27)
[2020-06-21] MEDS: hydrOXYzine PAMOATE 25 MG CAPSULE (FP) PO SCH ×2 (19:08→22:31)
[2020-06-21] MEDS: THIAMINE HCL 100 MG TABLET (FP) PO SCH (22:33)
[2020-06-21] MEDS: MELATONIN 5 MG TABLETS PO SCH (22:33)
[2020-06-21] MEDS: diazePAM 5 MG TABLET PO PRN (22:33)
[2020-06-21] MEDS: NICOTINE POLACRILEX 2 MG GUM BUC PRN (22:35)
[2020-06-22] MEDS: diazePAM 5 MG TABLET PO SCH ×3 (05:40→17:04)
[2020-06-22] MEDS: hydrOXYzine PAMOATE 25 MG CAPSULE (FP) PO SCH ×5 (05:41→22:29)
[2020-06-22] MEDS: NICOTINE POLACRILEX 2 MG GUM BUC PRN ×6 (05:42→19:52)
[2020-06-22] MEDS: METHOCARBAMOL 500 MG TABLET PO PRN ×2 (05:43→17:05)
[2020-06-22] MEDS: IBUPROFEN 400 MG TABLET (FP) PO PRN ×2 (05:43→17:06)
[2020-06-22] MEDS: diazePAM 5 MG TABLET PO PRN ×2 (07:43→12:48)
[2020-06-22] MEDS ORDERED: METHADONE HCL 5 MG TABLET (FOR DETOX USE ONLY) ONE (08:54)
[2020-06-22] MEDS ORDERED: METHADONE HCL 10 MG TABLET (FOR DETOX USE ONLY) ONE (08:54)
[2020-06-22] MEDS ORDERED: METHADONE (DETOX) 20 MG, METHADONE (DETOX) 5 MG PO ONE (10:00)
[2020-06-22] MEDS: PRENATAL VITAMINS W/ FOLIC ACID TABLET (FP) PO SCH (10:10)
[2020-06-22] MEDS: NICOTINE 21 MG/24 HOURS TOPICAL PATCH TD SCH (10:11)
[2020-06-22] MEDS ORDERED: MASKS NR ONE (15:13)
[2020-06-22] MEDS ORDERED: chlordiazePOXIDE HCL 25 MG CAPSULE PO PRN (18:25)
[2020-06-22] MEDS: cloNIDine HCL 0.1 MG TABLET PO PRN (19:48)
[2020-06-22] MEDS: DIVALPROEX SODIUM 500 MG TABLET E.C. PO SCH (22:28)
[2020-06-22] MEDS: QUEtiapine FUMARATE 100 MG TABLET (FP) PO SCH (22:28)
[2020-06-22] MEDS: THIAMINE HCL 100 MG TABLET (FP) PO SCH (22:28)
[2020-06-22] MEDS: chlordiazePOXIDE HCL 25 MG CAPSULE PO SCH (22:28)
[2020-06-22] MEDS: MELATONIN 5 MG TABLETS PO SCH (22:29)
[2020-06-23] MEDS: hydrOXYzine PAMOATE 25 MG CAPSULE (FP) PO SCH ×5 (05:13→22:24)
[2020-06-23] MEDS: chlordiazePOXIDE HCL 25 MG CAPSULE PO SCH ×4 (05:13→22:24)
[2020-06-23] MEDS ORDERED: diazePAM 5 MG TABLET PO SCH (06:00)
[2020-06-23] MEDS: NICOTINE POLACRILEX 2 MG GUM BUC PRN ×5 (09:47→22:28)
[2020-06-23] MEDS ORDERED: METHADONE HCL 10 MG TABLET (FOR DETOX USE ONLY) PO ONE (10:00)
[2020-06-23] MEDS: NICOTINE 21 MG/24 HOURS TOPICAL PATCH TD SCH (10:25)
[2020-06-23] MEDS: DIVALPROEX SODIUM 500 MG TABLET E.C. PO SCH ×2 (10:25→22:24)
[2020-06-23] MEDS: PRENATAL VITAMINS W/ FOLIC ACID TABLET (FP) PO SCH (10:25)
[2020-06-23] MEDS: METHOCARBAMOL 500 MG TABLET PO PRN ×2 (12:42→22:26)
[2020-06-23] MEDS: IBUPROFEN 400 MG TABLET (FP) PO PRN ×2 (12:42→22:26)
[2020-06-23] MEDS: cloNIDine HCL 0.1 MG TABLET PO PRN (12:42)
[2020-06-23] MEDS: chlordiazePOXIDE HCL 10 MG CAPSULE PO PRN ×2 (15:05→19:46)
[2020-06-23] MEDS: QUEtiapine FUMARATE 100 MG TABLET (FP) PO SCH (22:24)
[2020-06-23] MEDS: MELATONIN 5 MG TABLETS PO SCH (22:24)
[2020-06-23] MEDS: THIAMINE HCL 100 MG TABLET (FP) PO SCH (22:24)
[2020-06-24] MEDS: hydrOXYzine PAMOATE 25 MG CAPSULE (FP) PO SCH ×3 (05:33→14:28)
[2020-06-24] MEDS: chlordiazePOXIDE HCL 25 MG CAPSULE PO SCH ×2 (05:33→10:18)
[2020-06-24] MEDS ORDERED: diazePAM 5 MG TABLET PO SCH (06:00)
[2020-06-24] MEDS ORDERED: METHADONE HCL 10 MG TABLET (FOR DETOX USE ONLY) ONE (08:57)
[2020-06-24] MEDS ORDERED: METHADONE HCL 5 MG TABLET (FOR DETOX USE ONLY) ONE (08:57)
[2020-06-24] MEDS ORDERED: METHADONE (DETOX) 10 MG, METHADONE (DETOX) 5 MG PO ONE (10:00)
[2020-06-24] MEDS: IBUPROFEN 400 MG TABLET (FP) PO PRN (10:17)
[2020-06-24] MEDS: METHOCARBAMOL 500 MG TABLET PO PRN (10:17)
[2020-06-24] MEDS: NICOTINE 21 MG/24 HOURS TOPICAL PATCH TD SCH (10:18)
[2020-06-24] MEDS: PRENATAL VITAMINS W/ FOLIC ACID TABLET (FP) PO SCH (10:18)
[2020-06-24] MEDS: DIVALPROEX SODIUM 500 MG TABLET E.C. PO SCH (10:18)
[2020-06-24] MEDS: chlordiazePOXIDE HCL 10 MG CAPSULE PO PRN (12:10)
[2020-06-24] MEDS: NICOTINE POLACRILEX 2 MG GUM BUC PRN (12:12)
[2020-06-24 13:14] VITALS: BP 146/79; PULSE 78; TEMP 97.5
[2020-06-24 14:03] LABS: POTASSIUM 4.7 mmol/L (3.5-5.1)
[2020-06-24 14:04] LABS: HEMATOCRIT 38.9 % (35.4-49); HEMOGLOBIN 12.8 GM/dL (11.7-16.9); MCH 31.7 pg (25.7-33.7); MCHC 33.1 g/dl (32.0-35.9); MEAN CELL VOLUME 95.9 fl (80-96); MEAN PLT VOLUME 8.4 fl (7.5-11.1); PLATELET COUNT 176 K/MM3 (134-434); RBC 4.05 M/mm3 (4.00-5.60); RDW 15.3 % (11.9-15.9); WHITE BLOOD COUNT 4.4 K/mm3 (4.0-10.0)
[2020-06-24 14:07] LABS: ALBUMIN 3.1 g/dl (3.4-5.0); BLOOD UREA NITROGEN 20.6 mg/dL (7-18); CALCIUM 8.7 mg/dL (8.5-10.1)
[2020-06-24 14:12] LABS: BILIRUBIN,TOTAL 0.3 mg/dL (0.2-1); TOT PROT 5.7 g/dl (6.4-8.2)
[2020-06-25] MEDS ORDERED: chlordiazePOXIDE HCL 10 MG CAPSULE PO PRN
[2020-06-25] MEDS ORDERED: diazePAM 5 MG TABLET PO ONE (06:00)
[2020-06-25] MEDS ORDERED: METHADONE HCL 10 MG TABLET (FOR DETOX USE ONLY) PO ONE (10:00)
[2020-06-25] MEDS ORDERED: chlordiazePOXIDE HCL 10 MG CAPSULE PO SCH ×2 (11:00→17:00)
[2020-06-26] MEDS ORDERED: METHADONE HCL 5 MG TABLET (FOR DETOX USE ONLY) PO ONE (06:00)
[2020-06-26] MEDS ORDERED: chlordiazePOXIDE HCL 10 MG CAPSULE PO ONE (11:00)
== END 2020-06-24 15:49 | disposition left against medical advice (07) | DRG 770 ==
LOC: YASAS 14:43 → Y3N 16:19
PROVIDERS: ADMIT Allergy & Immunology; ATTEND Allergy & Immunology
PROC: HZ2ZZZZ Detoxification Services for Substance Abuse Treatment (ICD-10-PCS; principal; 2020-06-21)
DX: F10.230 Alcohol dependence with withdrawal, uncomplicated (principal); F11.23 Opioid dependence with withdrawal; F13.230 Sedative, hypnotic or anxiolytic dependence with withdrawal, uncomplicated; F14.20 Cocaine dependence, uncomplicated; F17.210 Nicotine dependence, cigarettes, uncomplicated; F31.9 Bipolar disorder, unspecified; F19.24 Other psychoactive substance dependence with psychoactive substance-induced mood disorder; G47.00 Insomnia, unspecified; M54.5 Low back pain; Z62.810 Personal history of physical and sexual abuse in childhood; I25.2 Old myocardial infarction; Z86.73 Personal history of transient ischemic attack (TIA), and cerebral infarction without residual deficits; Z86.711 Personal history of pulmonary embolism; Z98.890 Other specified postprocedural states; Z88.8 Allergy status to other drugs, medicaments and biological substances; Z91.013 Allergy to seafood; Z91.018 Allergy to other foods; Z91.19 Patient's noncompliance with other medical treatment and regimen
CPT/HCPCS: 36415; 80053; 85027; 86780; 93005; 93010; C9803; J0735; U0003

== ENCOUNTER 2020-07-19 10:35 | Inpatient (IN) | payer OTHER ==
[2020-07-19 11:03] VITALS: BMI 27.8
[2020-07-19 11:49] LABS: BASO % 0.1 % (0-2.0); EOS % 0.2 % (0-4.5); HEMATOCRIT 45.4 % (35.4-49); LYMPH % 4.7 % (8-40); MCH 31.9 pg (25.7-33.7); MCHC 32.9 g/dl (32.0-35.9); MEAN PLT VOLUME 8.1 fl (7.5-11.1); PLATELET COUNT 254 K/MM3 (134-434); RBC 4.68 M/mm3 (4.00-5.60); RDW 14.5 % (11.9-15.9); WHITE BLOOD COUNT 18.8 K/mm3 (4.0-10.0)
[2020-07-19 12:04] LABS: CHLORIDE 102 mmol/L (98-107); SODIUM 136 mmol/L (136-145)
[2020-07-19 12:06] LABS: ALBUMIN 3.8 g/dl (3.4-5.0); CALCIUM 7.3 mg/dL (8.5-10.1); CO2 25 mmol/L (21-32)
[2020-07-19 12:07] LABS: BLOOD UREA NITROGEN 26.9 mg/dL (7-18); GLUCOSE,RANDOM 142 mg/dL (74-106)
[2020-07-19 12:10] LABS: CREATININE 2.1 mg/dL (0.55-1.3)
[2020-07-19 12:11] LABS: ALK PHOS 77 U/L (45-117); BILIRUBIN,TOTAL 0.4 mg/dL (0.2-1); TOT PROT 7.4 g/dl (6.4-8.2)
[2020-07-19 12:35] LABS: ANION GAP 10 MMOL/L (8-16); SGOT/AST 1948 U/L (15-37); SGPT/ALT 1704 U/L (13-61)
[2020-07-19] MEDS ORDERED: LACTATED RINGERS SOLUTION 1000 ML INFUS.BAG IV ONE (12:36)
[2020-07-19] MEDS ORDERED: SODIUM CHLORIDE 1,000 ML IV STA (12:36)
[2020-07-19] MEDS ORDERED: CALCIUM GLUCONATE 10% - 1,000 MG/10 ML VIAL IVPB ONE (12:37)
[2020-07-19] MEDS ORDERED: DEXTROSE 50%-WATER - 25 GM/50 ML VIAL IVPUSH ONE (12:38)
[2020-07-19] MEDS ORDERED: INSULIN REGULAR HUMAN 100 UNITS/ML *VIAL IVPUSH ONE (12:38)
[2020-07-19] MEDS ORDERED: SODIUM BICARBONATE 8.4% 50 MEQ/50 ML DISP.SYRIN IVPUSH ONE (12:41)
[2020-07-19] MEDS ORDERED: CALCIUM GLUCONATE 10% - 1,000 MG/10 ML VIAL IVPUSH ONE (12:45)
[2020-07-19] MEDS ORDERED: DEXTROSE 50%-WATER 25 GM/50 ML DISP.SYRIN ONE (12:45)
[2020-07-19] MEDS ORDERED: SODIUM BICARBONATE 8.4% - 50 ML ONE (12:45)
[2020-07-19] MEDS ORDERED: CALCIUM GLUCONATE 10% - 1,000 MG/10 ML VIAL ONE (12:45)
[2020-07-19] MEDS ORDERED: SODIUM BICARBONATE 8.4% - 150 MEQ in DEXTROSE 5%-WATER - 950 ML IVPB SCH (12:45)
[2020-07-19 13:44] LABS: INR 1.15 (0.83-1.09); PROTHROMBIN TIME (PATIENT) 14.1 SEC (9.7-13.0)
[2020-07-19 13:46] LABS: ACTIVATED PTT 29.7 SECONDS (25.2-36.5)
[2020-07-19] MEDS ORDERED: LACTATED RINGERS SOLUTION 1,000 ML/1,000 ML INFUS.BAG IV STA (15:11)
[2020-07-19 16:43] LABS: URINE AMPHETAMINES NEGATIVE ng/ml (CUTOFF=500)
[2020-07-19 16:44] LABS: METHADONE, UR NEGATIVE ng/ml (CUTOFF=300); PHENCYCLIDINE,URINE NEGATIVE ng/ml (CUTOFF=25); URINE BARBITURATES NEGATIVE ng/ml (CUTOFF=200)
[2020-07-19] MEDS ORDERED: VANCOMYCIN HCL 1,250 MG in DEXTROSE 5%-WATER - 250 ML IVPB ONE (16:52)
[2020-07-19 17:37] LABS: COCAINE, UR POSITIVE ng/ml (CUTOFF=300); OPIATES, URI POSITIVE ng/ml (CUTOFF=300); URINE BENZODIAZEPINES POSITIVE ng/ml (CUTOFF=200)
[2020-07-19] MEDS: SODIUM CHLORIDE 1,000 ML IV SCH (18:48)
[2020-07-19 18:58] LABS: EPI CELLS 25 /uL (0-25.1); HYALINE CASTS 109 /uL (0-3.1); PH,URINE 5.5 (5.0-8.0); URINE APPEARANCE TURBID; URINE BILIRUBIN NEGATIVE (NEGATIVE); URINE COLOR ORANGE; URINE GLUCOSE (UA) TRACE (NEGATIVE); URINE KETONE NEGATIVE (NEGATIVE); URINE LEUK ESTERASE 2+ (NEGATIVE); URINE NITRITE NEGATIVE (NEGATIVE); URINE PROTEIN 3+ (NEGATIVE); URINE WBC 895 /uL (0-25.8)
[2020-07-19 19:13] LABS: BASO % 0.6 % (0-2.0); HEMATOCRIT 47.9 % (35.4-49); HEMOGLOBIN 16.1 GM/dL (11.7-16.9); LYMPH % 11.9 % (8-40); MCH 32.4 pg (25.7-33.7); MCHC 33.5 g/dl (32.0-35.9); MEAN CELL VOLUME 96.7 fl (80-96); MEAN PLT VOLUME 8.6 fl (7.5-11.1); MONO % 6.4 % (3.8-10.2); NEUT % 81.1 % (42.8-82.8); PLATELET COUNT 216 K/MM3 (134-434); RBC 4.96 M/mm3 (4.00-5.60); RDW 14.4 % (11.9-15.9)
[2020-07-19 19:31] LABS: CHLORIDE 105 mmol/L (98-107); SODIUM 141 mmol/L (136-145)
[2020-07-19 19:33] LABS: ALBUMIN 3.4 g/dl (3.4-5.0); ANION GAP 9 MMOL/L (8-16); BLOOD UREA NITROGEN 27.3 mg/dL (7-18); CALCIUM 7.6 mg/dL (8.5-10.1); CO2 27 mmol/L (21-32)
[2020-07-19 19:34] LABS: GLUCOSE,RANDOM 129 mg/dL (74-106)
[2020-07-19 19:37] LABS: CREATININE 1.9 mg/dL (0.55-1.3)
[2020-07-19 19:38] LABS: BILIRUBIN,TOTAL 0.4 mg/dL (0.2-1); TOT PROT 6.6 g/dl (6.4-8.2)
[2020-07-19 19:39] LABS: ALK PHOS 73 U/L (45-117)
[2020-07-19 20:10] LABS: URINE BACTERIA 637 /uL (0-1359); URINE RBC 98 /uL (0-23.9)
[2020-07-19 20:11] LABS: YEAST NEGATIVE (NEGATIVE)
[2020-07-19 20:38] LABS: SGPT/ALT 2026 U/L (13-61)
[2020-07-19 20:46] LABS: SGOT/AST 3764 U/L (15-37)
[2020-07-19] MEDS ORDERED: clonazePAM 0.5 MG TABLET PO SCH (22:00)
[2020-07-19] MEDS ORDERED: clonazePAM 0.5 MG TABLET ONE (22:06)
[2020-07-19] MEDS ORDERED: HEPARIN NA (PORCINE) 5,000 UNITS/ML 1ML VIAL ONE (22:07)
[2020-07-19] MEDS: HEPARIN NA (PORCINE) 5,000 UNITS/ML 1ML VIAL SQ SCH (22:18)
[2020-07-19] MEDS: clonazePAM 0.5 MG TABLET PO PRN (22:18)
[2020-07-19] MEDS: CLOTRIMAZOLE 1% CREAM TP SCH (22:42)
[2020-07-19] MEDS ORDERED: morphine SULFATE 4 MG/ML VIAL ONE (22:45)
[2020-07-19] MEDS: morphine SULFATE 4 MG/ML VIAL IVPUSH PRN (22:52)
[2020-07-20] MEDS ORDERED: morphine SULFATE 4 MG/ML VIAL ONE ×4 (03:11→17:43)
[2020-07-20] MEDS: morphine SULFATE 4 MG/ML VIAL IVPUSH PRN ×5 (03:15→23:27)
[2020-07-20] MEDS ORDERED: HEPARIN NA (PORCINE) 5,000 UNITS/ML 1ML VIAL ONE ×2 (07:31→14:07)
[2020-07-20] MEDS: HEPARIN NA (PORCINE) 5,000 UNITS/ML 1ML VIAL SQ SCH ×3 (07:47→21:44)
[2020-07-20 08:17] LABS: BASO % 0.4 % (0-2.0); EOS % 0.3 % (0-4.5); HEMOGLOBIN 15.2 GM/dL (11.7-16.9); LYMPH % 8.7 % (8-40); MCH 32.4 pg (25.7-33.7); MCHC 33.7 g/dl (32.0-35.9); MEAN CELL VOLUME 96.2 fl (80-96); MEAN PLT VOLUME 8.2 fl (7.5-11.1); MONO % 7.5 % (3.8-10.2); NEUT % 83.1 % (42.8-82.8); PLATELET COUNT 188 K/MM3 (134-434); RBC 4.68 M/mm3 (4.00-5.60); RDW 14.4 % (11.9-15.9); WHITE BLOOD COUNT 11.2 K/mm3 (4.0-10.0)
[2020-07-20 08:29] LABS: CHLORIDE 102 mmol/L (98-107); SODIUM 137 mmol/L (136-145)
[2020-07-20 08:37] LABS: ALBUMIN 2.7 g/dl (3.4-5.0); CALCIUM 7.3 mg/dL (8.5-10.1)
[2020-07-20 08:38] LABS: ANION GAP 4 MMOL/L (8-16); BLOOD UREA NITROGEN 22.5 mg/dL (7-18); CO2 32 mmol/L (21-32); GLUCOSE,RANDOM 118 mg/dL (74-106); MAGNESIUM 2.5 mg/dL (1.8-2.4)
[2020-07-20 08:41] LABS: BILIRUBIN,TOTAL 0.8 mg/dL (0.2-1); CREATININE 1.6 mg/dL (0.55-1.3); PHOSPHOROUS 2.7 mg/dL (2.5-4.9); TOT PROT 5.5 g/dl (6.4-8.2)
[2020-07-20 08:43] LABS: ALK PHOS 63 U/L (45-117)
[2020-07-20 09:11] LABS: SGOT/AST 2592 U/L (15-37); SGPT/ALT 1582 U/L (13-61)
[2020-07-20] MEDS ORDERED: clonazePAM 0.5 MG TABLET ONE (09:56)
[2020-07-20] MEDS: CLOTRIMAZOLE 1% CREAM TP SCH ×2 (10:01→21:46)
[2020-07-20] MEDS: clonazePAM 0.5 MG TABLET PO PRN ×2 (10:01→21:45)
[2020-07-20] MEDS: SODIUM CHLORIDE 1,000 ML IV SCH (17:23)
[2020-07-21] MEDS ORDERED: MELATONIN 5 MG TABLETS PO ONE (01:30)
[2020-07-21] MEDS: morphine SULFATE 4 MG/ML VIAL IVPUSH PRN (05:24)
[2020-07-21] MEDS: HEPARIN NA (PORCINE) 5,000 UNITS/ML 1ML VIAL SQ SCH ×3 (06:16→21:57)
[2020-07-21] MEDS: SODIUM CHLORIDE 1,000 ML IV SCH ×4 (06:16→20:22)
[2020-07-21 08:43] LABS: CHLORIDE 104 mmol/L (98-107); SODIUM 138 mmol/L (136-145)
[2020-07-21 08:44] LABS: HEMATOCRIT 39.2 % (35.4-49); HEMOGLOBIN 13.5 GM/dL (11.7-16.9); MCH 32.8 pg (25.7-33.7); MCHC 34.5 g/dl (32.0-35.9); MEAN PLT VOLUME 8.4 fl (7.5-11.1); PLATELET COUNT 137 K/MM3 (134-434); RBC 4.13 M/mm3 (4.00-5.60); RDW 14.3 % (11.9-15.9); WHITE BLOOD COUNT 7.1 K/mm3 (4.0-10.0)
[2020-07-21 08:49] LABS: ALBUMIN 2.4 g/dl (3.4-5.0); ANION GAP 4 MMOL/L (8-16); BLOOD UREA NITROGEN 12.6 mg/dL (7-18); CALCIUM 7.2 mg/dL (8.5-10.1); CO2 29 mmol/L (21-32); GLUCOSE,RANDOM 100 mg/dL (74-106)
[2020-07-21 08:53] LABS: BILIRUBIN,TOTAL 0.8 mg/dL (0.2-1); TOT PROT 4.8 g/dl (6.4-8.2)
[2020-07-21 08:54] LABS: ALK PHOS 60 U/L (45-117)
[2020-07-21] MEDS ORDERED: PT OWN MED DRAWER 7, Y5N ONE (08:59)
[2020-07-21] MEDS: clonazePAM 0.5 MG TABLET PO SCH ×3 (09:11→21:56)
[2020-07-21] MEDS: CLOTRIMAZOLE 1% CREAM TP SCH ×2 (09:16→22:04)
[2020-07-21 09:29] LABS: SGOT/AST 2181 U/L (15-37); SGPT/ALT 2366 U/L (13-61)
[2020-07-21] MEDS: IBUPROFEN 400 MG TABLET (FP) PO PRN ×2 (14:27→21:56)
[2020-07-21 14:38] LABS: EPI CELLS 6 /uL (0-25.1); HYALINE CASTS 0 /uL (0-3.1); URINE APPEARANCE CLEAR; URINE BACTERIA 8 /uL (0-1359); URINE BILIRUBIN NEGATIVE (NEGATIVE); URINE COLOR YELLOW; URINE GLUCOSE (UA) NEGATIVE (NEGATIVE); URINE KETONE NEGATIVE (NEGATIVE); URINE LEUK ESTERASE NEGATIVE (NEGATIVE); URINE NITRITE NEGATIVE (NEGATIVE); URINE PROTEIN 1+ (NEGATIVE); URINE RBC 5 /uL (0-23.9); URINE WBC 6 /uL (0-25.8)
[2020-07-22] MEDS ORDERED: MELATONIN 5 MG TABLETS PO ONE (02:37)
[2020-07-22] MEDS: SODIUM CHLORIDE 1,000 ML IV SCH ×4 (02:53→21:24)
[2020-07-22] MEDS ORDERED: LORazepam 0.5 MG TABLET PO ONE (04:04)
[2020-07-22] MEDS: HEPARIN NA (PORCINE) 5,000 UNITS/ML 1ML VIAL SQ SCH ×3 (06:47→21:26)
[2020-07-22] MEDS: clonazePAM 0.5 MG TABLET PO SCH ×3 (06:47→21:26)
[2020-07-22 09:12] LABS: HIV INTERPRETATION NEGATIVE (NEGATIVE)
[2020-07-22] MEDS: CLOTRIMAZOLE 1% CREAM TP SCH ×2 (09:47→21:27)
[2020-07-22] MEDS: IBUPROFEN 400 MG TABLET (FP) PO PRN (11:46)
[2020-07-22] MEDS: morphine SULFATE 4 MG/ML VIAL IVPUSH PRN ×2 (13:41→19:54)
[2020-07-22] MEDS: NICOTINE 14 MG/24 HOURS TOPICAL PATCH TD SCH (18:09)
[2020-07-22] MEDS: GABAPENTIN 300 MG CAPSULE PO SCH (21:25)
[2020-07-22] MEDS: DIVALPROEX SODIUM 500 MG TABLET E.C. PO SCH (21:25)
[2020-07-22] MEDS: QUEtiapine FUMARATE 100 MG TABLET (FP) PO SCH (21:25)
[2020-07-22] MEDS: OLANZapine 10 MG TABLET PO SCH (21:27)
[2020-07-23] MEDS: morphine SULFATE 4 MG/ML VIAL IVPUSH PRN ×2 (01:54→08:35)
[2020-07-23] MEDS: clonazePAM 0.5 MG TABLET PO SCH ×3 (07:06→21:45)
[2020-07-23] MEDS: HEPARIN NA (PORCINE) 5,000 UNITS/ML 1ML VIAL SQ SCH ×3 (07:08→21:45)
[2020-07-23] MEDS ORDERED: IBUPROFEN 800 MG/8 ML IJ IVPB PRN ×3 (08:59→12:39)
[2020-07-23] MEDS: CLOTRIMAZOLE 1% CREAM TP SCH ×2 (10:32→21:45)
[2020-07-23] MEDS: NICOTINE 14 MG/24 HOURS TOPICAL PATCH TD SCH (10:32)
[2020-07-23 11:48] LABS: CHLORIDE 108 mmol/L (98-107); SODIUM 143 mmol/L (136-145)
[2020-07-23 11:52] LABS: ANION GAP 7 MMOL/L (8-16); BLOOD UREA NITROGEN 11.5 mg/dL (7-18); CALCIUM 8.1 mg/dL (8.5-10.1); CO2 28 mmol/L (21-32); GLUCOSE,RANDOM 87 mg/dL (74-106); MAGNESIUM 1.6 mg/dL (1.8-2.4)
[2020-07-23 11:53] LABS: ALBUMIN 2.4 g/dl (3.4-5.0)
[2020-07-23 11:56] LABS: CREATININE 0.9 mg/dL (0.55-1.3)
[2020-07-23 11:57] LABS: BILIRUBIN,TOTAL 0.7 mg/dL (0.2-1); TOT PROT 4.9 g/dl (6.4-8.2)
[2020-07-23 11:58] LABS: ALK PHOS 68 U/L (45-117)
[2020-07-23 12:10] LABS: SGOT/AST 1074 U/L (15-37); SGPT/ALT 1772 U/L (13-61)
[2020-07-23] MEDS: SODIUM CHLORIDE 1,000 ML IV SCH ×2 (13:00→17:49)
[2020-07-23] MEDS: oxyCODONE HCL 5 MG TABLET PO PRN ×3 (13:39→21:46)
[2020-07-23] MEDS: GABAPENTIN 300 MG CAPSULE PO SCH ×2 (13:42→21:44)
[2020-07-23] MEDS ORDERED: PT OWN MED DRAWER 7, Y5N ONE (13:43)
[2020-07-23] MEDS ORDERED: MAGNESIUM OXIDE 400 MG TABLET (FP) PO ONE (14:30)
[2020-07-23] MEDS: OLANZapine 10 MG TABLET PO SCH (21:45)
[2020-07-23] MEDS: QUEtiapine FUMARATE 100 MG TABLET (FP) PO SCH (21:45)
[2020-07-23] MEDS: DIVALPROEX SODIUM 500 MG TABLET E.C. PO SCH (21:45)
[2020-07-24] MEDS: oxyCODONE HCL 5 MG TABLET PO PRN ×8 (02:04→23:20)
[2020-07-24] MEDS: clonazePAM 0.5 MG TABLET PO SCH ×3 (06:14→22:26)
[2020-07-24] MEDS: HEPARIN NA (PORCINE) 5,000 UNITS/ML 1ML VIAL SQ SCH ×3 (06:16→22:27)
[2020-07-24] MEDS ORDERED: PT OWN MED DRAWER 7, Y5N ONE (10:23)
[2020-07-24] MEDS: GABAPENTIN 300 MG CAPSULE PO SCH ×4 (10:36→22:27)
[2020-07-24] MEDS: NICOTINE 14 MG/24 HOURS TOPICAL PATCH TD SCH (10:38)
[2020-07-24] MEDS: CLOTRIMAZOLE 1% CREAM TP SCH ×2 (10:39→22:27)
[2020-07-24] MEDS: SODIUM CHLORIDE 1,000 ML IV SCH (13:25)
[2020-07-24] MEDS: LACTATED RINGERS SOLUTION 1,000 ML/1,000 ML INFUS.BAG IV SCH (18:56)
[2020-07-24] MEDS: DIVALPROEX SODIUM 500 MG TABLET E.C. PO SCH ×2 (22:26→22:36)
[2020-07-24] MEDS: QUEtiapine FUMARATE 100 MG TABLET (FP) PO SCH (22:26)
[2020-07-24] MEDS: OLANZapine 10 MG TABLET PO SCH ×2 (22:26→22:36)
[2020-07-25] MEDS: clonazePAM 0.5 MG TABLET PO SCH ×3 (05:08→21:00)
[2020-07-25] MEDS: oxyCODONE HCL 5 MG TABLET PO PRN ×7 (05:08→23:24)
[2020-07-25] MEDS: HEPARIN NA (PORCINE) 5,000 UNITS/ML 1ML VIAL SQ SCH ×3 (05:13→21:00)
[2020-07-25] MEDS ORDERED: IBUPROFEN 400 MG TABLET (FP) PO PRN (07:41)
[2020-07-25] MEDS ORDERED: PT OWN MED DRAWER 7, Y5N ONE ×3 (08:54→10:04)
[2020-07-25] MEDS: GABAPENTIN 300 MG CAPSULE PO SCH ×3 (08:56→21:00)
[2020-07-25] MEDS: CLOTRIMAZOLE 1% CREAM TP SCH (09:12)
[2020-07-25] MEDS: NICOTINE 14 MG/24 HOURS TOPICAL PATCH TD SCH (10:12)
[2020-07-25] MEDS: LACTATED RINGERS SOLUTION 1,000 ML/1,000 ML INFUS.BAG IV SCH (18:00)
[2020-07-26] MEDS: QUEtiapine FUMARATE 100 MG TABLET (FP) PO SCH ×2 (00:59→21:14)
[2020-07-26] MEDS: oxyCODONE HCL 5 MG TABLET PO PRN ×6 (00:59→22:28)
[2020-07-26] MEDS: DIVALPROEX SODIUM 500 MG TABLET E.C. PO SCH ×2 (01:07→21:18)
[2020-07-26] MEDS: CLOTRIMAZOLE 1% CREAM TP SCH ×3 (01:07→21:18)
[2020-07-26] MEDS: OLANZapine 10 MG TABLET PO SCH ×2 (01:08→21:18)
[2020-07-26] MEDS: clonazePAM 0.5 MG TABLET PO SCH ×3 (06:40→21:14)
[2020-07-26] MEDS: HEPARIN NA (PORCINE) 5,000 UNITS/ML 1ML VIAL SQ SCH ×4 (06:41→21:18)
[2020-07-26] MEDS ORDERED: PT OWN MED DRAWER 7, Y5N ONE ×3 (09:08→20:24)
[2020-07-26] MEDS: IBUPROFEN 600 MG TABLET (FP) PO PRN ×2 (09:10→20:30)
[2020-07-26] MEDS: GABAPENTIN 300 MG CAPSULE PO SCH ×3 (09:10→21:18)
[2020-07-26] MEDS: NICOTINE 14 MG/24 HOURS TOPICAL PATCH TD SCH (09:24)
[2020-07-26] MEDS: LACTATED RINGERS SOLUTION 1,000 ML/1,000 ML INFUS.BAG IV SCH (18:27)
[2020-07-27] MEDS: oxyCODONE HCL 5 MG TABLET PO PRN ×6 (03:23→21:35)
[2020-07-27] MEDS: HEPARIN NA (PORCINE) 5,000 UNITS/ML 1ML VIAL SQ SCH ×3 (06:06→21:31)
[2020-07-27] MEDS: clonazePAM 0.5 MG TABLET PO SCH ×3 (06:06→21:30)
[2020-07-27] MEDS ORDERED: PT OWN MED DRAWER 7, Y5N ONE ×2 (09:21→12:52)
[2020-07-27] MEDS: NICOTINE 14 MG/24 HOURS TOPICAL PATCH TD SCH (09:24)
[2020-07-27] MEDS: GABAPENTIN 300 MG CAPSULE PO SCH ×3 (09:25→21:30)
[2020-07-27] MEDS: CLOTRIMAZOLE 1% CREAM TP SCH ×2 (09:26→21:31)
[2020-07-27] MEDS: LACTATED RINGERS SOLUTION 1,000 ML/1,000 ML INFUS.BAG IV SCH (11:08)
[2020-07-27] MEDS: IBUPROFEN 600 MG TABLET (FP) PO PRN ×2 (14:13→21:33)
[2020-07-27] MEDS: QUEtiapine FUMARATE 100 MG TABLET (FP) PO SCH (21:30)
[2020-07-27] MEDS: DIVALPROEX SODIUM 500 MG TABLET E.C. PO SCH (21:30)
[2020-07-27] MEDS: OLANZapine 10 MG TABLET PO SCH (21:31)
[2020-07-28] MEDS: oxyCODONE HCL 5 MG TABLET PO PRN ×4 (04:46→20:22)
[2020-07-28] MEDS: HEPARIN NA (PORCINE) 5,000 UNITS/ML 1ML VIAL SQ SCH ×3 (06:47→21:17)
[2020-07-28] MEDS: clonazePAM 0.5 MG TABLET PO SCH ×2 (06:48→07:46)
[2020-07-28] MEDS: GABAPENTIN 300 MG CAPSULE PO SCH ×3 (07:47→21:17)
[2020-07-28] MEDS ORDERED: PT OWN MED DRAWER 7, Y5N ONE (10:04)
[2020-07-28] MEDS: NICOTINE 14 MG/24 HOURS TOPICAL PATCH TD SCH (10:30)
[2020-07-28] MEDS: CLOTRIMAZOLE 1% CREAM TP SCH ×2 (11:23→21:12)
[2020-07-28 11:29] LABS: BASO % 0.5 % (0-2.0); EOS % 1.5 % (0-4.5); HEMATOCRIT 37.1 % (35.4-49); HEMOGLOBIN 12.6 GM/dL (11.7-16.9); LYMPH % 17.4 % (8-40); MCH 32.9 pg (25.7-33.7); MEAN CELL VOLUME 96.9 fl (80-96); MEAN PLT VOLUME 8.7 fl (7.5-11.1); MONO % 7.5 % (3.8-10.2); NEUT % 73.1 % (42.8-82.8); PLATELET COUNT 213 K/MM3 (134-434); RBC 3.83 M/mm3 (4.00-5.60); RDW 14.2 % (11.9-15.9); WHITE BLOOD COUNT 8.3 K/mm3 (4.0-10.0)
[2020-07-28] MEDS: LACTATED RINGERS SOLUTION 1,000 ML/1,000 ML INFUS.BAG IV SCH (11:37)
[2020-07-28 11:51] LABS: ALBUMIN 2.3 g/dl (3.4-5.0); BLOOD UREA NITROGEN 15.1 mg/dL (7-18); MAGNESIUM 1.7 mg/dL (1.8-2.4)
[2020-07-28 11:54] LABS: PHOSPHOROUS 3.6 mg/dL (2.5-4.9)
[2020-07-28 11:55] LABS: CREATININE 0.9 mg/dL (0.55-1.3)
[2020-07-28 11:56] LABS: BILIRUBIN,TOTAL 0.2 mg/dL (0.2-1); TOT PROT 4.8 g/dl (6.4-8.2)
[2020-07-28] MEDS: clonazePAM 0.5 MG TABLET PO PRN ×2 (13:56→21:17)
[2020-07-28] MEDS ORDERED: MAGNESIUM OXIDE 400 MG TABLET (FP) PO ONE (20:50)
[2020-07-28] MEDS: DIVALPROEX SODIUM 500 MG TABLET E.C. PO SCH (21:12)
[2020-07-28] MEDS: OLANZapine 10 MG TABLET PO SCH (21:12)
[2020-07-28] MEDS: QUEtiapine FUMARATE 100 MG TABLET (FP) PO SCH (21:15)
[2020-07-29] MEDS: oxyCODONE HCL 5 MG TABLET PO PRN ×6 (01:56→15:33)
[2020-07-29] MEDS: clonazePAM 0.5 MG TABLET PO PRN ×2 (06:05→13:31)
[2020-07-29] MEDS: HEPARIN NA (PORCINE) 5,000 UNITS/ML 1ML VIAL SQ SCH ×2 (06:10→13:25)
[2020-07-29] MEDS: GABAPENTIN 300 MG CAPSULE PO SCH ×2 (08:54→13:25)
[2020-07-29] MEDS: CLOTRIMAZOLE 1% CREAM TP SCH (10:03)
[2020-07-29] MEDS ORDERED: PT OWN MED DRAWER 7, Y5N ONE ×2 (10:03→16:09)
[2020-07-29] MEDS: NICOTINE 14 MG/24 HOURS TOPICAL PATCH TD SCH (10:04)
[2020-07-29 13:41] VITALS: BP 156/75; PULSE 93; TEMP 97.7
[2020-07-29 15:20] LABS: URINE APPEARANCE CLEAR; URINE BILIRUBIN NEGATIVE (NEGATIVE); URINE COLOR YELLOW; URINE GLUCOSE (UA) NEGATIVE (NEGATIVE); URINE KETONE NEGATIVE (NEGATIVE); URINE LEUK ESTERASE NEGATIVE (NEGATIVE); URINE NITRITE NEGATIVE (NEGATIVE); URINE PROTEIN NEGATIVE (NEGATIVE); URINE UROBILINOGEN 0.2 mg/dL (0.2-1.0)
[2020-07-30] MEDS ORDERED: MULTIVITAMINS (DAILY MVI) TABLET (FP) PO SCH (10:00)
== END 2020-07-29 17:35 | disposition other institution (70) | DRG 816 ==
LOC: JER 10:35 → MERGE 12:26 → JERBED 12:26 → J4S 07-20 21:27
PROVIDERS: ADMIT Family Medicine; ATTEND Internal Medicine
DX: T40.5X1A Poisoning by cocaine, accidental (unintentional), initial encounter (principal); M60.9 Myositis, unspecified; D72.829 Elevated white blood cell count, unspecified; R74.01 Elevation of levels of liver transaminase levels; K75.9 Inflammatory liver disease, unspecified; F19.20 Other psychoactive substance dependence, uncomplicated; N17.9 Acute kidney failure, unspecified; M62.82 Rhabdomyolysis; I24.8 Other forms of acute ischemic heart disease; E87.5 Hyperkalemia; F11.20 Opioid dependence, uncomplicated
CPT/HCPCS: 36415; 70450-TC; 71045-TC-FY; 72125-TC; 72170-TC-FY; 73030-TC-LT-FY; 73700-TC-RT; 76705-TC; 76775-TC; 80048; 80053; 80074; 80307; 81003; 82436; 82550; 82553; 82565; 83735; 84100; 84133; 84300; 84484; 85025; 85027; 85610; 85730; 87086; 87389; 87899; 93005; 93010; 93306-TC; 93971; 93971-TC; 99291; C9803; J1644; U0003

== ENCOUNTER 2020-07-29 19:22 | Inpatient (IN) | payer OTHER ==
[2020-07-29 18:09] VITALS: BMI 31.9
[2020-07-29] MEDS ORDERED: BISMUTH SUBSALICYLATE 524 MG/30 ML PO PRN (19:53)
[2020-07-29] MEDS ORDERED: ACETAMINOPHEN 325 MG TABLET (FP) PO PRN (19:53)
[2020-07-29] MEDS ORDERED: MAGNESIUM CITRATE 300 ML BOTTLE PO PRN (19:53)
[2020-07-29] MEDS ORDERED: methaDONE HCL 10 MG TABLET (FOR DETOX USE ONLY) PO ONE (19:53)
[2020-07-29] MEDS ORDERED: MAG HYDROX/AL HYDROX/SIMETH 30 ML UNIT-DOSE CUP PO PRN (19:53)
[2020-07-29] MEDS ORDERED: LORazepam 2 MG TABLET PO ONE (19:53)
[2020-07-29] MEDS ORDERED: MENTHOL/PHENOL 1 EACH UD MM PRN (19:53)
[2020-07-29] MEDS ORDERED: ONDANSETRON *ODT* 4 MG TABLET SL PRN (19:53)
[2020-07-29] MEDS ORDERED: MAGNESIUM HYDROX 2400MG/30ML ORAL SUSPENSION 30 ML CUP PO PRN (19:53)
[2020-07-29] MEDS ORDERED: cloNIDine HCL 0.1 MG TABLET PO ONE (20:16)
[2020-07-29] MEDS ORDERED: hydrOXYzine PAMOATE 25 MG CAPSULE (FP) PO PRN (20:19)
[2020-07-29] MEDS: NICOTINE POLACRILEX 4 MG GUM BUC PRN (20:38)
[2020-07-29] MEDS ORDERED: CIPROFLOXACIN 500 MG TABLET (RESTRICTED TO ID) PO SCH (22:00)
[2020-07-29] MEDS ORDERED: hydrOXYzine PAMOATE 25 MG CAPSULE (FP) PO SCH (22:00)
[2020-07-29] MEDS: LORazepam 2 MG TABLET PO SCH (22:11)
[2020-07-29] MEDS: THIAMINE HCL 100 MG TABLET (FP) PO SCH (22:11)
[2020-07-29] MEDS: GABAPENTIN 300 MG CAPSULE PO SCH (22:11)
[2020-07-29] MEDS: MELATONIN 5 MG TABLETS PO SCH (23:03)
[2020-07-30] MEDS: ACETAMINOPHEN 325 MG TABLET (FP) PO PRN ×3 (00:44→18:41)
[2020-07-30] MEDS: LORazepam 1 MG TABLET PO PRN ×2 (00:46→14:09)
[2020-07-30] MEDS: METHOCARBAMOL 500 MG TABLET PO PRN ×2 (00:46→07:05)
[2020-07-30] MEDS: NICOTINE POLACRILEX 4 MG GUM BUC PRN ×6 (00:47→19:19)
[2020-07-30] MEDS: GABAPENTIN 300 MG CAPSULE PO SCH ×3 (05:11→22:12)
[2020-07-30] MEDS: LORazepam 2 MG TABLET PO SCH ×4 (05:12→22:13)
[2020-07-30] MEDS: cloNIDine HCL 0.1 MG TABLET PO PRN ×2 (07:06→20:38)
[2020-07-30] MEDS ORDERED: methaDONE HCL 10 MG TABLET (FOR DETOX USE ONLY) ONE (09:44)
[2020-07-30] MEDS: PRENATAL VITAMINS W/ FOLIC ACID TABLET (FP) PO SCH (10:34)
[2020-07-30] MEDS: NICOTINE 21 MG/24 HOURS TOPICAL PATCH TD SCH (10:34)
[2020-07-30] MEDS: CYCLOBENZAPRINE HCL 10 MG TABLET (FP) PO PRN ×2 (12:51→17:20)
[2020-07-30] MEDS: THIAMINE HCL 100 MG TABLET (FP) PO SCH (22:11)
[2020-07-30] MEDS: QUEtiapine FUMARATE 100 MG TABLET (FP) PO SCH (22:12)
[2020-07-30] MEDS: MELATONIN 5 MG TABLETS PO SCH (22:13)
[2020-07-31] MEDS: LORazepam 1 MG TABLET PO PRN ×3 (01:18→19:33)
[2020-07-31] MEDS: GABAPENTIN 300 MG CAPSULE PO SCH ×3 (05:17→22:00)
[2020-07-31] MEDS: LORazepam 1 MG TABLET PO SCH ×4 (05:17→22:01)
[2020-07-31] MEDS: ACETAMINOPHEN 325 MG TABLET (FP) PO PRN ×2 (05:17→17:27)
[2020-07-31] MEDS: NICOTINE POLACRILEX 4 MG GUM BUC PRN ×6 (07:25→21:38)
[2020-07-31] MEDS: CYCLOBENZAPRINE HCL 10 MG TABLET (FP) PO PRN ×2 (09:19→17:25)
[2020-07-31] MEDS ORDERED: methaDONE HCL 10 MG TABLET (FOR DETOX USE ONLY) PO ONE (10:00)
[2020-07-31] MEDS: PRENATAL VITAMINS W/ FOLIC ACID TABLET (FP) PO SCH (10:22)
[2020-07-31] MEDS: NICOTINE 21 MG/24 HOURS TOPICAL PATCH TD SCH (10:22)
[2020-07-31] MEDS: cloNIDine HCL 0.1 MG TABLET PO PRN ×2 (14:51→22:06)
[2020-07-31 17:44] LABS: PH,URINE 7.5 (5.0-8.0); URINE APPEARANCE CLEAR; URINE BILIRUBIN NEGATIVE (NEGATIVE); URINE COLOR YELLOW; URINE GLUCOSE (UA) NEGATIVE (NEGATIVE); URINE KETONE NEGATIVE (NEGATIVE); URINE LEUK ESTERASE NEGATIVE (NEGATIVE); URINE NITRITE NEGATIVE (NEGATIVE); URINE PROTEIN NEGATIVE (NEGATIVE); URINE UROBILINOGEN 0.2 mg/dL (0.2-1.0)
[2020-07-31] MEDS: QUEtiapine FUMARATE 100 MG TABLET (FP) PO SCH (22:00)
[2020-07-31] MEDS: THIAMINE HCL 100 MG TABLET (FP) PO SCH (22:01)
[2020-07-31] MEDS: MELATONIN 5 MG TABLETS PO SCH (22:01)
[2020-08-01] MEDS ORDERED: LORazepam 0.5 MG TABLET PO PRN
[2020-08-01] MEDS ORDERED: MASKS NR ONE (00:05)
[2020-08-01] MEDS: GABAPENTIN 300 MG CAPSULE PO SCH ×3 (06:09→22:20)
[2020-08-01] MEDS: LORazepam 0.5 MG TABLET PO SCH ×4 (06:09→22:20)
[2020-08-01] MEDS: CYCLOBENZAPRINE HCL 10 MG TABLET (FP) PO PRN ×3 (06:11→22:23)
[2020-08-01] MEDS: NICOTINE POLACRILEX 4 MG GUM BUC PRN ×6 (06:11→22:24)
[2020-08-01] MEDS: ACETAMINOPHEN 325 MG TABLET (FP) PO PRN ×2 (06:13→17:49)
[2020-08-01] MEDS ORDERED: methaDONE HCL 10 MG TABLET (FOR DETOX USE ONLY) ONE (09:21)
[2020-08-01] MEDS: PRENATAL VITAMINS W/ FOLIC ACID TABLET (FP) PO SCH (10:17)
[2020-08-01] MEDS: NICOTINE 21 MG/24 HOURS TOPICAL PATCH TD SCH (10:17)
[2020-08-01 11:08] LABS: BASO % 0.8 % (0-2.0); EOS % 3.2 % (0-4.5); HEMATOCRIT 36.1 % (35.4-49); HEMOGLOBIN 12.6 GM/dL (11.7-16.9); LYMPH % 42.7 % (8-40); MCH 33.5 pg (25.7-33.7); MCHC 34.9 g/dl (32.0-35.9); MEAN CELL VOLUME 95.9 fl (80-96); MONO % 7.8 % (3.8-10.2); NEUT % 45.5 % (42.8-82.8); PLATELET COUNT 327 K/MM3 (134-434); RBC 3.76 M/mm3 (4.00-5.60); RDW 13.8 % (11.9-15.9); WHITE BLOOD COUNT 5.4 K/mm3 (4.0-10.0)
[2020-08-01 11:09] LABS: CHLORIDE 105 mmol/L (98-107); SODIUM 142 mmol/L (136-145)
[2020-08-01 11:23] LABS: ANION GAP 8 MMOL/L (8-16); BLOOD UREA NITROGEN 19.1 mg/dL (7-18); CALCIUM 8.9 mg/dL (8.5-10.1); CO2 30 mmol/L (21-32)
[2020-08-01 11:24] LABS: GLUCOSE,RANDOM 81 mg/dL (74-106)
[2020-08-01 11:27] LABS: CREATININE 0.9 mg/dL (0.55-1.3); SGOT/AST 43 U/L (15-37); SGPT/ALT 216 U/L (13-61)
[2020-08-01 11:28] LABS: BILIRUBIN,TOTAL 0.2 mg/dL (0.2-1); TOT PROT 6.1 g/dl (6.4-8.2)
[2020-08-01 11:29] LABS: ALK PHOS 63 U/L (45-117)
[2020-08-01] MEDS: THIAMINE HCL 100 MG TABLET (FP) PO SCH (22:20)
[2020-08-01] MEDS: MELATONIN 5 MG TABLETS PO SCH (22:20)
[2020-08-01] MEDS: QUEtiapine FUMARATE 100 MG TABLET (FP) PO SCH (22:20)
[2020-08-02] MEDS ORDERED: LORazepam 0.5 MG TABLET PO ONE (05:00)
[2020-08-02] MEDS: GABAPENTIN 300 MG CAPSULE PO SCH (05:18)
[2020-08-02 09:03] VITALS: BP 121/64; PULSE 95; TEMP 97.7
[2020-08-02] MEDS: NICOTINE 21 MG/24 HOURS TOPICAL PATCH TD SCH (09:39)
[2020-08-02] MEDS: PRENATAL VITAMINS W/ FOLIC ACID TABLET (FP) PO SCH (09:39)
[2020-08-02] MEDS: NICOTINE POLACRILEX 4 MG GUM BUC PRN (09:39)
[2020-08-02] MEDS: CYCLOBENZAPRINE HCL 10 MG TABLET (FP) PO PRN (09:40)
[2020-08-02] MEDS ORDERED: methaDONE HCL 10 MG TABLET (FOR DETOX USE ONLY) PO ONE (10:00)
== END 2020-08-02 10:27 | disposition home or self-care (01) | DRG 773 ==
LOC: YASAS 19:22 → Y6N 19:45
PROVIDERS: ADMIT Allergy & Immunology; ATTEND Allergy & Immunology
PROC: HZ2ZZZZ Detoxification Services for Substance Abuse Treatment (ICD-10-PCS; principal; 2020-07-29)
DX: F11.23 Opioid dependence with withdrawal (principal); F13.230 Sedative, hypnotic or anxiolytic dependence with withdrawal, uncomplicated; F14.20 Cocaine dependence, uncomplicated; F17.210 Nicotine dependence, cigarettes, uncomplicated; F19.280 Other psychoactive substance dependence with psychoactive substance-induced anxiety disorder; F19.282 Other psychoactive substance dependence with psychoactive substance-induced sleep disorder; F31.9 Bipolar disorder, unspecified; F43.10 Post-traumatic stress disorder, unspecified; G47.00 Insomnia, unspecified; M62.82 Rhabdomyolysis; M79.89 Other specified soft tissue disorders; R74.8 Abnormal levels of other serum enzymes; R74.01 Elevation of levels of liver transaminase levels; Z62.810 Personal history of physical and sexual abuse in childhood; Z91.410 Personal history of adult physical and sexual abuse; Z88.8 Allergy status to other drugs, medicaments and biological substances; Z91.013 Allergy to seafood; Z91.018 Allergy to other foods
CPT/HCPCS: 36415; 80053; 81003; 82550; 82553; 84484; 85025; 86780; 93005; 93010; J0735

== ENCOUNTER 2020-12-20 15:00 | Inpatient (IN) | payer OTHER ==
[2020-12-20 17:58] VITALS: BMI 28.8
[2020-12-20] MEDS ORDERED: ONDANSETRON *ODT* 4 MG TABLET SL PRN (19:38)
[2020-12-20] MEDS ORDERED: ACETAMINOPHEN 325 MG TABLET (FP) PO PRN ×2 (19:38)
[2020-12-20] MEDS ORDERED: IBUPROFEN 400 MG TABLET (FP) PO PRN (19:38)
[2020-12-20] MEDS ORDERED: MAGNESIUM CITRATE 300 ML BOTTLE PO PRN (19:38)
[2020-12-20] MEDS ORDERED: NALOXONE HCL 0.4 MG/ML VIAL IM PRN (19:38)
[2020-12-20] MEDS ORDERED: NALOXONE (NARCAN) HCL 4 MG/0.1 ML SPRAY NS PRN (19:38)
[2020-12-20] MEDS ORDERED: MENTHOL/PHENOL 1 EACH UD MM PRN (19:38)
[2020-12-20] MEDS ORDERED: MAGNESIUM HYDROX 2400MG/30ML ORAL SUSPENSION 30 ML CUP PO PRN (19:38)
[2020-12-20] MEDS ORDERED: BISMUTH SUBSALICYLATE 524 MG/30 ML PO PRN (19:38)
[2020-12-20] MEDS ORDERED: guaiFENesin 200 MG/10 ML 10 ML UNIT-DOSE CUPS PO PRN (19:38)
[2020-12-20] MEDS ORDERED: MAG HYDROX/AL HYDROX/SIMETH 30 ML UNIT-DOSE CUP PO PRN (19:38)
[2020-12-20] MEDS ORDERED: P-EPHED 60MG/TRIPROLIDI 2.5MG TABLET PO PRN (19:38)
[2020-12-20] MEDS ORDERED: METHADONE HCL 10 MG TABLET (FOR DETOX USE ONLY) PO ONE (21:30)
[2020-12-20] MEDS: THIAMINE HCL 100 MG TABLET (FP) PO SCH (21:47)
[2020-12-20] MEDS: MELATONIN 5 MG TABLETS PO SCH (21:47)
[2020-12-20] MEDS: hydrOXYzine PAMOATE 25 MG CAPSULE (FP) PO PRN (21:49)
[2020-12-21] MEDS ORDERED: METHADONE HCL 5 MG TABLET (FOR DETOX USE ONLY) ONE (09:37)
[2020-12-21] MEDS ORDERED: METHADONE HCL 10 MG TABLET (FOR DETOX USE ONLY) ONE (09:37)
[2020-12-21] MEDS ORDERED: METHADONE (DETOX) 20 MG, METHADONE (DETOX) 5 MG PO ONE (10:00)
[2020-12-21] MEDS ORDERED: MASKS NR ONE (10:46)
[2020-12-21] MEDS: PRENATAL VITAMINS W/ FOLIC ACID TABLET (FP) PO SCH (10:47)
[2020-12-21] MEDS: NICOTINE 21 MG/24 HOURS TOPICAL PATCH TD SCH (10:49)
[2020-12-21] MEDS: NICOTINE POLACRILEX 2 MG GUM BUC PRN ×3 (10:49→18:11)
[2020-12-21] MEDS: THIAMINE HCL 100 MG TABLET (FP) PO SCH (21:40)
[2020-12-21] MEDS: cloNIDine HCL 0.1 MG TABLET PO PRN (21:40)
[2020-12-21] MEDS: MELATONIN 5 MG TABLETS PO SCH (21:40)
[2020-12-21] MEDS: METHOCARBAMOL 500 MG TABLET PO PRN (21:41)
[2020-12-22] MEDS: cloNIDine HCL 0.1 MG TABLET PO PRN ×2 (06:49→22:05)
[2020-12-22] MEDS: METHOCARBAMOL 500 MG TABLET PO PRN ×2 (06:50→22:05)
[2020-12-22] MEDS: NICOTINE POLACRILEX 2 MG GUM BUC PRN ×3 (06:50→22:07)
[2020-12-22] MEDS ORDERED: METHADONE HCL 10 MG TABLET (FOR DETOX USE ONLY) PO ONE (10:00)
[2020-12-22] MEDS: NICOTINE 21 MG/24 HOURS TOPICAL PATCH TD SCH (10:36)
[2020-12-22] MEDS: PRENATAL VITAMINS W/ FOLIC ACID TABLET (FP) PO SCH (10:36)
[2020-12-22] MEDS: THIAMINE HCL 100 MG TABLET (FP) PO SCH (22:02)
[2020-12-22] MEDS: MELATONIN 5 MG TABLETS PO SCH (22:02)
[2020-12-22] MEDS: hydrOXYzine PAMOATE 25 MG CAPSULE (FP) PO PRN (22:02)
[2020-12-23] MEDS: NICOTINE POLACRILEX 2 MG GUM BUC PRN ×4 (06:50→20:21)
[2020-12-23] MEDS: METHOCARBAMOL 500 MG TABLET PO PRN ×2 (06:51→22:17)
[2020-12-23] MEDS: hydrOXYzine PAMOATE 25 MG CAPSULE (FP) PO PRN (06:52)
[2020-12-23] MEDS ORDERED: METHADONE HCL 5 MG TABLET (FOR DETOX USE ONLY) ONE (08:54)
[2020-12-23] MEDS ORDERED: METHADONE HCL 10 MG TABLET (FOR DETOX USE ONLY) ONE (08:54)
[2020-12-23] MEDS ORDERED: METHADONE (DETOX) 10 MG, METHADONE (DETOX) 5 MG PO ONE (10:00)
[2020-12-23] MEDS: NICOTINE 21 MG/24 HOURS TOPICAL PATCH TD SCH (10:51)
[2020-12-23] MEDS: PRENATAL VITAMINS W/ FOLIC ACID TABLET (FP) PO SCH (10:51)
[2020-12-23] MEDS ORDERED: DIVALPROEX SODIUM 500 MG TABLET E.C. PO SCH (22:00)
[2020-12-23] MEDS ORDERED: GABAPENTIN 100 MG CAPSULE PO SCH (22:00)
[2020-12-23] MEDS: GABAPENTIN 300 MG CAPSULE PO SCH (22:17)
[2020-12-23] MEDS: QUEtiapine FUMARATE 100 MG TABLET (FP) PO SCH (22:17)
[2020-12-23] MEDS: THIAMINE HCL 100 MG TABLET (FP) PO SCH (22:17)
[2020-12-23] MEDS: MELATONIN 5 MG TABLETS PO SCH (22:17)
[2020-12-24] MEDS: GABAPENTIN 300 MG CAPSULE PO SCH ×4 (06:24→21:28)
[2020-12-24] MEDS: METHOCARBAMOL 500 MG TABLET PO PRN ×3 (07:08→21:30)
[2020-12-24] MEDS: NICOTINE POLACRILEX 2 MG GUM BUC PRN ×5 (07:09→20:38)
[2020-12-24] MEDS: hydrOXYzine PAMOATE 25 MG CAPSULE (FP) PO PRN (07:09)
[2020-12-24] MEDS: NICOTINE 21 MG/24 HOURS TOPICAL PATCH TD SCH (09:08)
[2020-12-24] MEDS: PRENATAL VITAMINS W/ FOLIC ACID TABLET (FP) PO SCH (09:08)
[2020-12-24] MEDS ORDERED: METHADONE HCL 10 MG TABLET (FOR DETOX USE ONLY) PO ONE (10:00)
[2020-12-24] MEDS: cloNIDine HCL 0.1 MG TABLET PO PRN (18:56)
[2020-12-24] MEDS: THIAMINE HCL 100 MG TABLET (FP) PO SCH (21:28)
[2020-12-24] MEDS: QUEtiapine FUMARATE 100 MG TABLET (FP) PO SCH (21:28)
[2020-12-24] MEDS: MELATONIN 5 MG TABLETS PO SCH (21:29)
[2020-12-25] MEDS: cloNIDine HCL 0.1 MG TABLET PO PRN (03:42)
[2020-12-25] MEDS ORDERED: METHADONE HCL 5 MG TABLET (FOR DETOX USE ONLY) PO ONE (06:00)
[2020-12-25 06:09] LABS: SARS-CoV-2 NAA Not Detected (Not Detected)
[2020-12-25 06:37] VITALS: BP 110/61; PULSE 64; TEMP 97.5
[2020-12-25] MEDS: METHOCARBAMOL 500 MG TABLET PO PRN (07:06)
[2020-12-25] MEDS: GABAPENTIN 300 MG CAPSULE PO SCH (07:07)
[2020-12-25] MEDS: NICOTINE POLACRILEX 2 MG GUM BUC PRN (07:09)
[2020-12-25] MEDS: PRENATAL VITAMINS W/ FOLIC ACID TABLET (FP) PO SCH (09:03)
[2020-12-25] MEDS: NICOTINE 21 MG/24 HOURS TOPICAL PATCH TD SCH (09:03)
== END 2020-12-25 09:19 | disposition home or self-care (01) | DRG 773 ==
LOC: YASAS 15:00 → Y3N 20:52
PROVIDERS: ADMIT Allergy & Immunology; ATTEND Allergy & Immunology
PROC: HZ2ZZZZ Detoxification Services for Substance Abuse Treatment (ICD-10-PCS; principal; 2020-12-20)
DX: F11.23 Opioid dependence with withdrawal (principal); F14.20 Cocaine dependence, uncomplicated; F17.290 Nicotine dependence, other tobacco product, uncomplicated; F19.280 Other psychoactive substance dependence with psychoactive substance-induced anxiety disorder; F19.282 Other psychoactive substance dependence with psychoactive substance-induced sleep disorder; F31.9 Bipolar disorder, unspecified; F43.10 Post-traumatic stress disorder, unspecified; G47.00 Insomnia, unspecified; R60.0 Localized edema; Z62.810 Personal history of physical and sexual abuse in childhood; Z91.14 Patient's other noncompliance with medication regimen; Z59.0 Homelessness; Z91.013 Allergy to seafood
CPT/HCPCS: 93005; 93010; C9803; J0735; U0003; U0005

== ENCOUNTER 2021-02-17 23:03 | Inpatient (IN) | payer OTHER ==
[2021-02-17 23:35] VITALS: BMI 28.8
[2021-02-18] MEDS ORDERED: methaDONE HCL 10 MG TABLET (FOR DETOX USE ONLY) PO ONE (00:50)
[2021-02-18] MEDS ORDERED: ONDANSETRON *ODT* 4 MG TABLET SL PRN (00:50)
[2021-02-18] MEDS ORDERED: BISMUTH SUBSALICYLATE 524 MG/30 ML PO PRN (00:50)
[2021-02-18] MEDS ORDERED: MAGNESIUM CITRATE 300 ML BOTTLE PO PRN (00:50)
[2021-02-18] MEDS ORDERED: MAG HYDROX/AL HYDROX/SIMETH 30 ML UNIT-DOSE CUP PO PRN (00:50)
[2021-02-18] MEDS ORDERED: MENTHOL/PHENOL 1 EACH UD MM PRN (00:50)
[2021-02-18] MEDS ORDERED: ACETAMINOPHEN 325 MG TABLET (FP) PO PRN ×2 (00:50)
[2021-02-18] MEDS ORDERED: MAGNESIUM HYDROX 2400MG/30ML ORAL SUSPENSION 30 ML CUP PO PRN (00:50)
[2021-02-18] MEDS ORDERED: diazePAM 5 MG TABLET PO ONE (00:50)
[2021-02-18] MEDS ORDERED: diazePAM 5 MG TABLET ONE (02:02)
[2021-02-18] MEDS ORDERED: methaDONE HCL 10 MG TABLET (FOR DETOX USE ONLY) ONE (02:02)
[2021-02-18] MEDS: NICOTINE POLACRILEX 4 MG GUM BUC PRN ×6 (02:43→22:38)
[2021-02-18] MEDS: METHOCARBAMOL 500 MG TABLET PO PRN ×2 (02:46→22:34)
[2021-02-18] MEDS: GABAPENTIN 300 MG CAPSULE PO SCH ×3 (05:32→22:34)
[2021-02-18] MEDS: diazePAM 5 MG TABLET PO SCH ×4 (05:33→22:34)
[2021-02-18] MEDS: hydrOXYzine PAMOATE 25 MG CAPSULE (FP) PO SCH ×5 (05:34→23:03)
[2021-02-18] MEDS: NICOTINE 21 MG/24 HOURS TOPICAL PATCH TD SCH (10:13)
[2021-02-18] MEDS: PRENATAL VITAMINS W/ FOLIC ACID TABLET (FP) PO SCH (10:14)
[2021-02-18] MEDS ORDERED: OLANZapine 10 MG TABLET PO SCH (22:00)
[2021-02-18] MEDS: cloNIDine HCL 0.1 MG TABLET PO PRN (22:34)
[2021-02-18] MEDS: THIAMINE HCL 100 MG TABLET (FP) PO SCH (22:34)
[2021-02-18] MEDS: QUEtiapine FUMARATE 100 MG TABLET (FP) PO SCH (22:38)
[2021-02-18] MEDS: MELATONIN 5 MG TABLETS PO SCH (23:03)
[2021-02-19] MEDS: GABAPENTIN 300 MG CAPSULE PO SCH ×3 (05:30→22:09)
[2021-02-19] MEDS: diazePAM 5 MG TABLET PO SCH ×3 (05:31→22:09)
[2021-02-19] MEDS: hydrOXYzine PAMOATE 25 MG CAPSULE (FP) PO SCH ×5 (05:31→22:07)
[2021-02-19] MEDS: NICOTINE POLACRILEX 4 MG GUM BUC PRN ×2 (05:33→17:34)
[2021-02-19] MEDS ORDERED: methaDONE HCL 10 MG TABLET (FOR DETOX USE ONLY) ONE (10:04)
[2021-02-19] MEDS: NICOTINE 21 MG/24 HOURS TOPICAL PATCH TD SCH (10:22)
[2021-02-19] MEDS: diazePAM 5 MG TABLET PO PRN ×2 (10:23→17:33)
[2021-02-19] MEDS: METHOCARBAMOL 500 MG TABLET PO PRN (10:23)
[2021-02-19] MEDS: PRENATAL VITAMINS W/ FOLIC ACID TABLET (FP) PO SCH (10:23)
[2021-02-19] MEDS: MELATONIN 5 MG TABLETS PO SCH (22:05)
[2021-02-19] MEDS: THIAMINE HCL 100 MG TABLET (FP) PO SCH (22:07)
[2021-02-19] MEDS: IBUPROFEN 400 MG TABLET (FP) PO PRN (22:11)
[2021-02-19] MEDS: BACLOFEN 10 MG TABLET (FP) PO PRN (22:13)
[2021-02-19] MEDS: QUEtiapine FUMARATE 100 MG TABLET (FP) PO SCH (22:15)
[2021-02-20] MEDS: GABAPENTIN 300 MG CAPSULE PO SCH ×3 (05:44→22:45)
[2021-02-20] MEDS: hydrOXYzine PAMOATE 25 MG CAPSULE (FP) PO SCH ×3 (05:44→14:57)
[2021-02-20] MEDS: METHOCARBAMOL 500 MG TABLET PO PRN ×3 (05:44→22:56)
[2021-02-20] MEDS: diazePAM 5 MG TABLET PO SCH ×2 (05:45→18:52)
[2021-02-20] MEDS: diazePAM 5 MG TABLET PO PRN ×4 (08:01→22:49)
[2021-02-20] MEDS ORDERED: methaDONE HCL 10 MG TABLET (FOR DETOX USE ONLY) PO ONE (10:00)
[2021-02-20] MEDS: PRENATAL VITAMINS W/ FOLIC ACID TABLET (FP) PO SCH (10:38)
[2021-02-20] MEDS: NICOTINE 21 MG/24 HOURS TOPICAL PATCH TD SCH (10:38)
[2021-02-20] MEDS: IBUPROFEN 400 MG TABLET (FP) PO PRN ×2 (10:41→22:56)
[2021-02-20] MEDS: BACLOFEN 10 MG TABLET (FP) PO PRN (10:42)
[2021-02-20] MEDS: cloNIDine HCL 0.1 MG TABLET PO PRN (14:57)
[2021-02-20] MEDS: NICOTINE POLACRILEX 4 MG GUM BUC PRN ×2 (14:58→22:58)
[2021-02-20] MEDS ORDERED: hydrOXYzine PAMOATE 25 MG CAPSULE (FP) PO PRN (15:17)
[2021-02-20] MEDS ORDERED: MASKS NR ONE (18:51)
[2021-02-20] MEDS: THIAMINE HCL 100 MG TABLET (FP) PO SCH (22:45)
[2021-02-20] MEDS: QUEtiapine FUMARATE 100 MG TABLET (FP) PO SCH (22:45)
[2021-02-20] MEDS: MELATONIN 5 MG TABLETS PO SCH (22:45)
[2021-02-21] MEDS ORDERED: diazePAM 5 MG TABLET PO ONE (06:00)
[2021-02-21] MEDS: GABAPENTIN 300 MG CAPSULE PO SCH ×2 (06:25→13:20)
[2021-02-21] MEDS: NICOTINE POLACRILEX 4 MG GUM BUC PRN ×4 (09:06→16:33)
[2021-02-21] MEDS ORDERED: methaDONE HCL 10 MG TABLET (FOR DETOX USE ONLY) ONE (09:12)
[2021-02-21] MEDS: PRENATAL VITAMINS W/ FOLIC ACID TABLET (FP) PO SCH (09:57)
[2021-02-21] MEDS: NICOTINE 21 MG/24 HOURS TOPICAL PATCH TD SCH (09:58)
[2021-02-21] MEDS: METHOCARBAMOL 500 MG TABLET PO PRN ×2 (09:59→16:31)
[2021-02-21] MEDS ORDERED: diazePAM 5 MG TABLET PO PRN (12:05)
[2021-02-21] MEDS ORDERED: NICOTINE 10 MG CARTRIDGE (INHALER) IH PRN (12:33)
[2021-02-21] MEDS: IBUPROFEN 400 MG TABLET (FP) PO PRN (13:21)
[2021-02-21 18:32] VITALS: BP 123/76; PULSE 93; TEMP 96.4
[2021-02-22] MEDS ORDERED: methaDONE HCL 10 MG TABLET (FOR DETOX USE ONLY) PO ONE (10:00)
== END 2021-02-21 17:31 | disposition left against medical advice (07) | DRG 770 ==
LOC: YASAS 23:03 → Y3N 02-18 01:19
PROVIDERS: ADMIT Allergy & Immunology; ATTEND Allergy & Immunology
PROC: HZ2ZZZZ Detoxification Services for Substance Abuse Treatment (ICD-10-PCS; principal; 2021-02-18)
DX: F11.23 Opioid dependence with withdrawal (principal); F13.230 Sedative, hypnotic or anxiolytic dependence with withdrawal, uncomplicated; F14.20 Cocaine dependence, uncomplicated; F17.210 Nicotine dependence, cigarettes, uncomplicated; F43.10 Post-traumatic stress disorder, unspecified; F31.9 Bipolar disorder, unspecified; F19.24 Other psychoactive substance dependence with psychoactive substance-induced mood disorder; F19.280 Other psychoactive substance dependence with psychoactive substance-induced anxiety disorder; F19.282 Other psychoactive substance dependence with psychoactive substance-induced sleep disorder; G62.9 Polyneuropathy, unspecified; M54.5 Low back pain; M51.26 Other intervertebral disc displacement, lumbar region; G89.29 Other chronic pain; Z88.8 Allergy status to other drugs, medicaments and biological substances; Z91.013 Allergy to seafood; Z91.018 Allergy to other foods; Z86.711 Personal history of pulmonary embolism; Z56.0 Unemployment, unspecified; Z59.0 Homelessness
CPT/HCPCS: 93005; 93010; C9803; J0475; J0735; U0003; U0005

== ENCOUNTER 2021-02-25 21:33 | Emergency (ER) | payer OTHER ==
[2021-02-25 21:46] VITALS: BP 134/83; PULSE 89; TEMP 98.7; BMI 28.8
== END 2021-02-26 00:24 | disposition home or self-care (01) ==
LOC: JER 21:33
DX: F11.20 Opioid dependence, uncomplicated (principal)
CPT/HCPCS: 71045-TC-FY; 99285-25

== ENCOUNTER 2021-02-26 00:44 | Inpatient (IN) | payer OTHER ==
[2021-02-26 01:10] VITALS: BMI 28.7
[2021-02-26] MEDS ORDERED: BISMUTH SUBSALICYLATE 524 MG/30 ML PO PRN (02:05)
[2021-02-26] MEDS ORDERED: ONDANSETRON *ODT* 4 MG TABLET SL PRN (02:05)
[2021-02-26] MEDS ORDERED: MAGNESIUM HYDROX 2400MG/30ML ORAL SUSPENSION 30 ML CUP PO PRN (02:05)
[2021-02-26] MEDS ORDERED: IBUPROFEN 400 MG TABLET (FP) PO PRN (02:05)
[2021-02-26] MEDS ORDERED: MAGNESIUM CITRATE 300 ML BOTTLE PO PRN (02:05)
[2021-02-26] MEDS ORDERED: MENTHOL/PHENOL 1 EACH UD MM PRN (02:05)
[2021-02-26] MEDS ORDERED: MAG HYDROX/AL HYDROX/SIMETH 30 ML UNIT-DOSE CUP PO PRN (02:05)
[2021-02-26] MEDS ORDERED: ACETAMINOPHEN 325 MG TABLET (FP) PO PRN ×2 (02:05)
[2021-02-26] MEDS: NICOTINE POLACRILEX 2 MG GUM BUC PRN ×3 (10:17→22:45)
[2021-02-26] MEDS: METHOCARBAMOL 500 MG TABLET PO PRN ×2 (10:18→22:44)
[2021-02-26] MEDS: PRENATAL VITAMINS W/ FOLIC ACID TABLET (FP) PO SCH (10:19)
[2021-02-26] MEDS: NICOTINE 14 MG/24 HOURS TOPICAL PATCH TD SCH (10:19)
[2021-02-26] MEDS ORDERED: diazePAM 5 MG TABLET PO PRN (16:43)
[2021-02-26] MEDS ORDERED: methaDONE HCL 10 MG TABLET (FOR DETOX USE ONLY) PO ONE (16:45)
[2021-02-26] MEDS: diazePAM 5 MG TABLET PO SCH ×2 (17:43→22:43)
[2021-02-26] MEDS: MELATONIN 5 MG TABLETS PO SCH (22:44)
[2021-02-26] MEDS: cloNIDine HCL 0.1 MG TABLET PO PRN (22:44)
[2021-02-26] MEDS: THIAMINE HCL 100 MG TABLET (FP) PO SCH (22:44)
[2021-02-27] MEDS: METHOCARBAMOL 500 MG TABLET PO PRN ×2 (05:28→17:55)
[2021-02-27] MEDS: diazePAM 5 MG TABLET PO SCH ×4 (05:28→22:59)
[2021-02-27] MEDS ORDERED: methaDONE HCL 10 MG TABLET (FOR DETOX USE ONLY) ONE (09:00)
[2021-02-27] MEDS: PRENATAL VITAMINS W/ FOLIC ACID TABLET (FP) PO SCH (10:15)
[2021-02-27] MEDS: NICOTINE POLACRILEX 2 MG GUM BUC PRN ×2 (10:17→17:59)
[2021-02-27] MEDS: NICOTINE 14 MG/24 HOURS TOPICAL PATCH TD SCH (10:17)
[2021-02-27] MEDS: cloNIDine HCL 0.1 MG TABLET PO PRN ×2 (17:59→23:00)
[2021-02-27] MEDS: THIAMINE HCL 100 MG TABLET (FP) PO SCH (22:59)
[2021-02-27] MEDS: MELATONIN 5 MG TABLETS PO SCH (22:59)
[2021-02-28] MEDS: cloNIDine HCL 0.1 MG TABLET PO PRN ×2 (02:57→22:22)
[2021-02-28] MEDS: METHOCARBAMOL 500 MG TABLET PO PRN ×3 (02:57→22:22)
[2021-02-28] MEDS: NICOTINE POLACRILEX 2 MG GUM BUC PRN ×4 (02:58→22:24)
[2021-02-28] MEDS ORDERED: MASKS NR ONE (04:53)
[2021-02-28] MEDS: diazePAM 5 MG TABLET PO SCH ×3 (05:11→22:22)
[2021-02-28] MEDS ORDERED: methaDONE HCL 10 MG TABLET (FOR DETOX USE ONLY) PO ONE (10:00)
[2021-02-28] MEDS: PRENATAL VITAMINS W/ FOLIC ACID TABLET (FP) PO SCH (10:08)
[2021-02-28] MEDS: NICOTINE 14 MG/24 HOURS TOPICAL PATCH TD SCH (10:35)
[2021-02-28 15:54] LABS: BASO % 0.3 % (0-2.0); EOS % 1.1 % (0-4.5); HEMATOCRIT 40.3 % (35.4-49); HEMOGLOBIN 13.6 GM/dL (11.7-16.9); LYMPH % 34.3 % (8-40); MCH 32.2 pg (25.7-33.7); MCHC 33.8 g/dl (32.0-35.9); MEAN CELL VOLUME 95.3 fl (80-96); MEAN PLT VOLUME 8.6 fl (7.5-11.1); MONO % 5.1 % (3.8-10.2); NEUT % 59.2 % (42.8-82.8); PLATELET COUNT 240 10^3/uL (134-434); RBC 4.23 M/mm3 (4.00-5.60); RDW 13.2 % (11.9-15.9); WHITE BLOOD COUNT 4.5 K/mm3 (4.0-10.0)
[2021-02-28 16:01] LABS: BLOOD UREA NITROGEN 10.4 mg/dL (7-18); CALCIUM 8.6 mg/dL (8.5-10.1)
[2021-02-28 16:02] LABS: ALBUMIN 3.3 g/dl (3.4-5.0)
[2021-02-28 16:05] LABS: CREATININE 0.9 mg/dL (0.55-1.3)
[2021-02-28 16:06] LABS: BILIRUBIN,TOTAL 0.3 mg/dL (0.2-1)
[2021-02-28 16:07] LABS: TOT PROT 6.4 g/dl (6.4-8.2)
[2021-02-28] MEDS: THIAMINE HCL 100 MG TABLET (FP) PO SCH (22:22)
[2021-02-28] MEDS: hydrOXYzine PAMOATE 25 MG CAPSULE (FP) PO PRN (22:22)
[2021-02-28] MEDS: MELATONIN 5 MG TABLETS PO SCH (22:23)
[2021-03-01] MEDS: METHOCARBAMOL 500 MG TABLET PO PRN (05:39)
[2021-03-01] MEDS: hydrOXYzine PAMOATE 25 MG CAPSULE (FP) PO PRN (05:39)
[2021-03-01] MEDS ORDERED: diazePAM 5 MG TABLET PO SCH (06:00)
[2021-03-01 06:23] VITALS: BP 121/76; PULSE 61; TEMP 97.2
[2021-03-02] MEDS ORDERED: diazePAM 5 MG TABLET PO ONE (06:00)
[2021-03-02] MEDS ORDERED: methaDONE HCL 10 MG TABLET (FOR DETOX USE ONLY) PO ONE (10:00)
== END 2021-03-01 11:08 | disposition left against medical advice (07) | DRG 770 ==
LOC: YASAS 00:44 → Y3N 02:53 → UNDOADMIN 02:53
PROVIDERS: ADMIT Allergy & Immunology; ATTEND Allergy & Immunology
PROC: HZ2ZZZZ Detoxification Services for Substance Abuse Treatment (ICD-10-PCS; principal; 2021-02-26)
DX: F11.23 Opioid dependence with withdrawal (principal); F14.20 Cocaine dependence, uncomplicated; F12.20 Cannabis dependence, uncomplicated; F17.210 Nicotine dependence, cigarettes, uncomplicated; F41.9 Anxiety disorder, unspecified; F43.10 Post-traumatic stress disorder, unspecified; F31.9 Bipolar disorder, unspecified; M54.5 Low back pain; G89.29 Other chronic pain; Z91.013 Allergy to seafood; Z88.2 Allergy status to sulfonamides
CPT/HCPCS: 36415; 71045-TC-FY; 80053; 85025; 86780; 99282-25; 99285-25; C9803; J0735; U0003; U0005

== ENCOUNTER 2021-05-01 04:50 | Inpatient (IN) | payer OTHER ==
[2021-05-01 06:31] VITALS: BMI 28.5
[2021-05-01] MEDS ORDERED: ACETAMINOPHEN 325 MG TABLET (FP) PO PRN (10:19)
[2021-05-01] MEDS ORDERED: MAGNESIUM CITRATE 300 ML BOTTLE PO PRN (10:19)
[2021-05-01] MEDS ORDERED: MENTHOL/PHENOL 1 EACH UD MM PRN (10:19)
[2021-05-01] MEDS ORDERED: methaDONE HCL 10 MG TABLET (FOR DETOX USE ONLY) PO ONE (10:19)
[2021-05-01] MEDS ORDERED: NICOTINE 10 MG CARTRIDGE (INHALER) IH PRN (10:19)
[2021-05-01] MEDS ORDERED: MAG HYDROX/AL HYDROX/SIMETH 30 ML UNIT-DOSE CUP PO PRN (10:19)
[2021-05-01] MEDS ORDERED: ONDANSETRON *ODT* 4 MG TABLET SL PRN (10:19)
[2021-05-01] MEDS ORDERED: BISMUTH SUBSALICYLATE 524 MG/30 ML PO PRN (10:19)
[2021-05-01] MEDS ORDERED: MAGNESIUM HYDROX 2400MG/30ML ORAL SUSPENSION 30 ML CUP PO PRN (10:19)
[2021-05-01] MEDS ORDERED: METHOCARBAMOL 500 MG TABLET PO PRN (10:19)
[2021-05-01] MEDS: LORazepam 2 MG TABLET PO SCH ×3 (11:06→22:38)
[2021-05-01] MEDS: PRENATAL VITAMINS W/ FOLIC ACID TABLET (FP) PO SCH (11:06)
[2021-05-01 12:53] LABS: HEMATOCRIT 41.2 % (35.4-49); HEMOGLOBIN 13.8 GM/dL (11.7-16.9); MCHC 33.5 g/dl (32.0-35.9); MEAN CELL VOLUME 92.5 fl (80-96); MEAN PLT VOLUME 8.1 fl (7.5-11.1); PLATELET COUNT 216 10^3/uL (134-434); RBC 4.46 M/mm3 (4.00-5.60); RDW 15.1 % (11.9-15.9); WHITE BLOOD COUNT 7.2 K/mm3 (4.0-10.0)
[2021-05-01 13:35] LABS: ALBUMIN 3.9 g/dl (3.4-5.0); CALCIUM 8.7 mg/dL (8.5-10.1)
[2021-05-01 13:36] LABS: BLOOD UREA NITROGEN 22.5 mg/dL (7-18)
[2021-05-01 13:39] LABS: CREATININE 1.3 mg/dL (0.55-1.3); TOT PROT 7.3 g/dl (6.4-8.2)
[2021-05-01 13:41] LABS: BILIRUBIN,TOTAL 0.8 mg/dL (0.2-1)
[2021-05-01] MEDS: CYCLOBENZAPRINE HCL 10 MG TABLET (FP) PO SCH ×2 (13:57→22:38)
[2021-05-01] MEDS: NICOTINE POLACRILEX 2 MG GUM BUC PRN ×3 (13:59→22:43)
[2021-05-01] MEDS ORDERED: hydrOXYzine PAMOATE 25 MG CAPSULE (FP) PO SCH (14:00)
[2021-05-01] MEDS: CLOTRIMAZOLE 1% CREAM TP SCH ×2 (14:02→22:39)
[2021-05-01] MEDS: hydrOXYzine PAMOATE 25 MG CAPSULE (FP) PO PRN ×2 (18:54→23:01)
[2021-05-01] MEDS: cloNIDine HCL 0.1 MG TABLET PO PRN ×2 (18:54→22:59)
[2021-05-01] MEDS: LORazepam 1 MG TABLET PO PRN (20:09)
[2021-05-01] MEDS: THIAMINE HCL 100 MG TABLET (FP) PO SCH (22:38)
[2021-05-01] MEDS: MELATONIN 5 MG TABLETS PO SCH (22:39)
[2021-05-01] MEDS: ACETAMINOPHEN 325 MG TABLET (FP) PO PRN (23:01)
[2021-05-02] MEDS: LORazepam 2 MG TABLET PO SCH ×4 (05:22→22:12)
[2021-05-02] MEDS: CYCLOBENZAPRINE HCL 10 MG TABLET (FP) PO SCH ×3 (05:22→22:13)
[2021-05-02] MEDS: NICOTINE POLACRILEX 2 MG GUM BUC PRN ×6 (05:24→22:16)
[2021-05-02] MEDS ORDERED: methaDONE HCL 10 MG TABLET (FOR DETOX USE ONLY) ONE (08:43)
[2021-05-02] MEDS: CLOTRIMAZOLE 1% CREAM TP SCH ×2 (10:12→22:05)
[2021-05-02] MEDS: PRENATAL VITAMINS W/ FOLIC ACID TABLET (FP) PO SCH (10:12)
[2021-05-02] MEDS: hydrOXYzine PAMOATE 25 MG CAPSULE (FP) PO PRN (15:02)
[2021-05-02] MEDS: LORazepam 1 MG TABLET PO PRN (20:05)
[2021-05-02] MEDS: MELATONIN 5 MG TABLETS PO SCH (22:05)
[2021-05-02] MEDS: QUEtiapine FUMARATE 100 MG TABLET (FP) PO SCH (22:12)
[2021-05-02] MEDS: GABAPENTIN 300 MG CAPSULE PO SCH (22:13)
[2021-05-02] MEDS: THIAMINE HCL 100 MG TABLET (FP) PO SCH (22:13)
[2021-05-03] MEDS: NICOTINE POLACRILEX 2 MG GUM BUC PRN ×6 (00:35→22:14)
[2021-05-03] MEDS: LORazepam 1 MG TABLET PO SCH ×4 (05:23→22:12)
[2021-05-03] MEDS: CYCLOBENZAPRINE HCL 10 MG TABLET (FP) PO SCH ×3 (05:23→22:12)
[2021-05-03] MEDS: GABAPENTIN 300 MG CAPSULE PO SCH ×3 (05:24→22:11)
[2021-05-03] MEDS ORDERED: methaDONE HCL 10 MG TABLET (FOR DETOX USE ONLY) PO ONE (10:00)
[2021-05-03] MEDS: hydrOXYzine PAMOATE 25 MG CAPSULE (FP) PO PRN (10:48)
[2021-05-03] MEDS: PRENATAL VITAMINS W/ FOLIC ACID TABLET (FP) PO SCH (10:48)
[2021-05-03] MEDS: CLOTRIMAZOLE 1% CREAM TP SCH ×2 (11:09→22:14)
[2021-05-03] MEDS: LORazepam 1 MG TABLET PO PRN (15:15)
[2021-05-03] MEDS: MELATONIN 5 MG TABLETS PO SCH (22:11)
[2021-05-03] MEDS: QUEtiapine FUMARATE 100 MG TABLET (FP) PO SCH (22:12)
[2021-05-03] MEDS: THIAMINE HCL 100 MG TABLET (FP) PO SCH (22:12)
[2021-05-04] MEDS ORDERED: LORazepam 0.5 MG TABLET PO PRN
[2021-05-04] MEDS: CYCLOBENZAPRINE HCL 10 MG TABLET (FP) PO SCH ×3 (05:30→22:17)
[2021-05-04] MEDS: GABAPENTIN 300 MG CAPSULE PO SCH ×3 (05:30→22:18)
[2021-05-04] MEDS: LORazepam 0.5 MG TABLET PO SCH ×4 (05:30→22:19)
[2021-05-04] MEDS: NICOTINE POLACRILEX 2 MG GUM BUC PRN ×5 (05:35→22:23)
[2021-05-04] MEDS: PRENATAL VITAMINS W/ FOLIC ACID TABLET (FP) PO SCH (10:27)
[2021-05-04] MEDS ORDERED: methaDONE HCL 10 MG TABLET (FOR DETOX USE ONLY) ONE (10:29)
[2021-05-04] MEDS: CLOTRIMAZOLE 1% CREAM TP SCH ×2 (10:50→22:24)
[2021-05-04] MEDS: hydrOXYzine PAMOATE 25 MG CAPSULE (FP) PO PRN (13:40)
[2021-05-04] MEDS: QUEtiapine FUMARATE 100 MG TABLET (FP) PO SCH (22:18)
[2021-05-04] MEDS: THIAMINE HCL 100 MG TABLET (FP) PO SCH (22:18)
[2021-05-04] MEDS: MELATONIN 5 MG TABLETS PO SCH (22:18)
[2021-05-04] MEDS: ACETAMINOPHEN 325 MG TABLET (FP) PO PRN (22:21)
[2021-05-05] MEDS ORDERED: LORazepam 0.5 MG TABLET PO ONE (05:00)
[2021-05-05] MEDS: CYCLOBENZAPRINE HCL 10 MG TABLET (FP) PO SCH ×3 (05:35→22:07)
[2021-05-05] MEDS: GABAPENTIN 300 MG CAPSULE PO SCH ×3 (05:35→22:07)
[2021-05-05] MEDS ORDERED: methaDONE HCL 10 MG TABLET (FOR DETOX USE ONLY) PO ONE (10:00)
[2021-05-05] MEDS: PRENATAL VITAMINS W/ FOLIC ACID TABLET (FP) PO SCH (10:22)
[2021-05-05] MEDS: CLOTRIMAZOLE 1% CREAM TP SCH ×2 (10:22→22:11)
[2021-05-05] MEDS: NICOTINE POLACRILEX 2 MG GUM BUC PRN ×4 (10:24→22:10)
[2021-05-05] MEDS: hydrOXYzine PAMOATE 25 MG CAPSULE (FP) PO PRN ×2 (12:38→22:08)
[2021-05-05] MEDS ORDERED: cloNIDine HCL 0.1 MG TABLET PO ONE (12:49)
[2021-05-05] MEDS ORDERED: cloNIDine HCL 0.1 MG TABLET PO SCH (22:00)
[2021-05-05] MEDS: ACETAMINOPHEN 325 MG TABLET (FP) PO PRN (22:07)
[2021-05-05] MEDS: MELATONIN 5 MG TABLETS PO SCH (22:07)
[2021-05-05] MEDS: THIAMINE HCL 100 MG TABLET (FP) PO SCH (22:07)
[2021-05-05] MEDS: QUEtiapine FUMARATE 100 MG TABLET (FP) PO SCH (22:07)
[2021-05-06] MEDS: GABAPENTIN 300 MG CAPSULE PO SCH (07:01)
[2021-05-06] MEDS: CYCLOBENZAPRINE HCL 10 MG TABLET (FP) PO SCH (07:01)
[2021-05-06] MEDS: NICOTINE POLACRILEX 2 MG GUM BUC PRN (07:25)
[2021-05-06 09:12] VITALS: BP 98/59; PULSE 95; TEMP 96.9
== END 2021-05-06 09:18 | disposition home or self-care (01) | DRG 773 ==
LOC: YASAS 04:50 → Y3N 12:36
PROVIDERS: ADMIT Allergy & Immunology; ATTEND Allergy & Immunology
PROC: HZ2ZZZZ Detoxification Services for Substance Abuse Treatment (ICD-10-PCS; principal; 2021-05-01)
DX: F10.230 Alcohol dependence with withdrawal, uncomplicated (principal); F11.23 Opioid dependence with withdrawal; F13.230 Sedative, hypnotic or anxiolytic dependence with withdrawal, uncomplicated; F12.20 Cannabis dependence, uncomplicated; F17.210 Nicotine dependence, cigarettes, uncomplicated; F19.24 Other psychoactive substance dependence with psychoactive substance-induced mood disorder; F31.9 Bipolar disorder, unspecified; F43.10 Post-traumatic stress disorder, unspecified; F41.9 Anxiety disorder, unspecified; G47.00 Insomnia, unspecified; M54.50 Low back pain, unspecified; M51.26 Other intervertebral disc displacement, lumbar region; Z91.51 Personal history of suicidal behavior; Z98.890 Other specified postprocedural states; Z86.711 Personal history of pulmonary embolism; Z88.8 Allergy status to other drugs, medicaments and biological substances; Z59.02 Unsheltered homelessness; Z56.0 Unemployment, unspecified
CPT/HCPCS: 36415; 80053; 85027; 86780; C9803; J0735; U0003; U0005

== ENCOUNTER 2021-11-28 08:02 | Inpatient (IN) | payer OTHER ==
[2021-11-28] MEDS ORDERED: MAG HYDROX/AL HYDROX/SIMETH 30 ML UNIT-DOSE CUP PO PRN (10:17)
[2021-11-28] MEDS ORDERED: ACETAMINOPHEN 325 MG TABLET (FP) PO PRN ×2 (10:17)
[2021-11-28] MEDS ORDERED: BENZOCAINE/MENTHOL (CHLORASEPTIC ) LOZENGE MM PRN (10:17)
[2021-11-28] MEDS ORDERED: ONDANSETRON *ODT* 4 MG TABLET SL PRN (10:17)
[2021-11-28] MEDS ORDERED: NICOTINE 10 MG CARTRIDGE (INHALER) IH PRN (10:17)
[2021-11-28] MEDS ORDERED: DICYCLOMINE HCL 10 MG CAPSULE PO PRN (10:17)
[2021-11-28] MEDS ORDERED: BISMUTH SUBSALICYLATE 262 MG/15 ML BTL PO PRN (10:17)
[2021-11-28] MEDS ORDERED: MAGNESIUM CITRATE 300 ML BOTTLE PO PRN (10:17)
[2021-11-28] MEDS ORDERED: LOPERAMIDE HCL 2 MG CAPSULE PO PRN (10:17)
[2021-11-28] MEDS ORDERED: MAGNESIUM HYDROX 2400MG/30ML ORAL SUSPENSION 30 ML CUP PO PRN (10:17)
[2021-11-28 11:19] VITALS: BMI 27.3
[2021-11-28] MEDS ORDERED: hydrOXYzine PAMOATE 25 MG CAPSULE (FP) PO SCH (14:00)
[2021-11-28] MEDS: diazePAM 5 MG TABLET PO PRN (14:42)
[2021-11-28] MEDS: NICOTINE 14 MG/24 HOURS TOPICAL PATCH TD SCH (14:44)
[2021-11-28] MEDS: PRENATAL VITAMINS W/ FOLIC ACID TABLET (FP) PO SCH (14:44)
[2021-11-28] MEDS: diazePAM 5 MG TABLET PO SCH ×3 (14:44→22:35)
[2021-11-28 17:10] LABS: HEMATOCRIT 37.9 % (35.4-49); HEMOGLOBIN 12.6 GM/dL (11.7-16.9); MCH 32.5 pg (25.7-33.7); MCHC 33.1 g/dl (32.0-35.9); MEAN CELL VOLUME 98.1 fl (80-96); MEAN PLT VOLUME 8.4 fl (7.5-11.1); PLATELET COUNT 210 10^3/uL (134-434); RBC 3.86 M/mm3 (4.00-5.60); RDW 13.8 % (11.9-15.9); WHITE BLOOD COUNT 7.3 K/mm3 (4.0-10.0)
[2021-11-28 17:13] LABS: ALBUMIN 3.6 g/dl (3.4-5.0); BLOOD UREA NITROGEN 25.6 mg/dL (7-18); CALCIUM 8.6 mg/dL (8.5-10.1)
[2021-11-28 17:16] LABS: CREATININE 0.9 mg/dL (0.55-1.3)
[2021-11-28 17:18] LABS: BILIRUBIN,TOTAL 0.2 mg/dL (0.2-1); TOT PROT 6.3 g/dl (6.4-8.2)
[2021-11-28] MEDS: IBUPROFEN 400 MG TABLET (FP) PO PRN (18:52)
[2021-11-28] MEDS ORDERED: MELATONIN 5 MG TABLETS PO SCH (22:00)
[2021-11-28] MEDS: THIAMINE HCL 100 MG TABLET (FP) PO SCH (22:36)
[2021-11-28] MEDS: METHOCARBAMOL 500 MG TABLET PO PRN (22:37)
[2021-11-28] MEDS: hydrOXYzine PAMOATE 25 MG CAPSULE (FP) PO PRN (22:37)
[2021-11-29] MEDS ORDERED: methaDONE HCL 10 MG TABLET ONE (05:11)
[2021-11-29] MEDS ORDERED: methaDONE HCL 40 MG DISPERSABLE TABLET ONE (05:12)
[2021-11-29] MEDS: diazePAM 5 MG TABLET PO SCH ×4 (05:15→22:42)
[2021-11-29] MEDS ORDERED: methaDONE HCL 10 MG TABLET PO SCH ×2 (06:00)
[2021-11-29] MEDS: NICOTINE 14 MG/24 HOURS TOPICAL PATCH TD SCH (11:42)
[2021-11-29] MEDS: PRENATAL VITAMINS W/ FOLIC ACID TABLET (FP) PO SCH (11:42)
[2021-11-29] MEDS: GABAPENTIN 300 MG CAPSULE PO SCH ×2 (14:06→22:41)
[2021-11-29] MEDS: diazePAM 5 MG TABLET PO PRN (14:07)
[2021-11-29] MEDS: cloNIDine HCL 0.1 MG TABLET PO PRN ×2 (18:03→22:43)
[2021-11-29] MEDS: NICOTINE POLACRILEX 4 MG GUM BUC PRN ×2 (19:01→22:45)
[2021-11-29] MEDS: THIAMINE HCL 100 MG TABLET (FP) PO SCH (22:41)
[2021-11-29] MEDS: METHOCARBAMOL 500 MG TABLET PO PRN (22:43)
[2021-11-29] MEDS: IBUPROFEN 400 MG TABLET (FP) PO PRN (22:43)
[2021-11-30] MEDS ORDERED: methaDONE HCL 10 MG TABLET ONE (04:05)
[2021-11-30] MEDS ORDERED: methaDONE HCL 40 MG DISPERSABLE TABLET ONE (04:06)
[2021-11-30] MEDS: GABAPENTIN 300 MG CAPSULE PO SCH ×3 (05:54→22:43)
[2021-11-30] MEDS: diazePAM 5 MG TABLET PO SCH ×3 (05:54→22:44)
[2021-11-30] MEDS: IBUPROFEN 400 MG TABLET (FP) PO PRN ×2 (05:58→22:46)
[2021-11-30] MEDS: METHOCARBAMOL 500 MG TABLET PO PRN ×2 (08:00→22:43)
[2021-11-30] MEDS: NICOTINE POLACRILEX 4 MG GUM BUC PRN ×6 (08:08→22:46)
[2021-11-30] MEDS: cloNIDine HCL 0.1 MG TABLET PO PRN ×2 (09:50→19:24)
[2021-11-30] MEDS: PRENATAL VITAMINS W/ FOLIC ACID TABLET (FP) PO SCH (09:50)
[2021-11-30] MEDS: diazePAM 5 MG TABLET PO PRN ×2 (09:51→19:24)
[2021-11-30] MEDS: hydrOXYzine PAMOATE 25 MG CAPSULE (FP) PO PRN (22:43)
[2021-11-30] MEDS: THIAMINE HCL 100 MG TABLET (FP) PO SCH (22:44)
[2021-12-01] MEDS: cloNIDine HCL 0.1 MG TABLET PO PRN ×3 (03:10→22:36)
[2021-12-01] MEDS: diazePAM 5 MG TABLET PO PRN ×2 (03:10→08:55)
[2021-12-01] MEDS ORDERED: methaDONE HCL 10 MG TABLET ONE (04:49)
[2021-12-01] MEDS ORDERED: methaDONE HCL 40 MG DISPERSABLE TABLET ONE (04:49)
[2021-12-01] MEDS: diazePAM 5 MG TABLET PO SCH ×2 (05:59→17:28)
[2021-12-01] MEDS: GABAPENTIN 300 MG CAPSULE PO SCH ×3 (06:00→22:35)
[2021-12-01] MEDS: METHOCARBAMOL 500 MG TABLET PO PRN ×3 (06:05→22:35)
[2021-12-01] MEDS: NICOTINE POLACRILEX 4 MG GUM BUC PRN ×7 (06:05→22:37)
[2021-12-01] MEDS: PRENATAL VITAMINS W/ FOLIC ACID TABLET (FP) PO SCH (10:35)
[2021-12-01] MEDS: IBUPROFEN 400 MG TABLET (FP) PO PRN ×2 (11:51→22:39)
[2021-12-01] MEDS: hydrOXYzine PAMOATE 25 MG CAPSULE (FP) PO PRN ×2 (14:58→22:35)
[2021-12-01] MEDS ORDERED: SUVOREXANT 10 MG TABLET PO PRN (22:00)
[2021-12-01] MEDS: THIAMINE HCL 100 MG TABLET (FP) PO SCH (22:35)
[2021-12-02] MEDS ORDERED: methaDONE HCL 10 MG TABLET ONE (04:55)
[2021-12-02] MEDS ORDERED: methaDONE HCL 40 MG DISPERSABLE TABLET ONE (04:56)
[2021-12-02] MEDS: GABAPENTIN 300 MG CAPSULE PO SCH (05:31)
[2021-12-02] MEDS: METHOCARBAMOL 500 MG TABLET PO PRN (05:34)
[2021-12-02] MEDS: cloNIDine HCL 0.1 MG TABLET PO PRN (05:34)
[2021-12-02] MEDS: NICOTINE POLACRILEX 4 MG GUM BUC PRN (05:39)
[2021-12-02] MEDS: IBUPROFEN 400 MG TABLET (FP) PO PRN (06:00)
[2021-12-02] MEDS ORDERED: diazePAM 5 MG TABLET PO ONE (06:00)
[2021-12-02 08:56] VITALS: BP 109/53; PULSE 69; TEMP 98.2
[2021-12-02] MEDS: PRENATAL VITAMINS W/ FOLIC ACID TABLET (FP) PO SCH (10:37)
== END 2021-12-02 12:34 | disposition home or self-care (01) | DRG 773 ==
LOC: YASAS 08:02 → Y3N 12:04
PROVIDERS: ADMIT Allergy & Immunology; ATTEND Allergy & Immunology
PROC: HZ2ZZZZ Detoxification Services for Substance Abuse Treatment (ICD-10-PCS; principal; 2021-11-28)
DX: F10.230 Alcohol dependence with withdrawal, uncomplicated (principal); F11.20 Opioid dependence, uncomplicated; F13.20 Sedative, hypnotic or anxiolytic dependence, uncomplicated; F12.20 Cannabis dependence, uncomplicated; F17.210 Nicotine dependence, cigarettes, uncomplicated; F31.9 Bipolar disorder, unspecified; F19.282 Other psychoactive substance dependence with psychoactive substance-induced sleep disorder; F19.280 Other psychoactive substance dependence with psychoactive substance-induced anxiety disorder; F19.24 Other psychoactive substance dependence with psychoactive substance-induced mood disorder; I10 Essential (primary) hypertension; M54.50 Low back pain, unspecified; R73.9 Hyperglycemia, unspecified; R74.01 Elevation of levels of liver transaminase levels; R94.5 Abnormal results of liver function studies; Z62.810 Personal history of physical and sexual abuse in childhood; Z28.310 Unvaccinated for COVID-19; Z91.51 Personal history of suicidal behavior; Z91.013 Allergy to seafood; Z88.8 Allergy status to other drugs, medicaments and biological substances; Z59.00 Homelessness unspecified; Z56.0 Unemployment, unspecified
CPT/HCPCS: 36415; 80053; 85027; 86780; 87811; C9803-CS; J0735; Q0162; U0003; U0005

== ENCOUNTER 2021-12-22 15:55 | Inpatient (IN) | payer OTHER ==
[2021-12-22 16:52] VITALS: BMI 27.3
[2021-12-22] MEDS ORDERED: MAG HYDROX/AL HYDROX/SIMETH 30 ML UNIT-DOSE CUP PO PRN (17:36)
[2021-12-22] MEDS ORDERED: P-EPHED 60MG/TRIPROLIDI 2.5MG TABLET PO PRN (17:36)
[2021-12-22] MEDS ORDERED: NALOXONE HCL (KLOXXADO) 8 MG SPRAY NS PRN (17:36)
[2021-12-22] MEDS ORDERED: BISMUTH SUBSALICYLATE 524 MG/30 ML PO PRN (17:36)
[2021-12-22] MEDS ORDERED: MAGNESIUM HYDROX 2400MG/30ML ORAL SUSPENSION 30 ML CUP PO PRN (17:36)
[2021-12-22] MEDS ORDERED: MAGNESIUM CITRATE 300 ML BOTTLE PO PRN (17:36)
[2021-12-22] MEDS ORDERED: diazePAM 5 MG TABLET PO ONE (17:36)
[2021-12-22] MEDS ORDERED: DICYCLOMINE HCL 10 MG CAPSULE PO PRN (17:36)
[2021-12-22] MEDS ORDERED: ACETAMINOPHEN 325 MG TABLET (FP) PO PRN (17:36)
[2021-12-22] MEDS ORDERED: NICOTINE 10 MG CARTRIDGE (INHALER) IH PRN (17:36)
[2021-12-22] MEDS ORDERED: BENZOCAINE/MENTHOL (CHLORASEPTIC ) LOZENGE MM PRN (17:36)
[2021-12-22] MEDS ORDERED: LOPERAMIDE HCL 2 MG CAPSULE PO PRN (17:36)
[2021-12-22] MEDS: METHOCARBAMOL 500 MG TABLET PO PRN (18:43)
[2021-12-22] MEDS: hydrOXYzine PAMOATE 25 MG CAPSULE (FP) PO SCH ×2 (18:43→22:12)
[2021-12-22] MEDS: NICOTINE POLACRILEX 2 MG GUM BUC PRN (18:50)
[2021-12-22] MEDS: IBUPROFEN 400 MG TABLET (FP) PO PRN (18:50)
[2021-12-22] MEDS ORDERED: MELATONIN 5 MG TABLETS PO SCH (22:00)
[2021-12-22] MEDS: THIAMINE HCL 100 MG TABLET (FP) PO SCH (22:12)
[2021-12-22] MEDS: diazePAM 5 MG TABLET PO SCH (22:13)
[2021-12-22] MEDS: ACETAMINOPHEN 325 MG TABLET (FP) PO PRN (22:15)
[2021-12-23] MEDS: hydrOXYzine PAMOATE 25 MG CAPSULE (FP) PO SCH ×2 (05:25→11:28)
[2021-12-23] MEDS: METHOCARBAMOL 500 MG TABLET PO PRN ×2 (05:25→22:26)
[2021-12-23] MEDS: diazePAM 5 MG TABLET PO SCH ×4 (05:26→22:25)
[2021-12-23] MEDS: IBUPROFEN 400 MG TABLET (FP) PO PRN ×3 (05:26→18:32)
[2021-12-23] MEDS: NICOTINE POLACRILEX 2 MG GUM BUC PRN ×6 (05:28→22:28)
[2021-12-23] MEDS: diazePAM 5 MG TABLET PO PRN ×2 (08:53→18:57)
[2021-12-23] MEDS ORDERED: methaDONE HCL 40 MG DISPERSABLE TABLET PO ONE (09:00)
[2021-12-23] MEDS: PRENATAL VITAMINS W/ FOLIC ACID TABLET (FP) PO SCH (11:28)
[2021-12-23] MEDS: GABAPENTIN 400 MG CAPSULE PO SCH ×2 (13:21→22:25)
[2021-12-23] MEDS: cloNIDine HCL 0.1 MG TABLET PO PRN (18:32)
[2021-12-23] MEDS: THIAMINE HCL 100 MG TABLET (FP) PO SCH (22:25)
[2021-12-23] MEDS: SUVOREXANT 10 MG TABLET PO PRN (22:26)
[2021-12-24] MEDS: methaDONE HCL 40 MG DISPERSABLE TABLET PO SCH (05:04)
[2021-12-24] MEDS: GABAPENTIN 400 MG CAPSULE PO SCH ×3 (05:04→22:25)
[2021-12-24] MEDS: diazePAM 5 MG TABLET PO SCH ×3 (05:05→22:25)
[2021-12-24] MEDS: NICOTINE POLACRILEX 2 MG GUM BUC PRN ×3 (05:05→18:05)
[2021-12-24] MEDS: METHOCARBAMOL 500 MG TABLET PO PRN ×2 (05:07→10:07)
[2021-12-24] MEDS: IBUPROFEN 400 MG TABLET (FP) PO PRN ×2 (07:41→18:04)
[2021-12-24] MEDS: cloNIDine HCL 0.1 MG TABLET PO PRN (08:45)
[2021-12-24] MEDS: PRENATAL VITAMINS W/ FOLIC ACID TABLET (FP) PO SCH (10:06)
[2021-12-24] MEDS: CLOTRIMAZOLE 1% CREAM TP SCH ×2 (10:07→23:26)
[2021-12-24] MEDS: diazePAM 5 MG TABLET PO PRN ×2 (10:08→18:05)
[2021-12-24] MEDS: ACETAMINOPHEN 325 MG TABLET (FP) PO PRN ×2 (10:09→22:26)
[2021-12-24] MEDS: THIAMINE HCL 100 MG TABLET (FP) PO SCH (22:28)
[2021-12-24] MEDS: SUVOREXANT 10 MG TABLET PO PRN (22:30)
[2021-12-25] MEDS: methaDONE HCL 40 MG DISPERSABLE TABLET PO SCH (05:47)
[2021-12-25] MEDS: GABAPENTIN 400 MG CAPSULE PO SCH (05:51)
[2021-12-25] MEDS: NICOTINE POLACRILEX 2 MG GUM BUC PRN ×2 (05:52→10:33)
[2021-12-25] MEDS: IBUPROFEN 400 MG TABLET (FP) PO PRN (05:52)
[2021-12-25] MEDS ORDERED: diazePAM 5 MG TABLET PO SCH (06:00)
[2021-12-25 09:24] VITALS: BP 133/86; PULSE 66; TEMP 97.4
[2021-12-25] MEDS: METHOCARBAMOL 500 MG TABLET PO PRN (09:52)
[2021-12-25] MEDS: PRENATAL VITAMINS W/ FOLIC ACID TABLET (FP) PO SCH (09:52)
[2021-12-25] MEDS: CLOTRIMAZOLE 1% CREAM TP SCH (09:53)
[2021-12-25] MEDS: cloNIDine HCL 0.1 MG TABLET PO PRN (09:53)
[2021-12-26] MEDS ORDERED: diazePAM 5 MG TABLET PO ONE (06:00)
== END 2021-12-25 10:49 | disposition home or self-care (01) | DRG 773 ==
LOC: YASAS 15:55 → Y6N 17:32
PROVIDERS: ADMIT Allergy & Immunology; ATTEND Surgery
PROC: HZ2ZZZZ Detoxification Services for Substance Abuse Treatment (ICD-10-PCS; principal; 2021-12-22)
DX: F10.230 Alcohol dependence with withdrawal, uncomplicated (principal); F13.230 Sedative, hypnotic or anxiolytic dependence with withdrawal, uncomplicated; F11.20 Opioid dependence, uncomplicated; F14.20 Cocaine dependence, uncomplicated; F12.20 Cannabis dependence, uncomplicated; F17.210 Nicotine dependence, cigarettes, uncomplicated; F19.280 Other psychoactive substance dependence with psychoactive substance-induced anxiety disorder; F19.282 Other psychoactive substance dependence with psychoactive substance-induced sleep disorder; F41.8 Other specified anxiety disorders; F32.A Depression, unspecified; G62.9 Polyneuropathy, unspecified; M51.26 Other intervertebral disc displacement, lumbar region; Z62.810 Personal history of physical and sexual abuse in childhood; Z91.410 Personal history of adult physical and sexual abuse; Z28.310 Unvaccinated for COVID-19
CPT/HCPCS: C9803-CS; J0735; U0003; U0005

== ENCOUNTER 2022-01-18 00:51 | Inpatient (IN) | payer OTHER ==
[2022-01-18 01:06] VITALS: BMI 25.9
[2022-01-18] MEDS ORDERED: ACETAMINOPHEN 325 MG TABLET (FP) PO PRN ×2 (01:45)
[2022-01-18] MEDS ORDERED: MAGNESIUM HYDROX 2400MG/30ML ORAL SUSPENSION 30 ML CUP PO PRN (01:45)
[2022-01-18] MEDS ORDERED: LOPERAMIDE HCL 2 MG CAPSULE PO PRN (01:45)
[2022-01-18] MEDS ORDERED: MAG HYDROX/AL HYDROX/SIMETH 30 ML UNIT-DOSE CUP PO PRN (01:45)
[2022-01-18] MEDS ORDERED: DICYCLOMINE HCL 10 MG CAPSULE PO PRN (01:45)
[2022-01-18] MEDS ORDERED: NALOXONE HCL 0.4 MG/ML VIAL IM PRN (01:45)
[2022-01-18] MEDS ORDERED: NALOXONE HCL (KLOXXADO) 8 MG SPRAY NS PRN (01:45)
[2022-01-18] MEDS ORDERED: PROCHLORPERAZINE MALEATE 5 MG TABLET PO PRN (01:45)
[2022-01-18] MEDS ORDERED: BENZOCAINE/MENTHOL (CHLORASEPTIC ) LOZENGE MM PRN (01:45)
[2022-01-18] MEDS ORDERED: MAGNESIUM CITRATE 300 ML BOTTLE PO PRN (01:45)
[2022-01-18] MEDS ORDERED: diazePAM 5 MG TABLET PO ONE (01:45)
[2022-01-18] MEDS ORDERED: BISMUTH SUBSALICYLATE 524 MG/30 ML PO PRN (01:45)
[2022-01-18] MEDS: IBUPROFEN 600 MG TABLET (FP) PO PRN ×2 (04:52→22:38)
[2022-01-18] MEDS: diazePAM 5 MG TABLET PO SCH ×4 (04:52→22:40)
[2022-01-18] MEDS: PRENATAL VITAMINS W/ FOLIC ACID TABLET (FP) PO SCH (10:14)
[2022-01-18] MEDS: NICOTINE 21 MG/24 HOURS TOPICAL PATCH TD SCH (10:14)
[2022-01-18] MEDS: METHOCARBAMOL 500 MG TABLET PO PRN (10:14)
[2022-01-18] MEDS: NICOTINE POLACRILEX 2 MG GUM BUC PRN ×3 (10:16→22:42)
[2022-01-18] MEDS ORDERED: methaDONE HCL 10 MG TABLET PO ONE (11:45)
[2022-01-18] MEDS: GABAPENTIN 400 MG CAPSULE PO SCH ×2 (14:36→22:40)
[2022-01-18] MEDS: diazePAM 5 MG TABLET PO PRN (14:37)
[2022-01-18] MEDS ORDERED: MELATONIN 5 MG TABLETS PO SCH (22:00)
[2022-01-18] MEDS: THIAMINE HCL 100 MG TABLET (FP) PO SCH (22:40)
[2022-01-19] MEDS: diazePAM 5 MG TABLET PO PRN ×3 (03:39→16:45)
[2022-01-19] MEDS: diazePAM 5 MG TABLET PO SCH ×3 (05:48→21:40)
[2022-01-19] MEDS: GABAPENTIN 400 MG CAPSULE PO SCH ×3 (05:49→21:40)
[2022-01-19] MEDS: METHOCARBAMOL 500 MG TABLET PO PRN ×2 (05:52→21:40)
[2022-01-19] MEDS: NICOTINE POLACRILEX 2 MG GUM BUC PRN ×5 (08:44→21:43)
[2022-01-19] MEDS ORDERED: methaDONE HCL 10 MG TABLET PO ONE (08:55)
[2022-01-19] MEDS: methaDONE HCL 40 MG DISPERSABLE TABLET PO SCH (10:10)
[2022-01-19] MEDS: PRENATAL VITAMINS W/ FOLIC ACID TABLET (FP) PO SCH (10:10)
[2022-01-19] MEDS: NICOTINE 21 MG/24 HOURS TOPICAL PATCH TD SCH (10:11)
[2022-01-19] MEDS: IBUPROFEN 600 MG TABLET (FP) PO PRN (10:15)
[2022-01-19] MEDS: cloNIDine HCL 0.1 MG TABLET PO PRN (14:02)
[2022-01-19] MEDS: THIAMINE HCL 100 MG TABLET (FP) PO SCH (21:40)
[2022-01-19] MEDS: SUVOREXANT 10 MG TABLET PO PRN (21:42)
[2022-01-19] MEDS: CLOTRIMAZOLE 1% CREAM TP SCH (22:00)
[2022-01-20] MEDS: diazePAM 5 MG TABLET PO PRN ×4 (00:53→19:43)
[2022-01-20] MEDS: NICOTINE POLACRILEX 2 MG GUM BUC PRN ×7 (00:55→22:26)
[2022-01-20] MEDS: METHOCARBAMOL 500 MG TABLET PO PRN ×3 (05:18→22:27)
[2022-01-20] MEDS: methaDONE HCL 40 MG DISPERSABLE TABLET PO SCH (05:19)
[2022-01-20] MEDS: diazePAM 5 MG TABLET PO SCH ×2 (05:19→17:37)
[2022-01-20] MEDS: GABAPENTIN 400 MG CAPSULE PO SCH ×3 (05:19→22:21)
[2022-01-20] MEDS: cloNIDine HCL 0.1 MG TABLET PO PRN ×3 (09:14→22:23)
[2022-01-20] MEDS: NICOTINE 21 MG/24 HOURS TOPICAL PATCH TD SCH (09:15)
[2022-01-20] MEDS: PRENATAL VITAMINS W/ FOLIC ACID TABLET (FP) PO SCH (09:15)
[2022-01-20] MEDS: CLOTRIMAZOLE 1% CREAM TP SCH ×2 (09:15→22:21)
[2022-01-20] MEDS: IBUPROFEN 400 MG TABLET (FP) PO PRN ×2 (12:41→22:23)
[2022-01-20] MEDS: THIAMINE HCL 100 MG TABLET (FP) PO SCH (22:21)
[2022-01-20] MEDS: SUVOREXANT 10 MG TABLET PO PRN (22:21)
[2022-01-21] MEDS: NICOTINE POLACRILEX 2 MG GUM BUC PRN ×3 (02:07→08:43)
[2022-01-21] MEDS: cloNIDine HCL 0.1 MG TABLET PO PRN (02:12)
[2022-01-21] MEDS: GABAPENTIN 400 MG CAPSULE PO SCH (05:08)
[2022-01-21] MEDS: methaDONE HCL 40 MG DISPERSABLE TABLET PO SCH (05:08)
[2022-01-21] MEDS: METHOCARBAMOL 500 MG TABLET PO PRN (05:11)
[2022-01-21] MEDS ORDERED: diazePAM 5 MG TABLET PO ONE (06:00)
[2022-01-21 06:08] VITALS: BP 102/59; PULSE 71; TEMP 98.2
[2022-01-21] MEDS: CLOTRIMAZOLE 1% CREAM TP SCH (10:48)
[2022-01-21] MEDS: PRENATAL VITAMINS W/ FOLIC ACID TABLET (FP) PO SCH (10:48)
[2022-01-21] MEDS: NICOTINE 21 MG/24 HOURS TOPICAL PATCH TD SCH (10:48)
== END 2022-01-21 10:37 | disposition home or self-care (01) | DRG 773 ==
LOC: YASAS 00:51 → Y6N 02:06
PROVIDERS: ADMIT Allergy & Immunology; ATTEND Surgery
PROC: HZ2ZZZZ Detoxification Services for Substance Abuse Treatment (ICD-10-PCS; principal; 2022-01-18)
DX: F10.230 Alcohol dependence with withdrawal, uncomplicated (principal); F11.20 Opioid dependence, uncomplicated; F13.230 Sedative, hypnotic or anxiolytic dependence with withdrawal, uncomplicated; F12.20 Cannabis dependence, uncomplicated; F17.210 Nicotine dependence, cigarettes, uncomplicated; F31.9 Bipolar disorder, unspecified; F43.10 Post-traumatic stress disorder, unspecified; F19.24 Other psychoactive substance dependence with psychoactive substance-induced mood disorder; F19.282 Other psychoactive substance dependence with psychoactive substance-induced sleep disorder; M54.59 Other low back pain; G89.29 Other chronic pain; Z88.8 Allergy status to other drugs, medicaments and biological substances; Z91.013 Allergy to seafood; Z62.810 Personal history of physical and sexual abuse in childhood; Z28.310 Unvaccinated for COVID-19; Z91.51 Personal history of suicidal behavior; Z56.0 Unemployment, unspecified; Z59.00 Homelessness unspecified
CPT/HCPCS: 87811; C9803-CS; J0735; U0003; U0005

== ENCOUNTER 2022-02-07 20:36 | Inpatient (IN) | payer BC, OTHER ==
[2022-02-07 22:17] VITALS: BMI 25.8
[2022-02-08] MEDS ORDERED: MAGNESIUM HYDROX 2400MG/30ML ORAL SUSPENSION 30 ML CUP PO PRN (02:15)
[2022-02-08] MEDS ORDERED: BENZOCAINE/MENTHOL (CHLORASEPTIC ) LOZENGE MM PRN (02:15)
[2022-02-08] MEDS ORDERED: MAGNESIUM CITRATE 300 ML BOTTLE PO PRN (02:15)
[2022-02-08] MEDS ORDERED: LOPERAMIDE HCL 2 MG CAPSULE PO PRN (02:15)
[2022-02-08] MEDS ORDERED: BISMUTH SUBSALICYLATE 524 MG/30 ML PO PRN (02:15)
[2022-02-08] MEDS ORDERED: MAG HYDROX/AL HYDROX/SIMETH 30 ML UNIT-DOSE CUP PO PRN (02:15)
[2022-02-08] MEDS ORDERED: ACETAMINOPHEN 325 MG TABLET (FP) PO PRN ×2 (02:15)
[2022-02-08] MEDS ORDERED: IBUPROFEN 400 MG TABLET (FP) PO PRN (02:15)
[2022-02-08] MEDS ORDERED: DICYCLOMINE HCL 10 MG CAPSULE PO PRN (02:15)
[2022-02-08] MEDS: diazePAM 5 MG TABLET PO PRN ×3 (03:15→15:09)
[2022-02-08] MEDS: METHOCARBAMOL 500 MG TABLET PO PRN ×4 (03:16→22:52)
[2022-02-08] MEDS: diazePAM 5 MG TABLET PO SCH ×4 (06:26→22:55)
[2022-02-08] MEDS: NICOTINE POLACRILEX 2 MG GUM BUC PRN ×6 (06:27→22:58)
[2022-02-08] MEDS: IBUPROFEN 600 MG TABLET (FP) PO PRN ×2 (08:00→22:52)
[2022-02-08] MEDS ORDERED: methaDONE HCL 10 MG TABLET PO ONE (10:02)
[2022-02-08] MEDS: PRENATAL VITAMINS W/ FOLIC ACID TABLET (FP) PO SCH (10:43)
[2022-02-08] MEDS: NICOTINE 21 MG/24 HOURS TOPICAL PATCH TD SCH (10:46)
[2022-02-08] MEDS: ONDANSETRON *ODT* 4 MG TABLET SL PRN (11:50)
[2022-02-08] MEDS ORDERED: cloNIDine HCL 0.1 MG TABLET PO PRN (13:52)
[2022-02-08] MEDS: GABAPENTIN 400 MG CAPSULE PO SCH ×2 (15:09→22:54)
[2022-02-08] MEDS ORDERED: MELATONIN 5 MG TABLETS PO SCH (22:00)
[2022-02-08] MEDS: THIAMINE HCL 100 MG TABLET (FP) PO SCH (22:52)
[2022-02-08] MEDS: SUVOREXANT 10 MG TABLET PO PRN (22:55)
[2022-02-09] MEDS: GABAPENTIN 400 MG CAPSULE PO SCH ×3 (05:21→22:28)
[2022-02-09] MEDS: METHOCARBAMOL 500 MG TABLET PO PRN ×3 (05:22→22:30)
[2022-02-09] MEDS: diazePAM 5 MG TABLET PO SCH ×3 (05:22→22:27)
[2022-02-09] MEDS: diazePAM 5 MG TABLET PO PRN ×3 (08:57→20:46)
[2022-02-09] MEDS: NICOTINE POLACRILEX 2 MG GUM BUC PRN ×6 (08:57→22:33)
[2022-02-09] MEDS: methaDONE HCL 40 MG DISPERSABLE TABLET PO SCH (10:45)
[2022-02-09] MEDS: PRENATAL VITAMINS W/ FOLIC ACID TABLET (FP) PO SCH (10:45)
[2022-02-09] MEDS: NICOTINE 21 MG/24 HOURS TOPICAL PATCH TD SCH (10:46)
[2022-02-09] MEDS: IBUPROFEN 600 MG TABLET (FP) PO PRN ×2 (12:39→22:30)
[2022-02-09] MEDS: cloNIDine HCL 0.1 MG TABLET PO PRN ×2 (12:39→22:28)
[2022-02-09] MEDS: ONDANSETRON *ODT* 4 MG TABLET SL PRN (15:44)
[2022-02-09] MEDS ORDERED: hydrOXYzine PAMOATE 25 MG CAPSULE (FP) PO ONE (17:05)
[2022-02-09] MEDS: THIAMINE HCL 100 MG TABLET (FP) PO SCH (22:28)
[2022-02-09] MEDS: SUVOREXANT 10 MG TABLET PO PRN (22:29)
[2022-02-10] MEDS: cloNIDine HCL 0.1 MG TABLET PO PRN (05:14)
[2022-02-10] MEDS: METHOCARBAMOL 500 MG TABLET PO PRN ×2 (05:14→14:15)
[2022-02-10] MEDS: GABAPENTIN 400 MG CAPSULE PO SCH ×2 (05:14→14:15)
[2022-02-10] MEDS: methaDONE HCL 40 MG DISPERSABLE TABLET PO SCH (05:15)
[2022-02-10] MEDS: diazePAM 5 MG TABLET PO SCH ×2 (05:15→17:48)
[2022-02-10] MEDS: NICOTINE POLACRILEX 2 MG GUM BUC PRN ×4 (05:17→17:50)
[2022-02-10] MEDS: diazePAM 5 MG TABLET PO PRN ×2 (10:27→14:37)
[2022-02-10] MEDS: NICOTINE 21 MG/24 HOURS TOPICAL PATCH TD SCH (10:27)
[2022-02-10] MEDS: PRENATAL VITAMINS W/ FOLIC ACID TABLET (FP) PO SCH (10:29)
[2022-02-10 13:07] VITALS: TEMP 97.1
[2022-02-10 17:54] VITALS: BP 129/76; PULSE 81
[2022-02-11] MEDS ORDERED: diazePAM 5 MG TABLET PO ONE (06:00)
== END 2022-02-10 23:11 | disposition left against medical advice (07) | DRG 770 ==
LOC: YASAS 20:36 → Y3N 02-08 02:14
PROVIDERS: ADMIT Allergy & Immunology; ATTEND Surgery
PROC: HZ2ZZZZ Detoxification Services for Substance Abuse Treatment (ICD-10-PCS; principal; 2022-02-08)
DX: F10.230 Alcohol dependence with withdrawal, uncomplicated (principal); F13.230 Sedative, hypnotic or anxiolytic dependence with withdrawal, uncomplicated; F11.20 Opioid dependence, uncomplicated; F14.20 Cocaine dependence, uncomplicated; F17.210 Nicotine dependence, cigarettes, uncomplicated; F31.9 Bipolar disorder, unspecified; F43.10 Post-traumatic stress disorder, unspecified; K59.00 Constipation, unspecified; M54.50 Low back pain, unspecified; G89.29 Other chronic pain; Z88.8 Allergy status to other drugs, medicaments and biological substances; Z91.013 Allergy to seafood
CPT/HCPCS: C9803-CS; J0735; Q0162; U0003; U0005

== ENCOUNTER 2022-02-22 09:07 | Inpatient (IN) | payer BC ==
[2022-02-22 10:23] VITALS: BMI 27.0
[2022-02-22] MEDS ORDERED: MAGNESIUM CITRATE 300 ML BOTTLE PO PRN (10:57)
[2022-02-22] MEDS ORDERED: IBUPROFEN 400 MG TABLET (FP) PO PRN (10:57)
[2022-02-22] MEDS ORDERED: IBUPROFEN 600 MG TABLET (FP) PO PRN (10:57)
[2022-02-22] MEDS ORDERED: NALOXONE HCL (KLOXXADO) 8 MG SPRAY NS PRN (10:57)
[2022-02-22] MEDS ORDERED: MAG HYDROX/AL HYDROX/SIMETH 30 ML UNIT-DOSE CUP PO PRN (10:57)
[2022-02-22] MEDS ORDERED: ACETAMINOPHEN 325 MG TABLET (FP) PO PRN ×2 (10:57)
[2022-02-22] MEDS ORDERED: MAGNESIUM HYDROX 2400MG/30ML ORAL SUSPENSION 30 ML CUP PO PRN (10:57)
[2022-02-22] MEDS ORDERED: BENZOCAINE/MENTHOL (CHLORASEPTIC ) LOZENGE MM PRN (10:57)
[2022-02-22] MEDS ORDERED: LOPERAMIDE HCL 2 MG CAPSULE PO PRN (10:57)
[2022-02-22] MEDS ORDERED: DICYCLOMINE HCL 10 MG CAPSULE PO PRN (10:57)
[2022-02-22] MEDS: METHOCARBAMOL 500 MG TABLET PO PRN ×2 (12:34→22:09)
[2022-02-22] MEDS: diazePAM 5 MG TABLET PO SCH ×3 (12:34→22:10)
[2022-02-22] MEDS: NICOTINE POLACRILEX 2 MG GUM BUC PRN ×2 (12:36→18:28)
[2022-02-22] MEDS: hydrOXYzine PAMOATE 25 MG CAPSULE (FP) PO SCH ×3 (13:49→22:10)
[2022-02-22] MEDS: NICOTINE 10 MG CARTRIDGE (INHALER) IH PRN ×2 (16:47→22:11)
[2022-02-22] MEDS: BISMUTH SUBSALICYLATE 524 MG/30 ML PO PRN (16:47)
[2022-02-22] MEDS: diazePAM 5 MG TABLET PO PRN (19:03)
[2022-02-22 21:45] LABS: URINE APPEARANCE CLEAR; URINE BILIRUBIN NEGATIVE (NEGATIVE); URINE COLOR YELLOW; URINE GLUCOSE (UA) NEGATIVE (NEGATIVE); URINE KETONE NEGATIVE (NEGATIVE); URINE LEUK ESTERASE NEGATIVE (NEGATIVE); URINE NITRITE NEGATIVE (NEGATIVE); URINE PROTEIN NEGATIVE (NEGATIVE); URINE UROBILINOGEN 0.2 mg/dL (0.2-1.0)
[2022-02-22] MEDS: MELATONIN 5 MG TABLETS PO SCH (22:09)
[2022-02-22] MEDS: THIAMINE HCL 100 MG TABLET (FP) PO SCH (22:10)
[2022-02-23] MEDS: diazePAM 5 MG TABLET PO PRN ×3 (00:23→20:20)
[2022-02-23] MEDS: diazePAM 5 MG TABLET PO SCH ×4 (05:34→22:20)
[2022-02-23] MEDS: hydrOXYzine PAMOATE 25 MG CAPSULE (FP) PO SCH (05:35)
[2022-02-23 09:46] LABS: HEMATOCRIT 39.1 % (35.4-49); HEMOGLOBIN 13.3 GM/dL (11.7-16.9); MCH 31.5 pg (25.7-33.7); MCHC 34.1 g/dl (32.0-35.9); MEAN CELL VOLUME 92.5 fl (80-96); MEAN PLT VOLUME 7.5 fl (7.5-11.1); PLATELET COUNT 213 10^3/uL (134-434); RBC 4.23 M/mm3 (4.00-5.60); RDW 13.3 % (11.9-15.9); WHITE BLOOD COUNT 5.2 K/mm3 (4.0-10.0)
[2022-02-23 09:52] LABS: CALCIUM 8.8 mg/dL (8.5-10.1)
[2022-02-23 09:53] LABS: ALBUMIN 3.5 g/dl (3.4-5.0)
[2022-02-23 09:56] LABS: CREATININE 0.8 mg/dL (0.55-1.3)
[2022-02-23 09:58] LABS: TOT PROT 6.4 g/dl (6.4-8.2)
[2022-02-23 09:59] LABS: BILIRUBIN,TOTAL 0.3 mg/dL (0.2-1)
[2022-02-23] MEDS: methaDONE HCL 40 MG DISPERSABLE TABLET PO SCH (10:13)
[2022-02-23] MEDS: PRENATAL VITAMINS W/ FOLIC ACID TABLET (FP) PO SCH (10:15)
[2022-02-23] MEDS: NICOTINE POLACRILEX 2 MG GUM BUC PRN ×4 (10:16→20:24)
[2022-02-23] MEDS: NICOTINE 21 MG/24 HOURS TOPICAL PATCH TD SCH (10:16)
[2022-02-23] MEDS: NICOTINE 10 MG CARTRIDGE (INHALER) IH PRN ×3 (10:16→22:18)
[2022-02-23] MEDS: METHOCARBAMOL 500 MG TABLET PO PRN ×2 (13:03→22:19)
[2022-02-23 17:13] VITALS: RESP 18
[2022-02-23] MEDS: BISMUTH SUBSALICYLATE 524 MG/30 ML PO PRN (17:38)
[2022-02-23] MEDS: ONDANSETRON *ODT* 4 MG TABLET SL PRN (20:20)
[2022-02-23] MEDS: MELATONIN 5 MG TABLETS PO SCH (22:19)
[2022-02-23] MEDS: THIAMINE HCL 100 MG TABLET (FP) PO SCH (22:20)
[2022-02-23] MEDS: GABAPENTIN 400 MG CAPSULE PO SCH (22:20)
[2022-02-24] MEDS: diazePAM 5 MG TABLET PO PRN ×4 (02:53→21:32)
[2022-02-24] MEDS: NICOTINE POLACRILEX 2 MG GUM BUC PRN ×5 (02:55→20:22)
[2022-02-24] MEDS: diazePAM 5 MG TABLET PO SCH ×3 (05:40→21:34)
[2022-02-24] MEDS: methaDONE HCL 40 MG DISPERSABLE TABLET PO SCH (05:40)
[2022-02-24] MEDS: hydrOXYzine PAMOATE 25 MG CAPSULE (FP) PO PRN ×2 (05:41→10:40)
[2022-02-24] MEDS: GABAPENTIN 400 MG CAPSULE PO SCH (05:42)
[2022-02-24] MEDS: METHOCARBAMOL 500 MG TABLET PO PRN ×3 (05:43→22:11)
[2022-02-24] MEDS: ONDANSETRON *ODT* 4 MG TABLET SL PRN (09:00)
[2022-02-24] MEDS: PRENATAL VITAMINS W/ FOLIC ACID TABLET (FP) PO SCH (10:39)
[2022-02-24] MEDS: NICOTINE 21 MG/24 HOURS TOPICAL PATCH TD SCH (10:39)
[2022-02-24] MEDS ORDERED: cloNIDine HCL 0.1 MG TABLET PO ONE (13:09)
[2022-02-24] MEDS: NICOTINE 10 MG CARTRIDGE (INHALER) IH PRN ×3 (13:21→22:09)
[2022-02-24] MEDS: GABAPENTIN 300 MG CAPSULE PO SCH ×2 (13:21→22:08)
[2022-02-24] MEDS: BISMUTH SUBSALICYLATE 524 MG/30 ML PO PRN (17:37)
[2022-02-24] MEDS ORDERED: SUVOREXANT 10 MG TABLET PO PRN (22:00)
[2022-02-24] MEDS: THIAMINE HCL 100 MG TABLET (FP) PO SCH (22:09)
[2022-02-25] MEDS: diazePAM 5 MG TABLET PO PRN ×2 (02:36→09:06)
[2022-02-25] MEDS: NICOTINE POLACRILEX 2 MG GUM BUC PRN ×3 (02:37→09:07)
[2022-02-25] MEDS: NICOTINE 10 MG CARTRIDGE (INHALER) IH PRN ×2 (02:37→09:05)
[2022-02-25] MEDS: GABAPENTIN 300 MG CAPSULE PO SCH (05:28)
[2022-02-25] MEDS: methaDONE HCL 40 MG DISPERSABLE TABLET PO SCH (05:28)
[2022-02-25] MEDS: METHOCARBAMOL 500 MG TABLET PO PRN (05:28)
[2022-02-25] MEDS ORDERED: diazePAM 5 MG TABLET PO SCH (06:00)
[2022-02-25 08:44] VITALS: BP 130/80; PULSE 74; TEMP 96.4
[2022-02-25] MEDS: NICOTINE 21 MG/24 HOURS TOPICAL PATCH TD SCH (10:52)
[2022-02-25] MEDS: PRENATAL VITAMINS W/ FOLIC ACID TABLET (FP) PO SCH (10:53)
[2022-02-26] MEDS ORDERED: diazePAM 5 MG TABLET PO ONE (06:00)
== END 2022-02-25 10:13 | disposition home or self-care (01) | DRG 773 ==
LOC: YASAS 09:07 → Y3N 11:54
PROVIDERS: ADMIT Allergy & Immunology; ATTEND Surgery
PROC: HZ2ZZZZ Detoxification Services for Substance Abuse Treatment (ICD-10-PCS; principal; 2022-02-22)
DX: F10.230 Alcohol dependence with withdrawal, uncomplicated (principal); F11.20 Opioid dependence, uncomplicated; F13.230 Sedative, hypnotic or anxiolytic dependence with withdrawal, uncomplicated; F14.20 Cocaine dependence, uncomplicated; F17.213 Nicotine dependence, cigarettes, with withdrawal; F19.24 Other psychoactive substance dependence with psychoactive substance-induced mood disorder; F43.10 Post-traumatic stress disorder, unspecified; R03.0 Elevated blood-pressure reading, without diagnosis of hypertension; Z88.8 Allergy status to other drugs, medicaments and biological substances; Z91.013 Allergy to seafood; Z86.59 Personal history of other mental and behavioral disorders; Z56.0 Unemployment, unspecified; Z59.00 Homelessness unspecified
CPT/HCPCS: 36415; 80053; 81003; 85027; 86780; C9803-CS; J0735; Q0162; U0003; U0005

== ENCOUNTER 2022-03-20 09:33 | Inpatient (IN) | payer OTHER, BC ==
[2022-03-20 12:23] VITALS: BMI 27.3
[2022-03-20] MEDS ORDERED: ACETAMINOPHEN 325 MG TABLET (FP) PO PRN (14:02)
[2022-03-20] MEDS ORDERED: BISMUTH SUBSALICYLATE 524 MG/30 ML PO PRN (14:02)
[2022-03-20] MEDS ORDERED: DICYCLOMINE HCL 10 MG CAPSULE PO PRN (14:02)
[2022-03-20] MEDS ORDERED: MAG HYDROX/AL HYDROX/SIMETH 30 ML UNIT-DOSE CUP PO PRN (14:02)
[2022-03-20] MEDS ORDERED: LOPERAMIDE HCL 2 MG CAPSULE PO PRN (14:02)
[2022-03-20] MEDS ORDERED: MAGNESIUM HYDROX 2400MG/30ML ORAL SUSPENSION 30 ML CUP PO PRN (14:02)
[2022-03-20] MEDS ORDERED: BENZOCAINE/MENTHOL (CHLORASEPTIC ) LOZENGE MM PRN (14:02)
[2022-03-20] MEDS ORDERED: MAGNESIUM CITRATE 300 ML BOTTLE PO PRN (14:02)
[2022-03-20] MEDS ORDERED: ONDANSETRON *ODT* 4 MG TABLET SL PRN (14:02)
[2022-03-20] MEDS: diazePAM 5 MG TABLET PO PRN ×2 (15:14→19:35)
[2022-03-20] MEDS: PRENATAL VITAMINS W/ FOLIC ACID TABLET (FP) PO SCH (15:16)
[2022-03-20] MEDS: hydrOXYzine PAMOATE 25 MG CAPSULE (FP) PO SCH ×2 (17:47→22:10)
[2022-03-20] MEDS: diazePAM 5 MG TABLET PO SCH ×2 (17:47→22:10)
[2022-03-20] MEDS: METHOCARBAMOL 500 MG TABLET PO PRN (17:48)
[2022-03-20] MEDS: NICOTINE POLACRILEX 2 MG GUM BUC PRN ×2 (17:48→22:10)
[2022-03-20] MEDS: IBUPROFEN 600 MG TABLET (FP) PO PRN (19:36)
[2022-03-20] MEDS: NICOTINE 10 MG CARTRIDGE (INHALER) IH PRN (19:37)
[2022-03-20] MEDS ORDERED: MELATONIN 5 MG TABLETS PO SCH (22:00)
[2022-03-20] MEDS: THIAMINE HCL 100 MG TABLET (FP) PO SCH (22:10)
[2022-03-21] MEDS: diazePAM 5 MG TABLET PO PRN ×3 (02:32→19:57)
[2022-03-21] MEDS: IBUPROFEN 600 MG TABLET (FP) PO PRN ×2 (02:32→17:04)
[2022-03-21] MEDS: diazePAM 5 MG TABLET PO SCH ×4 (05:26→22:23)
[2022-03-21] MEDS: hydrOXYzine PAMOATE 25 MG CAPSULE (FP) PO SCH (05:26)
[2022-03-21] MEDS: ACETAMINOPHEN 325 MG TABLET (FP) PO PRN ×2 (05:28→22:24)
[2022-03-21] MEDS: METHOCARBAMOL 500 MG TABLET PO PRN ×2 (05:30→22:23)
[2022-03-21] MEDS: PRENATAL VITAMINS W/ FOLIC ACID TABLET (FP) PO SCH (10:59)
[2022-03-21] MEDS: NICOTINE POLACRILEX 2 MG GUM BUC PRN ×3 (11:00→19:59)
[2022-03-21] MEDS ORDERED: methaDONE HCL 10 MG TABLET PO SCH (11:15)
[2022-03-21] MEDS: methaDONE 80 MG, methaDONE 20 MG PO SCH (11:51)
[2022-03-21] MEDS: NICOTINE 10 MG CARTRIDGE (INHALER) IH PRN ×2 (13:33→19:59)
[2022-03-21] MEDS: GABAPENTIN 400 MG CAPSULE PO SCH ×2 (13:33→22:23)
[2022-03-21] MEDS: THIAMINE HCL 100 MG TABLET (FP) PO SCH (22:23)
[2022-03-22] MEDS: diazePAM 5 MG TABLET PO PRN ×4 (01:47→16:34)
[2022-03-22] MEDS: METHOCARBAMOL 500 MG TABLET PO PRN ×3 (05:50→22:46)
[2022-03-22] MEDS: GABAPENTIN 400 MG CAPSULE PO SCH ×3 (05:50→22:44)
[2022-03-22] MEDS: diazePAM 5 MG TABLET PO SCH ×3 (05:51→22:44)
[2022-03-22] MEDS: methaDONE 80 MG, methaDONE 20 MG PO SCH (05:51)
[2022-03-22] MEDS: NICOTINE 10 MG CARTRIDGE (INHALER) IH PRN ×4 (08:13→22:46)
[2022-03-22] MEDS: ACETAMINOPHEN 325 MG TABLET (FP) PO PRN (08:14)
[2022-03-22] MEDS: NICOTINE POLACRILEX 2 MG GUM BUC PRN ×6 (08:16→22:46)
[2022-03-22] MEDS: PRENATAL VITAMINS W/ FOLIC ACID TABLET (FP) PO SCH (10:35)
[2022-03-22] MEDS ORDERED: cloNIDine HCL 0.1 MG TABLET PO PRN (11:07)
[2022-03-22] MEDS: IBUPROFEN 400 MG TABLET (FP) PO PRN (14:03)
[2022-03-22] MEDS: cloNIDine HCL 0.1 MG TABLET PO PRN (19:08)
[2022-03-22] MEDS ORDERED: SUVOREXANT 5 MG TABLET PO ONE (22:00)
[2022-03-22] MEDS: THIAMINE HCL 100 MG TABLET (FP) PO SCH (22:44)
[2022-03-23] MEDS: diazePAM 5 MG TABLET PO PRN ×3 (02:00→11:57)
[2022-03-23] MEDS: NICOTINE POLACRILEX 2 MG GUM BUC PRN ×4 (02:01→20:19)
[2022-03-23] MEDS: diazePAM 5 MG TABLET PO SCH ×2 (05:37→17:13)
[2022-03-23] MEDS: GABAPENTIN 400 MG CAPSULE PO SCH ×3 (05:37→22:06)
[2022-03-23] MEDS: NICOTINE 10 MG CARTRIDGE (INHALER) IH PRN ×3 (05:41→19:29)
[2022-03-23] MEDS ORDERED: methaDONE 80 MG, methaDONE 20 MG PO ONE (06:00)
[2022-03-23] MEDS ORDERED: methaDONE HCL 10 MG TABLET PO ONE (06:00)
[2022-03-23] MEDS ORDERED: BACITRACIN 0.9 GM PACKET TP SCH (10:00)
[2022-03-23] MEDS: PRENATAL VITAMINS W/ FOLIC ACID TABLET (FP) PO SCH (11:14)
[2022-03-23] MEDS: METHOCARBAMOL 500 MG TABLET PO PRN ×2 (11:14→22:06)
[2022-03-23] MEDS: cloNIDine HCL 0.1 MG TABLET PO PRN ×2 (11:14→22:06)
[2022-03-23] MEDS: IBUPROFEN 400 MG TABLET (FP) PO PRN (11:15)
[2022-03-23 14:16] LABS: HEMATOCRIT 37.3 % (35.4-49); HEMOGLOBIN 12.4 GM/dL (11.7-16.9); MCH 30.4 pg (25.7-33.7); MCHC 33.2 g/dl (32.0-35.9); MEAN CELL VOLUME 91.6 fl (80-96); MEAN PLT VOLUME 8.3 fl (7.5-11.1); PLATELET COUNT 207 10^3/uL (134-434); RBC 4.08 M/mm3 (4.00-5.60); RDW 13.4 % (11.9-15.9); WHITE BLOOD COUNT 5.1 K/mm3 (4.0-10.0)
[2022-03-23 14:19] LABS: CALCIUM 8.8 mg/dL (8.5-10.1)
[2022-03-23 14:20] LABS: ALBUMIN 3.4 g/dl (3.4-5.0); BLOOD UREA NITROGEN 14.2 mg/dL (7-18)
[2022-03-23 14:23] LABS: CREATININE 0.9 mg/dL (0.55-1.3)
[2022-03-23 14:25] LABS: BILIRUBIN,TOTAL 0.2 mg/dL (0.2-1); TOT PROT 6.4 g/dl (6.4-8.2)
[2022-03-23] MEDS ORDERED: SUVOREXANT 5 MG TABLET PO ONE (22:00)
[2022-03-23] MEDS: THIAMINE HCL 100 MG TABLET (FP) PO SCH (22:06)
[2022-03-24] MEDS: GABAPENTIN 400 MG CAPSULE PO SCH (05:16)
[2022-03-24] MEDS: NICOTINE POLACRILEX 2 MG GUM BUC PRN (05:23)
[2022-03-24] MEDS: METHOCARBAMOL 500 MG TABLET PO PRN (05:31)
[2022-03-24 05:39] VITALS: BP 114/67; PULSE 74; RESP 18; TEMP 97.7
[2022-03-24] MEDS ORDERED: methaDONE HCL 10 MG TABLET PO SCH (06:00)
[2022-03-24] MEDS ORDERED: diazePAM 5 MG TABLET PO ONE (06:00)
[2022-03-24] MEDS ORDERED: methaDONE 80 MG, methaDONE 20 MG PO SCH (06:00)
[2022-03-24] MEDS: NICOTINE 10 MG CARTRIDGE (INHALER) IH PRN (06:16)
== END 2022-03-24 09:15 | disposition home or self-care (01) | DRG 897 ==
LOC: YASAS 09:33 → Y3N 14:24 → Y6N 03-21 10:43
PROVIDERS: ADMIT Allergy & Immunology; ATTEND Surgery
PROC: HZ2ZZZZ Detoxification Services for Substance Abuse Treatment (ICD-10-PCS; principal; 2022-03-20)
DX: F10.230 Alcohol dependence with withdrawal, uncomplicated (principal); F11.20 Opioid dependence, uncomplicated; F14.20 Cocaine dependence, uncomplicated; F13.230 Sedative, hypnotic or anxiolytic dependence with withdrawal, uncomplicated; F12.20 Cannabis dependence, uncomplicated; F17.210 Nicotine dependence, cigarettes, uncomplicated; F19.24 Other psychoactive substance dependence with psychoactive substance-induced mood disorder; F43.10 Post-traumatic stress disorder, unspecified; Z62.810 Personal history of physical and sexual abuse in childhood; Z88.8 Allergy status to other drugs, medicaments and biological substances; Z91.013 Allergy to seafood; Z56.0 Unemployment, unspecified; Z59.00 Homelessness unspecified
CPT/HCPCS: 36415; 80053; 85027; 86780; 87811; C9803-CS; U0003; U0005

== ENCOUNTER 2022-04-04 21:01 | Inpatient (IN) | payer OTHER, BC ==
[2022-04-04 21:33] VITALS: BMI 27.3
[2022-04-04] MEDS ORDERED: MAG HYDROX/AL HYDROX/SIMETH 30 ML UNIT-DOSE CUP PO PRN (23:17)
[2022-04-04] MEDS ORDERED: LOPERAMIDE HCL 2 MG CAPSULE PO PRN (23:17)
[2022-04-04] MEDS ORDERED: BENZOCAINE/MENTHOL (CHLORASEPTIC ) LOZENGE MM PRN (23:17)
[2022-04-04] MEDS ORDERED: MAGNESIUM HYDROX 2400MG/30ML ORAL SUSPENSION 30 ML CUP PO PRN (23:17)
[2022-04-04] MEDS ORDERED: MAGNESIUM CITRATE 300 ML BOTTLE PO PRN (23:17)
[2022-04-04] MEDS ORDERED: ACETAMINOPHEN 325 MG TABLET (FP) PO PRN (23:17)
[2022-04-04] MEDS ORDERED: IBUPROFEN 400 MG TABLET (FP) PO PRN (23:17)
[2022-04-04] MEDS ORDERED: DICYCLOMINE HCL 10 MG CAPSULE PO PRN (23:17)
[2022-04-04] MEDS ORDERED: BISMUTH SUBSALICYLATE 524 MG/30 ML PO PRN (23:17)
[2022-04-04] MEDS ORDERED: ONDANSETRON *ODT* 4 MG TABLET SL PRN (23:17)
[2022-04-05] MEDS: diazePAM 5 MG TABLET PO SCH ×5 (00:38→22:03)
[2022-04-05] MEDS: METHOCARBAMOL 500 MG TABLET PO PRN ×3 (05:36→22:03)
[2022-04-05] MEDS: NICOTINE POLACRILEX 2 MG GUM BUC PRN ×5 (05:53→22:00)
[2022-04-05] MEDS: ACETAMINOPHEN 325 MG TABLET (FP) PO PRN (11:03)
[2022-04-05] MEDS: PRENATAL VITAMINS W/ FOLIC ACID TABLET (FP) PO SCH (11:04)
[2022-04-05] MEDS: NICOTINE 21 MG/24 HOURS TOPICAL PATCH TD SCH (11:04)
[2022-04-05] MEDS ORDERED: methaDONE HCL 40 MG DISPERSABLE TABLET PO ONE (12:05)
[2022-04-05] MEDS: NICOTINE 10 MG CARTRIDGE (INHALER) IH PRN (12:36)
[2022-04-05] MEDS: IBUPROFEN 600 MG TABLET (FP) PO PRN (14:27)
[2022-04-05] MEDS: diazePAM 5 MG TABLET PO PRN (14:28)
[2022-04-05] MEDS ORDERED: BACITRACIN 15 GM TUBE TOPICAL OINTMENT TP SCH (14:45)
[2022-04-05] MEDS ORDERED: MELATONIN 5 MG TABLETS PO SCH (22:00)
[2022-04-05] MEDS: THIAMINE HCL 100 MG TABLET (FP) PO SCH (22:03)
[2022-04-05] MEDS: GABAPENTIN 400 MG CAPSULE PO SCH (22:03)
[2022-04-05] MEDS: SUVOREXANT 10 MG TABLET PO PRN (22:03)
[2022-04-05] MEDS: BACITRACIN/POLYMYXIN B SULFATE 15 GM TUBE TP SCH (23:28)
[2022-04-06] MEDS: diazePAM 5 MG TABLET PO PRN ×4 (01:33→18:52)
[2022-04-06] MEDS: diazePAM 5 MG TABLET PO SCH ×3 (05:30→22:18)
[2022-04-06] MEDS: GABAPENTIN 400 MG CAPSULE PO SCH ×3 (05:30→22:18)
[2022-04-06] MEDS: METHOCARBAMOL 500 MG TABLET PO PRN ×3 (05:30→22:18)
[2022-04-06] MEDS: NICOTINE POLACRILEX 2 MG GUM BUC PRN ×4 (05:30→22:15)
[2022-04-06] MEDS: NICOTINE 10 MG CARTRIDGE (INHALER) IH PRN ×2 (07:50→22:15)
[2022-04-06] MEDS: NICOTINE 21 MG/24 HOURS TOPICAL PATCH TD SCH (10:20)
[2022-04-06] MEDS: PRENATAL VITAMINS W/ FOLIC ACID TABLET (FP) PO SCH (10:20)
[2022-04-06] MEDS: IBUPROFEN 600 MG TABLET (FP) PO PRN (10:22)
[2022-04-06] MEDS ORDERED: methaDONE 80 MG, methaDONE 20 MG PO ONE (10:30)
[2022-04-06] MEDS ORDERED: methaDONE HCL 10 MG TABLET PO SCH (10:30)
[2022-04-06 11:58] LABS: HEMATOCRIT 39.3 % (35.4-49); HEMOGLOBIN 13.2 GM/dL (11.7-16.9); MCH 31.3 pg (25.7-33.7); MCHC 33.6 g/dl (32.0-35.9); MEAN CELL VOLUME 93.2 fl (80-96); MEAN PLT VOLUME 7.8 fl (7.5-11.1); PLATELET COUNT 203 10^3/uL (134-434); RBC 4.22 M/mm3 (4.00-5.60); WHITE BLOOD COUNT 4.6 K/mm3 (4.0-10.0)
[2022-04-06 12:00] LABS: BLOOD UREA NITROGEN 14.6 mg/dL (7-18); CALCIUM 8.8 mg/dL (8.5-10.1)
[2022-04-06 12:01] LABS: ALBUMIN 3.2 g/dl (3.4-5.0)
[2022-04-06 12:04] LABS: CREATININE 0.7 mg/dL (0.55-1.3)
[2022-04-06 12:05] LABS: BILIRUBIN,TOTAL 0.4 mg/dL (0.2-1); TOT PROT 6.2 g/dl (6.4-8.2)
[2022-04-06] MEDS: BACITRACIN/POLYMYXIN B SULFATE 15 GM TUBE TP SCH ×2 (12:29→22:20)
[2022-04-06] MEDS: ACETAMINOPHEN 325 MG TABLET (FP) PO PRN (18:51)
[2022-04-06] MEDS: SUVOREXANT 10 MG TABLET PO PRN (22:20)
[2022-04-06] MEDS: THIAMINE HCL 100 MG TABLET (FP) PO SCH (22:20)
[2022-04-07] MEDS: METHOCARBAMOL 500 MG TABLET PO PRN ×2 (05:35→12:22)
[2022-04-07] MEDS: diazePAM 5 MG TABLET PO SCH ×2 (05:35→19:40)
[2022-04-07] MEDS: GABAPENTIN 400 MG CAPSULE PO SCH ×3 (05:35→22:11)
[2022-04-07] MEDS: ACETAMINOPHEN 325 MG TABLET (FP) PO PRN ×3 (05:35→22:12)
[2022-04-07] MEDS: NICOTINE 10 MG CARTRIDGE (INHALER) IH PRN ×4 (05:37→20:18)
[2022-04-07] MEDS: NICOTINE POLACRILEX 2 MG GUM BUC PRN ×4 (05:37→22:17)
[2022-04-07] MEDS: methaDONE 80 MG, methaDONE 20 MG PO SCH (07:09)
[2022-04-07] MEDS: diazePAM 5 MG TABLET PO PRN ×4 (07:37→22:12)
[2022-04-07] MEDS ORDERED: methaDONE 80 MG, methaDONE 20 MG PO SCH (08:00)
[2022-04-07] MEDS: NICOTINE 21 MG/24 HOURS TOPICAL PATCH TD SCH (10:33)
[2022-04-07] MEDS: PRENATAL VITAMINS W/ FOLIC ACID TABLET (FP) PO SCH (10:33)
[2022-04-07] MEDS: BACITRACIN/POLYMYXIN B SULFATE 15 GM TUBE TP SCH ×2 (10:33→22:12)
[2022-04-07] MEDS: cloNIDine HCL 0.1 MG TABLET PO PRN (10:36)
[2022-04-07 21:33] VITALS: RESP 18
[2022-04-07] MEDS: SUVOREXANT 10 MG TABLET PO PRN (22:10)
[2022-04-07] MEDS: THIAMINE HCL 100 MG TABLET (FP) PO SCH (22:11)
[2022-04-08] MEDS: methaDONE 80 MG, methaDONE 20 MG PO SCH (05:34)
[2022-04-08] MEDS: METHOCARBAMOL 500 MG TABLET PO PRN (05:34)
[2022-04-08] MEDS: GABAPENTIN 400 MG CAPSULE PO SCH (05:35)
[2022-04-08] MEDS: NICOTINE POLACRILEX 2 MG GUM BUC PRN (05:38)
[2022-04-08] MEDS: NICOTINE 10 MG CARTRIDGE (INHALER) IH PRN (05:38)
[2022-04-08] MEDS ORDERED: diazePAM 5 MG TABLET PO ONE (06:00)
[2022-04-08 06:39] VITALS: BP 137/60; PULSE 75; TEMP 96.9
[2022-04-08] MEDS: cloNIDine HCL 0.1 MG TABLET PO PRN (07:25)
== END 2022-04-08 08:35 | disposition home or self-care (01) | DRG 897 ==
LOC: YASAS 21:01 → Y6N 23:42
PROVIDERS: ADMIT Allergy & Immunology; ATTEND Surgery
PROC: HZ2ZZZZ Detoxification Services for Substance Abuse Treatment (ICD-10-PCS; principal; 2022-04-04)
DX: F10.230 Alcohol dependence with withdrawal, uncomplicated (principal); F11.20 Opioid dependence, uncomplicated; F14.20 Cocaine dependence, uncomplicated; F13.230 Sedative, hypnotic or anxiolytic dependence with withdrawal, uncomplicated; F12.20 Cannabis dependence, uncomplicated; F17.210 Nicotine dependence, cigarettes, uncomplicated; F31.9 Bipolar disorder, unspecified; F43.10 Post-traumatic stress disorder, unspecified; I25.2 Old myocardial infarction; Z86.73 Personal history of transient ischemic attack (TIA), and cerebral infarction without residual deficits; Z28.310 Unvaccinated for COVID-19; Z28.9 Immunization not carried out for unspecified reason; Z88.8 Allergy status to other drugs, medicaments and biological substances; Z91.013 Allergy to seafood; Z56.0 Unemployment, unspecified; Z59.00 Homelessness unspecified
CPT/HCPCS: 36415; 80053; 85027; 86780; 93005; 93010; C9803-CS; U0003; U0005

== ENCOUNTER 2022-04-23 22:18 | Inpatient (IN) | payer BC ==
[2022-04-23 22:48] VITALS: BMI 27.5
[2022-04-23] MEDS ORDERED: diazePAM 5 MG TABLET PO SCH (23:00)
[2022-04-23] MEDS ORDERED: P-EPHED 60MG/TRIPROLIDI 2.5MG TABLET PO PRN (23:15)
[2022-04-23] MEDS ORDERED: NALOXONE HCL (KLOXXADO) 8 MG SPRAY NS PRN (23:15)
[2022-04-23] MEDS ORDERED: LOPERAMIDE HCL 2 MG CAPSULE PO PRN (23:15)
[2022-04-23] MEDS ORDERED: IBUPROFEN 400 MG TABLET (FP) PO PRN (23:15)
[2022-04-23] MEDS ORDERED: MAGNESIUM HYDROX 2400MG/30ML ORAL SUSPENSION 30 ML CUP PO PRN (23:15)
[2022-04-23] MEDS ORDERED: ONDANSETRON *ODT* 4 MG TABLET SL PRN (23:15)
[2022-04-23] MEDS ORDERED: MELATONIN 5 MG TABLETS PO PRN (23:15)
[2022-04-23] MEDS ORDERED: ACETAMINOPHEN 325 MG TABLET (FP) PO PRN (23:15)
[2022-04-23] MEDS ORDERED: DICYCLOMINE HCL 10 MG CAPSULE PO PRN (23:15)
[2022-04-23] MEDS ORDERED: guaiFENesin 200 MG/10 ML 10 ML UNIT-DOSE CUPS PO PRN (23:15)
[2022-04-23] MEDS ORDERED: BISMUTH SUBSALICYLATE 524 MG/30 ML PO PRN (23:15)
[2022-04-23] MEDS ORDERED: MAG HYDROX/AL HYDROX/SIMETH 30 ML UNIT-DOSE CUP PO PRN (23:15)
[2022-04-23] MEDS ORDERED: BENZOCAINE/MENTHOL (CHLORASEPTIC ) LOZENGE MM PRN (23:15)
[2022-04-23] MEDS ORDERED: MAGNESIUM CITRATE 300 ML BOTTLE PO PRN (23:15)
[2022-04-24] MEDS: diazePAM 5 MG TABLET PO SCH ×4 (01:07→17:05)
[2022-04-24] MEDS: NICOTINE POLACRILEX 2 MG GUM BUC PRN ×4 (01:09→22:39)
[2022-04-24] MEDS: METHOCARBAMOL 500 MG TABLET PO PRN ×3 (01:11→22:35)
[2022-04-24] MEDS: ACETAMINOPHEN 325 MG TABLET (FP) PO PRN ×2 (01:11→22:37)
[2022-04-24] MEDS: IBUPROFEN 600 MG TABLET (FP) PO PRN ×2 (05:41→18:43)
[2022-04-24] MEDS ORDERED: methaDONE HCL 40 MG DISPERSABLE TABLET PO SCH (10:15)
[2022-04-24] MEDS ORDERED: methaDONE 80 MG, methaDONE 20 MG PO SCH (10:15)
[2022-04-24] MEDS: PRENATAL VITAMINS W/ FOLIC ACID TABLET (FP) PO SCH (10:34)
[2022-04-24] MEDS: methaDONE 80 MG, methaDONE 20 MG PO SCH (10:50)
[2022-04-24] MEDS: NICOTINE 10 MG CARTRIDGE (INHALER) IH PRN ×2 (10:53→18:44)
[2022-04-24] MEDS: diazePAM 5 MG TABLET PO PRN (22:36)
[2022-04-24] MEDS: hydrOXYzine PAMOATE 25 MG CAPSULE (FP) PO PRN (22:37)
[2022-04-24] MEDS: THIAMINE HCL 100 MG TABLET (FP) PO SCH (22:37)
[2022-04-25] MEDS: methaDONE 80 MG, methaDONE 20 MG PO SCH (05:50)
[2022-04-25] MEDS: diazePAM 5 MG TABLET PO SCH ×3 (05:51→22:33)
[2022-04-25] MEDS: NICOTINE 10 MG CARTRIDGE (INHALER) IH PRN ×3 (05:55→17:31)
[2022-04-25] MEDS: NICOTINE POLACRILEX 2 MG GUM BUC PRN ×3 (05:56→19:13)
[2022-04-25] MEDS: diazePAM 5 MG TABLET PO PRN ×3 (10:20→22:31)
[2022-04-25] MEDS: PRENATAL VITAMINS W/ FOLIC ACID TABLET (FP) PO SCH (10:20)
[2022-04-25] MEDS: METHOCARBAMOL 500 MG TABLET PO PRN ×2 (10:20→20:13)
[2022-04-25] MEDS: hydrOXYzine PAMOATE 25 MG CAPSULE (FP) PO PRN (13:43)
[2022-04-25] MEDS: IBUPROFEN 600 MG TABLET (FP) PO PRN (20:13)
[2022-04-25] MEDS: THIAMINE HCL 100 MG TABLET (FP) PO SCH (22:31)
[2022-04-26] MEDS: diazePAM 5 MG TABLET PO SCH ×2 (05:30→17:39)
[2022-04-26] MEDS: methaDONE 80 MG, methaDONE 20 MG PO SCH (05:30)
[2022-04-26] MEDS: hydrOXYzine PAMOATE 25 MG CAPSULE (FP) PO PRN ×5 (05:31→22:13)
[2022-04-26] MEDS: PRENATAL VITAMINS W/ FOLIC ACID TABLET (FP) PO SCH (10:12)
[2022-04-26] MEDS: diazePAM 5 MG TABLET PO PRN ×3 (10:13→19:33)
[2022-04-26] MEDS: METHOCARBAMOL 500 MG TABLET PO PRN ×2 (10:13→22:16)
[2022-04-26] MEDS: IBUPROFEN 600 MG TABLET (FP) PO PRN (10:14)
[2022-04-26] MEDS: NICOTINE 10 MG CARTRIDGE (INHALER) IH PRN ×3 (10:16→17:41)
[2022-04-26] MEDS: NICOTINE POLACRILEX 2 MG GUM BUC PRN (13:31)
[2022-04-26] MEDS: GABAPENTIN 400 MG CAPSULE PO SCH ×2 (14:19→22:13)
[2022-04-26 21:02] VITALS: RESP 18
[2022-04-26] MEDS ORDERED: SUVOREXANT 10 MG TABLET PO PRN (22:00)
[2022-04-26] MEDS: THIAMINE HCL 100 MG TABLET (FP) PO SCH (22:13)
[2022-04-27] MEDS: methaDONE 80 MG, methaDONE 20 MG PO SCH (05:46)
[2022-04-27] MEDS: METHOCARBAMOL 500 MG TABLET PO PRN (05:47)
[2022-04-27] MEDS: hydrOXYzine PAMOATE 25 MG CAPSULE (FP) PO PRN (05:47)
[2022-04-27] MEDS: GABAPENTIN 400 MG CAPSULE PO SCH (05:47)
[2022-04-27] MEDS: NICOTINE 10 MG CARTRIDGE (INHALER) IH PRN ×2 (05:49→09:12)
[2022-04-27] MEDS ORDERED: diazePAM 5 MG TABLET PO ONE (06:00)
[2022-04-27 06:47] VITALS: BP 110/63; PULSE 82; TEMP 96.6
[2022-04-27] MEDS: NICOTINE POLACRILEX 2 MG GUM BUC PRN (08:30)
== END 2022-04-27 10:35 | disposition home or self-care (01) | DRG 774 ==
LOC: YASAS 22:18 → Y6N 23:24
PROVIDERS: ADMIT Allergy & Immunology; ATTEND Surgery
PROC: HZ2ZZZZ Detoxification Services for Substance Abuse Treatment (ICD-10-PCS; principal; 2022-04-23)
DX: F10.230 Alcohol dependence with withdrawal, uncomplicated (principal); F13.230 Sedative, hypnotic or anxiolytic dependence with withdrawal, uncomplicated; F14.20 Cocaine dependence, uncomplicated; F12.20 Cannabis dependence, uncomplicated; F17.210 Nicotine dependence, cigarettes, uncomplicated; F19.282 Other psychoactive substance dependence with psychoactive substance-induced sleep disorder; F41.9 Anxiety disorder, unspecified; F43.10 Post-traumatic stress disorder, unspecified; G62.9 Polyneuropathy, unspecified; Z86.73 Personal history of transient ischemic attack (TIA), and cerebral infarction without residual deficits; Z88.8 Allergy status to other drugs, medicaments and biological substances; Z91.013 Allergy to seafood
CPT/HCPCS: 93005; 93010; C9803-CS; U0003; U0005

== ENCOUNTER 2022-06-05 08:07 | Inpatient (IN) | payer BC, OTHER ==
[2022-06-05 09:14] VITALS: BMI 28.8
[2022-06-05] MEDS ORDERED: ONDANSETRON *ODT* 4 MG TABLET SL PRN (10:11)
[2022-06-05] MEDS ORDERED: ACETAMINOPHEN 325 MG TABLET (FP) PO PRN ×2 (10:11)
[2022-06-05] MEDS ORDERED: NALOXONE HCL (KLOXXADO) 8 MG SPRAY NS PRN (10:11)
[2022-06-05] MEDS ORDERED: DICYCLOMINE HCL 10 MG CAPSULE PO PRN (10:11)
[2022-06-05] MEDS ORDERED: MAG HYDROX/AL HYDROX/SIMETH 30 ML UNIT-DOSE CUP PO PRN (10:11)
[2022-06-05] MEDS ORDERED: BENZOCAINE/MENTHOL (CHLORASEPTIC ) LOZENGE MM PRN (10:11)
[2022-06-05] MEDS ORDERED: LOPERAMIDE HCL 2 MG CAPSULE PO PRN (10:11)
[2022-06-05] MEDS ORDERED: MAGNESIUM HYDROX 2400MG/30ML ORAL SUSPENSION 30 ML CUP PO PRN (10:11)
[2022-06-05] MEDS ORDERED: IBUPROFEN 400 MG TABLET (FP) PO PRN (10:11)
[2022-06-05] MEDS ORDERED: BISMUTH SUBSALICYLATE 524 MG/30 ML PO PRN (10:11)
[2022-06-05] MEDS ORDERED: MAGNESIUM CITRATE 300 ML BOTTLE PO PRN (10:11)
[2022-06-05] MEDS: diazePAM 5 MG TABLET PO SCH ×3 (11:50→22:36)
[2022-06-05] MEDS ORDERED: diazePAM 5 MG TABLET ONE (12:01)
[2022-06-05] MEDS: METHOCARBAMOL 500 MG TABLET PO PRN ×2 (12:25→22:37)
[2022-06-05] MEDS: IBUPROFEN 600 MG TABLET (FP) PO PRN (12:25)
[2022-06-05] MEDS: NICOTINE 10 MG CARTRIDGE (INHALER) IH PRN ×3 (12:25→22:46)
[2022-06-05] MEDS: hydrOXYzine PAMOATE 25 MG CAPSULE (FP) PO PRN ×2 (12:26→22:36)
[2022-06-05] MEDS: PRENATAL VITAMINS W/ FOLIC ACID TABLET (FP) PO SCH (12:30)
[2022-06-05] MEDS: NICOTINE POLACRILEX 2 MG GUM BUC PRN ×3 (12:31→22:38)
[2022-06-05] MEDS: diazePAM 5 MG TABLET PO PRN ×2 (14:06→19:20)
[2022-06-05 14:27] LABS: HEMATOCRIT 38.2 % (35.4-49); HEMOGLOBIN 12.9 GM/dL (11.7-16.9); MCH 31.6 pg (25.7-33.7); MCHC 33.8 g/dl (32.0-35.9); MEAN CELL VOLUME 93.5 fl (80-96); MEAN PLT VOLUME 7.9 fl (7.5-11.1); PLATELET COUNT 172 10^3/uL (134-434); RBC 4.09 M/mm3 (4.00-5.60); RDW 13.9 % (11.9-15.9); WHITE BLOOD COUNT 6.3 K/mm3 (4.0-10.0)
[2022-06-05 14:41] LABS: CALCIUM 8.6 mg/dL (8.5-10.1)
[2022-06-05 14:42] LABS: ALBUMIN 3.6 g/dl (3.4-5.0); BLOOD UREA NITROGEN 22.6 mg/dL (7-18)
[2022-06-05 14:47] LABS: BILIRUBIN,TOTAL 0.2 mg/dL (0.2-1); TOT PROT 6.4 g/dl (6.4-8.2)
[2022-06-05] MEDS: THIAMINE HCL 100 MG TABLET (FP) PO SCH (22:36)
[2022-06-06] MEDS: MELATONIN 5 MG TABLETS PO SCH ×2 (02:37→22:30)
[2022-06-06] MEDS: diazePAM 5 MG TABLET PO SCH ×4 (05:53→22:31)
[2022-06-06] MEDS: METHOCARBAMOL 500 MG TABLET PO PRN ×3 (05:54→22:34)
[2022-06-06] MEDS ORDERED: methaDONE HCL 40 MG DISPERSABLE TABLET PO SCH (06:00)
[2022-06-06] MEDS ORDERED: methaDONE HCL 10 MG TABLET PO ONE (09:37)
[2022-06-06] MEDS ORDERED: methaDONE 40 MG, methaDONE 30 MG PO ONE (10:30)
[2022-06-06] MEDS: hydrOXYzine PAMOATE 25 MG CAPSULE (FP) PO PRN ×3 (10:43→22:33)
[2022-06-06] MEDS: PRENATAL VITAMINS W/ FOLIC ACID TABLET (FP) PO SCH (10:43)
[2022-06-06] MEDS: NICOTINE POLACRILEX 2 MG GUM BUC PRN ×4 (10:44→22:35)
[2022-06-06] MEDS: diazePAM 5 MG TABLET PO PRN ×2 (13:00→19:34)
[2022-06-06] MEDS: NICOTINE 10 MG CARTRIDGE (INHALER) IH PRN ×2 (15:12→22:35)
[2022-06-06] MEDS: GABAPENTIN 300 MG CAPSULE PO SCH (22:30)
[2022-06-06] MEDS: THIAMINE HCL 100 MG TABLET (FP) PO SCH (22:31)
[2022-06-07] MEDS: diazePAM 5 MG TABLET PO SCH ×3 (05:32→22:17)
[2022-06-07] MEDS: GABAPENTIN 300 MG CAPSULE PO SCH ×3 (05:32→22:16)
[2022-06-07] MEDS: NICOTINE 10 MG CARTRIDGE (INHALER) IH PRN ×3 (05:33→19:36)
[2022-06-07] MEDS: NICOTINE POLACRILEX 2 MG GUM BUC PRN ×8 (05:33→22:48)
[2022-06-07] MEDS: METHOCARBAMOL 500 MG TABLET PO PRN ×2 (10:17→22:16)
[2022-06-07] MEDS: PRENATAL VITAMINS W/ FOLIC ACID TABLET (FP) PO SCH (10:17)
[2022-06-07] MEDS: hydrOXYzine PAMOATE 25 MG CAPSULE (FP) PO PRN (10:17)
[2022-06-07] MEDS: diazePAM 5 MG TABLET PO PRN ×3 (10:18→19:35)
[2022-06-07] MEDS: THIAMINE HCL 100 MG TABLET (FP) PO SCH (22:16)
[2022-06-07] MEDS: SUVOREXANT 10 MG TABLET PO PRN (22:17)
[2022-06-08] MEDS: GABAPENTIN 300 MG CAPSULE PO SCH ×3 (05:22→22:14)
[2022-06-08] MEDS: diazePAM 5 MG TABLET PO SCH ×2 (05:22→17:10)
[2022-06-08] MEDS: METHOCARBAMOL 500 MG TABLET PO PRN ×3 (05:25→23:43)
[2022-06-08] MEDS: NICOTINE 10 MG CARTRIDGE (INHALER) IH PRN ×4 (05:25→17:12)
[2022-06-08] MEDS: diazePAM 5 MG TABLET PO PRN ×3 (07:34→22:17)
[2022-06-08] MEDS: PRENATAL VITAMINS W/ FOLIC ACID TABLET (FP) PO SCH (10:33)
[2022-06-08] MEDS: hydrOXYzine PAMOATE 25 MG CAPSULE (FP) PO PRN (10:45)
[2022-06-08] MEDS: IBUPROFEN 600 MG TABLET (FP) PO PRN (10:46)
[2022-06-08] MEDS: NICOTINE POLACRILEX 2 MG GUM BUC PRN ×3 (10:48→17:13)
[2022-06-08] MEDS: THIAMINE HCL 100 MG TABLET (FP) PO SCH (22:14)
[2022-06-08] MEDS: SUVOREXANT 10 MG TABLET PO PRN (22:19)
[2022-06-09] MEDS: GABAPENTIN 300 MG CAPSULE PO SCH (05:21)
[2022-06-09] MEDS: METHOCARBAMOL 500 MG TABLET PO PRN (05:22)
[2022-06-09] MEDS: NICOTINE 10 MG CARTRIDGE (INHALER) IH PRN (05:23)
[2022-06-09] MEDS ORDERED: diazePAM 5 MG TABLET PO ONE (06:00)
[2022-06-09 08:35] VITALS: BP 114/79; PULSE 84; RESP 18; TEMP 97.8
== END 2022-06-09 09:15 | disposition home or self-care (01) | DRG 773 ==
LOC: YASAS 08:07 → Y6N 11:59
PROVIDERS: ADMIT Allergy & Immunology; ATTEND Surgery
PROC: HZ2ZZZZ Detoxification Services for Substance Abuse Treatment (ICD-10-PCS; principal; 2022-06-05)
DX: F10.230 Alcohol dependence with withdrawal, uncomplicated (principal); F13.230 Sedative, hypnotic or anxiolytic dependence with withdrawal, uncomplicated; F11.20 Opioid dependence, uncomplicated; F14.20 Cocaine dependence, uncomplicated; F17.210 Nicotine dependence, cigarettes, uncomplicated; F31.9 Bipolar disorder, unspecified; F41.9 Anxiety disorder, unspecified; F43.10 Post-traumatic stress disorder, unspecified; M54.50 Low back pain, unspecified; G89.29 Other chronic pain; Z62.810 Personal history of physical and sexual abuse in childhood; Z28.310 Unvaccinated for COVID-19; Z28.9 Immunization not carried out for unspecified reason; Z88.8 Allergy status to other drugs, medicaments and biological substances; Z91.013 Allergy to seafood
CPT/HCPCS: 36415; 80053; 85027; 86780; 87811; C9803-CS; U0003; U0005

== ENCOUNTER 2022-07-17 01:55 | Inpatient (IN) | payer BC ==
[2022-07-17 02:34] VITALS: BMI 25.7
[2022-07-17] MEDS ORDERED: IBUPROFEN 600 MG TABLET (FP) PO PRN (02:50)
[2022-07-17] MEDS ORDERED: ONDANSETRON *ODT* 4 MG TABLET SL PRN (02:50)
[2022-07-17] MEDS ORDERED: BISMUTH SUBSALICYLATE 524 MG/30 ML PO PRN (02:50)
[2022-07-17] MEDS ORDERED: P-EPHED 60MG/TRIPROLIDI 2.5MG TABLET PO PRN (02:50)
[2022-07-17] MEDS ORDERED: DICYCLOMINE HCL 10 MG CAPSULE PO PRN (02:50)
[2022-07-17] MEDS ORDERED: hydrOXYzine PAMOATE 25 MG CAPSULE (FP) PO PRN (02:50)
[2022-07-17] MEDS ORDERED: IBUPROFEN 400 MG TABLET (FP) PO PRN (02:50)
[2022-07-17] MEDS ORDERED: NALOXONE HCL (KLOXXADO) 8 MG SPRAY NS PRN (02:50)
[2022-07-17] MEDS ORDERED: POLYETHYLENE GLYCOL (HEALTHYLAX) 3350 17 GM PACKET PO PRN (02:50)
[2022-07-17] MEDS ORDERED: MAG HYDROX/AL HYDROX/SIMETH 30 ML UNIT-DOSE CUP PO PRN (02:50)
[2022-07-17] MEDS ORDERED: LOPERAMIDE HCL 2 MG CAPSULE PO PRN (02:50)
[2022-07-17] MEDS ORDERED: guaiFENesin 200 MG/10 ML 10 ML UNIT-DOSE CUPS PO PRN (02:50)
[2022-07-17] MEDS ORDERED: MAGNESIUM HYDROX 2400MG/30ML ORAL SUSPENSION 30 ML CUP PO PRN (02:50)
[2022-07-17] MEDS ORDERED: BENZOCAINE/MENTHOL (CHLORASEPTIC ) LOZENGE MM PRN (02:50)
[2022-07-17] MEDS ORDERED: NICOTINE 10 MG CARTRIDGE (INHALER) IH PRN ×2 (02:50→12:56)
[2022-07-17] MEDS ORDERED: ACETAMINOPHEN 325 MG TABLET (FP) PO PRN ×2 (02:50)
[2022-07-17] MEDS ORDERED: MELATONIN 5 MG TABLETS PO PRN (02:50)
[2022-07-17] MEDS ORDERED: NALOXONE HCL 0.4 MG/ML VIAL IM PRN (02:50)
[2022-07-17] MEDS ORDERED: diazePAM 5 MG TABLET PO PRN (02:52)
[2022-07-17] MEDS ORDERED: cloNIDine HCL 0.1 MG TABLET PO PRN (02:53)
[2022-07-17] MEDS ORDERED: methaDONE HCL 10 MG TABLET (FOR DETOX USE ONLY) PO ONE (02:53)
[2022-07-17] MEDS ORDERED: methaDONE HCL 10 MG TABLET (FOR DETOX USE ONLY) ONE ×2 (03:27→09:57)
[2022-07-17] MEDS ORDERED: diazePAM 5 MG TABLET ONE ×2 (06:19→12:02)
[2022-07-17] MEDS: diazePAM 5 MG TABLET PO SCH ×4 (06:30→22:23)
[2022-07-17] MEDS ORDERED: methaDONE HCL 10 MG TABLET PO ONE (10:00)
[2022-07-17] MEDS: PRENATAL VITAMINS W/ FOLIC ACID TABLET (FP) PO SCH (12:22)
[2022-07-17] MEDS: NICOTINE POLACRILEX 2 MG GUM BUC PRN ×2 (12:35→21:04)
[2022-07-17] MEDS: METHOCARBAMOL 500 MG TABLET PO PRN ×2 (12:36→22:24)
[2022-07-17] MEDS ORDERED: THIAMINE HCL 100 MG TABLET (FP) PO SCH (22:00)
[2022-07-18] MEDS: METHOCARBAMOL 500 MG TABLET PO PRN (05:39)
[2022-07-18] MEDS ORDERED: diazePAM 5 MG TABLET PO SCH (06:00)
[2022-07-18 06:50] VITALS: RESP 18
[2022-07-18 09:44] VITALS: BP 140/52; PULSE 90; TEMP 97
[2022-07-18 09:48] LABS: CALCIUM 8.7 mg/dL (8.5-10.1)
[2022-07-18 09:49] LABS: ALBUMIN 3.2 g/dl (3.4-5.0); BLOOD UREA NITROGEN 20.9 mg/dL (7-18)
[2022-07-18 09:51] LABS: HEMATOCRIT 37.6 % (35.4-49); HEMOGLOBIN 12.3 GM/dL (11.7-16.9); MCH 30.3 pg (25.7-33.7); MCHC 32.6 g/dl (32.0-35.9); MEAN CELL VOLUME 92.9 fl (80-96); MEAN PLT VOLUME 9.1 fl (7.5-11.1); PLATELET COUNT 156 10^3/uL (134-434); RBC 4.04 M/mm3 (4.00-5.60); WHITE BLOOD COUNT 4.3 K/mm3 (4.0-10.0)
[2022-07-18 09:52] LABS: CREATININE 0.9 mg/dL (0.55-1.3)
[2022-07-18 09:53] LABS: BILIRUBIN,TOTAL 0.4 mg/dL (0.2-1); TOT PROT 5.9 g/dl (6.4-8.2)
[2022-07-18] MEDS: PRENATAL VITAMINS W/ FOLIC ACID TABLET (FP) PO SCH (10:26)
[2022-07-19] MEDS ORDERED: diazePAM 5 MG TABLET PO SCH (06:00)
[2022-07-19] MEDS ORDERED: methaDONE HCL 10 MG TABLET (FOR DETOX USE ONLY) PO ONE (10:00)
[2022-07-20] MEDS ORDERED: diazePAM 5 MG TABLET PO ONE (06:00)
[2022-07-21] MEDS ORDERED: methaDONE HCL 10 MG TABLET (FOR DETOX USE ONLY) PO ONE (10:00)
== END 2022-07-18 10:10 | disposition left against medical advice (07) | DRG 770 ==
LOC: YASAS 01:55 → Y6N 10:56
PROVIDERS: ADMIT Allergy & Immunology; ATTEND Surgery
PROC: HZ2ZZZZ Detoxification Services for Substance Abuse Treatment (ICD-10-PCS; principal; 2022-07-17)
DX: F10.230 Alcohol dependence with withdrawal, uncomplicated (principal); F13.230 Sedative, hypnotic or anxiolytic dependence with withdrawal, uncomplicated; F14.20 Cocaine dependence, uncomplicated; F12.20 Cannabis dependence, uncomplicated; F17.210 Nicotine dependence, cigarettes, uncomplicated; F31.9 Bipolar disorder, unspecified; F41.9 Anxiety disorder, unspecified; M54.50 Low back pain, unspecified; G89.29 Other chronic pain; Z28.310 Unvaccinated for COVID-19; Z88.8 Allergy status to other drugs, medicaments and biological substances; Z91.018 Allergy to other foods
CPT/HCPCS: 36415; 80053; 85027; 86780; C9803-CS; U0003; U0005

== ENCOUNTER 2022-07-30 09:25 | Inpatient (IN) | payer OTHER ==
[2022-07-30 10:22] VITALS: BMI 26.3
[2022-07-30] MEDS ORDERED: methaDONE HCL 10 MG TABLET PO ONE ×2 (11:13→14:00)
[2022-07-30] MEDS ORDERED: BISMUTH SUBSALICYLATE 262 MG/15 ML BTL PO PRN (11:18)
[2022-07-30] MEDS ORDERED: POLYETHYLENE GLYCOL (HEALTHYLAX) 3350 17 GM PACKET PO PRN (11:18)
[2022-07-30] MEDS ORDERED: LOPERAMIDE HCL 2 MG CAPSULE PO PRN (11:18)
[2022-07-30] MEDS ORDERED: MAGNESIUM HYDROX 2400MG/30ML ORAL SUSPENSION 30 ML CUP PO PRN (11:18)
[2022-07-30] MEDS ORDERED: NALOXONE HCL (KLOXXADO) 8 MG SPRAY NS PRN (11:18)
[2022-07-30] MEDS ORDERED: ONDANSETRON *ODT* 4 MG TABLET SL PRN (11:18)
[2022-07-30] MEDS ORDERED: ACETAMINOPHEN 325 MG TABLET (FP) PO PRN (11:18)
[2022-07-30] MEDS ORDERED: DICYCLOMINE HCL 10 MG CAPSULE PO PRN (11:18)
[2022-07-30] MEDS ORDERED: BENZOCAINE/MENTHOL (CHLORASEPTIC ) LOZENGE MM PRN (11:18)
[2022-07-30] MEDS ORDERED: IBUPROFEN 600 MG TABLET (FP) PO PRN (11:18)
[2022-07-30] MEDS ORDERED: MAG HYDROX/AL HYDROX/SIMETH 30 ML UNIT-DOSE CUP PO PRN (11:18)
[2022-07-30] MEDS ORDERED: IBUPROFEN 400 MG TABLET (FP) PO PRN (11:18)
[2022-07-30] MEDS: NICOTINE 10 MG CARTRIDGE (INHALER) IH PRN ×2 (12:07→17:37)
[2022-07-30] MEDS: diazePAM 5 MG TABLET PO PRN ×2 (12:08→20:04)
[2022-07-30] MEDS: BACITRACIN 0.9 GM PACKET TP SCH ×2 (12:11→22:14)
[2022-07-30] MEDS: NICOTINE POLACRILEX 2 MG GUM BUC PRN ×4 (14:42→22:18)
[2022-07-30] MEDS: diazePAM 5 MG TABLET PO SCH ×2 (17:40→22:14)
[2022-07-30] MEDS: hydrOXYzine PAMOATE 25 MG CAPSULE (FP) PO PRN (17:40)
[2022-07-30] MEDS: ACETAMINOPHEN 325 MG TABLET (FP) PO PRN (20:06)
[2022-07-30] MEDS ORDERED: THIAMINE HCL 100 MG TABLET (FP) PO SCH (22:00)
[2022-07-30] MEDS ORDERED: MELATONIN 5 MG TABLETS PO SCH (22:00)
[2022-07-30] MEDS: METHOCARBAMOL 500 MG TABLET PO PRN (22:19)
[2022-07-31] MEDS: NICOTINE POLACRILEX 2 MG GUM BUC PRN ×3 (05:24→15:00)
[2022-07-31] MEDS: NICOTINE 10 MG CARTRIDGE (INHALER) IH PRN ×3 (05:24→15:00)
[2022-07-31] MEDS: diazePAM 5 MG TABLET PO SCH ×3 (05:25→16:58)
[2022-07-31] MEDS ORDERED: methaDONE HCL 40 MG DISPERSABLE TABLET PO ONE (06:00)
[2022-07-31] MEDS ORDERED: NICOTINE 14 MG/24 HOURS TOPICAL PATCH TD SCH (10:00)
[2022-07-31] MEDS ORDERED: PRENATAL VITAMINS W/ FOLIC ACID TABLET (FP) PO SCH (10:00)
[2022-07-31] MEDS: BACITRACIN 0.9 GM PACKET TP SCH (10:22)
[2022-07-31] MEDS: hydrOXYzine PAMOATE 25 MG CAPSULE (FP) PO PRN (10:22)
[2022-07-31] MEDS: diazePAM 5 MG TABLET PO PRN (12:28)
[2022-07-31] MEDS: ACETAMINOPHEN 325 MG TABLET (FP) PO PRN (15:07)
[2022-07-31] MEDS: METHOCARBAMOL 500 MG TABLET PO PRN (15:07)
[2022-07-31 17:15] VITALS: BP 137/78; PULSE 93; RESP 16; TEMP 98.6
[2022-08-01] MEDS ORDERED: methaDONE 40 MG, methaDONE 10 MG PO ONE (06:00)
[2022-08-01] MEDS ORDERED: methaDONE HCL 10 MG TABLET PO ONE (06:00)
[2022-08-01] MEDS ORDERED: diazePAM 5 MG TABLET PO SCH (06:00)
[2022-08-02] MEDS ORDERED: methaDONE 40 MG, methaDONE 20 MG PO ONE (06:00)
[2022-08-02] MEDS ORDERED: diazePAM 5 MG TABLET PO SCH (06:00)
[2022-08-02] MEDS ORDERED: methaDONE HCL 10 MG TABLET PO ONE (06:00)
[2022-08-03] MEDS ORDERED: methaDONE 40 MG, methaDONE 30 MG PO SCH (06:00)
[2022-08-03] MEDS ORDERED: methaDONE HCL 40 MG DISPERSABLE TABLET PO SCH (06:00)
[2022-08-03] MEDS ORDERED: diazePAM 5 MG TABLET PO ONE (06:00)
== END 2022-07-31 06:56 | disposition left against medical advice (07) | DRG 770 ==
LOC: YASAS 09:25 → Y6N 11:37
PROVIDERS: ADMIT Allergy & Immunology; ATTEND Surgery
PROC: HZ2ZZZZ Detoxification Services for Substance Abuse Treatment (ICD-10-PCS; principal; 2022-07-30)
DX: F11.23 Opioid dependence with withdrawal (principal); F10.230 Alcohol dependence with withdrawal, uncomplicated; F13.20 Sedative, hypnotic or anxiolytic dependence, uncomplicated; F14.20 Cocaine dependence, uncomplicated; F17.210 Nicotine dependence, cigarettes, uncomplicated; F31.9 Bipolar disorder, unspecified; F43.10 Post-traumatic stress disorder, unspecified; F41.9 Anxiety disorder, unspecified; G47.00 Insomnia, unspecified; Z88.8 Allergy status to other drugs, medicaments and biological substances; Z91.013 Allergy to seafood
CPT/HCPCS: C9803-CS; U0003; U0005

== ENCOUNTER 2022-08-06 21:46 | Inpatient (IN) | payer OTHER ==
[2022-08-06 22:15] VITALS: BMI 26.6
[2022-08-06] MEDS ORDERED: P-EPHED 60MG/TRIPROLIDI 2.5MG TABLET PO PRN (22:23)
[2022-08-06] MEDS ORDERED: MAGNESIUM HYDROX 2400MG/30ML ORAL SUSPENSION 30 ML CUP PO PRN (22:23)
[2022-08-06] MEDS ORDERED: BISMUTH SUBSALICYLATE 524 MG/30 ML PO PRN (22:23)
[2022-08-06] MEDS ORDERED: IBUPROFEN 600 MG TABLET (FP) PO PRN (22:23)
[2022-08-06] MEDS ORDERED: guaiFENesin 200 MG/10 ML 10 ML UNIT-DOSE CUPS PO PRN (22:23)
[2022-08-06] MEDS ORDERED: LOPERAMIDE HCL 2 MG CAPSULE PO PRN (22:23)
[2022-08-06] MEDS ORDERED: NALOXONE HCL 0.4 MG/ML VIAL IM PRN (22:23)
[2022-08-06] MEDS ORDERED: BENZOCAINE/MENTHOL (CHLORASEPTIC ) LOZENGE MM PRN (22:23)
[2022-08-06] MEDS ORDERED: DICYCLOMINE HCL 10 MG CAPSULE PO PRN (22:23)
[2022-08-06] MEDS ORDERED: POLYETHYLENE GLYCOL (HEALTHYLAX) 3350 17 GM PACKET PO PRN (22:23)
[2022-08-06] MEDS ORDERED: ACETAMINOPHEN 325 MG TABLET (FP) PO PRN ×2 (22:23)
[2022-08-06] MEDS ORDERED: MAG HYDROX/AL HYDROX/SIMETH 30 ML UNIT-DOSE CUP PO PRN (22:23)
[2022-08-06] MEDS ORDERED: ONDANSETRON *ODT* 4 MG TABLET SL PRN (22:23)
[2022-08-06] MEDS ORDERED: IBUPROFEN 400 MG TABLET (FP) PO PRN (22:23)
[2022-08-06] MEDS ORDERED: NALOXONE HCL (KLOXXADO) 8 MG SPRAY NS PRN (22:23)
[2022-08-06] MEDS ORDERED: diazePAM 5 MG TABLET ONE (23:19)
[2022-08-06] MEDS: diazePAM 5 MG TABLET PO SCH (23:34)
[2022-08-07] MEDS ORDERED: diazePAM 5 MG TABLET ONE (02:07)
[2022-08-07] MEDS ORDERED: METHOCARBAMOL 500 MG TABLET ONE (02:08)
[2022-08-07] MEDS: diazePAM 5 MG TABLET PO PRN ×4 (02:10→19:46)
[2022-08-07] MEDS: METHOCARBAMOL 500 MG TABLET PO PRN ×3 (02:10→22:22)
[2022-08-07] MEDS: diazePAM 5 MG TABLET PO SCH ×4 (06:01→22:21)
[2022-08-07] MEDS: hydrOXYzine PAMOATE 25 MG CAPSULE (FP) PO PRN ×2 (09:15→17:43)
[2022-08-07] MEDS ORDERED: methaDONE HCL 10 MG TABLET PO ONE (10:30)
[2022-08-07] MEDS: PRENATAL VITAMINS W/ FOLIC ACID TABLET (FP) PO SCH (11:20)
[2022-08-07] MEDS: SULFAMETHOXAZOLE/TRIMETHOPRIM 800MG/160MG D.S. TABLET PO SCH ×2 (11:24→22:24)
[2022-08-07] MEDS: NICOTINE 10 MG CARTRIDGE (INHALER) IH PRN ×2 (14:23→19:45)
[2022-08-07] MEDS: NICOTINE POLACRILEX 2 MG GUM BUC PRN ×2 (17:44→22:26)
[2022-08-07] MEDS ORDERED: MELATONIN 5 MG TABLETS PO SCH (22:00)
[2022-08-07] MEDS ORDERED: THIAMINE HCL 100 MG TABLET (FP) PO SCH (22:00)
[2022-08-08] MEDS: diazePAM 5 MG TABLET PO PRN ×2 (03:16→09:42)
[2022-08-08] MEDS: hydrOXYzine PAMOATE 25 MG CAPSULE (FP) PO PRN ×2 (04:56→09:41)
[2022-08-08] MEDS: NICOTINE 10 MG CARTRIDGE (INHALER) IH PRN (04:57)
[2022-08-08] MEDS: diazePAM 5 MG TABLET PO SCH ×2 (05:06→14:13)
[2022-08-08] MEDS ORDERED: methaDONE HCL 10 MG TABLET PO SCH (06:00)
[2022-08-08] MEDS ORDERED: methaDONE HCL 40 MG DISPERSABLE TABLET PO ONE (06:00)
[2022-08-08 06:06] VITALS: TEMP 97.7
[2022-08-08 09:36] VITALS: BP 113/70; PULSE 68; RESP 18
[2022-08-08] MEDS: PRENATAL VITAMINS W/ FOLIC ACID TABLET (FP) PO SCH (09:41)
[2022-08-08] MEDS: METHOCARBAMOL 500 MG TABLET PO PRN (09:41)
[2022-08-08] MEDS: SULFAMETHOXAZOLE/TRIMETHOPRIM 800MG/160MG D.S. TABLET PO SCH ×2 (09:43→10:54)
[2022-08-09] MEDS ORDERED: diazePAM 5 MG TABLET PO SCH (06:00)
[2022-08-09] MEDS ORDERED: methaDONE 40 MG, methaDONE 10 MG PO ONE (06:00)
[2022-08-09] MEDS ORDERED: methaDONE HCL 40 MG DISPERSABLE TABLET PO SCH (06:00)
[2022-08-10] MEDS ORDERED: methaDONE 40 MG, methaDONE 20 MG PO ONE (06:00)
[2022-08-10] MEDS ORDERED: diazePAM 5 MG TABLET PO ONE (06:00)
[2022-08-10] MEDS ORDERED: methaDONE HCL 40 MG DISPERSABLE TABLET PO SCH (06:00)
[2022-08-11] MEDS ORDERED: methaDONE HCL 40 MG DISPERSABLE TABLET PO SCH (06:00)
[2022-08-11] MEDS ORDERED: methaDONE 40 MG, methaDONE 30 MG PO SCH (06:00)
== END 2022-08-08 11:10 | disposition left against medical advice (07) | DRG 770 ==
LOC: YASAS 21:46 → Y3N 08-07 10:46
PROVIDERS: ADMIT Allergy & Immunology; ATTEND Surgery
PROC: HZ2ZZZZ Detoxification Services for Substance Abuse Treatment (ICD-10-PCS; principal; 2022-08-07)
DX: F11.23 Opioid dependence with withdrawal (principal); F10.230 Alcohol dependence with withdrawal, uncomplicated; F13.20 Sedative, hypnotic or anxiolytic dependence, uncomplicated; F14.20 Cocaine dependence, uncomplicated; F17.210 Nicotine dependence, cigarettes, uncomplicated; M54.50 Low back pain, unspecified; G89.29 Other chronic pain; Z88.8 Allergy status to other drugs, medicaments and biological substances; Z91.014 Allergy to mammalian meats
CPT/HCPCS: C9803-CS; U0003; U0005

== ENCOUNTER 2022-08-19 23:46 | Inpatient (IN) | payer OTHER ==
[2022-08-20] MEDS ORDERED: MAG HYDROX/AL HYDROX/SIMETH 30 ML UNIT-DOSE CUP PO PRN (00:27)
[2022-08-20] MEDS ORDERED: BISMUTH SUBSALICYLATE 524 MG/30 ML PO PRN (00:27)
[2022-08-20] MEDS ORDERED: DICYCLOMINE HCL 10 MG CAPSULE PO PRN (00:27)
[2022-08-20] MEDS ORDERED: NALOXONE HCL (KLOXXADO) 8 MG SPRAY NS PRN (00:27)
[2022-08-20] MEDS ORDERED: BENZOCAINE/MENTHOL (CHLORASEPTIC ) LOZENGE MM PRN (00:27)
[2022-08-20] MEDS ORDERED: ONDANSETRON *ODT* 4 MG TABLET SL PRN (00:27)
[2022-08-20] MEDS ORDERED: POLYETHYLENE GLYCOL (HEALTHYLAX) 3350 17 GM PACKET PO PRN (00:27)
[2022-08-20] MEDS ORDERED: ACETAMINOPHEN 325 MG TABLET (FP) PO PRN (00:27)
[2022-08-20] MEDS ORDERED: LOPERAMIDE HCL 2 MG CAPSULE PO PRN (00:27)
[2022-08-20] MEDS ORDERED: MAGNESIUM HYDROX 2400MG/30ML ORAL SUSPENSION 30 ML CUP PO PRN (00:27)
[2022-08-20 00:42] VITALS: BMI 26.7
[2022-08-20] MEDS: METHOCARBAMOL 500 MG TABLET PO PRN ×2 (02:30→22:20)
[2022-08-20] MEDS: IBUPROFEN 400 MG TABLET (FP) PO PRN (02:30)
[2022-08-20] MEDS: hydrOXYzine PAMOATE 25 MG CAPSULE (FP) PO PRN ×2 (02:30→22:20)
[2022-08-20] MEDS ORDERED: methaDONE HCL 10 MG TABLET PO SCH (09:00)
[2022-08-20] MEDS: methaDONE 40 MG, methaDONE 20 MG PO SCH (09:46)
[2022-08-20] MEDS: NICOTINE POLACRILEX 4 MG GUM BUC PRN (09:49)
[2022-08-20] MEDS: PRENATAL VITAMINS W/ FOLIC ACID TABLET (FP) PO SCH (10:39)
[2022-08-20] MEDS: NICOTINE 21 MG/24 HOURS TOPICAL PATCH TD SCH (10:40)
[2022-08-20] MEDS: diazePAM 5 MG TABLET PO SCH ×3 (10:40→22:22)
[2022-08-20] MEDS: NICOTINE 10 MG CARTRIDGE (INHALER) IH PRN ×2 (10:40→22:18)
[2022-08-20] MEDS: IBUPROFEN 600 MG TABLET (FP) PO PRN (18:05)
[2022-08-20] MEDS: THIAMINE HCL 100 MG TABLET (FP) PO SCH (22:20)
[2022-08-20] MEDS: MELATONIN 5 MG TABLETS PO SCH (22:20)
[2022-08-20] MEDS: ACETAMINOPHEN 325 MG TABLET (FP) PO PRN (22:21)
[2022-08-21] MEDS: methaDONE 40 MG, methaDONE 20 MG PO SCH (05:38)
[2022-08-21] MEDS: diazePAM 5 MG TABLET PO SCH ×4 (05:38→22:26)
[2022-08-21] MEDS: IBUPROFEN 600 MG TABLET (FP) PO PRN (05:39)
[2022-08-21] MEDS: METHOCARBAMOL 500 MG TABLET PO PRN ×3 (05:40→22:25)
[2022-08-21] MEDS: NICOTINE 10 MG CARTRIDGE (INHALER) IH PRN ×4 (05:41→22:24)
[2022-08-21] MEDS: IBUPROFEN 400 MG TABLET (FP) PO PRN (10:11)
[2022-08-21] MEDS: PRENATAL VITAMINS W/ FOLIC ACID TABLET (FP) PO SCH (10:11)
[2022-08-21] MEDS: NICOTINE POLACRILEX 4 MG GUM BUC PRN ×4 (10:14→22:25)
[2022-08-21] MEDS: NICOTINE 21 MG/24 HOURS TOPICAL PATCH TD SCH (10:14)
[2022-08-21] MEDS: ACETAMINOPHEN 325 MG TABLET (FP) PO PRN ×2 (11:57→18:51)
[2022-08-21] MEDS: diazePAM 5 MG TABLET PO PRN ×2 (12:39→18:49)
[2022-08-21] MEDS: hydrOXYzine PAMOATE 25 MG CAPSULE (FP) PO PRN (14:34)
[2022-08-21 17:45] LABS: HEMATOCRIT 40.3 % (35.4-49); HEMOGLOBIN 13.2 GM/dL (11.7-16.9); MCH 30.4 pg (25.7-33.7); MCHC 32.7 g/dl (32.0-35.9); MEAN PLT VOLUME 9.1 fl (7.5-11.1); PLATELET COUNT 181 10^3/uL (134-434); RBC 4.34 M/mm3 (4.00-5.60); RDW 14.1 % (11.9-15.9); WHITE BLOOD COUNT 4.3 K/mm3 (4.0-10.0)
[2022-08-21 18:00] LABS: ALBUMIN 3.4 g/dl (3.4-5.0)
[2022-08-21 18:01] LABS: BLOOD UREA NITROGEN 14.4 mg/dL (7-18)
[2022-08-21 18:02] LABS: CREATININE 0.8 mg/dL (0.55-1.3)
[2022-08-21 18:04] LABS: BILIRUBIN,TOTAL 0.3 mg/dL (0.2-1); TOT PROT 6.2 g/dl (6.4-8.2)
[2022-08-21] MEDS: GABAPENTIN 400 MG CAPSULE PO SCH (22:26)
[2022-08-21] MEDS: MELATONIN 5 MG TABLETS PO SCH (22:51)
[2022-08-21] MEDS: THIAMINE HCL 100 MG TABLET (FP) PO SCH (22:51)
[2022-08-22] MEDS: diazePAM 5 MG TABLET PO PRN ×2 (01:45→10:41)
[2022-08-22] MEDS: diazePAM 5 MG TABLET PO SCH ×2 (05:30→14:15)
[2022-08-22] MEDS: GABAPENTIN 400 MG CAPSULE PO SCH ×2 (05:30→14:15)
[2022-08-22] MEDS: methaDONE 40 MG, methaDONE 20 MG PO SCH (05:31)
[2022-08-22] MEDS: hydrOXYzine PAMOATE 25 MG CAPSULE (FP) PO PRN (05:32)
[2022-08-22] MEDS: METHOCARBAMOL 500 MG TABLET PO PRN (05:32)
[2022-08-22] MEDS: IBUPROFEN 600 MG TABLET (FP) PO PRN (05:33)
[2022-08-22] MEDS: NICOTINE 10 MG CARTRIDGE (INHALER) IH PRN ×2 (05:34→10:38)
[2022-08-22] MEDS: NICOTINE 21 MG/24 HOURS TOPICAL PATCH TD SCH (10:38)
[2022-08-22] MEDS: PRENATAL VITAMINS W/ FOLIC ACID TABLET (FP) PO SCH (10:38)
[2022-08-22] MEDS: NICOTINE POLACRILEX 4 MG GUM BUC PRN (10:38)
[2022-08-22] MEDS: ACETAMINOPHEN 325 MG TABLET (FP) PO PRN (10:40)
[2022-08-22 13:25] VITALS: BP 133/89; PULSE 86; RESP 17; TEMP 97.1
[2022-08-23] MEDS ORDERED: diazePAM 5 MG TABLET PO SCH (06:00)
[2022-08-24] MEDS ORDERED: diazePAM 5 MG TABLET PO ONE (06:00)
== END 2022-08-22 13:40 | disposition left against medical advice (07) | DRG 770 ==
LOC: YASAS 23:46 → Y3N 08-20 01:28
PROVIDERS: ADMIT Allergy & Immunology; ATTEND Family Medicine
PROC: HZ2ZZZZ Detoxification Services for Substance Abuse Treatment (ICD-10-PCS; principal; 2022-08-20)
DX: F10.230 Alcohol dependence with withdrawal, uncomplicated (principal); F13.230 Sedative, hypnotic or anxiolytic dependence with withdrawal, uncomplicated; F11.20 Opioid dependence, uncomplicated; F14.20 Cocaine dependence, uncomplicated; F17.210 Nicotine dependence, cigarettes, uncomplicated; F31.9 Bipolar disorder, unspecified; Z56.0 Unemployment, unspecified; Z59.01 Sheltered homelessness; Z28.310 Unvaccinated for COVID-19; Z28.9 Immunization not carried out for unspecified reason; Z88.8 Allergy status to other drugs, medicaments and biological substances; Z91.013 Allergy to seafood; Z91.199 Patient's noncompliance with other medical treatment and regimen due to unspecified reason
CPT/HCPCS: 36415; 80053; 85027; 86780; C9803-CS; U0003; U0005

== ENCOUNTER 2022-09-05 00:53 | Inpatient (IN) | payer OTHER ==
[2022-09-05 01:20] VITALS: BMI 25.9
[2022-09-05] MEDS ORDERED: MAG HYDROX/AL HYDROX/SIMETH 30 ML UNIT-DOSE CUP PO PRN (02:28)
[2022-09-05] MEDS ORDERED: ACETAMINOPHEN 325 MG TABLET (FP) PO PRN ×2 (02:28)
[2022-09-05] MEDS ORDERED: NALOXONE HCL (KLOXXADO) 8 MG SPRAY NS PRN (02:28)
[2022-09-05] MEDS ORDERED: POLYETHYLENE GLYCOL (HEALTHYLAX) 3350 17 GM PACKET PO PRN (02:28)
[2022-09-05] MEDS ORDERED: BISMUTH SUBSALICYLATE 524 MG/30 ML PO PRN (02:28)
[2022-09-05] MEDS ORDERED: IBUPROFEN 600 MG TABLET (FP) PO PRN (02:28)
[2022-09-05] MEDS ORDERED: BENZOCAINE/MENTHOL (CHLORASEPTIC ) LOZENGE MM PRN (02:28)
[2022-09-05] MEDS ORDERED: LOPERAMIDE HCL 2 MG CAPSULE PO PRN (02:28)
[2022-09-05] MEDS ORDERED: MAGNESIUM HYDROX 2400MG/30ML ORAL SUSPENSION 30 ML CUP PO PRN (02:28)
[2022-09-05] MEDS ORDERED: IBUPROFEN 400 MG TABLET (FP) PO PRN (02:28)
[2022-09-05] MEDS ORDERED: ONDANSETRON *ODT* 4 MG TABLET SL PRN (02:28)
[2022-09-05] MEDS ORDERED: DICYCLOMINE HCL 10 MG CAPSULE PO PRN (02:28)
[2022-09-05] MEDS: METHOCARBAMOL 500 MG TABLET PO PRN (03:24)
[2022-09-05] MEDS: diazePAM 5 MG TABLET PO PRN ×3 (03:26→19:59)
[2022-09-05] MEDS: NICOTINE 10 MG CARTRIDGE (INHALER) IH PRN ×3 (03:31→18:41)
[2022-09-05] MEDS: diazePAM 5 MG TABLET PO SCH ×4 (05:50→22:38)
[2022-09-05] MEDS ORDERED: NICOTINE 14 MG/24 HOURS TOPICAL PATCH TD SCH (10:00)
[2022-09-05] MEDS: PRENATAL VITAMINS W/ FOLIC ACID TABLET (FP) PO SCH (10:29)
[2022-09-05] MEDS: NICOTINE 21 MG/24 HOURS TOPICAL PATCH TD SCH (10:39)
[2022-09-05] MEDS: BACITRACIN 0.9 GM PACKET TP SCH (10:42)
[2022-09-05] MEDS: CLOTRIMAZOLE 1% CREAM TP SCH ×2 (11:54→22:38)
[2022-09-05] MEDS ORDERED: methaDONE HCL 10 MG TABLET PO ONE (14:45)
[2022-09-05] MEDS: MELATONIN 5 MG TABLETS PO SCH (22:34)
[2022-09-05] MEDS: THIAMINE HCL 100 MG TABLET (FP) PO SCH (22:37)
[2022-09-06] MEDS: diazePAM 5 MG TABLET PO SCH ×3 (05:13→22:30)
[2022-09-06] MEDS ORDERED: methaDONE HCL 10 MG TABLET PO ONE ×2 (07:15→10:00)
[2022-09-06] MEDS: diazePAM 5 MG TABLET PO PRN ×3 (07:25→17:42)
[2022-09-06] MEDS: NICOTINE 10 MG CARTRIDGE (INHALER) IH PRN ×3 (07:27→22:32)
[2022-09-06] MEDS: METHOCARBAMOL 500 MG TABLET PO PRN ×2 (10:47→22:32)
[2022-09-06] MEDS: BACITRACIN 0.9 GM PACKET TP SCH (10:49)
[2022-09-06] MEDS: CLOTRIMAZOLE 1% CREAM TP SCH ×2 (10:49→22:28)
[2022-09-06] MEDS: NICOTINE 21 MG/24 HOURS TOPICAL PATCH TD SCH (10:53)
[2022-09-06] MEDS: PRENATAL VITAMINS W/ FOLIC ACID TABLET (FP) PO SCH (10:53)
[2022-09-06] MEDS: NICOTINE POLACRILEX 4 MG GUM BUC PRN ×3 (10:53→17:44)
[2022-09-06] MEDS: MELATONIN 5 MG TABLETS PO SCH (22:29)
[2022-09-06] MEDS: THIAMINE HCL 100 MG TABLET (FP) PO SCH (22:30)
[2022-09-07] MEDS ORDERED: methaDONE 40 MG, methaDONE 20 MG PO SCH (06:00)
[2022-09-07] MEDS ORDERED: methaDONE HCL 10 MG TABLET PO SCH (06:00)
[2022-09-07] MEDS ORDERED: diazePAM 5 MG TABLET PO SCH (06:00)
[2022-09-07 09:17] VITALS: BP 122/79; PULSE 87; RESP 16; TEMP 97.1
[2022-09-07] MEDS: NICOTINE POLACRILEX 4 MG GUM BUC PRN (09:24)
[2022-09-07] MEDS: PRENATAL VITAMINS W/ FOLIC ACID TABLET (FP) PO SCH (10:00)
[2022-09-07] MEDS: METHOCARBAMOL 500 MG TABLET PO PRN (10:00)
[2022-09-07] MEDS: NICOTINE 21 MG/24 HOURS TOPICAL PATCH TD SCH (10:00)
[2022-09-07] MEDS: CLOTRIMAZOLE 1% CREAM TP SCH (10:00)
[2022-09-07] MEDS: BACITRACIN 0.9 GM PACKET TP SCH (10:00)
[2022-09-07] MEDS: NICOTINE 10 MG CARTRIDGE (INHALER) IH PRN (10:03)
[2022-09-08] MEDS ORDERED: diazePAM 5 MG TABLET PO ONE (06:00)
== END 2022-09-07 11:57 | disposition left against medical advice (07) | DRG 770 ==
LOC: YASAS 00:53 → Y6N 02:50
PROVIDERS: ADMIT Allergy & Immunology; ATTEND Allergy & Immunology
PROC: HZ2ZZZZ Detoxification Services for Substance Abuse Treatment (ICD-10-PCS; principal; 2022-09-05)
DX: F10.230 Alcohol dependence with withdrawal, uncomplicated (principal); F13.230 Sedative, hypnotic or anxiolytic dependence with withdrawal, uncomplicated; F11.20 Opioid dependence, uncomplicated; F14.20 Cocaine dependence, uncomplicated; F17.210 Nicotine dependence, cigarettes, uncomplicated; F31.9 Bipolar disorder, unspecified; M54.50 Low back pain, unspecified; G89.29 Other chronic pain; Z91.199 Patient's noncompliance with other medical treatment and regimen due to unspecified reason; Z28.310 Unvaccinated for COVID-19; Z28.9 Immunization not carried out for unspecified reason; Z88.8 Allergy status to other drugs, medicaments and biological substances; Z91.013 Allergy to seafood
CPT/HCPCS: 87811; C9803-CS; Q0162; U0003; U0005

== ENCOUNTER 2023-03-19 23:24 | Inpatient (IN) | payer OTHER ==
[2023-03-19 23:58] VITALS: BMI 22.1
[2023-03-20] MEDS ORDERED: POLYETHYLENE GLYCOL (HEALTHYLAX) 3350 17 GM PACKET PO PRN (01:02)
[2023-03-20] MEDS ORDERED: NALOXONE HCL (KLOXXADO) 8 MG SPRAY NS PRN (01:02)
[2023-03-20] MEDS ORDERED: BISMUTH SUBSALICYLATE 524 MG/30 ML PO PRN (01:02)
[2023-03-20] MEDS ORDERED: MAG HYDROX/AL HYDROX/SIMETH 30 ML UNIT-DOSE CUP PO PRN (01:02)
[2023-03-20] MEDS ORDERED: ONDANSETRON *ODT* 4 MG TABLET SL PRN (01:02)
[2023-03-20] MEDS ORDERED: BENZONATATE 200 MG CAPSULE PO PRN (01:02)
[2023-03-20] MEDS ORDERED: IBUPROFEN 400 MG TABLET (FP) PO PRN (01:02)
[2023-03-20] MEDS ORDERED: guaiFENesin 600 MG TABLET.ER (FP) PO PRN (01:02)
[2023-03-20] MEDS ORDERED: ACETAMINOPHEN 325 MG TABLET (FP) PO PRN (01:02)
[2023-03-20] MEDS ORDERED: MAGNESIUM HYDROX 2400MG/30ML ORAL SUSPENSION 30 ML CUP PO PRN (01:02)
[2023-03-20] MEDS ORDERED: NALOXONE HCL 0.4 MG/ML VIAL IM PRN (01:02)
[2023-03-20] MEDS ORDERED: BENZOCAINE/MENTHOL (CHLORASEPTIC ) LOZENGE MM PRN (01:02)
[2023-03-20] MEDS ORDERED: DICYCLOMINE HCL 10 MG CAPSULE PO PRN (01:02)
[2023-03-20] MEDS ORDERED: LOPERAMIDE HCL 2 MG CAPSULE PO PRN (01:02)
[2023-03-20] MEDS: METHOCARBAMOL 500 MG TABLET PO PRN ×2 (03:11→22:39)
[2023-03-20] MEDS: hydrOXYzine PAMOATE 25 MG CAPSULE (FP) PO PRN (03:11)
[2023-03-20] MEDS ORDERED: chlordiazePOXIDE HCL 25 MG CAPSULE PO PRN (10:30)
[2023-03-20] MEDS: PRENATAL VITAMINS W/ FOLIC ACID TABLET (FP) PO SCH (11:00)
[2023-03-20] MEDS: chlordiazePOXIDE HCL 25 MG CAPSULE PO SCH ×3 (11:09→22:37)
[2023-03-20] MEDS: NICOTINE 21 MG/24 HOURS TOPICAL PATCH TD SCH (11:11)
[2023-03-20] MEDS: NICOTINE POLACRILEX 2 MG GUM BUC PRN ×3 (11:13→22:40)
[2023-03-20] MEDS ORDERED: methaDONE HCL 10 MG TABLET PO SCH (12:30)
[2023-03-20] MEDS: methaDONE 40 MG, methaDONE 20 MG PO SCH (12:47)
[2023-03-20] MEDS: THIAMINE HCL 100 MG TABLET (FP) PO SCH (22:37)
[2023-03-20] MEDS: MELATONIN 5 MG TABLETS PO SCH (22:37)
[2023-03-21] MEDS: methaDONE 40 MG, methaDONE 20 MG PO SCH (05:42)
[2023-03-21] MEDS: chlordiazePOXIDE HCL 25 MG CAPSULE PO SCH ×4 (05:43→22:52)
[2023-03-21] MEDS: METHOCARBAMOL 500 MG TABLET PO PRN ×2 (05:44→17:24)
[2023-03-21] MEDS: NICOTINE POLACRILEX 2 MG GUM BUC PRN ×3 (05:47→22:57)
[2023-03-21 09:48] LABS: HEMATOCRIT 37.1 % (35.4-49); HEMOGLOBIN 12.6 GM/dL (11.7-16.9); MCH 30.3 pg (25.7-33.7); MCHC 33.8 g/dl (32.0-35.9); MEAN CELL VOLUME 89.6 fl (80-96); MEAN PLT VOLUME 9.6 fl (7.5-11.1); PLATELET COUNT 150 10^3/uL (134-434); RBC 4.14 M/mm3 (4.00-5.60); RDW 17.3 % (11.9-15.9); WHITE BLOOD COUNT 3.2 K/mm3 (4.0-10.0)
[2023-03-21 09:55] LABS: POTASSIUM 4.2 mmol/L (3.5-5.1)
[2023-03-21 10:08] LABS: ALBUMIN 2.8 g/dl (3.4-5.0); BLOOD UREA NITROGEN 16.8 mg/dL (7-18)
[2023-03-21 10:11] LABS: CREATININE 0.6 mg/dL (0.55-1.3)
[2023-03-21] MEDS: NICOTINE 21 MG/24 HOURS TOPICAL PATCH TD SCH (10:11)
[2023-03-21] MEDS: IBUPROFEN 600 MG TABLET (FP) PO PRN (10:11)
[2023-03-21] MEDS: hydrOXYzine PAMOATE 25 MG CAPSULE (FP) PO PRN ×2 (10:11→22:55)
[2023-03-21] MEDS: PRENATAL VITAMINS W/ FOLIC ACID TABLET (FP) PO SCH (10:11)
[2023-03-21 10:13] LABS: TOT PROT 5.8 g/dl (6.4-8.2)
[2023-03-21 10:14] LABS: BILIRUBIN,TOTAL 4.3 mg/dL (0.2-1)
[2023-03-21] MEDS: THIAMINE HCL 100 MG TABLET (FP) PO SCH (22:52)
[2023-03-21] MEDS: MELATONIN 5 MG TABLETS PO SCH (22:53)
[2023-03-22] MEDS: METHOCARBAMOL 500 MG TABLET PO PRN ×2 (01:47→11:13)
[2023-03-22] MEDS: chlordiazePOXIDE HCL 10 MG CAPSULE PO SCH ×2 (05:15→10:26)
[2023-03-22] MEDS: methaDONE 40 MG, methaDONE 20 MG PO SCH (05:15)
[2023-03-22] MEDS: hydrOXYzine PAMOATE 25 MG CAPSULE (FP) PO PRN (05:18)
[2023-03-22] MEDS: IBUPROFEN 600 MG TABLET (FP) PO PRN (05:18)
[2023-03-22 06:09] VITALS: RESP 16
[2023-03-22 09:11] VITALS: BP 103/67; PULSE 63; TEMP 97.3
[2023-03-22] MEDS: NICOTINE 21 MG/24 HOURS TOPICAL PATCH TD SCH (10:26)
[2023-03-22] MEDS: PRENATAL VITAMINS W/ FOLIC ACID TABLET (FP) PO SCH (10:26)
[2023-03-22] MEDS: NICOTINE POLACRILEX 2 MG GUM BUC PRN ×2 (10:27→12:23)
[2023-03-22] MEDS ORDERED: LORazepam 1 MG TABLET PO PRN (11:02)
[2023-03-22] MEDS: LORazepam 1 MG TABLET PO SCH ×2 (18:05→23:16)
[2023-03-22] MEDS: MELATONIN 5 MG TABLETS PO SCH (23:16)
[2023-03-22] MEDS: THIAMINE HCL 100 MG TABLET (FP) PO SCH (23:21)
[2023-03-23] MEDS ORDERED: LORazepam 0.5 MG TABLET PO PRN
[2023-03-23] MEDS ORDERED: chlordiazePOXIDE HCL 10 MG CAPSULE PO PRN
[2023-03-23] MEDS ORDERED: chlordiazePOXIDE HCL 10 MG CAPSULE PO SCH (05:00)
[2023-03-23] MEDS ORDERED: LORazepam 0.5 MG TABLET PO SCH (05:00)
[2023-03-24] MEDS ORDERED: chlordiazePOXIDE HCL 10 MG CAPSULE PO ONE (05:00)
== END 2023-03-22 12:29 | disposition short-term general hospital (02) | DRG 773 ==
LOC: YASAS 23:24 → Y6N 03-20 01:50
PROVIDERS: ADMIT Allergy & Immunology; ATTEND Surgery
PROC: HZ2ZZZZ Detoxification Services for Substance Abuse Treatment (ICD-10-PCS; principal; 2023-03-20)
DX: F10.230 Alcohol dependence with withdrawal, uncomplicated (principal); F11.20 Opioid dependence, uncomplicated; F14.20 Cocaine dependence, uncomplicated; F13.20 Sedative, hypnotic or anxiolytic dependence, uncomplicated; F17.210 Nicotine dependence, cigarettes, uncomplicated; F31.9 Bipolar disorder, unspecified; R74.01 Elevation of levels of liver transaminase levels; Z88.8 Allergy status to other drugs, medicaments and biological substances
CPT/HCPCS: 36415; 80053; 85027; 86780; 87635; 87811; Q0162

== ENCOUNTER 2023-04-25 22:23 | Inpatient (IN) | payer OTHER ==
[2023-04-25 23:02] VITALS: BMI 22.0
[2023-04-25] MEDS ORDERED: POLYETHYLENE GLYCOL (HEALTHYLAX) 3350 17 GM PACKET PO PRN (23:23)
[2023-04-25] MEDS ORDERED: BISMUTH SUBSALICYLATE 524 MG/30 ML PO PRN (23:23)
[2023-04-25] MEDS ORDERED: IBUPROFEN 400 MG TABLET (FP) PO PRN (23:23)
[2023-04-25] MEDS ORDERED: DICYCLOMINE HCL 10 MG CAPSULE PO PRN (23:23)
[2023-04-25] MEDS ORDERED: NICOTINE POLACRILEX 4 MG GUM BUC PRN (23:23)
[2023-04-25] MEDS ORDERED: BENZOCAINE/MENTHOL (CHLORASEPTIC ) LOZENGE MM PRN (23:23)
[2023-04-25] MEDS ORDERED: NALOXONE HCL (KLOXXADO) 8 MG SPRAY NS PRN (23:23)
[2023-04-25] MEDS ORDERED: guaiFENesin 600 MG TABLET.ER (FP) PO PRN (23:23)
[2023-04-25] MEDS ORDERED: NALOXONE HCL 0.4 MG/ML VIAL IM PRN (23:23)
[2023-04-25] MEDS ORDERED: LOPERAMIDE HCL 2 MG CAPSULE PO PRN (23:23)
[2023-04-25] MEDS ORDERED: BENZONATATE 200 MG CAPSULE PO PRN (23:23)
[2023-04-25] MEDS ORDERED: ACETAMINOPHEN 325 MG TABLET (FP) PO PRN (23:23)
[2023-04-25] MEDS ORDERED: MAGNESIUM HYDROX 2400MG/30ML ORAL SUSPENSION 30 ML CUP PO PRN (23:23)
[2023-04-25] MEDS ORDERED: MAG HYDROX/AL HYDROX/SIMETH 30 ML UNIT-DOSE CUP PO PRN (23:23)
[2023-04-25] MEDS ORDERED: ONDANSETRON *ODT* 4 MG TABLET SL PRN (23:23)
[2023-04-25] MEDS ORDERED: chlordiazePOXIDE HCL 25 MG CAPSULE ONE (23:53)
[2023-04-25] MEDS: chlordiazePOXIDE HCL 25 MG CAPSULE PO SCH (23:55)
[2023-04-26] MEDS: METHOCARBAMOL 500 MG TABLET PO PRN ×3 (01:33→18:36)
[2023-04-26] MEDS: hydrOXYzine PAMOATE 25 MG CAPSULE (FP) PO PRN ×3 (01:33→22:26)
[2023-04-26] MEDS: chlordiazePOXIDE HCL 25 MG CAPSULE PO SCH ×4 (05:44→22:34)
[2023-04-26] MEDS ORDERED: methaDONE HCL 10 MG TABLET PO ONE (10:00)
[2023-04-26] MEDS: NICOTINE 21 MG/24 HOURS TOPICAL PATCH TD SCH (10:16)
[2023-04-26] MEDS: PRENATAL VITAMINS W/ FOLIC ACID TABLET (FP) PO SCH (10:16)
[2023-04-26] MEDS: IBUPROFEN 600 MG TABLET (FP) PO PRN (18:36)
[2023-04-26] MEDS ORDERED: THIAMINE HCL 100 MG TABLET (FP) PO SCH (22:00)
[2023-04-26] MEDS ORDERED: MELATONIN 5 MG TABLETS PO SCH (22:00)
[2023-04-27] MEDS: chlordiazePOXIDE HCL 25 MG CAPSULE PO PRN ×2 (03:58→14:45)
[2023-04-27] MEDS: METHOCARBAMOL 500 MG TABLET PO PRN ×2 (04:03→10:35)
[2023-04-27] MEDS: IBUPROFEN 600 MG TABLET (FP) PO PRN ×2 (04:04→10:35)
[2023-04-27] MEDS ORDERED: methaDONE HCL 10 MG TABLET PO SCH (06:00)
[2023-04-27] MEDS: chlordiazePOXIDE HCL 25 MG CAPSULE PO SCH ×2 (06:04→10:26)
[2023-04-27] MEDS: NICOTINE 21 MG/24 HOURS TOPICAL PATCH TD SCH (10:26)
[2023-04-27] MEDS: PRENATAL VITAMINS W/ FOLIC ACID TABLET (FP) PO SCH (10:26)
[2023-04-27 13:14] VITALS: BP 146/97; PULSE 90; RESP 18; TEMP 97.7
[2023-04-27] MEDS ORDERED: GABAPENTIN 300 MG CAPSULE PO SCH (14:01)
[2023-04-28] MEDS ORDERED: chlordiazePOXIDE HCL 10 MG CAPSULE PO PRN
[2023-04-28] MEDS ORDERED: chlordiazePOXIDE HCL 10 MG CAPSULE PO SCH (05:00)
[2023-04-29] MEDS ORDERED: chlordiazePOXIDE HCL 10 MG CAPSULE PO SCH (05:00)
[2023-04-30] MEDS ORDERED: chlordiazePOXIDE HCL 10 MG CAPSULE PO ONE (05:00)
== END 2023-04-27 15:59 | disposition left against medical advice (07) | DRG 770 ==
LOC: YASAS 22:23 → Y3N 23:36
PROVIDERS: ADMIT Allergy & Immunology; ATTEND Surgery
PROC: HZ2ZZZZ Detoxification Services for Substance Abuse Treatment (ICD-10-PCS; principal; 2023-04-25)
DX: F10.230 Alcohol dependence with withdrawal, uncomplicated (principal); F13.230 Sedative, hypnotic or anxiolytic dependence with withdrawal, uncomplicated; F11.20 Opioid dependence, uncomplicated; F14.20 Cocaine dependence, uncomplicated; F15.10 Other stimulant abuse, uncomplicated; F31.9 Bipolar disorder, unspecified; F19.24 Other psychoactive substance dependence with psychoactive substance-induced mood disorder; U07.1 COVID-19; Z28.310 Unvaccinated for COVID-19; Z28.9 Immunization not carried out for unspecified reason; Z56.0 Unemployment, unspecified; Z59.01 Sheltered homelessness; Z88.8 Allergy status to other drugs, medicaments and biological substances
CPT/HCPCS: 87635; 87811

== ENCOUNTER 2023-06-02 02:18 | Inpatient (IN) | payer BC, OTHER ==
[2023-06-02 02:44] VITALS: BMI 23.1
[2023-06-02] MEDS ORDERED: ONDANSETRON *ODT* 4 MG TABLET SL PRN (03:03)
[2023-06-02] MEDS ORDERED: BENZONATATE 200 MG CAPSULE PO PRN (03:03)
[2023-06-02] MEDS ORDERED: hydrOXYzine PAMOATE 25 MG CAPSULE (FP) PO PRN (03:03)
[2023-06-02] MEDS ORDERED: BENZOCAINE/MENTHOL (CHLORASEPTIC ) LOZENGE MM PRN (03:03)
[2023-06-02] MEDS ORDERED: IBUPROFEN 600 MG TABLET (FP) PO PRN (03:03)
[2023-06-02] MEDS ORDERED: DICYCLOMINE HCL 10 MG CAPSULE PO PRN (03:03)
[2023-06-02] MEDS ORDERED: ACETAMINOPHEN 325 MG TABLET (FP) PO PRN (03:03)
[2023-06-02] MEDS ORDERED: methaDONE HCL 10 MG TABLET (FOR DETOX USE ONLY) PO ONE ×2 (03:03→10:00)
[2023-06-02] MEDS ORDERED: guaiFENesin 600 MG TABLET.ER (FP) PO PRN (03:03)
[2023-06-02] MEDS ORDERED: NALOXONE HCL (KLOXXADO) 8 MG SPRAY NS PRN (03:03)
[2023-06-02] MEDS ORDERED: IBUPROFEN 400 MG TABLET (FP) PO PRN (03:03)
[2023-06-02] MEDS ORDERED: POLYETHYLENE GLYCOL (HEALTHYLAX) 3350 17 GM PACKET PO PRN (03:03)
[2023-06-02] MEDS ORDERED: MAGNESIUM HYDROX 2400MG/30ML ORAL SUSPENSION 30 ML CUP PO PRN (03:03)
[2023-06-02] MEDS ORDERED: LOPERAMIDE HCL 2 MG CAPSULE PO PRN (03:03)
[2023-06-02] MEDS ORDERED: BISMUTH SUBSALICYLATE 524 MG/30 ML PO PRN (03:03)
[2023-06-02] MEDS ORDERED: NALOXONE HCL 0.4 MG/ML VIAL IM PRN (03:03)
[2023-06-02] MEDS ORDERED: MAG HYDROX/AL HYDROX/SIMETH 30 ML UNIT-DOSE CUP PO PRN (03:03)
[2023-06-02] MEDS: chlordiazePOXIDE HCL 25 MG CAPSULE PO PRN (04:00)
[2023-06-02] MEDS: NICOTINE POLACRILEX 4 MG GUM BUC PRN ×4 (04:05→22:33)
[2023-06-02] MEDS: chlordiazePOXIDE HCL 25 MG CAPSULE PO SCH ×4 (05:25→22:31)
[2023-06-02] MEDS: PRENATAL VITAMINS W/ FOLIC ACID TABLET (FP) PO SCH (10:18)
[2023-06-02] MEDS: TOLNAFTATE 1% CREAM 15 GM TUBE TP SCH ×2 (10:19→22:34)
[2023-06-02] MEDS: NICOTINE 21 MG/24 HOURS TOPICAL PATCH TD SCH (10:23)
[2023-06-02] MEDS: MELATONIN 5 MG TABLETS PO SCH (22:31)
[2023-06-02] MEDS: METHOCARBAMOL 500 MG TABLET PO PRN (22:31)
[2023-06-02] MEDS: THIAMINE HCL 100 MG TABLET (FP) PO SCH (22:31)
[2023-06-03] MEDS: chlordiazePOXIDE HCL 25 MG CAPSULE PO PRN (03:16)
[2023-06-03] MEDS: chlordiazePOXIDE HCL 25 MG CAPSULE PO SCH ×2 (05:53→10:10)
[2023-06-03] MEDS: METHOCARBAMOL 500 MG TABLET PO PRN ×3 (05:53→22:19)
[2023-06-03] MEDS: NICOTINE POLACRILEX 4 MG GUM BUC PRN ×3 (10:07→22:20)
[2023-06-03] MEDS: PRENATAL VITAMINS W/ FOLIC ACID TABLET (FP) PO SCH (10:09)
[2023-06-03] MEDS: TOLNAFTATE 1% CREAM 15 GM TUBE TP SCH ×2 (10:10→22:18)
[2023-06-03] MEDS: NICOTINE 21 MG/24 HOURS TOPICAL PATCH TD SCH (10:11)
[2023-06-03] MEDS: cloNIDine HCL 0.1 MG TABLET PO PRN ×2 (11:20→22:19)
[2023-06-03] MEDS: diazePAM 5 MG TABLET PO PRN ×2 (12:45→19:22)
[2023-06-03] MEDS: diazePAM 5 MG TABLET PO SCH ×2 (17:13→22:19)
[2023-06-03 21:15] VITALS: RESP 18
[2023-06-03] MEDS: THIAMINE HCL 100 MG TABLET (FP) PO SCH (22:19)
[2023-06-03] MEDS: MELATONIN 5 MG TABLETS PO SCH (22:19)
[2023-06-04] MEDS ORDERED: chlordiazePOXIDE HCL 10 MG CAPSULE PO PRN
[2023-06-04] MEDS: diazePAM 5 MG TABLET PO PRN ×2 (00:52→09:24)
[2023-06-04] MEDS ORDERED: chlordiazePOXIDE HCL 10 MG CAPSULE PO SCH (05:00)
[2023-06-04] MEDS: cloNIDine HCL 0.1 MG TABLET PO PRN ×2 (05:53→11:12)
[2023-06-04] MEDS: NICOTINE POLACRILEX 4 MG GUM BUC PRN ×2 (05:54→09:27)
[2023-06-04] MEDS ORDERED: diazePAM 5 MG TABLET PO SCH (06:00)
[2023-06-04 06:21] VITALS: TEMP 98.1
[2023-06-04] MEDS: PRENATAL VITAMINS W/ FOLIC ACID TABLET (FP) PO SCH (09:23)
[2023-06-04] MEDS: METHOCARBAMOL 500 MG TABLET PO PRN (09:23)
[2023-06-04] MEDS: TOLNAFTATE 1% CREAM 15 GM TUBE TP SCH (09:23)
[2023-06-04] MEDS: NICOTINE 21 MG/24 HOURS TOPICAL PATCH TD SCH (09:27)
[2023-06-04] MEDS ORDERED: methaDONE HCL 10 MG TABLET (FOR DETOX USE ONLY) PO ONE (10:00)
[2023-06-04 11:11] VITALS: BP 145/92; PULSE 92
[2023-06-05] MEDS ORDERED: chlordiazePOXIDE HCL 10 MG CAPSULE PO SCH (05:00)
[2023-06-05] MEDS ORDERED: diazePAM 5 MG TABLET PO SCH (10:00)
[2023-06-06] MEDS ORDERED: chlordiazePOXIDE HCL 10 MG CAPSULE PO ONE (05:00)
[2023-06-06] MEDS ORDERED: diazePAM 5 MG TABLET PO ONE (06:00)
[2023-06-06] MEDS ORDERED: methaDONE HCL 10 MG TABLET (FOR DETOX USE ONLY) PO ONE (10:00)
== END 2023-06-04 12:32 | disposition left against medical advice (07) | DRG 770 ==
LOC: YASAS 02:18 → Y3N 03:19
PROVIDERS: ADMIT Allergy & Immunology; ATTEND Surgery
PROC: HZ2ZZZZ Detoxification Services for Substance Abuse Treatment (ICD-10-PCS; principal; 2023-06-02)
DX: F11.23 Opioid dependence with withdrawal (principal); F10.230 Alcohol dependence with withdrawal, uncomplicated; F14.20 Cocaine dependence, uncomplicated; F17.210 Nicotine dependence, cigarettes, uncomplicated; F19.24 Other psychoactive substance dependence with psychoactive substance-induced mood disorder; Z28.310 Unvaccinated for COVID-19; Z28.9 Immunization not carried out for unspecified reason; Z91.199 Patient's noncompliance with other medical treatment and regimen due to unspecified reason; Z88.8 Allergy status to other drugs, medicaments and biological substances; Z59.00 Homelessness unspecified
CPT/HCPCS: 87635